=== PATIENT | female | born 1945 | race Caucasian/White ===

== ENCOUNTER 2021-02-07 12:16 | Outpatient (REF) | payer MEDICARE, SELFPAY ==
[2021-02-07 13:59] LABS: MANUAL DIFF FLAG NO
[2021-02-07 14:04] LABS: Basophils Absolute Auto 0.1 X10*3/uL (0.0-0.2); Basophils Percent Auto 0.6 % (0-2); Eosinophils Absolute Auto 0.1 X10*3/uL (0.0-0.4); Eosinophils Percent Auto 1.3 % (0-4); Hematocrit 47.5 % (37.0-47.0); Hemoglobin 16.1 g/dl (12.0-16.0); Imm Gran Abs Auto 0.02 X10*3/uL (0.00-0.03); Imm Gran Pct Auto 0.3 % (0.0-0.4); Lymphocytes Percent Auto 25.1 % (20-40); Mean Corpuscular HGB Conc 33.9 g/dl (31.0-35.0); Mean Corpuscular Hemoglobin 32.3 pg (27.0-33.0); Mean Corpuscular Volume 95.4 fL (80.0-98.0); Mean Platelet Volume 9.5 fL (9.4-12.3); Monocytes Absolute Auto 0.7 X10*3/uL (0.1-1.2); Monocytes Percent Auto 9.4 % (2-11); Neutrophils Absolute Auto 4.9 x10*3/uL (2.0-8.3); Neutrophils Percent Auto 63.3 % (45-73); Platelet Count 341 X10*3/uL (160-400); Red Blood Count 4.98 X10*6/uL (4.20-5.50); Red Cell Distribution Width 12.5 % (11.0-16.0); White Blood Count 7.8 X10*3/uL (4.8-10.8)
[2021-02-07 14:28] LABS: Alanine Aminotransferase 20 U/L (0-31); Albumin Level 4.7 g/dL (3.5-5.0); Alkaline Phosphatase 60 U/L (39-117); Anion Gap 15 (12-20); Aspartate Amino Transferase 22 U/L (5-31); Bilirubin Total 0.7 mg/dL (0.0-1.0); Blood Urea Nitrogen 11 mg/dL (9-16); C Reactive Protein 0.13 mg/dL (< or = 0.50); Calcium 10.2 mg/dL (8.4-10.2); Carbon Dioxide 24 mmol/L (22-29); Chloride 102 mmol/L (96-108); Estimated Glomerular Filt Rate > 60; Glucose Random 83 mg/dL (60-115); Potassium 4.4 mmol/L (3.3-5.1); Sodium 137 mmol/L (135-145); Total Protein 7.4 g/dL (6.5-8.0)
[2021-02-07 14:51] LABS: Free T4 (Free Thyroxine) 1.72 ng/dL (0.71-1.85); Thyroid Stimulating Hormone 0.03 uIU/mL (0.32-4.0)
== END 2021-02-07 12:17 | disposition home or self-care (01) ==
LOC: HO.10HDL 12:16
PROVIDERS: Visit Provider Internal Medicine
DX: I10 Essential (primary) hypertension (principal); E03.9 Hypothyroidism, unspecified
CPT/HCPCS: 36415; 80053; 84439; 84443; 85025; 86140; 86787

== ENCOUNTER 2021-03-20 11:35 | Outpatient (REF) | payer MEDICARE, SELFPAY ==
[2021-03-20 14:36] LABS: Free T4 (Free Thyroxine) 1.26 ng/dL (0.71-1.85); Thyroid Stimulating Hormone 1.22 uIU/mL (0.32-4.0)
== END 2021-03-20 11:36 | disposition home or self-care (01) ==
LOC: HO.10HDL 11:35
PROVIDERS: Visit Provider Internal Medicine
DX: E03.9 Hypothyroidism, unspecified (principal)
CPT/HCPCS: 36415; 84439; 84443

== ENCOUNTER 2021-04-10 16:16 | Outpatient (REF) | payer MEDICARE, SELFPAY ==
--- NOTE | ~2021-04-10 | MR_ITS ---
EXAMINATION: MRI CHEST WITHOUT CONTRAST CLINICAL INFORMATION: Persistent left rib pain. Intercostal pain. No injury. COMPARISON: None TECHNIQUE: Multisequence MR imaging of the chest was obtained without contrast on a high-field strength scanner. FINDINGS: There is focal edema at the left 10th and 11th rib costochondral junctions, best seen on series 15, coronal image 29/40. There is mild adjacent soft tissue edema. Findings likely represent costochondritis and can be seen in the setting of an inflammatory process or represent a traumatic injury. An infectious process is thought less likely as there is not significant adjacent marrow edema. No definite rib fracture identified, however evaluation is limited on MR examination. No additional abnormal marrow signal or evidence of acute osseous injury. No large airspace consolidation or large soft tissue mass within the lungs. Evaluation limited as the lung apices are not included and there is prominent respiratory motion. The mediastinum is grossly unremarkable. Partially visualized within the upper abdomen is an anterior right hepatic 0.9 cm simple-appearing cyst as well as bilateral simple-appearing renal cysts. Findings are not clinically significant and no continued follow up imaging is recommended. MR/MR chest wo con IMPRESSION: Edema at the left 10th and 11th rib costochondral junctions with adjacent soft tissue edema. Findings likely represent costochondritis and can be seen in the setting of an inflammatory process or traumatic injury. An infectious process is thought less likely as there is not significant adjacent marrow edema. No definite rib fracture, however fine bony detail is limited on MRI examination.
== END 2021-04-10 16:17 | disposition home or self-care (01) ==
LOC: HO.MRI 16:16
PROVIDERS: PCP Internal Medicine; Visit Provider Internal Medicine
DX: R07.82 Intercostal pain (principal)
CPT/HCPCS: 71550

== ENCOUNTER 2021-09-23 10:56 | Outpatient (REF) | payer MEDICARE, SELFPAY ==
[2021-09-23 13:31] LABS: MANUAL DIFF FLAG NO
[2021-09-23 13:39] LABS: Basophils Percent Auto 0.8 % (0-2); Eosinophils Absolute Auto 0.2 X10*3/uL (0.0-0.4); Eosinophils Percent Auto 3.6 % (0-4); Hematocrit 48.1 % (37.0-47.0); Hemoglobin 15.8 g/dl (12.0-16.0); Imm Gran Abs Auto 0.01 X10*3/uL (0.00-0.03); Imm Gran Pct Auto 0.2 % (0.0-0.4); Lymphocytes Absolute Auto 1.5 X10*3/uL (1.2-4.9); Lymphocytes Percent Auto 29.4 % (20-40); Mean Corpuscular HGB Conc 32.8 g/dl (31.0-35.0); Mean Corpuscular Hemoglobin 32.3 pg (27.0-33.0); Mean Corpuscular Volume 98.4 fL (80.0-98.0); Mean Platelet Volume 9.5 fL (9.4-12.3); Monocytes Absolute Auto 0.5 X10*3/uL (0.1-1.2); Monocytes Percent Auto 10.2 % (2-11); Neutrophils Absolute Auto 2.8 x10*3/uL (2.0-8.3); Neutrophils Percent Auto 55.8 % (45-73); Platelet Count 355 X10*3/uL (160-400); Red Blood Count 4.89 X10*6/uL (4.20-5.50)
[2021-09-23 14:18] LABS: Alanine Aminotransferase 74 U/L (0-31); Albumin Level 4.5 g/dL (3.5-5.0); Alkaline Phosphatase 185 U/L (39-117); Anion Gap 14 (12-20); Aspartate Amino Transferase 67 U/L (5-31); Bilirubin Total 0.4 mg/dL (0.0-1.0); Blood Urea Nitrogen 10 mg/dL (9-16); Calcium 10.5 mg/dL (8.4-10.2); Carbon Dioxide 28 mmol/L (22-29); Chloride 103 mmol/L (96-108); Cholesterol 209 mg/dL; Estimated Glomerular Filt Rate > 60; Glucose Fasting 97 mg/dL (60-99); HDL Cholesterol 66 mg/dL; LDL Cholesterol Calculated 115 mg/dl; Potassium 5.5 mmol/L (3.3-5.1); Sodium 139 mmol/L (135-145); Total Protein 7.5 g/dL (6.5-8.0); Triglycerides 143 mg/dL
[2021-09-23 14:40] LABS: Free T4 (Free Thyroxine) 1.41 ng/dL (0.71-1.85); Thyroid Stimulating Hormone 0.74 uIU/mL (0.32-4.0)
== END 2021-09-23 10:57 | disposition home or self-care (01) ==
LOC: HO.10HDL 10:56
PROVIDERS: Visit Provider Internal Medicine
DX: E03.9 Hypothyroidism, unspecified (principal); I10 Essential (primary) hypertension; E78.00 Pure hypercholesterolemia, unspecified
CPT/HCPCS: 36415; 80053; 80061; 84439; 84443; 85025

== ENCOUNTER 2021-10-13 10:28 | Outpatient (REF) | payer MEDICARE, SELFPAY ==
[2021-10-13 14:12] LABS: Alanine Aminotransferase 35 U/L (0-31); Albumin Level 4.6 g/dL (3.5-5.0); Alkaline Phosphatase 117 U/L (39-117); Anion Gap 14 (12-20); Aspartate Amino Transferase 36 U/L (5-31); Bilirubin Total 0.5 mg/dL (0.0-1.0); Blood Urea Nitrogen 11 mg/dL (9-16); Calcium 9.9 mg/dL (8.4-10.2); Carbon Dioxide 26 mmol/L (22-29); Chloride 101 mmol/L (96-108); Estimated Glomerular Filt Rate > 60; Glucose Random 93 mg/dL (60-115); Potassium 4.9 mmol/L (3.3-5.1); Sodium 136 mmol/L (135-145); Total Protein 7.3 g/dL (6.5-8.0)
== END 2021-10-13 10:29 | disposition home or self-care (01) ==
LOC: HO.10HDL 10:28
PROVIDERS: Visit Provider Internal Medicine
DX: E78.00 Pure hypercholesterolemia, unspecified (principal)
CPT/HCPCS: 36415; 80053

== ENCOUNTER 2021-11-14 15:26 | Outpatient (REF) | payer MEDICARE, SELFPAY ==
--- NOTE | ~2021-11-14 | CT_ITS ---
EXAMINATION: CT CHEST SCREENING CLINICAL INFORMATION: Current smoker. 60-pack year history. COMPARISON: Chest MRI April 2021. TECHNIQUE: Multidetector volumetric CT imaging of the chest is performed without contrast using low dose technique. Additional 2D coronal and sagittal reformatted images and axial 3D maximum intensity projection (MIP) images are generated on the CT workstation. This CT examination was performed using dose optimization techniques as appropriate, variously including the following: *Automated exposure control *Adjustment of mA and/or kV according to patient size (this includes techniques or standardized protocols for targeted exams where dose is matched to indication/reason for exam; i.e. extremities or head) *Use of iterative reconstruction technique DLP: 43 mGy-cm. FINDINGS: LUNGS: The lungs are clear with no evidence of inflammation or nodules. MEDIASTINUM: Coronary artery calcification and atherosclerotic disease. The mediastinum is otherwise normal. PLEURA: There is no pleural effusion. No pleural mass or thickening. AXILLA: No lymphadenopathy. UPPER ABDOMEN: Wall thickening of the stomach. Small stable liver cyst. OSSEOUS STRUCTURES: There are degenerative changes of the spine. CT/CT lung screening IMPRESSION: Atherosclerotic disease and mild coronary artery calcification. ASSESSMENT: Lung-RADS category 1: Negative RECOMMENDATION: Annual low-dose chest CT follow-up recommended.
== END 2021-11-14 15:27 | disposition home or self-care (01) ==
LOC: HO.CT 15:26
PROVIDERS: PCP Internal Medicine; Visit Provider Physician Assistant Medical
DX: F17.210 Nicotine dependence, cigarettes, uncomplicated (principal)
CPT/HCPCS: 71271; G0296

== ENCOUNTER 2021-12-24 11:32 | Outpatient (REF) | payer MEDICARE, SELFPAY ==
[2021-12-24 14:00] LABS: Alanine Aminotransferase 35 U/L (0-31); Albumin Level 4.6 g/dL (3.5-5.0); Alkaline Phosphatase 90 U/L (39-117); Aspartate Amino Transferase 37 U/L (5-31); Bilirubin Direct 0.3 mg/dL (0.0-0.5); Bilirubin Total 0.7 mg/dL (0.0-1.0); Total Protein 7.4 g/dL (6.5-8.0)
== END 2021-12-24 11:33 | disposition home or self-care (01) ==
LOC: HO.10HDL 11:32
PROVIDERS: Visit Provider Internal Medicine
DX: R79.89 Other specified abnormal findings of blood chemistry (principal)
CPT/HCPCS: 36415; 80076

== ENCOUNTER 2022-04-08 12:18 | Outpatient (REF) | payer MEDICARE, SELFPAY ==
[2022-04-08 14:18] LABS: MANUAL DIFF FLAG NO
[2022-04-08 14:23] LABS: Basophils Absolute Auto 0.1 X10*3/uL (0.0-0.2); Basophils Percent Auto 1.1 % (0-2); Eosinophils Absolute Auto 0.2 X10*3/uL (0.0-0.4); Eosinophils Percent Auto 2.5 % (0-4); Hematocrit 47.5 % (37.0-47.0); Hemoglobin 15.7 g/dl (12.0-16.0); Imm Gran Abs Auto 0.01 X10*3/uL (0.00-0.03); Imm Gran Pct Auto 0.2 % (0.0-0.4); Lymphocytes Percent Auto 32.2 % (20-40); Mean Corpuscular HGB Conc 33.1 g/dl (31.0-35.0); Mean Corpuscular Hemoglobin 31.7 pg (27.0-33.0); Mean Platelet Volume 8.9 fL (9.4-12.3); Monocytes Absolute Auto 0.5 X10*3/uL (0.1-1.2); Monocytes Percent Auto 8.7 % (2-11); Neutrophils Absolute Auto 3.4 x10*3/uL (2.0-8.3); Neutrophils Percent Auto 55.3 % (45-73); Platelet Count 400 X10*3/uL (160-400); Red Blood Count 4.95 X10*6/uL (4.20-5.50); Red Cell Distribution Width 13.2 % (11.0-16.0); White Blood Count 6.1 X10*3/uL (4.8-10.8)
[2022-04-08 14:45] LABS: Alanine Aminotransferase 19 U/L (0-31); Albumin Level 4.4 g/dL (3.5-5.0); Alkaline Phosphatase 68 U/L (39-117); Anion Gap 10 (12-20); Aspartate Amino Transferase 23 U/L (5-31); Bilirubin Total 0.5 mg/dL (0.0-1.0); Blood Urea Nitrogen 10 mg/dL (9-16); Calcium 10.2 mg/dL (8.4-10.2); Carbon Dioxide 30 mmol/L (22-29); Chloride 102 mmol/L (96-108); Estimated Glomerular Filt Rate > 60; Glucose Random 94 mg/dL (60-115); Potassium 4.3 mmol/L (3.3-5.1); Sodium 138 mmol/L (135-145)
[2022-04-08 15:03] LABS: Thyroid Stimulating Hormone 3.12 uIU/mL (0.32-4.0)
== END 2022-04-08 12:19 | disposition home or self-care (01) ==
LOC: HO.10HDL 12:18
PROVIDERS: Visit Provider Internal Medicine
DX: E78.00 Pure hypercholesterolemia, unspecified (principal); E03.9 Hypothyroidism, unspecified; I10 Essential (primary) hypertension
CPT/HCPCS: 36415; 80053; 84439; 84443; 85025

== ENCOUNTER 2022-07-30 10:02 | Outpatient (REF) | payer MEDICARE, SELFPAY ==
[2022-07-30 11:30] LABS: MANUAL DIFF FLAG NO
[2022-07-30 11:44] LABS: Basophils Absolute Auto 0.1 X10*3/uL (0.0-0.2); Basophils Percent Auto 0.9 % (0-2); Eosinophils Absolute Auto 0.2 X10*3/uL (0.0-0.4); Eosinophils Percent Auto 2.6 % (0-4); Hematocrit 47.5 % (37.0-47.0); Hemoglobin 16.1 g/dl (12.0-16.0); Imm Gran Abs Auto 0.02 X10*3/uL (0.00-0.03); Imm Gran Pct Auto 0.3 % (0.0-0.4); Mean Corpuscular HGB Conc 33.9 g/dl (31.0-35.0); Mean Corpuscular Hemoglobin 33.3 pg (27.0-33.0); Mean Corpuscular Volume 98.1 fL (80.0-98.0); Mean Platelet Volume 9.1 fL (9.4-12.3); Monocytes Absolute Auto 0.5 X10*3/uL (0.1-1.2); Monocytes Percent Auto 7.6 % (2-11); Neutrophils Absolute Auto 3.9 x10*3/uL (2.0-8.3); Neutrophils Percent Auto 58.6 % (45-73); Platelet Count 394 X10*3/uL (160-400); Red Blood Count 4.84 X10*6/uL (4.20-5.50); Red Cell Distribution Width 13.5 % (11.0-16.0); White Blood Count 6.6 X10*3/uL (4.8-10.8)
[2022-07-30 12:40] LABS: Alanine Aminotransferase 16 U/L (0-31); Albumin Level 4.4 g/dL (3.5-5.0); Alkaline Phosphatase 75 U/L (39-117); Anion Gap 13 (12-20); Aspartate Amino Transferase 19 U/L (5-31); Bilirubin Total 0.6 mg/dL (0.0-1.0); Blood Urea Nitrogen 11 mg/dL (9-16); Calcium 9.9 mg/dL (8.4-10.2); Carbon Dioxide 27 mmol/L (22-29); Chloride 106 mmol/L (96-108); Cholesterol 293 mg/dL; Estimated Glomerular Filt Rate > 60; Free T4 (Free Thyroxine) 1.15 ng/dL (0.71-1.85); Glucose Fasting 91 mg/dL (60-99); HDL Cholesterol 61 mg/dL; LDL Cholesterol Calculated 210 mg/dl; Magnesium 2.3 mg/dL (1.6-2.6); Potassium 4.4 mmol/L (3.3-5.1); Sodium 142 mmol/L (135-145); Thyroid Stimulating Hormone 2.06 uIU/mL (0.32-4.0); Total Protein 6.8 g/dL (6.5-8.0); Triglycerides 112 mg/dL
== END 2022-07-30 10:03 | disposition home or self-care (01) ==
LOC: HO.10HDL 10:02
PROVIDERS: Visit Provider Internal Medicine
DX: Z00.00 Encounter for general adult medical examination without abnormal findings (principal); E03.9 Hypothyroidism, unspecified; R10.9 Unspecified abdominal pain
CPT/HCPCS: 36415; 80053; 80061; 83735; 84439; 84443; 85025

== ENCOUNTER 2022-08-17 12:15 | Outpatient (REF) | payer MEDICARE, SELFPAY ==
[2022-08-17 13:55] LABS: C Reactive Protein 0.47 mg/dL (< or = 0.50); Rheumatoid Factor < 13.0 IU/mL (<15.0)
[2022-08-17 14:43] LABS: Erythrocyte Sedimentation Rate 5 MM/HR (0-20)
[2022-08-19 15:37] LABS: Anti Nuclear Antibody Screen NEGATIVE (NEGATIVE)
== END 2022-08-17 12:16 | disposition home or self-care (01) ==
LOC: HO.10HDL 12:15
PROVIDERS: Visit Provider Internal Medicine
DX: L65.9 Nonscarring hair loss, unspecified (principal); Z84.0 Family history of diseases of the skin and subcutaneous tissue
CPT/HCPCS: 36415; 85652; 86038; 86140; 86431

== ENCOUNTER 2022-09-21 11:21 | Outpatient (REF) | payer MEDICARE, SELFPAY ==
[2022-09-22 11:18] LABS: BV Int Neg Control Negative (Negative); BV Int Pos Control Positive (Positive)
== END 2022-09-21 11:22 | disposition home or self-care (01) ==
LOC: HO.LAB 11:21
PROVIDERS: PCP Internal Medicine; Visit Provider Obstetrics & Gynecology
DX: N89.8 Other specified noninflammatory disorders of vagina (principal)
CPT/HCPCS: 87480; 87510; 87660; 99212

== ENCOUNTER 2022-11-09 09:48 | Outpatient (AMB) | payer MEDICARE, SELFPAY ==
[2022-11-09 09:55] VITALS: BP 146/80; PULSE 82; BMI 23.8
--- NOTE | 2022-11-09 09:55 | MHC.OFFVIS ---
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 Reclamation Required: No Allergies shellfish derived Allergy (Unknown, Verified 09/21/22 11:27) Unknown Sulfa (Sulfonamide Antibiotics) Allergy (Unknown, Verified 09/21/22 11:27) Unknown amoxicillin [From Augmentin] Adverse Reaction (Mild, Verified 09/23/22 10:58) Nausea and Vomiting clavulanic acid [From Augmentin] Adverse Reaction (Mild, Verified 09/23/22 10:58) Nausea and Vomiting Medication List - Last Reconciled 11/09/22 by Hood Vogel MD amlodipine 5 mg PO DAILY cetirizine 10 mg PO DAILY PRN cholecalciferol (vitamin D3) 50 mcg PO DAILY clindamycin phosphate 2% 1 appful vaginal BEDTIME 7 days coenzyme Q10 (Ultra CoQ10) 75 mg PO DAILY levothyroxine 150 mcg PO DAILY lisinopril 30 mg PO DAILY omega 3-pbr-dvk-fish oil 1,200 (144-216) mg (Fish Oil) caps PO omeprazole 20 mg PO DAILY rosuvastatin 10 mg PO BEDTIME HPI HPI Comments History of Present Illness Details Thank you for referring clot in cardiology consultation today for management of hyperlipidemia. She is a 77-year-old woman who had atypical ribcage pain few years ago for which she had EKG performed which had shown bifascicular block. Subsequently was seen by Cardiology at [facility] and had echocardiogram which had shown normal LV systolic function with mild LVH without any significant regional wall motion abnormality or valvular abnormality. Since then her ribcage pain has been well controlled. She then developed skin condition and felt like this was related to statin therapy and decided to come off statin therapy. Her LDL followed after that was markedly elevated to 110 mg/dL. She continues to smoke about 1 pack a day. She has family history of premature coronary artery disease. She had a recent CT scan for cancer screening which showed aortic as well as coronary artery calcification consistent with atherosclerosis. She has been referred here for further evaluation. She denies any overt symptoms of exertional chest pain. She denies any symptoms of palpitations, lightheadedness, syncope. Complains of shortness of breath but this is not unusual for her. [facility] Medical History Hyperlipidemia Hypertension Hypothyroidism Personal history of nicotine dependence Surgical History History of bladder surgery History of cholecystectomy History of hysterectomy History of lumpectomy of right breast History of tonsillectomy History of tubal ligation Family History Sister Cancer of kidney Psoriasis Arthritis Lupus Blood clot in vein Acute Crohn's disease Father Atherosclerosis Social History Patient Tobacco Use Status: Current everyday Tobacco user Tobacco use type: Cigarette Cigarette Packs Per Day: 1 Years Smoked: onset 17, 1ppd x 59yrs, 50+PYH Review of Systems Const Denies chills, Denies daytime sleepiness, Denies fatigue, Denies fever(s), Denies frequent falls, Denies poor appetite, Denies snoring, Denies stops breathing during sleep, Denies weakness, Denies weight gain and Denies weight loss Eyes Denies loss of vision ENT Denies dizziness and Denies hearing loss Card Denies chest pain, Denies claudication, Denies leg edema, Denies lightheadedness, Denies palpitations, Denies dyspnea, Denies dyspnea on exertion and Denies orthopnea Resp Denies cough, Denies excessive phlegm production, Denies dyspnea, Denies dyspnea on exertion, Denies snoring and Denies wheezing GI Denies abdominal pain, Denies hematochezia, Denies change in bowel habits, Denies nausea and Denies vomiting Denies urinary frequency and Denies dysuria Musc Denies arthralgias, Denies muscle weakness, Denies numbness and Denies other (frequent falls) Skin/Breast Denies nail changes and Denies rash Neuro Denies Abnormal speech present, Denies dizziness, Denies frequent falls, Denies loss of vision, Denies memory loss, Denies numbness and Denies weakness Psych Denies depression and Denies memory loss Endo Denies fatigue and Denies palpitations Minh/Lymph Reports easy bruising and Reports other (anemia) Aller/Immun Denies wheezing Physical Exam Vital Signs: Last Vital Signs Pulse 82 11/09/22 09:55 BP 146/80 H 11/09/22 09:55 BMI result Body Mass Index 23.8 Const General: cooperative, comfortable, no acute distress, well developed, alert, awake and well groomed Nutritional Appearance: average body habitus and well nourished Orientation/consciousness: patient oriented x3 Limitations: no limitations HEENT Head: Yes normocephalic and Yes atraumatic Neck Neck: Yes trachea midline, Yes supple and Yes no JVD Resp Effort & Inspection: normal respiratory effort Auscultation: clear to auscultation bilaterally Cardio Jugular venous distension: no JVD Palpation: normal PMI Rate: regular rate Rhythm: regular rhythm Heart sounds: S1 normal heart sound present, S2 normal heart sound present, no click, no gallops, no murmurs and no rubs GI Auscultation: normal bowel sounds Skin General skin exam: no rashes or lesions noted Neuro General: patient oriented x3 and no focal motor deficits Speech: No Abnormal speech present Extrem General: Yes no clubbing, cyanosis or edema Office Procedures EKG Details: EKG shows normal sinus rhythm with right bundle and left anterior fascicular block, unchanged from before with QS pattern in lead V1 V2 [id number], Complete Assessment & Plan Assessment & Plan (1) CAD (coronary artery disease): Code(s): I25.10 - Atherosclerotic heart disease of [place] coronary artery without angina pectoris Plan: CAD as noted by coronary calcification recent CT scan. She has multiple risk factors for obstructive coronary artery disease including aging, family history for coronary artery disease, marked hyperlipidemia, hypertension as well as personal history of smoking. She has bifascicular block. Would suggest her to undergo exercise myocardial perfusion imaging to evaluate for obstructive coronary artery disease for diagnostic as well as prognostic purposes. This test will be scheduled in near future. Advised complete smoking cessation. Blood pressure is currently well optimized. Advised to monitor blood pressure at home maintain a log. Goal blood pressure less than 130/84. 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 Advised statin therapy. She is currently on 10 mg of Crestor and would suggest to repeat lipid panel in 6 weeks time. Goal LDL less than 70 mg/dL. This was discussed with her. She understands and agrees. (2) Bifascicular block: Code(s): I45.2 - Bifascicular block Plan: Bifascicular block on EKG which is unchanged in the last couple years. Advised to monitor on annual basis by EKG. Rare progression to complete heart block was discussed with her. Advised to call and with any symptoms related to the same. Will follow up in the clinic in 6 weeks time, sooner p.r.n.. Thank you for allowing me to partake in her care Coding Level of Care Code New Pt Level 4 (42293) Diagnoses CAD (coronary artery disease) I25.10 Bifascicular block I45.2 CPT Codes EKG - CPT: [id number], Complete ([id number])
== END 2022-11-09 10:58 | disposition home or self-care (01) ==
PROVIDERS: PCP Internal Medicine; Referring Provider Internal Medicine; Visit Provider Internal Medicine Cardiovascular Disease
DX: I25.10 Atherosclerotic heart disease of native coronary artery without angina pectoris (principal); I45.2 Bifascicular block
CPT/HCPCS: 93010; 99204

== ENCOUNTER → 2022-11-09 09:48 | Outpatient (BNVA) | payer MEDICARE, SELFPAY | PROVIDERS: PCP Internal Medicine; Referring Provider Internal Medicine; Visit Provider Internal Medicine Cardiovascular Disease | DX: I25.10 Atherosclerotic heart disease of native coronary artery without angina pectoris (principal); I45.2 Bifascicular block | CPT/HCPCS: 93005; 99202 ==

== ENCOUNTER → 2022-12-01 08:13 | Outpatient (REF) | payer MEDICARE, SELFPAY ==
--- NOTE | ~2022-12-01 | NM_ITS ---
EXERCISE MYOCARDIAL PERFUSION STUDY INDICATION: Coronary artery disease, assess for ischemia TECHNIQUE: The patient was brought in for an exercise perfusion study on 12/01/2022. Patient performed exercise as per Pradeep protocol and was injected 25 mCi of sestamibi once target heart rate was achieved. Images were obtained using the SPECT gamma camera interlaced with the gating device. Images were obtained in supine position. Resting perfusion study was performed on 12/02/2022. Patient was administered 25 mCi of sestamibi intravenously at rest. Images were then obtained in supine position. Images were processed with the software and compared side to side in short axis, horizontal long axis and vertical long axis views. Total DLP 74mGy-cm. FINDINGS: Raw images were reviewed. The stress perfusion study showed no significant perfusion defects. Both uncorrected as well as CT attenuation corrected images were reviewed. The gated study shows normal LV systolic function with calculated LVEF of >70%. LV cavity is normal in size. The gated study shows hyperdynamic wall thickening and contraction of segments. Resting study shows no significant perfusion defects. Gating at rest reveals hyperdynamic wall motion with ejection fraction at >70%. The findings are consistent with no clear reversible or fixed perfusion defects. NM/NM cardiolite stress test IMPRESSION: 1. Myocardial perfusion imaging study shows normal myocardial perfusion. 2. Gated LVEF is > 70% during stress and rest. 3. Transient ischemic dilatation not present. EKG component of the test reported separately.
--- NOTE | 2022-12-01 08:17 | CA_ITS ---
Acquisition Time: 2022-12-01 08:26:54 Total Exercise Time: 00:05:00 Test Indications: CAD CHEST PAIN Medications: SEE H Protocol: ANGELIQUE Max HR: 146 BPM 101% of Pred: 144 BPM Max BP: 167/076 mmHG Max Work Load: 7.0 METS Exercise stress test exercise 5 min of Angelique protocol achieving 101% MPHR, with mild SOB, no chest discomfort, without arrhythmias, with normotensive response to exercise, without EKG changes. Nuclear images pending. Test reviewed with Dr. Cheung. Referred By: Hood Vogel Overread By: Caitlin Amaro
== END ==
LOC: HO.CARD 08:13
PROVIDERS: PCP Internal Medicine; Visit Provider Internal Medicine Cardiovascular Disease
DX: R07.9 Chest pain, unspecified (principal); I25.10 Atherosclerotic heart disease of native coronary artery without angina pectoris
CPT/HCPCS: 78452; 93017; A9500

== ENCOUNTER → 2022-12-01 08:17 | Outpatient (BNV) | payer MEDICARE, SELFPAY | PROVIDERS: PCP Internal Medicine; Visit Provider Nurse Practitioner | DX: I25.10 Atherosclerotic heart disease of native coronary artery without angina pectoris (principal) | CPT/HCPCS: 78452; 93016; 93018 ==

== ENCOUNTER 2022-12-14 09:47 | Outpatient (AMB) | payer MEDICARE, SELFPAY ==
--- NOTE | 2022-12-14 09:52 | MHC.PC.OV ---
Vital Signs 12/14/22 09:53 Height 5 ft 7.5 in Weight 156 lb BMI 24.1 BP 130/78 Blood Pressure Location Lt brachial Position Sitting Pulse 79 Pulse Source Pulse Oximeter Pulse Oximetry (%) 94 Oxygen Delivery Method Room Air Intake Visit Reasons: New Patient-general check up Intake Note: Patient is here as a new patient, with lump on both legs, and she would like her neck checked out, has a history of thyroid problem. Allergies shellfish derived Allergy (Unknown, Verified 12/14/22 09:56) Unknown Sulfa (Sulfonamide Antibiotics) Allergy (Unknown, Verified 12/14/22 09:56) Unknown amoxicillin [From Augmentin] Adverse Reaction (Mild, Verified 12/14/22 09:56) Nausea and Vomiting clavulanic acid [From Augmentin] Adverse Reaction (Mild, Verified 12/14/22 09:56) Nausea and Vomiting Medication List - Last Reconciled 12/14/22 by Sukhdev Layne MD amlodipine 5 mg PO DAILY cetirizine 10 mg PO DAILY PRN cholecalciferol (vitamin D3) 50 mcg PO DAILY clindamycin phosphate 2% 1 appful vaginal BEDTIME 7 days coenzyme Q10 (Ultra CoQ10) 75 mg PO DAILY levothyroxine 150 mcg PO DAILY lisinopril 30 mg PO DAILY omega 4-mlp-iub-fish oil 1,200 (144-216) mg (Fish Oil) caps PO omeprazole 20 mg PO DAILY rosuvastatin 10 mg PO BEDTIME Tobacco use date assessed: 12/14/22 Fall risk assessment: No Falls in past year Last assessed Fall Risk: 12/14/22 Dental Screening Dental Screen Date: 12/14/22 Did you have a dental visit in the last 12 months?: No Did you have a dental problem in the last 6 months where you did not have access to dental care?: No Was dental information given to patient?: Patient declined HPI New Patient-general check up HPI Details New patient Prior PCP:? Jordan Brandon MD Last office visit/CPE: 3 mos Acute issue(s): PMHx: Hypothyroidism, Costonchondritis, Hypertension, HLD, CAD, Vulvovaginitis, Eczema SurgHx: - FHx: - SocHx - : HPI Comments History of Present Illness Details Documentation assistance for Sukhdev Layne MD, was provided by Jay Llenardo Bobby,? Laundromat Manager on 12/14/2022 10:28 AM EST. Crews, Dr. Layne, have read, observed, and verified documentation.? PFSH Medical History Hypothyroidism Hyperlipidemia Hypertension Personal history of nicotine dependence Surgical History History of tonsillectomy History of lumpectomy of right breast History of tubal ligation History of cholecystectomy History of bladder surgery History of hysterectomy Family History (Updated 12/14/22 @ 10:12 by Eusebia Bianchi CMA) Sister Cancer of kidney Psoriasis Arthritis Lupus Blood clot in vein Acute Crohn's disease Substance abuse Father Atherosclerosis Substance abuse Mother Substance abuse Maternal Aunt Substance abuse Paternal Grandfather No problems noted. Social History Housing: House Patient Tobacco Use Status: Current everyday Tobacco user Tobacco use type: Cigarette Cigarette Packs Per Day: 1 Years Smoked: onset 17, 1ppd x 59yrs, 50+PYH e-Cigarette/Vaping Use: Never Used service: No Current occupational status: retired Cognitive needs: No Hearing needs: No Vision needs: Yes (Patient wears reading glasses.) Questionnaire PHQ-9 Over the last 2 weeks, how often have you been bothered by any of the following problems? 1. Little interest or pleasure in doing things: not at all 2. Feeling down, depressed, or hopeless: not at all 3. Trouble falling or staying asleep, or sleeping too much: several days 4. Feeling tired or having little energy: several days 5. Poor appetite or overeating: not at all 6. Feeling bad about yourself - or that you are a failure or have let yourself or your family down: several days 7. Trouble concentrating on things, such as reading the newspaper or watching television: not at all 8. Moving or speaking so slowly that other people could have noticed. Or the opposite - being so fidgety or restless that you have been moving around a lot more than usual: not at all 9. Thoughts that you would be better off or of hurting yourself in some way: not at all Total score: 3 Source: Developed by Drs. Karsten Mccloud, Michell Napoles, Jose Guerin and colleagues, with an educational janneth from [employer]. Thrive Questionnaire I am a: Patient What is your living situation today?: I have a steady place to live Within the past 12 months, did the food you bought not last and you didn't have the money to get more?: Never true Within the past 12 months, did you worry whether your food would run out before you got money to buy more?: Never true Do you have trouble paying for medicines?: No Do you have trouble getting transportation to medical appointments?: No Do you have trouble paying your heating and electricity bill?: No Do you have trouble taking care of your child, family member or friend?: No Do you have trouble with day-to-day activities such as bathing, preparing meals, shopping, managing finances, etc.?: No Are you currently unemployed and looking for a job?: No Are you interested in more education?: No AUDIT C Alcohol Use Questionnaire (AUDIT-C) 1. How often do you have a drink containing alcohol?: 4 or more times a week 2. How many drinks containing alcohol do you have on a typical day when you are drinking?: 3 or 4 3. How often do you have six or more drinks on one occasion?: Never Total Score: 5 KEILA-7 AMB Questionnaire KEILA-7 Date KEILA - 7 assessed: 12/14/22 Feeling nervous, anxious, or on edge: 0 = Not at all Not being able to stop or control worryin = Several days Worrying too much about different things: 1 = Several days Trouble relaxin = Not at all Being so restless that it is hard to sit still: 0 = Not at all Becoming easily annoyed or irritable: 0 = Not at all Feeling afraid as if something awful might happen: 0 = Not at all Total KEILA-7 score (0-4 normal; 5-9 mild; 10-14 moderate; 15-21 severe): 2 Source: Developed by Drs. Karsten Mccloud, Michell Napoles, Jose Guerin and colleagues, with an educational janneth from [employer]. Physical exam (Primary Care) Vital Signs: Last Vital Signs Pulse 79 09/11/23 09:53 BP 130/78 12/14/22 09:53 Pulse Ox 94 12/14/22 09:53 Oxygen Delivery Method Room Air 12/14/22 09:53 BMI result Body Mass Index 24.1 Tobacco/Smoking Status: Tobacco use Status Tobacco use date assessed 12/14/22 12/14/22 10:13 Patient Tobacco Use Status Current everyday Tobacco 12/14/22 10:13 Tobacco use type Cigarette 12/14/22 10:13 e-Cigarette/Vaping Use Never Used 12/14/22 10:13 PHQ-9: PHQ-9 Score PHQ-9: Total score 3 12/14/22 10:14 Assessment and Plan Assessment & Plan (1) Hypertension: Code(s): I10 - Essential (primary) hypertension Plan: Blood pressure is fairly well controlled. Goal is less than 130/80 Continue current medication regimen (2) CAD (coronary artery disease): Code(s): I25.10 - Atherosclerotic heart disease of [place] coronary artery without angina pectoris Plan: Stable Follow-up with Cardiology as recommended Continue [facility] (3) Hypothyroidism: Comment: (hashimotos) Code(s): E03.9 - Hypothyroidism, unspecified Plan: Check thyroid hormone levels (4) Costochondritis: Code(s): M94.0 - Chondrocostal junction syndrome [Tietze] Plan: Can manage episodically Steroids have helped in the past (5) Hyperlipidemia: Code(s): E78.5 - Hyperlipidemia, unspecified Plan: Significantly high lipids. She is now back on Crestor She had stopped lipids in the past because she felt that they were causing skin and hair problems but those did not resolved with discontinuing statin medication. (6) Rash: Code(s): R21 - Rash and other nonspecific skin eruption (7) Eczema: Code(s): L30.9 - Dermatitis, unspecified Plan: Referred to [facility] at patient request (8) Difficulty swallowing: Code(s): R13.10 - Dysphagia, unspecified Plan: Patient notes some difficulty swallowing at the end of the visit. Occurs once or twice a day No pain Will check MBS Can also refer to [facility] if needed or to ENT; strong history of smoking (9) Laboratory exam ordered as part of routine general medical examination: Code(s): Z00.00 - Encounter for general adult medical examination without abnormal findings Plan: Check labs Orders: Orders Microalbumin, Random (w Creat) Today I10 - Essential (primary) hypertension Triiodothyronine T3 Total Today E03.9 - Hypothyroidism, unspecified Thyroid Stimulating Hormone Today E03.9 - Hypothyroidism, unspecified FL barium swallow modified Today R13.10 - Dysphagia, unspecified Comprehensive [place]. Panel Fast Today Z00.00 - Encounter for general adult medical examination without abnormal findings Complete Blood Count Auto Diff Today Z00.00 - Encounter for general adult medical examination without abnormal findings Lipid Panel Today Z00.00 - Encounter for general adult medical examination without abnormal findings UA and rflx microscopic Today Z00.00 - Encounter for general adult medical examination without abnormal findings Free T4 (Free Thyroxine) Today E03.9 - Hypothyroidism, unspecified Referrals Dermatology Referral L30.9 - Dermatitis, unspecified, R21 - Rash and other nonspecific skin eruption Allergy & Immunology Referral R21 - Rash and other nonspecific skin eruption Coding Level of Care Code New Pt Level 4 (22782) Diagnoses Hypertension I10 CAD (coronary artery disease) I25.10 Hypothyroidism E03.9 Costochondritis M94.0 Hyperlipidemia E78.5 Rash R21 Eczema L30.9 Difficulty swallowing R13.10 Laboratory exam ordered as part of routine general medical examination Z00.00
[2022-12-14 09:53] VITALS: BP 130/78; PULSE 79; O2SAT 94; BMI 24.1
== END 2022-12-14 11:04 | disposition home or self-care (01) ==
PROVIDERS: PCP Family Medicine; Visit Provider Family Medicine
DX: I10 Essential (primary) hypertension (principal); I25.10 Atherosclerotic heart disease of native coronary artery without angina pectoris; E03.9 Hypothyroidism, unspecified; M94.0 Chondrocostal junction syndrome [Tietze]; E78.5 Hyperlipidemia, unspecified; R21 Rash and other nonspecific skin eruption; L30.9 Dermatitis, unspecified; R13.10 Dysphagia, unspecified; Z00.00 Encounter for general adult medical examination without abnormal findings
CPT/HCPCS: 99204

== ENCOUNTER 2022-12-18 10:43 | Outpatient (REF) | payer MEDICARE, SELFPAY ==
[2022-12-18 15:00] LABS: MANUAL DIFF FLAG NO
[2022-12-18 15:13] LABS: Basophils Percent Auto 0.7 % (0-2); Eosinophils Absolute Auto 0.1 X10*3/uL (0.0-0.4); Eosinophils Percent Auto 1.7 % (0-4); Hematocrit 48.4 % (37.0-47.0); Hemoglobin 16.2 g/dl (12.0-16.0); Imm Gran Abs Auto 0.01 X10*3/uL (0.00-0.03); Imm Gran Pct Auto 0.2 % (0.0-0.4); Lymphocytes Absolute Auto 1.7 X10*3/uL (1.2-4.9); Lymphocytes Percent Auto 31.5 % (20-40); Mean Corpuscular HGB Conc 33.5 g/dl (31.0-35.0); Mean Corpuscular Hemoglobin 32.1 pg (27.0-33.0); Mean Platelet Volume 9.6 fL (9.4-12.3); Monocytes Absolute Auto 0.5 X10*3/uL (0.1-1.2); Neutrophils Percent Auto 56.9 % (45-73); Platelet Count 328 X10*3/uL (160-400); Red Blood Count 5.04 X10*6/uL (4.20-5.50); Red Cell Distribution Width 13.1 % (11.0-16.0); White Blood Count 5.3 X10*3/uL (4.8-10.8)
[2022-12-18 15:18] LABS: Appearance Urine Clear; Color Urine Yellow; Glucose Urine UA Negative (Negative); Leukocyte Esterase Urine Negative (Negative); Nitrite Urine Negative (Negative); PH 6.5 (5.0-9.0); Specific Gravity - Urine <= 1.005 (1.005-1.025); Urine Blood Negative (Negative); Urine Ketones Negative (Negative); Urine Protein Negative (Neg-Trace)
[2022-12-18 16:05] LABS: Alanine Aminotransferase 20 U/L (0-31); Albumin Level 4.3 g/dL (3.5-5.0); Alkaline Phosphatase 58 U/L (39-117); Anion Gap 12 (12-20); Aspartate Amino Transferase 23 U/L (5-31); Bilirubin Total 0.4 mg/dL (0.0-1.0); Blood Urea Nitrogen 11 mg/dL (9-16); Calcium 9.7 mg/dL (8.4-10.2); Carbon Dioxide 27 mmol/L (22-29); Chloride 102 mmol/L (96-108); Cholesterol 169 mg/dL (<200); Estimated Glomerular Filt Rate > 60; Glucose Fasting 90 mg/dL (60-99); HDL Cholesterol 60 mg/dL (>40); LDL Cholesterol Calculated 92 mg/dL (<100); Potassium 4.1 mmol/L (3.3-5.1); Sodium 137 mmol/L (135-145); Thyroid Stimulating Hormone 0.28 uIU/mL (0.32-4.0); Triglycerides 88 mg/dL (<150)
[2022-12-18 16:13] LABS: Creatinine Urine 22.86 mg/dL; Microalbumin Urine < 5.0 mg/L
[2022-12-19 10:09] LABS: Triiodothyronine T3 Total 79 ng/dL (76-181)
== END 2022-12-18 10:44 | disposition home or self-care (01) ==
LOC: HO.WFDLDS 10:43
PROVIDERS: Visit Provider Family Medicine
DX: Z00.00 Encounter for general adult medical examination without abnormal findings (principal); E03.9 Hypothyroidism, unspecified; I10 Essential (primary) hypertension; I25.10 Atherosclerotic heart disease of native coronary artery without angina pectoris
CPT/HCPCS: 36415; 80053; 80061; 81003; 82043; 82570; 84439; 84443; 84480; 85025

== ENCOUNTER 2022-12-24 12:50 | Outpatient (AMB) | payer MEDICARE, SELFPAY ==
[2022-12-24 13:10] VITALS: BP 140/74; PULSE 99; BMI 23.9
--- NOTE | 2022-12-24 13:10 | MHC.OFFVIS ---
Intake Vital Signs 12/24/22 13:10 Height 5 ft 7.5 in Weight 154 lb 12.232 oz BMI 23.9 BP 140/74 H Blood Pressure Location Lt brachial Position Sitting Pulse 99 Pulse Source Pulse Oximeter Intake Visit Reasons: 6 wk fu after mibi/ lipids Intake Note: 6 wk fu after mibi/lipids Exterior Interior Specialist Required: No Allergies shellfish derived Allergy (Unknown, Verified 12/24/22 13:16) Unknown Sulfa (Sulfonamide Antibiotics) Allergy (Unknown, Verified 12/24/22 13:16) Unknown clavulanic acid [From Augmentin] Adverse Reaction (Mild, Verified 12/24/22 13:16) Nausea and Vomiting Medication List - Last Reconciled 12/24/22 by KEYANA Elam amlodipine 5 mg PO DAILY cetirizine 10 mg PO DAILY PRN cholecalciferol (vitamin D3) 50 mcg PO DAILY coenzyme Q10 (Ultra CoQ10) 75 mg PO DAILY levothyroxine 150 mcg PO DAILY lisinopril 30 mg PO DAILY omega 6-swr-noj-fish oil 1,200 (144-216) mg (Fish Oil) caps PO omeprazole 20 mg PO DAILY rosuvastatin 10 mg PO BEDTIME HPI 6 wk fu after mibi/ lipids HPI Details Tatiana is a 77-year-old female with past medical history of hypertension, hyperlipidemia, long-term smoking, bifascicular block on EKG, coronary calcifications as seen on recent CT scan who underwent a nuclear stress test for further evaluation and now presents for follow-up. Today she reports she has been feeling generally well. She has no chest discomfort at rest or with activity. She denies any shortness of breath, PND, orthopnea or edema. No heart palpitations, dizziness, presyncope, syncope, falls. She continues to smoke 1 pack of cigarettes per day and says she has tried stopping over the years however she feels it will increase her anxiety if she pursue stopping again. In the past she had hair loss and skin issues with statin use. She has restarted on statin a few months ago and is now tolerating it better. She does have some hair loss but it is less than previous. She is following with a loft worker. No routine physical exercise. Stays busy throughout the day. Takes her meds as directed. [facility] Medical History Hypothyroidism Hyperlipidemia Hypertension Personal history of nicotine dependence Surgical History History of tonsillectomy History of lumpectomy of right breast History of tubal ligation History of cholecystectomy History of bladder surgery History of hysterectomy Family History Sister Cancer of kidney Psoriasis Arthritis Lupus Blood clot in vein Acute Crohn's disease Substance abuse Father Atherosclerosis Substance abuse Aortic aneurysm Mother Substance abuse Maternal Aunt Substance abuse Paternal Grandfather No problems noted. Social History Housing: House Patient Tobacco Use Status: Current everyday Tobacco user Tobacco use type: Cigarette Cigarette Packs Per Day: 1 Years Smoked: onset 17, 1ppd x 59yrs, 50+PYH e-Cigarette/Vaping Use: Never Used service: No Current occupational status: retired Cognitive needs: No Hearing needs: No Vision needs: Yes (Patient wears reading glasses.) Review of Systems Const Details: Skin issues reported, mild hair loss. All systems reviewed & are unremarkable except as noted in HPI and below ENT Denies dizziness Card Denies chest pain, Denies chest pain at rest, Denies chest pain with activity, Denies rapid heart rate, Denies pedal edema, Denies edema, Denies leg edema, Denies lightheadedness, Denies palpitations, Denies dyspnea, Denies dyspnea on exertion and Denies orthopnea Resp Denies cough, Denies dyspnea and Denies dyspnea on exertion GI Denies hematochezia and Denies change in stool character Musc Denies abnormal gait, Denies limited range of motion, Denies muscle cramps, Denies muscle weakness, Denies numbness, Denies radiating pain into limb, Denies stiffness and Denies tingling Neuro Denies abnormal gait, Denies dizziness, Denies numbness and Denies tingling Endo Denies palpitations Physical Exam Vital Signs: Last Vital Signs Pulse 99 12/24/22 13:10 BP 140/74 H 12/24/22 13:10 BMI result Body Mass Index 23.9 Const General: cooperative, healthy appearing, comfortable and no acute distress Orientation/consciousness: patient oriented x3 Neck Neck: Yes normal visual inspection Resp Effort & Inspection: normal respiratory effort Auscultation: clear to auscultation bilaterally, no crackles, no rales, no rhonchi and no wheezes Cardio Jugular venous distension: no JVD Rate: regular rate Rhythm: regular rhythm Heart sounds: S1 normal heart sound present, S2 normal heart sound present, no murmurs and no rubs Neuro General: patient oriented x3 Extrem General: Yes normal to inspection Psych Appearance: grossly normal Mental Status: mental status grossly normal Speech and movement: Normal speech and movement present Assessment & Plan Assessment & Plan (1) CAD (coronary artery disease): Code(s): I25.10 - Atherosclerotic heart disease of [place] coronary artery without angina pectoris Plan: Cardiac risk factors of hypertension, hyperlipidemia, long-term smoking (60 pack-year history). No known history of heart disease. She did have a CT scan of the chest 11/14/2021 which did show mild coronary calcifications. She then underwent a nuclear stress test on 12/02/2022 showing exercise 5 minutes, mild shortness of breath, no EKG changes and normal myocardial perfusion imaging. Echocardiogram previously done at [facility] showed normal EF, no regional wall motion abnormalities, mild LVH. She likely has nonobstructive coronary artery disease. Reviewed this finding with her. Recommend use of aspirin 81 mg daily, will order. [place] LDL goal less than 70. Labs done on 12/18/2022 show LDL 92. She is tolerating Crestor 10 mg daily. Will increase her dose to 20 mg daily. Blood pressure mildly elevated in the office today. She tells me it is always elevated in the office however home blood pressures run with the systolic 120-130. At this time will continue on current lisinopril and amlodipine. [place] blood pressure goal less than 130/85. Recommendation of smoking cessation reviewed with her. She tells me she has smoke so long and has tried quitting in the past. She feels it will increase her anxiety if she attempts quitting again. She is well aware of how smoking can affect her lungs and heart. Signs and symptoms of angina reviewed with her. Cardiology follow-up in 6 months, sooner if needed to re-evaluate for symptoms and check EKG. Emergency care if ever needed for concerning symptoms. (2) Bifascicular block: Code(s): I45.2 - Bifascicular block Plan: EKG done 11/09/2022 showing normal sinus rhythm, right bundle branch block, left anterior fascicular block, bifascicular block. Unknown how long this has been present. Patient is aware of this finding. Echo did show normal EF and no regional wall motion abnormalities. Will plan for repeat EKG next visit. (3) Hyperlipidemia: Code(s): E78.5 - Hyperlipidemia, unspecified Qualifiers: Hyperlipidemia type: unspecified Qualified Code(s): E78.5 - Hyperlipidemia, unspecified Plan: [place] LDL goal less than 70. Increasing rosuvastatin dose as above. (4) Hypertension: Code(s): I10 - Essential (primary) hypertension Qualifiers: Hypertension type: primary hypertension Qualified Code(s): I10 - Essential (primary) hypertension Plan: Mild elevation at this visit. She tells me she has white coat syndrome. Home blood pressures reported as being normal range. Will continue on current lisinopril and amlodipine (5) Personal history of nicotine dependence: Comment: (current smoker - onset 17, 1ppd x 59yrs, 50+PYH) Code(s): Z87.891 - Personal history of nicotine dependence Plan: As above Orders: Orders Lipid Panel 2 Months E78.5 - Hyperlipidemia, unspecified Medications: New aspirin 81 mg PO DAILY 90 tabs 3RF rosuvastatin Take 1 tab each night at bedtime Plan fasting cholesterol level in 2-3 months 20 mg PO DAILY 30 tabs 5RF Coding Level of Care Code Est Pt Level 4 (12805) Diagnoses CAD (coronary artery disease) I25.10 Bifascicular block I45.2 Hyperlipidemia, unspecified hyperlipidemia type E78.5 Hyperlipidemia type: unspecified Primary hypertension I10 Hypertension type: primary hypertension Personal history of nicotine dependence Z87.891 Time Spent (min) 30
== END 2022-12-24 14:01 | disposition home or self-care (01) ==
PROVIDERS: PCP Internal Medicine; Visit Provider Nurse Practitioner Family
DX: I25.10 Atherosclerotic heart disease of native coronary artery without angina pectoris (principal); I45.2 Bifascicular block; E78.5 Hyperlipidemia, unspecified; I10 Essential (primary) hypertension; Z87.891 Personal history of nicotine dependence
CPT/HCPCS: 99214

== ENCOUNTER → 2022-12-24 12:50 | Outpatient (BNVA) | payer MEDICARE, SELFPAY | PROVIDERS: PCP Internal Medicine; Visit Provider Nurse Practitioner Family | DX: I25.10 Atherosclerotic heart disease of native coronary artery without angina pectoris (principal); I45.2 Bifascicular block; E78.5 Hyperlipidemia, unspecified; I10 Essential (primary) hypertension; Z87.891 Personal history of nicotine dependence | CPT/HCPCS: 99212 ==

== ENCOUNTER 2023-01-26 11:40 | Outpatient (REF) | payer MEDICARE, SELFPAY | END 2023-01-26 11:41 | disposition home or self-care (01) | LOC: HO.WFDLDS 11:40 | PROVIDERS: Visit Provider Internal Medicine | DX: K58.2 Mixed irritable bowel syndrome (principal) | CPT/HCPCS: 36415; 86003 ==

== ENCOUNTER 2023-02-10 10:48 | Outpatient (AMB) | payer MEDICARE, SELFPAY ==
--- NOTE | 2023-02-10 10:58 | A.OFFPC_ITS ---
Vital Signs 02/10/23 10:59 Height 5 ft 7.5 in Weight 156 lb BMI 24.1 BP 138/68 Blood Pressure Location Lt brachial Position Sitting Pulse 93 Pulse Source Pulse Oximeter Pulse Oximetry (%) 96 Oxygen Delivery Method Room Air Intake Visit Reasons: Extended exam with f/u labs and health maintenance Intake Note: Patient is here for extended exam and lab follow up. Allergies shellfish derived Allergy (Unknown, Verified 02/10/23 11:04) Unknown Sulfa (Sulfonamide Antibiotics) Allergy (Unknown, Verified 02/10/23 11:04) Unknown clavulanic acid [From Augmentin] Adverse Reaction (Mild, Verified 02/10/23 11:04) Nausea and Vomiting Medication List - Last Reconciled 02/10/23 by Sukhdev Layne MD amlodipine 5 mg PO DAILY aspirin 81 mg PO DAILY cetirizine 10 mg PO DAILY PRN cholecalciferol (vitamin D3) 50 mcg PO DAILY coenzyme Q10 (Ultra CoQ10) 75 mg PO DAILY levothyroxine 150 mcg PO DAILY lisinopril 30 mg PO DAILY omega 6-ygl-pne-fish oil 1,200 (144-216) mg (Fish Oil) caps PO omeprazole 20 mg PO DAILY rosuvastatin 20 mg PO DAILY Tobacco use date assessed: 12/14/22 Fall risk assessment: No Falls in past year Last assessed Fall Risk: 02/10/23 Dental Screening Dental Screen Date: 02/10/23 Did you have a dental visit in the last 12 months?: No Did you have a dental problem in the last 6 months where you did not have access to dental care?: No Was dental information given to patient?: Patient has dentist HPI Extended exam with f/u labs and health maintenance HPI Details 77 y/o female presents for an extended e xam with f/u labs and health maintenance. Labs were drawn 12/18/22. Reviewed labs with pt. Hgb and HCT mildly elevated. Triglycerides 88. TC 169. LDL 92. HDL 60. She is on rosuvastatin 20mg daily. TSH low at 0.28. She is on levothyroxine 150 mcg daily. Pt reports ongoing issues with costochondritis. [facility] Medical History (Updated 02/10/23 @ 12:20 by Jay Bobby) Sleep apnea Hypothyroidism Hyperlipidemia Hypertension Personal history of nicotine dependence Surgical History (Reviewed 02/10/23 @ 11:05 by Eusebia Bianchi [facility]) History of tonsillectomy History of lumpectomy of right breast History of tubal ligation History of cholecystectomy History of bladder surgery History of hysterectomy Family History (Reviewed 02/10/23 @ 11:05 by Eusebia Bianchi [facility]) Sister Cancer of kidney Psoriasis Arthritis Lupus Blood clot in vein Acute Crohn's disease Substance abuse Father Atherosclerosis Substance abuse Aortic aneurysm Mother Substance abuse Maternal Aunt Substance abuse Paternal Grandfather No problems noted. Social History (Reviewed 02/10/23 @ 11:05 by Eusebia Bianchi [facility]) Housing: House Patient Tobacco Use Status: Current everyday Tobacco user Tobacco use type: Cigarette Cigarette Packs Per Day: 1 Years Smoked: onset 17, 1ppd x 59yrs, 50+PYH e-Cigarette/Vaping Use: Never Used service: No Current occupational status: retired Cognitive needs: No Hearing needs: No Vision needs: Yes (Patient wears reading glasses.) Female Reproductive History Menstrual Age of menopause: 33 Total pregnancies: 3 Number of Living Children: 3 Questionnaire KEILA-7 AMB Questionnaire KEILA-7 Date KEILA - 7 assessed: 12/14/22 Source: Developed by Drs. Karsten Mccloud, Michell Napoles, Jose Guerin and colleagues, with an educational janneth from [employer]. Review of Systems Const Denies chills, Denies fatigue, Denies fever(s), Denies headache(s) and Denies weakness Eyes Denies change in vision ENT Denies dizziness, Denies headache(s), Denies hearing loss, Denies nasal congestion, Denies sinus pain, Denies sinus pressure and Denies sore throat Card Denies chest pain, Denies lightheadedness, Denies dyspnea and Denies other (palpitations) Resp Denies cough, Denies dyspnea and Denies wheezing GI Denies abdominal pain, Denies melena, Denies hematochezia, Denies change in bowel habits, Denies dyspepsia and Denies nausea Denies hematuria and Denies dysuria Musc Denies abnormal gait, Reports back pain, Denies myalgias, Denies arthralgias, Denies numbness and Denies tingling Skin/Breast Reports rash, Denies unusual bruising and Denies wounds Neuro Denies abnormal gait, Denies dizziness, Denies headache(s), Denies memory loss, Denies numbness, Denies Sensory deficit (Neuro), Denies tingling and Denies weakness Psych Denies anxiety, Denies depression and Denies memory loss Endo Denies cold intolerance, Denies fatigue, Denies heat intolerance, Denies polydipsia and Denies polyuria Minh/Lymph Denies easy bleeding and Denies easy bruising Aller/Immun Denies wheezing Physical exam (Primary Care) Vital Signs: Last Vital Signs Pulse 93 02/10/23 10:59 BP 138/68 02/10/23 10:59 Pulse Ox 96 02/10/23 10:59 Oxygen Delivery Method Room Air 02/10/23 10:59 BMI result Body Mass Index 24.1 Tobacco/Smoking Status: Tobacco use Status Tobacco use date assessed 12/14/22 02/10/23 11:03 Patient Tobacco Use Status Current everyday Tobacco 02/10/23 11:03 Tobacco use type Cigarette 02/10/23 11:03 e-Cigarette/Vaping Use Never Used 02/10/23 11:03 Const General: no acute distress, well developed, alert and awake Nutritional Appearance: well nourished Orientation/consciousness: patient oriented x3 HENMT Head: Yes normocephalic and Yes atraumatic Ears: hearing grossly normal bilaterally and TM's normal bilaterally General nose exam: Normal external nose present and Normal nares present Mouth: Normal oral and palatal mucosa present and moist mucous membranes Teeth and gingiva: dentition normal Throat: Yes posterior oropharynx normal Eyes General: appearance normal, both eyes and all related structures Pupils: Equal, round and reactive pupils present and Pupil accommodation reflex normal EOM: EOMs intact bilaterally Neck Neck: Yes normal visual inspection, Yes no lymphadenopathy and Yes trachea midline Thyroid: Thyroid normal Carotids: no bruits Lymphatic: no lymphadenopathy noted Chest Chest palpation & inspection: normal inspection of the chest Resp Effort & Inspection: normal respiratory effort Auscultation: clear to auscultation bilaterally Cardio Rate: regular rate Rhythm: regular rhythm Heart sounds: S1 normal heart sound present, S2 normal heart sound present, no gallops, no murmurs and no rubs Bruits: no abdominal aortic bruits and no carotid bruits GI Palpation (GI): No Abdominal aortic bruit present, Soft to palpation, nontender, No hepatosplenomegaly present and No Rebound tenderness present Auscultation: normal bowel sounds General: Yes no CVA tenderness Back/Spine/Pelvis Back: no CVA tenderness Cervical Spine: cervical ROM normal and No Cervical spine tenderness Thoracic/Lumbar Spine: thoraco-lumbar ROM normal, No pain with thoraco-lumbar ROM, No thoracic spinal tenderness and No lumbar spinal tenderness Skin Lesions: no lesions Rashes: no rashes Trauma: no lacerations or abrasions Wounds: no wounds Nails: normal Neuro General: patient oriented x3 Cranial nerves: Yes Equal, round and reactive pupils present Cognition (Neuro): normal cognition Gait exam (Neuro): Normal gait present Motor exam (neuro): 5/5 motor strength present throughout Sensory Exam: No Sensory deficit (Neuro) Deep tendon reflexes (DTR's): Right patellar reflex intensity grade: 2+ and Left patellar reflex intensity grade: 2+ Extrem General: Yes normal to inspection and No edema Psych Appearance: grossly normal Affect: normal affect Attitude: cooperative Thought process: Normal thought process present Assessment and Plan Assessment & Plan (1) Polycythemia: Code(s): D75.1 - Secondary polycythemia Plan: Possibly?just?secondary?to?dehydration. Advised?she?hydrate?well?and?we?will?recheck?CBC?prior?to?next?visit (2) Hypothyroidism: Comment: (hashimotos) Code(s): E03.9 - Hypothyroidism, unspecified Plan: Mildly?suppressed?TSH?though?her?T4?and?T3?levels?are?within?normal?limits?on?le vothyroxine. No ?medication?changes?today.??Will?repeat?labs?and?adjust?her?medication?if?necess diandra. (3) Hyperlipidemia: Code(s): E78.5 - Hyperlipidemia, unspecified Qualifiers: Hyperlipidemia type: unspecified Qualified Code(s): E78.5 - Hyperlipid emia, unspecified Plan: LDL?cholesterol?goal?is?less?than?70.??Her?rosuvastatin?was?recently?increased?d ue?to?LDL?at?90 Continue?statin?medication Will?follow (4) Hypertension: Code(s): I10 - Essential (primary) hypertension Qualifiers: Hypertension type: primary hypertension Qualified Code(s): I10 - Essential (primary) hypertension Plan: Blood?pressure?is?fairly?well?controlled.??Goal?is?less?than?130/80 Continue?current?medication?regimen Will?follow (5) CAD (coronary artery disease): Code(s): I25.10 - Atherosclerotic heart disease of [place] coronary artery without angina pectoris Plan: Stable Follow-up?with?Cardiology?as?recommended (6) Back pain: Code(s): M54.9 - Dorsalgia, unspecified Plan: Episodic?low?back?pain/strain Recommended?physical?therapy.??Patient?initially?not?interested?but?seems?that?s he?might?think?about?that. She?can?use?ibuprofen.??We?can?use?cyclobenzaprine?episodically. (7) Costochondritis: Code(s): M94.0 - Chondrocostal junction syndrome [Tietze] Plan: Use?ibuprofen Ice/heat Use?splinting?when?coughing (8) Screening for colon cancer: Code(s): Z12.11 - Encounter for screening for malignant neoplasm of colon Plan: Followed?by? Continue?to?follow-up?with?Gastroenterology?as?recommended Has?upcoming?colonoscopy (9) Rash: Code(s): R21 - Rash and other nonspecific skin eruption Plan: Referred?her?to?Dermatology. She?quinn s?not?made?an?appointment?with[facility]?yet?and?I?advised?her?to? do?this (10) Hiccups: Code(s): R06.6 - Hiccough Plan: She?is?had?difficulty?with?swallowing?and?I?had?ordered?an?MBS.??She?has?not?had ?this?done?yet. Also?has?hiccups, possibly?related She?wants?to?get?her?endoscopy?with??1st Advised?that?if?gastroenterology?does?not?find?a?problem?or?come?up?with?a?plan? for?these,?she?should?get?MBS?and?we?may?want?to?refer?her?to?ENT?or?an?[employer] ATTENDANT (11) Difficulty swallowing: Code(s): R13.10 - Dysphagia, unspecified Plan: As?above (12) Breast cancer screening by mammogram: Code(s): Z12.31 - Encounter for screening mammogram for malignant neoplasm of breast Plan: Overdue?for?mammogram?which?is?ordered (13) Screening for osteoporosis: Code(s): Z13.820 - Encounter for screening for osteoporosis Plan: Due?for?bone?density.??Ordered (14) Adult general medical exam: Code(s): Z00.00 - Encounter for general adult medical examination without abnormal findings Plan: 77-year-old?female?presents?for?extended?exam Orders: Orders MM tomosynthesis screening BI Today Z12.31 - Encounter for screening mammogram for malignant neoplasm of breast XR DEXA axial skeleton Today M81.0 - Age-related osteoporosis without current pathological fracture Medications: New ammonium lactate 12% 1 appl topical DAILY 280 grams 3RF 30 days Coding Level of Care Code Est Pt Level 5 (14778) Diagnoses Polycythemia D75.1 Hypothyroidism E03.9 Hyperlipidemia, unspecified hyperlipidemia type E78.5 Hyperlipidemia type: unspecified Primary hypertension I10 Hypertension type: primary hypertension CAD (coronary artery disease) I25.10 Back pain M54.9 Costochondritis M94.0 Screening for colon cancer Z12.11 Rash R21 Hiccups R06.6 Difficulty swallowing R13.10 Breast cancer screening by mammogram Z12.31 Screening for osteoporosis Z13.820 Adult general medical exam Z00.00
[2023-02-10 10:59] VITALS: BP 138/68; PULSE 93; O2SAT 96; BMI 24.1
== END 2023-02-10 12:34 | disposition home or self-care (01) ==
PROVIDERS: PCP Internal Medicine; Visit Provider Family Medicine
DX: D75.1 Secondary polycythemia (principal); E03.9 Hypothyroidism, unspecified; E78.5 Hyperlipidemia, unspecified; I10 Essential (primary) hypertension; I25.10 Atherosclerotic heart disease of native coronary artery without angina pectoris; M54.9 Dorsalgia, unspecified; M94.0 Chondrocostal junction syndrome [Tietze]; Z12.11 Encounter for screening for malignant neoplasm of colon; R21 Rash and other nonspecific skin eruption; R06.6 Hiccough; R13.10 Dysphagia, unspecified; Z12.31 Encounter for screening mammogram for malignant neoplasm of breast
CPT/HCPCS: 99214

== ENCOUNTER 2023-03-16 12:27 | Outpatient (REF) | payer MEDICARE, SELFPAY ==
--- NOTE | ~2023-03-16 | MM_ITS ---
EXAMINATION: BONE DENSITOMETRY CLINICAL INDICATION: Age-related osteoporosis without current pathological fracture. COMPARISON: This is the patient's baseline examination. TECHNIQUE: Using a [employer] DXA System (software version: 13.1) manufactured by [employer], dual-energy x-ray absorptiometry was performed of the lumbar spine and left hip. The images are of good technical quality. Summary results are attached. FINDINGS: AP SPINE L1-L3 (excluding L4): The data of L1-L4 has been changed to exclude the L4 vertebral body, because degenerative sclerosis at this level may cause overestimation of lumbar spine density. BMD 1.061 g/cm2, Z-score 0.7, T-score -0.9, normal. LEFT FEMUR, NECK: BMD 0.557 g/cm2, Z-score -1.5, T-score -3.5, osteoporosis. LEFT FEMUR, TOTAL: BMD 0.558 g/cm2, Z-score -1.8, T-score -3.6, osteoporosis. IDENTIFIED RISK FACTORS: Current smoker. Early menopause, secondary osteoporosis. Hysterectomy. Right oophorectomy. HISTORY OF FRACTURE: None listed. MEDICATIONS: Vitamin D. MM/XR DEXA axial skeleton IMPRESSION: 1. DIAGNOSIS: Osteoporosis based on the lowest T-score value of -3.6 in the total femur applying World Health Organization criteria. 2. 10-YEAR FRACTURE RISK PREDICTION, FRAX: According to the guidelines, FRAX calculation should only be performed on patients in the osteopenia bone density category. Therefore, FRAX was not performed on this patient.? 3. Treatment Recommendations: NOF guidelines recommend consideration for treatment in postmenopausal women and men age 50 and older presenting with the following: -A hip or vertebral (clinical or morphometric) fracture. -T-score less than or equal to -2.5 at the femoral neck or spine after appropriate evaluation to exclude secondary causes. -Low bone mass at the hip or spine and a 10-year fracture probability by FRAX of greater than or equal to 3% for hip fracture or greater than or equal to 20% for major osteoporotic fracture based on the [place] adapted WHO algorithm. 4. Other Recommendations: All treatment decisions require clinical judgment and consideration of individual patient factors, including patient preferences, comorbidities, previous drug use, risk factors not captured in the FRAX model (e.g. frailty, falls, vitamin D deficiency, increased bone turnover, interval significant decline in bone density) and possible under or overestimation of fracture risk by FRAX. Additional medical evaluation for secondary cause of low bone mineral density may be appropriate. FUTURE SCAN RECOMMENDATION: People with diagnosed cases of osteoporosis or at high risk for fracture should have regular bone mineral density tests. For patients eligible for Medicare, routine testing is allowed once every 2 years. The testing frequency can be increased to one year for patients who have rapidly progressing disease, those who are receiving or discontinuing medical therapy to restore bone mass, or have additional risk factors.
== END 2023-03-16 12:28 | disposition home or self-care (01) ==
LOC: HO.MAMMO 12:27
PROVIDERS: PCP Family Medicine; Visit Provider Family Medicine
DX: Z12.31 Encounter for screening mammogram for malignant neoplasm of breast (principal); Z13.820 Encounter for screening for osteoporosis; Z78.0 Asymptomatic menopausal state; M81.0 Age-related osteoporosis without current pathological fracture
CPT/HCPCS: 77063; 77067; 77080

== ENCOUNTER → 2023-03-16 13:00 | Outpatient (BNV) | payer MEDICARE, SELFPAY | PROVIDERS: PCP Family Medicine; Visit Provider Radiology Diagnostic Radiology | DX: Z12.31 Encounter for screening mammogram for malignant neoplasm of breast (principal) | CPT/HCPCS: 77063; 77067 ==

== ENCOUNTER 2023-04-02 11:48 | Outpatient (REF) | payer MEDICARE, SELFPAY ==
[2023-04-02 14:27] LABS: MANUAL DIFF FLAG NO
[2023-04-02 14:35] LABS: Basophils Absolute Auto 0.1 X10*3/uL (0.0-0.2); Basophils Percent Auto 1.1 % (0-2); Eosinophils Absolute Auto 0.1 X10*3/uL (0.0-0.4); Eosinophils Percent Auto 2.2 % (0-4); Hematocrit 46.8 % (37.0-47.0); Hemoglobin 15.5 g/dl (12.0-16.0); Imm Gran Abs Auto 0.01 X10*3/uL (0.00-0.03); Imm Gran Pct Auto 0.2 % (0.0-0.4); Lymphocytes Absolute Auto 1.8 X10*3/uL (1.2-4.9); Lymphocytes Percent Auto 32.6 % (20-40); Mean Corpuscular HGB Conc 33.1 g/dl (31.0-35.0); Mean Corpuscular Hemoglobin 32.1 pg (27.0-33.0); Mean Corpuscular Volume 96.9 fL (80.0-98.0); Mean Platelet Volume 9.1 fL (9.4-12.3); Monocytes Absolute Auto 0.4 X10*3/uL (0.1-1.2); Monocytes Percent Auto 7.3 % (2-11); Neutrophils Absolute Auto 3.1 x10*3/uL (2.0-8.3); Neutrophils Percent Auto 56.6 % (45-73); Platelet Count 342 X10*3/uL (160-400); Red Blood Count 4.83 X10*6/uL (4.20-5.50); Red Cell Distribution Width 13.5 % (11.0-16.0); White Blood Count 5.5 X10*3/uL (4.8-10.8)
[2023-04-02 14:53] LABS: Anion Gap 12 (12-20); Blood Urea Nitrogen 9 mg/dL (9-16); Calcium 9.9 mg/dL (8.4-10.2); Carbon Dioxide 27 mmol/L (22-29); Chloride 104 mmol/L (96-108); Estimated Glomerular Filt Rate > 60; Glucose Random 91 mg/dL (60-115); Potassium 4.2 mmol/L (3.3-5.1); Sodium 139 mmol/L (135-145)
[2023-04-02 15:14] LABS: Free T4 (Free Thyroxine) 1.52 ng/dL (0.71-1.85)
[2023-04-03 08:04] LABS: Triiodothyronine T3 Total 82 ng/dL (76-181)
== END 2023-04-02 11:49 | disposition home or self-care (01) ==
LOC: HO.WFDLDS 11:48
PROVIDERS: Visit Provider Family Medicine
DX: Z00.00 Encounter for general adult medical examination without abnormal findings (principal); E03.9 Hypothyroidism, unspecified
CPT/HCPCS: 36415; 80048; 84439; 84443; 84480; 85025

== ENCOUNTER 2023-04-09 09:19 | Outpatient (AMB) | payer MEDICARE, SELFPAY ==
[2023-04-09 09:38] VITALS: BP 142/80; PULSE 74; O2SAT 99; BMI 24.1
--- NOTE | 2023-04-09 09:38 | MHC.PC.OV ---
Vital Signs 04/09/23 09:38 Height 5 ft 7.5 in Weight 156 lb 7 oz BMI 24.1 BP 142/80 H Blood Pressure Location Lt brachial Position Sitting Pulse 74 Pulse Source Pulse Oximeter Pulse Oximetry (%) 99 Oxygen Delivery Method Room Air Intake Visit Reasons: f/u chronic conditions Intake Note: Patient is here to follow up on chronic conditions. Allergies shellfish derived Allergy (Unknown, Verified 04/09/23 09:41) Unknown Sulfa (Sulfonamide Antibiotics) Allergy (Unknown, Verified 04/09/23 09:41) Unknown clavulanic acid [From Augmentin] Adverse Reaction (Mild, Verified 04/09/23 09:41) Nausea and Vomiting Medication List - Last Reconciled 04/09/23 by Sukhdev Layne MD amlodipine 5 mg PO DAILY ammonium lactate 12% 1 appl topical DAILY 30 days aspirin 81 mg PO DAILY cetirizine 10 mg PO DAILY PRN cholecalciferol (vitamin D3) 50 mcg PO DAILY coenzyme Q10 (Ultra CoQ10) 75 mg PO DAILY ibuprofen 800 mg PO Q8H PRN 14 days levothyroxine 150 mcg PO DAILY lisinopril 30 mg PO DAILY omega 2-sjt-nau-fish oil 1,200 (144-216) mg (Fish Oil) caps PO omeprazole 20 mg PO DAILY rosuvastatin 20 mg PO DAILY Tobacco use date assessed: 04/09/23 Fall risk assessment: No Falls in past year Last assessed Fall Risk: 04/09/23 HPI f/u chronic conditions HPI Details 78 y/o female presents to f/u elevated H&H and mildly suppressed TSH on levothyroxine. Also f/u mammogram and bone density testing. Labs were drawn 04/02/23. Reviewed labs with pt. Blood counts are fine. Thyroid levels are fine. She is on levothyroxine 150mcg daily. Bone density 03/16/23 shows age-related osteoporosis. Mammogram was normal. Blood pressure today 142/80. She is on lisinopril 30mg and amlodipine 5mg daily. She reports numbers have been better at home. Pt does report significant stressors. She states she does not feel like she currently needs a therapist or meds for the increased stress. Pt reports ongoing pain in her ribs. [facility] Medical History (Updated 04/09/23 @ 10:32 by Jay Bobby) Sleep apnea Hypothyroidism Hyperlipidemia Hypertension Personal history of nicotine dependence Surgical History (Reviewed 02/10/23 @ 11:05 by Eusebia Bianchi [facility]) History of tonsillectomy History of lumpectomy of right breast History of tubal ligation History of cholecystectomy History of bladder surgery History of hysterectomy Family History (Reviewed 02/10/23 @ 11:05 by Eusebia Bianchi [facility]) Sister Cancer of kidney Psoriasis Arthritis Lupus Blood clot in vein Acute Crohn's disease Substance abuse Father Atherosclerosis Substance abuse Aortic aneurysm Mother Substance abuse Maternal Aunt Substance abuse Paternal Grandfather No problems noted. Social History (Reviewed 02/10/23 @ 11:05 by Eusebia Bianchi [facility]) Housing: House Patient Tobacco Use Status: Current everyday Tobacco user Tobacco use type: Cigarette Cigarette Packs Per Day: 1 Years Smoked: onset 17, 1ppd x 59yrs, 50+PYH e-Cigarette/Vaping Use: Never Used service: No Current occupational status: retired Cognitive needs: No Hearing needs: No Vision needs: Yes (Patient wears reading glasses.) Questionnaire KEILA-7 AMB Questionnaire KEILA-7 Date KEILA - 7 assessed: 12/14/22 Source: Developed by Drs. Karsten Mccloud, Michell Napoles, Jose Guerin and colleagues, with an educational janneth from [employer]. Review of Systems Const Denies chills, Denies fatigue, Denies fever(s), Denies headache(s) and Denies weakness ENT Denies dizziness and Denies headache(s) Card Denies chest pain, Denies lightheadedness, Denies dyspnea and Denies other (Palpitations) Resp Denies cough, Denies dyspnea, Denies wheezing and Denies other ( shortness of breath) Musc Denies numbness and Denies tingling Neuro Denies dizziness, Denies headache(s), Denies numbness, Denies tingling, Denies paresthesias and Denies weakness Psych Denies anxiety and Denies depression Endo Denies fatigue Aller/Immun Denies wheezing Physical exam (Primary Care) Vital Signs: Last Vital Signs Pulse 74 04/09/23 09:38 BP 142/80 H 04/09/23 09:38 Pulse Ox 99 04/09/23 09:38 Oxygen Delivery Method Room Air 04/09/23 09:38 BMI result Body Mass Index 24.1 Tobacco/Smoking Status: Tobacco use Status Tobacco use date assessed 04/09/23 04/09/23 09:45 Patient Tobacco Use Status Current everyday Tobacco 04/09/23 09:45 Tobacco use type Cigarette 04/09/23 09:45 e-Cigarette/Vaping Use Never Used 04/09/23 09:45 Const General: no acute distress and well developed Nutritional Appearance: well nourished Orientation/consciousness: patient oriented x3 HENMT Head: Yes normocephalic and Yes atraumatic Eyes General: appearance normal, both eyes and all related structures Pupils: Equal, round and reactive pupils present EOM: EOMs intact bilaterally Chest Other: L sided rib tenderness Resp Effort & Inspection: normal respiratory effort Auscultation: clear to auscultation bilaterally Cardio Rate: regular rate Rhythm: regular rhythm Heart sounds: S1 normal heart sound present, S2 normal heart sound present, no gallops, no murmurs and no rubs Neuro General: patient oriented x3 and gait normal Cranial nerves: Yes Equal, round and reactive pupils present Psych Affect: normal affect Assessment and Plan Assessment & Plan (1) Osteoporosis: Code(s): M81.0 - Age-related osteoporosis without current pathological fracture Plan: Start?alendronate Risks/benefits?discussed?with?patient (2) Hypothyroidism: Comment: (hashimotos) Code(s): E03.9 - Hypothyroidism, unspecified Plan: Thyroid?hormone?levels?within?normal?range Continue?current?levothyroxine?dose (3) Costochondritis: Code(s): M94.0 - Chondrocostal junction syndrome [Tietze] Plan: Left-sided?rib?pain?and?history?of?costochondritis Still?having?ongoing?pain Check?x-rays Continue?ibuprofen?and?ice/heat (4) Hypertension: Code(s): I10 - Essential (primary) hypertension Qualifiers: Hypertension type: primary hypertension Qualified Code(s): I10 - Essential (primary) hypertension Plan: Blood?pressure?is?above?goal?of?less?than?130/80 She?notes?blood?pressures?at?home?have?been?better but?they?are?using?a?manual?cuff?and?she?is?wondering?if?she?and?her??are?hearing?blood?pressure?is?correctly They?can?consider?an?automated?cuff Will?have?her?return?in?a?few?months?to?follow-up (5) Breast cancer screening by mammogram: Code(s): Z12. - Encounter for screening mammogram for malignant neoplasm of breast Plan: Mammogram?showed?no?evidence?of?malignancies Continue?annual?screening (6) Cataract: Code(s): H26.9 - Unspecified cataract Plan: Will?refer?to? (7) Varicose veins of lower extremity: Code(s): I83.90 - Asymptomatic varicose veins of unspecified lower extremity Plan: Varicosities?in?bilateral?lower?extremities?with?discomfort?and?skin?changes Referred?to?vascular?surgery (8) CAD (coronary artery disease): Code(s): I25.10 - Atherosclerotic heart disease of three affiliated coronary artery without angina pectoris Plan: Stable Orders: Orders XR ribs LT min 3V w CXR1V Today R07.81 - Pleurodynia Referrals Vascular Surgery Referral I83.813 - Varicose veins of bilateral lower extremities with pain Ophthalmology Referral H26.9 - Unspecified cataract Medications: New alendronate 70 mg PO QWEEK 4 tabs 3RF 28 days M81.0 - Age-related osteoporosis without current pathological fracture Coding Level of Care Code Est Pt Level 4 (70938) Diagnoses Osteoporosis M81.0 Hypothyroidism E03.9 Costochondritis M94.0 Primary hypertension I10 Hypertension type: primary hypertension Breast cancer screening by mammogram Z12. Cataract H26.9 Varicose veins of lower extremity I83.90 CAD (coronary artery disease) I25.10
== END 2023-04-09 10:33 | disposition home or self-care (01) ==
PROVIDERS: PCP Family Medicine; Visit Provider Family Medicine
DX: M81.0 Age-related osteoporosis without current pathological fracture (principal); E03.9 Hypothyroidism, unspecified; M94.0 Chondrocostal junction syndrome [Tietze]; I10 Essential (primary) hypertension; Z12.31 Encounter for screening mammogram for malignant neoplasm of breast; H26.9 Unspecified cataract; I83.90 Asymptomatic varicose veins of unspecified lower extremity; I25.10 Atherosclerotic heart disease of native coronary artery without angina pectoris
CPT/HCPCS: 99214

== ENCOUNTER 2023-04-15 10:55 | Outpatient (REF) | payer MEDICARE, SELFPAY ==
--- NOTE | ~2023-04-15 | CT_ITS ---
EXAMINATION: CT CHEST SCREENING CLINICAL INFORMATION: Current smoker. Greater than 60-pack year history. COMPARISON: CT lung screening 11/14/2021. TECHNIQUE: Multidetector volumetric CT imaging of the chest is performed without contrast using low-dose technique. Additional 2D coronal and sagittal reformatted images and axial 3D maximum intensity projection (MIP) images are generated on the CT workstation. This CT examination was performed using dose optimization techniques as appropriate, variously including the following: *Automated exposure control *Adjustment of mA and/or kV according to patient size (this includes techniques or standardized protocols for targeted exams where dose is matched to indication/reason for exam; i.e. extremities or head) *Use of iterative reconstruction technique DLP: 89 mGy-cm FINDINGS: LUNGS: Mild biapical pleural-parenchymal scarring is seen. Mild emphysematous changes are present. There is mild peribronchial thickening with some bronchial secretions seen. There is a small 2 mm right upper lobe pulmonary nodule seen, new since the prior (5:112). Unchanged 2 mm perifissural right upper lobe nodule (5:145 compare prior 5:173). There is a new 2 mm right lower lobe subpleural nodule (5:154). Some other scattered small pulmonary micronodules are seen. No worrisome or concerning lung mass is noted. MEDIASTINUM: Coronary artery calcification is present. Atherosclerotic change with calcified plaque seen in the thoracic aorta without aneurysm. No mediastinal or hilar lymphadenopathy. PLEURA: There is no pleural effusion. No pleural mass or thickening. AXILLA: No lymphadenopathy. UPPER ABDOMEN: Surgical clips are seen in the gallbladder fossa. Calcifications are seen in the liver near the alexander hepatis. Previously seen gastric wall thickening is unchanged. Splenic granuloma present. OSSEOUS STRUCTURES: There are degenerative changes of the spine. CT/CT lung screening IMPRESSION: There are some small pulmonary nodular densities which are not concerning. One 2 mm right lower lobe subpleural nodule is new. ASSESSMENT: Lung-RADS category 2: Benign. RECOMMENDATION: Routine annual low-dose CT screening in 12 months.
== END 2023-04-15 10:56 | disposition home or self-care (01) ==
LOC: HO.CT 10:55
PROVIDERS: PCP Family Medicine; Visit Provider Physician Assistant Medical
DX: Z12.2 Encounter for screening for malignant neoplasm of respiratory organs (principal); F17.210 Nicotine dependence, cigarettes, uncomplicated
CPT/HCPCS: 71271

== ENCOUNTER 2023-04-16 07:22 | Day surgery (SDC) | payer MEDICARE, SELFPAY ==
[2023-04-14 10:30] VITALS: BMI 24.1
--- NOTE | 2023-04-14 12:34 | P.CONAN_ITS ---
Documented by User: Kenyetta Jaimes NP 04/14/23 12:39 HPI - Anesthesia Eval Consult details Narrative: 78yo F for Colonoscopy [facility]s [facility] for CAD, RBBB. Stable without symptoms at 12/2022 visit with 6 month f/u. [facility] Active Problems Active Problems: All Active Problems (Updated 04/14/23 @ 10:28 by Renetta Alvarado, RN) Varicose veins of lower extremity (Acute) Cataract (Acute) Rib pain (Acute) Osteoporosis (Acute) Back pain (Acute) Hiccups (Acute) Screening for osteoporosis (Acute) Rash (Acute) Breast cancer screening by mammogram (Acute) Screening for colon cancer (Acute) Polycythemia (Acute) Adult general medical exam (Acute) Difficulty swallowing (Acute) Eczema (Acute) Costochondritis (Acute) Laboratory exam ordered as part of routine general medical examination (Acute) Bifascicular block (Acute) CAD (coronary artery disease) (Acute) Vulvovaginitis (Acute) Hypertension (Acute) Hypothyroidism (Acute) Hyperlipidemia (Acute) Personal history of nicotine dependence (Acute) Past Medical History Medical History RBBB (right bundle branch block) Bifascicular block Polycythemia CAD (coronary artery disease) GERD (gastroesophageal reflux disease) Sleep apnea Hypothyroidism Hyperlipidemia Hypertension Personal history of nicotine dependence Family History Family History Sister Cancer of kidney Psoriasis Arthritis Lupus Blood clot in vein Acute Crohn's disease Substance abuse Father Atherosclerosis Substance abuse Aortic aneurysm Mother Substance abuse Maternal Aunt Substance abuse Paternal Grandfather No problems noted. Surgical History Surgical History H/O colonoscopy History of tonsillectomy History of lumpectomy of right breast History of tubal ligation History of cholecystectomy History of bladder surgery History of hysterectomy Social History Social History Housing: House Patient Tobacco Use Status: Current everyday Tobacco user Tobacco use type: Cigarette Cigarette Packs Per Day: 1 Years Smoked: onset 17, 1ppd x 59yrs, 50+PYH e-Cigarette/Vaping Use: Never Used Advance Directives: No Advance Directives Information Provided: Yes service: No Current occupational status: retired Cognitive needs: No Hearing needs: No Vision needs: Yes (Patient wears reading glasses.) Meds Allergies Allergy/AdvReac Type Severity Reaction Status Date / Time Sulfa (Sulfonamide Allergy Severe Rash Verified 04/16/23 07:40 Antibiotics) shellfish derived Allergy Intermediate Nausea and Verified 04/16/23 07:40 Vomiting clavulanic acid AdvReac Mild Nausea and Verified 04/16/23 07:39 [From Augmentin] Vomiting Home Medications Medication Instructions Recorded Confirmed Last Taken Type amlodipine 5 mg tablet 5 mg PO DAILY 09/21/22 04/16/23 04/15/23 History levothyroxine 150 mcg tablet 150 mcg PO DAILY 09/21/22 04/16/23 Unknown History omeprazole 20 mg capsule,delayed 20 mg PO DAILY 09/21/22 04/16/23 Unknown History release cetirizine 10 mg tablet 10 mg PO DAILY PRN Allergy Symptoms 11/09/22 04/16/23 Unknown History cholecalciferol (vitamin D3) 50 50 mcg PO DAILY 11/09/22 04/16/23 Unknown History mcg (2,000 unit) capsule coenzyme Q10 75 mg capsule (Ultra 75 mg PO DAILY 11/09/22 04/16/23 Unknown History CoQ10) lisinopril 30 mg tablet 30 mg PO DAILY 11/09/22 04/16/23 04/15/23 History omega 1-vqk-hdr-fish oil 1,200 mg 1 cap PO DAILY 11/09/22 04/16/23 04/09/23 History (144 mg-216 mg) capsule (Fish Oil) Exam Height,Weight and Vital Signs: Height 5 ft 7.5 in Weight 70.76 kg Pertinent Lab Results Pertinent Lab Results: Laboratory Tests 04/02/23 11:50 WBC 5.5 Hgb 15.5 Hct 46.8 Plt Count 342 Sodium 139 Potassium 4.2 Chloride 104 Carbon Dioxide 27 BUN 9 Creatinine 0.74 Narrative Narrative: EKG 11/2022 normal sinus rhythm with right bundle and left anterior fascicular block, unchanged from before with QS pattern in lead V1 V2 NM cardiolite stress test 11/2022 IMPRESSION: 1. Myocardial perfusion imaging study shows normal myocardial perfusion. 2. Gated LVEF is > 70% during stress and rest. 3. Transient ischemic dilatation not present. EKG component of the test reported separately. Echocardiogram previously done at [facility] showed normal EF, no regional wall motion abnormalities, mild LVH. Assessment and Plan Assessment Anesthesia Assessment: Chart Reviewed Documented by User: Bianka Melo MD 04/16/23 07:52 PMFSH Past Medical History Medical History RBBB (right bundle branch block) Bifascicular block Polycythemia CAD (coronary artery disease) GERD (gastroesophageal reflux disease) Sleep apnea Hypothyroidism Hyperlipidemia Hypertension Personal history of nicotine dependence Family History Family History Sister Cancer of kidney Psoriasis Arthritis Lupus Blood clot in vein Acute Crohn's disease Substance abuse Father Atherosclerosis Substance abuse Aortic aneurysm Mother Substance abuse Maternal Aunt Substance abuse Paternal Grandfather No problems noted. Family history of problems with anesthesia: No Surgical History Surgical History H/O colonoscopy History of tonsillectomy History of lumpectomy of right breast History of tubal ligation History of cholecystectomy History of bladder surgery History of hysterectomy History of Problems with Anesthesia: No Social History Social History Housing: House Patient Tobacco Use Status: Current everyday Tobacco user Tobacco use type: Cigarette Cigarette Packs Per Day: 1 Years Smoked: onset 17, 1ppd x 59yrs, 50+PYH e-Cigarette/Vaping Use: Never Used Advance Directives: No Advance Directives Information Provided: Yes service: No Current occupational status: retired Cognitive needs: No Hearing needs: No Vision needs: Yes (Patient wears reading glasses.) Meds Allergies Allergy/AdvReac Type Severity Reaction Status Date / Time Sulfa (Sulfonamide Allergy Severe Rash Verified 04/16/23 07:40 Antibiotics) shellfish derived Allergy Intermediate Nausea and Verified 04/16/23 07:40 Vomiting clavulanic acid AdvReac Mild Nausea and Verified 04/16/23 07:39 [From Augmentin] Vomiting Home Medications Medication Instructions Recorded Confirmed Last Taken Type amlodipine 5 mg tablet 5 mg PO DAILY 09/21/22 04/16/23 04/15/23 History levothyroxine 150 mcg tablet 150 mcg PO DAILY 09/21/22 04/16/23 Unknown History omeprazole 20 mg capsule,delayed 20 mg PO DAILY 09/21/22 04/16/23 Unknown History release cetirizine 10 mg tablet 10 mg PO DAILY PRN Allergy Symptoms 11/09/22 04/16/23 Unknown History cholecalciferol (vitamin D3) 50 50 mcg PO DAILY 11/09/22 04/16/23 Unknown History mcg (2,000 unit) capsule coenzyme Q10 75 mg capsule (Ultra 75 mg PO DAILY 11/09/22 04/16/23 Unknown History CoQ10) lisinopril 30 mg tablet 30 mg PO DAILY 11/09/22 04/16/23 04/15/23 History omega 6-xxp-crv-fish oil 1,200 mg 1 cap PO DAILY 11/09/22 04/16/23 04/09/23 History (144 mg-216 mg) capsule (Fish Oil) Exam Airway Mallampati Class: III TM Dist: <=3cm Neck ROM: Limited Heart: rrr Lungs: cta Assessment and Plan Assessment Anesthesia Assessment: Anesthesia Plan Discussed and Smoking Cess. Discussed (smoked today) Final Anesthetic Review Family History of Problems with Anesthesia: No History of Problems with Anesthesia: No NPO: Yes ASA Class: III Final Preanesthetic Review: No Changes in Pt Med Stat, Meds/Allgs Chart Reviewed, Consent Obtained/Reviewed and Anes Risks/Benef Reviewed Patient Risk: Intermediate Procedure Risk: Low Anesthetic Plan Anesthetic Plan: MAC: Disposition: Standard PACU
[2023-04-16 07:44] VITALS: BMI 25.1
[2023-04-16 08:06] VITALS: BP 163/83; PULSE 88; RESP 16; TEMP 36.6; O2SAT 98
[2023-04-16] MEDS: Lactated Ringers 1,000 ML 100 ML IVCONT (08:08)
--- NOTE | 2023-04-16 08:08 | PC.NURSE ---
Patient in preop. Bowel prep finished completely. States output is brown water, no solids, not clear . Enema administration discussed with patient. During preop, patient had urge to use the restroom. This nurse visualized output, clear yellow water with minimal sediment. Per patient, that looks way better than it did at home . No enema warranted.
[2023-04-16] MEDS: Albuterol Sulfate (0.083%) 2.5 MG/3 ML VIAL.NEB INHALE (08:12)
[2023-04-16 08:14] VITALS: PULSE 75; RESP 16; O2SAT 99
[2023-04-16 09:34] VITALS: BP 97/54; PULSE 101; RESP 19; TEMP 36.1; O2SAT 97
--- NOTE | 2023-04-16 09:39 | P.BOP_ITS ---
Brief Operative Note Date of Service: 04/16/23 Pre-op diagnosis: Screening Post-op diagnosis: other (Colon polyps, Cecal AVM's) Procedure: Colonoscopy to the cecum and TI with biopsies Surgeon: Karsten Saunders MD Anesthesia: MAC Was an Flight Engineer Inspector used for this Procedure?: No Estimated blood loss (mL): 2.0 Pathology: other (A. Cecal lesion B. Proximal ascending colon polyp) Condition: stable Disposition: PACU
[2023-04-16 09:49] VITALS: BP 125/68; PULSE 96; RESP 16; TEMP 36.2; O2SAT 98
[2023-04-16 10:05] VITALS: BP 135/59; PULSE 90; RESP 16; TEMP 36.2; O2SAT 98
--- NOTE | 2023-04-16 10:48 | OP_ITS ---
DATE OF SERVICE: 04/16/2023 SURGEON: Karsten Saunders MD INDICATIONS: The patient presents for followup of colorectal cancer screening and prior history of tubular adenoma of the colon. Full consent has been obtained from her for this, including risks of bleeding and perforation. PREOPERATIVE DIAGNOSIS: Personal history of tubular adenoma of the colon and colorectal cancer screening. POSTOPERATIVE DIAGNOSIS: Personal history of tubular adenoma of the colon and colorectal cancer screening, colon polyps, diverticulosis, internal hemorrhoids, and angiodysplasias in cecum. PROCEDURE PERFORMED: Colonoscopy to the cecum and terminal ileum with biopsies. ESTIMATED BLOOD LOSS: COMPLICATIONS: ANESTHESIA: Medication Used: Monitored anesthesia care. ASSISTANTS: SPECIMENS: DESCRIPTION OF PROCEDURE: The patient was placed in the left lateral decubitus position. The digital rectal exam revealed some external hemorrhoids. The Olympus video pediatric colonoscope was entered into the rectum and advanced easily to the cecum. In the cecum, there was a fair amount of liquid and some small amounts of stool. This was all irrigated and suctioned away as best as possible. The terminal ileum was cannulated and appeared normal. The scope was withdrawn back in the colon. At that point, the cecum was well visualized and insufflated with air. In the cecum, above the appendiceal orifice, was a flat polypoid lesion with some central puckering and scarring, firmness, some friability, and minimal ulceration. This appeared to be definitely adenomatous, at least. Overall, it was approximately 2 x 4 cm in size. Given the suspicious appearance, I opted to just obtain biopsies both from the central part, where it was somewhat scarred and ulcerated, as well as from the other polypoid areas. Also in the cecum, were multiple nonbleeding angiodysplasias. The scope was then slowly withdrawn, assessing all mucosal surfaces carefully. Throughout the colon, was a fair amount of liquid stool, which again had to be irrigated and suctioned away as best as possible, but not completely. In the very proximal ascending colon, was another flat polypoid lesion, which appeared to be probably adenomatous or villous, but without any other suspicious features. It was approximately 10 mm x 3 cm. Given the finding in the cecum, which might need surgery to remove depending on the pathology, I opted not to remove the ascending colon lesion and simply just biopsied it. There were also smaller polyps in the ascending colon, which were not removed either for the same reason. I did not visualize any other polyps, colitis, nor angiodysplasia. There was a mild amount of sigmoid diverticulosis. In the rectum, the scope was retroflexed visualizing internal hemorrhoids, but no other pathology. The rectal mucosa appeared normal. The scope was straightened and withdrawn from the patient. She tolerated the procedure well and was returned to the recovery area in stable condition. IMPRESSION: 1. Suspicious cecal lesion, status-post biopsy. 2. Proximal ascending colon polyp, status-post biopsy 3. Other polyps in ascending colon, not biopsied nor removed. 4. Diverticulosis. 5. Nonbleeding cecal angiodysplasias. 6. Internal hemorrhoids. PLAN: The results of the biopsies will be checked. Depending upon the results of the biopsies from the cecal lesion, she may need surgical referral. If the biopsies are just adenomatous or villous adenoma without any worrisome features then we could proceed with a repeat exam with a better prep to attempt to remove it. She was advised not to use any aspirin, NSAIDs, nor fish oil for 1 more week. Of note, right before the procedure, she was telling me that she has been having some worsening reflux despite being on a PPI. She was concerned given her smoking history and the fact that she has never has an upper endoscopy. I told her that once we settle the issue with the colonoscopy findings we might want to do an upper endoscopy if that continues to prove problematic. She denied any dysphagia nor anorexia. All of the above was discussed with the patient before she was discharged. I left her a voicemail as well.. MD STEPHIE Oliva/LISANDRA / [id number]
== END 2023-04-16 10:38 | disposition home or self-care (01) ==
PROVIDERS: PCP Family Medicine; Visit Provider Internal Medicine
PROC: 0DJD8ZZ Inspection of Lower Intestinal Tract, Via Natural or Artificial Opening Endoscopic (ICD-10-PCS; CPT 45378; principal; 2023-04-16 08:20)
DX: Z12.11 Encounter for screening for malignant neoplasm of colon (principal); Z86.010 Personal history of colon polyps; D12.0 Benign neoplasm of cecum; D12.2 Benign neoplasm of ascending colon; K55.20 Angiodysplasia of colon without hemorrhage; K57.30 Diverticulosis of large intestine without perforation or abscess without bleeding; K64.8 Other hemorrhoids; K58.2 Mixed irritable bowel syndrome; K21.9 Gastro-esophageal reflux disease without esophagitis; G47.33 Obstructive sleep apnea (adult) (pediatric); I10 Essential (primary) hypertension; E78.5 Hyperlipidemia, unspecified; Z79.82 Long term (current) use of aspirin; Z79.899 Other long term (current) drug therapy; F17.210 Nicotine dependence, cigarettes, uncomplicated
CPT/HCPCS: 45380; 88305; 94640; J1100; J1596; J2704

== ENCOUNTER 2023-05-06 13:00 | Outpatient (AMB) | payer MEDICARE, SELFPAY ==
--- NOTE | 2023-05-06 13:01 | A.OFFVIS_ITS ---
Intake Vital Signs 05/06/23 13:08 Weight 157 lb BP 147/70 H Blood Pressure Location Lt brachial Position Sitting Pulse 104 H Intake Visit Reasons: suspicious lesion on colonoscopy Intake Note: This patient presents for an assessment for suspicious lesion on colonoscopy. Pt c/o; reports no complaints at this time. Staff Veterinarian Required: No Accompanied by: Self / Same As Patient Allergies Sulfa (Sulfonamide Antibiotics) Allergy (Severe, Verified 05/06/23 13:07) Rash shellfish derived Allergy (Intermediate, Verified 05/06/23 13:07) Nausea and Vomiting clavulanic acid [From Augmentin] Adverse Reaction (Mild, Verified 05/06/23 13:07) Nausea and Vomiting HPI suspicious lesion on colonoscopy HPI Details [age] year old female here for a colon lesion. She had undergone a colonoscopy with Dr. Saunders last 04/16/2023 because of a history of tubular adenoma. She was noted to have a flat, polypoid lesion in the cecum just above the appendiceal orifice, puckering and scarred with some friability. This was described to be about 2 x 4 cm in size. There was note of another not polypoid lesion in the proximal ascending colon that appeared to be adenomatous as well. The path report for the cecal lesion showed high-grade adenomatous dysplasia. The path report for biopsy of the lesion in the proximal ascending colon showed a tubular adenoma. The patient was referred to me for resection. She is a known heavy smoker for many years. She has a history of laparoscopic cholecystectomy, bladder lift, and hysterectomy. COUNT INCLUDES THE [facility] Medical History (Updated 05/06/23 @ 13:06 by Jordan Michael MD) Cecal lesion RBBB (right bundle branch block) Bifascicular block Polycythemia CAD (coronary artery disease) GERD (gastroesophageal reflux disease) Sleep apnea Hypothyroidism Hyperlipidemia Hypertension Personal history of nicotine dependence Surgical History H/O colonoscopy History of tonsillectomy History of lumpectomy of right breast History of tubal ligation History of cholecystectomy History of bladder surgery History of hysterectomy Family History Sister Cancer of kidney Psoriasis Arthritis Lupus Blood clot in vein Acute Crohn's disease Substance abuse Father Atherosclerosis Substance abuse Aortic aneurysm Mother Substance abuse Maternal Aunt Substance abuse Paternal Grandfather No problems noted. Social History Housing: House Patient Tobacco Use Status: Current everyday Tobacco user Tobacco use type: Cigarette Cigarette Packs Per Day: 1 Cigarettes Per Day: 20.0 Years Smoked: 60 e-Cigarette/Vaping Use: Never Used service: No Current occupational status: retired Cognitive needs: No Hearing needs: No Vision needs: Yes (Patient wears reading glasses.) Review of Systems Const Denies chills and Denies fever(s) Card Denies chest pain, Denies dyspnea and Denies dyspnea on exertion Resp Denies cough, Denies dyspnea and Denies dyspnea on exertion GI Denies hematochezia and Denies change in bowel habits Denies hematuria Musc Denies back pain and Denies limited range of motion Neuro Denies focal weakness and Denies convulsions Psych Denies depression and Denies mood swings Physical Exam Vital Signs: Last Vital Signs Pulse 104 H 05/06/23 13:08 BP 147/70 H 05/06/23 13:08 Const General: comfortable and no acute distress Orientation/consciousness: patient oriented x3 Neck Neck: Yes no lymphadenopathy Resp Auscultation: clear to auscultation bilaterally Cardio Rhythm: regular rhythm GI Palpation (GI): Soft to palpation, nontender and no guarding Neuro General: patient oriented x3 Assessment & Plan Assessment & Plan (1) Cecal lesion: Code(s): K63.9 - Disease of intestine, unspecified Plan: There was note of high-grade adenomatous dysplasia of the lesion in the cecum. This is not amenable to endoscopic resection. There was note of a 2nd polyp in the proximal right colon which was a tubular adenoma I explained to her that it may be best to proceed with colon resection. I explained the technique of hand assisted laparoscopic right colon resection with possible conversion to open. I reviewed the risks including but not limited to bleeding, infections, bowel injury, staple line leak, inherent risks of anesthesia including heart attack, SC, as well as the benefits and alternatives. She understands the above and agrees to proceed with hand assisted laparoscopic right colon resection. She will be seen by Cardiology preoperatively. I have scheduled her for a CT scan as well to check for metastatic disease. She also mentioned that her daughter had multiple colon polyps and that she tested positive for this particular mutation. I had asked the patient to check on this so we can schedule her for genetic testing as well. Orders: Orders CT abdomen pelvis w IV con 05/06/23 K63.9 - Disease of intestine, unspecified Blood Urea Nitrogen 05/06/23 K63.9 - Disease of intestine, unspecified Creatinine 05/06/23 K63.9 - Disease of intestine, unspecified Coding Level of Care Code New Pt Level 4 (51446) Diagnoses Cecal lesion K63.9
[2023-05-06 13:08] VITALS: BP 147/70; PULSE 104
== END 2023-05-06 13:38 | disposition home or self-care (01) ==
PROVIDERS: PCP Family Medicine; Referring Provider Internal Medicine; Visit Provider Surgery
DX: K63.9 Disease of intestine, unspecified (principal)
CPT/HCPCS: 99204

== ENCOUNTER 2023-05-06 13:00 | Outpatient (REF) | payer MEDICARE, SELFPAY ==
[2023-05-06 14:37] LABS: Blood Urea Nitrogen 11 mg/dL (9-16); Estimated Glomerular Filt Rate > 60
== END 2023-05-06 13:01 | disposition home or self-care (01) ==
LOC: HO.LAB 13:00
PROVIDERS: PCP Family Medicine; Referring Provider Internal Medicine; Visit Provider Surgery
DX: K63.89 Other specified diseases of intestine (principal); D12.2 Benign neoplasm of ascending colon
CPT/HCPCS: 36415; 82565; 84520; 99202

== ENCOUNTER 2023-05-10 10:37 | Outpatient (REF) | payer MEDICARE, SELFPAY ==
[2023-05-10 15:34] LABS: Cholesterol 162 mg/dL (<200); HDL Cholesterol 66 mg/dL (>40); LDL Cholesterol Calculated 77 mg/dL (<100); Triglycerides 96 mg/dL (<150)
== END 2023-05-10 10:38 | disposition home or self-care (01) ==
LOC: HO.WFDLDS 10:37
PROVIDERS: Visit Provider Nurse Practitioner Family
DX: E78.5 Hyperlipidemia, unspecified (principal)
CPT/HCPCS: 36415; 80061

== ENCOUNTER 2023-05-11 11:18 | Outpatient (AMB) | payer MEDICARE, SELFPAY ==
[2023-05-11 11:24] VITALS: BP 142/74; PULSE 92; BMI 24.5
--- NOTE | 2023-05-11 11:24 | A.OFFVIS_ITS ---
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 She had been seen by her primary care doctor and noticed that she had lower extremity discoloration and is varicosities. She does have a left pretibial ulceration. In addition some superficial varicosities. It has been affecting her right lower extremity more so Patient denies any previous venous surgery or injections. Patient denies any history of DVT/ PE. Patient denies any history of phlebitis. Trial of compression includes - [id number] They now present for vascular evaluation regarding their varicose veins. In addition she does smoke about a pack per day since the age of 17. She is a nondiabetic. Had a father that had aortic aneurysm repair. [facility] Medical History (Updated 05/11/23 @ 13:10 by Abdirizak Lewis MD) Cecal lesion RBBB (right bundle branch block) Bifascicular block Polycythemia CAD (coronary artery disease) GERD (gastroesophageal reflux disease) Sleep apnea Hypothyroidism Hyperlipidemia Hypertension Personal history of nicotine dependence Surgical History H/O colonoscopy History of tonsillectomy History of lumpectomy of right breast History of tubal ligation History of cholecystectomy History of bladder surgery History of hysterectomy Family History Sister Cancer of kidney Psoriasis Arthritis Lupus Blood clot in vein Acute Crohn's disease Substance abuse Father Atherosclerosis Substance abuse Aortic aneurysm Mother Substance abuse Maternal Aunt Substance abuse Paternal Grandfather No problems noted. Social History Housing: House Patient Tobacco Use Status: Current everyday Tobacco user Tobacco use type: Cigarette Cigarette Packs Per Day: 1 Cigarettes Per Day: 20.0 Years Smoked: 60 e-Cigarette/Vaping Use: Never Used service: No Current occupational status: retired Cognitive needs: No Hearing needs: No Vision needs: Yes (Patient wears reading glasses.) Review of Systems Const Reports as per HPI ENT Reports no additional complaints Card Denies chest pain, Denies chest pain at rest and Denies chest pain with activity Resp Denies chest congestion and Denies cough GI Reports no additional complaints Musc Details: pain over varicosities, aching of lower extremities, swelling, cramping, heaviness and tiredness, itching Denies abnormal gait Skin/Breast Reports pruritus and Denies wounds Neuro Reports no additional complaints and Denies abnormal gait Psych Denies no additional complaints Physical Exam Vital Signs: Last Vital Signs Pulse 92 05/11/23 11:24 BP 142/74 H 05/11/23 11:24 BMI result Body Mass Index 24.5 Const General: cooperative, healthy appearing and comfortable Orientation/consciousness: oriented to person, oriented to place and oriented to time Neck Carotids: no bruits Chest Chest palpation & inspection: normal inspection of the chest and normal palpation of entire chest wall Resp Effort & Inspection: normal respiratory effort and able to speak in complete s entences Cardio Rate: regular rate Heart sounds: S1 normal heart sound present and S2 normal heart sound present Peripheral pulses: Peripheral pulses 2+ throughout GI Inspection: Yes normal to inspection Skin Other: +2 edema, large rope-like varicosities greater than 4 mm more so right pretibial surface CEAP Classification C6 - active ulceration Ep - Etiology Primary As - superficial veins P - reflux General skin exam: dry skin Neuro General: oriented to person, oriented to place and oriented to time Extrem Right lower extremity: full ROM, normal capillary refill and edema Left lower extremity: full ROM, normal capillary refill and edema Psych Mental Status: mental status grossly normal Assessment & Plan Assessment & Plan (1) Varicose veins of right lower extremity with inflammation: Code(s): I83.11 - Varicose veins of right lower extremity with inflammation Plan: In short patient does have venous disease. We did discuss routine conservative measures including compression elevation and exercise. I have taken the liberty of ordering venous insufficiency testing when she is able to get it. I do think she is stable from my perspective to move forward with right colon surgery as required. She can see us after surgery. Thank you for allowing us to assist in her care. (2) Encounter for abdominal aortic aneurysm (AAA) screening: Code(s): Z13.6 - Encounter for screening for cardiovascular disorders Plan: Due to her age smoking history and family history would be beneficial to get screening aortic aneurysm ultrasound. We will coordinate this prior to next visit. Thank you for allowing us to assist in her care. If there are any questions or concerns please do not hesitate to contact us. Plan The patient had an opportunity to ask questions regarding the treatment plan. All questions were answered. Imaging studies, laboratory studies and physical exam results were discussed and reviewed in detail. No major barriers to understanding were identified. The patient expressed understanding and agreement with the above treatment plan. The patient is aware they should contact our office by phone for worsening of the current condition or the appearance of new symptoms. Thank you for allowing me to participate in the vascular care of this patient. If you have any questions or concerns regarding the treatment for the above condition please do not hesitate to contact me. The office telephone contact is [phone]. This note is constructed using voice recognition software. While every effort has been made to ensure accuracy, section cutter errors may have been included. Thank you for allowing me to participate in the care of your patient. Yours sincerely, Abdirizak Lewis MD, FACS, R.P.V.I. Orders: Orders US abdominal aortic aneurysm 1 Week Z13.6 - Encounter for screening for cardiovascular disorders US venous insuf bilat 1 Week I83.11 - Varicose veins of right lower extremity with inflammation Coding Level of Care Code New Pt Level 4 (96297) Diagnoses Varicose veins of right lower extremity with inflammation I83.11 Encounter for abdominal aortic aneurysm (AAA) screening Z13.6
== END 2023-05-11 12:09 | disposition home or self-care (01) ==
PROVIDERS: PCP Family Medicine; Visit Provider Surgery Vascular Surgery
DX: I83.11 Varicose veins of right lower extremity with inflammation (principal); Z13.6 Encounter for screening for cardiovascular disorders
CPT/HCPCS: 99203

== ENCOUNTER → 2023-05-11 11:18 | Outpatient (BNVA) | payer MEDICARE, SELFPAY | PROVIDERS: PCP Family Medicine; Visit Provider Surgery Vascular Surgery | DX: I83.11 Varicose veins of right lower extremity with inflammation (principal); Z13.6 Encounter for screening for cardiovascular disorders | CPT/HCPCS: 99202 ==

== ENCOUNTER 2023-05-13 10:50 | Outpatient (REF) | payer MEDICARE, SELFPAY ==
--- NOTE | ~2023-05-13 | CT_ITS ---
EXAMINATION: CT ABDOMEN AND PELVIS WITH CONTRAST CLINICAL INFORMATION: Disease of intestine COMPARISON: None available. TECHNIQUE: Multidetector volumetric images were obtained from the superior aspect of the liver through the pubic symphysis following administration 85 mL of Omnipaque 350 intravenous contrast. Sagittal and coronal reformatted images were obtained on the technologist's workstation. Oral contrast: Yes This CT examination was performed using dose optimization techniques as appropriate, variously including the following: *Automated exposure control *Adjustment of mA and/or kV according to patient size (this includes techniques or standardized protocols for targeted exams where dose is matched to indication/reason for exam; i.e. extremities or head) *Use of iterative reconstruction technique DLP: 842 mGy-cm FINDINGS: LUNG BASES: The visualized lung bases are unremarkable. LIVER, GALLBLADDER, AND BILIARY TREE: There are 2 small subcentimeter low-attenuation lesions in the left lobe of the liver suggestive of small cysts. No other focal liver lesion. The liver is normal in size and contour. There are surgical clips suggestive of previous cholecystectomy. There is increased attenuation in the adjacent liver and possibly gallbladder fossa probably representing postsurgical change as opposed to dropped gallstones. No fluid collection/inflammatory changes in this region are seen. PANCREAS: Unremarkable. SPLEEN: Small calcification in the spleen probably related to old granulomatous disease. ADRENAL GLANDS: Unremarkable. KIDNEYS AND URETERS: The kidneys are normal in size, shape, and attenuation. No hydronephrosis, hydroureter. Question small 1 mm nonobstructing left upper pole renal stone. Bilateral renal cysts. No imaging follow-up recommended. BLADDER: Not optimally distended. GASTROINTESTINAL TRACT: Moderate stool burden. The small and large bowel are otherwise unremarkable. The appendix is unremarkable. Question mild fold thickening of the proximal stomach. ABDOMINAL WALL: No significant hernia is appreciated. LYMPH NODES: Normal. VASCULAR: Severe atherosclerotic disease. Small lower abdominal aortic aneurysm measuring 2.6 x 2.9 cm. PELVIC VISCERA: The uterus appears to have been removed. No pelvic mass. OSSEOUS STRUCTURES: Degenerative changes of the spine. CT/CT abdomen pelvis w IV con IMPRESSION: Mild constipation. Mild fold thickening of the proximal stomach. 2.6 x 2.9 cm abdominal aortic aneurysm. Imaging follow-up in 5 years recommended. Small nonobstructing left renal stone. Fleischner guidelines were followed.
[2023-05-13] MEDS: iohexoL 350 MG/ML 100 ML INFUS..BTL 85 ML IV (11:31)
== END 2023-05-13 10:51 | disposition home or self-care (01) ==
LOC: HO.CT 10:50
PROVIDERS: PCP Family Medicine; Visit Provider Surgery
DX: K63.9 Disease of intestine, unspecified (principal)
CPT/HCPCS: 74177; Q9967

== ENCOUNTER 2023-05-21 10:22 | Outpatient (REF) | payer MEDICARE, SELFPAY ==
--- NOTE | ~2023-05-21 | US_ITS ---
EXAMINATION: US VENOUS REFLUX/INSUFFICIENCY CLINICAL INFORMATION: Varicose veins of right lower extremity with inflammation COMPARISON: None. TECHNIQUE: Bilateral lower extremity venous insufficiency ultrasound was performed with velocity measurements. Color flow Doppler imaging was performed. FINDINGS: RIGHT SIDE: No evidence of DVT or venous reflux within the common femoral, mid femoral, or popliteal vein. GREATER SAPHENOUS VEIN: The right saphenofemoral junction measures 0.6cm. The reflux time is 0 ms. Proximal thigh measures 0.4cm. Reflux time is 0 ms. Mid thigh measures 0.2cm. Reflux time is 736 ms. Above-knee measures 0.3cm. Reflux time is 0 ms. At the knee measures 0.2cm. Reflux time is 0 ms. Below the knee measures 0.3cm. Reflux time is 1136 ms. Mid calf measures 0.2cm. Reflux time is 2244 ms. At the level of the ankle it measures 0.2cm. Reflux time is 0 ms. There is a medial accessory saphenous vein measures 0.2 cm at the saphenofemoral junction and does not demonstrate reflux. There is a lateral accessory saphenous vein measures 0.2 cm at the saphenofemoral junction, 0.2 cm at the mid thigh and does not demonstrate reflux. There is a 0.3 cm varicosity at the level of the mid thigh which does not demonstrate reflux. There is a 0.1 cm research program intern located 35 cm from the calcaneus with reflux time 756 ms. There are additional research program intern veins that measures 0.2 cm of the mid thigh, 0.2 cm at the proximal calf, 0.2 cm at the mid calf, and 0.2 cm at the distal calf which do not demonstrate reflux. SMALL SAPHENOUS VEIN: The saphenopopliteal junction measures 0.4 cm. Reflux time is 0 ms. The upper right small saphenous vein measures 0.2 cm. Reflux time is 0 ms. There is peripheral calcified material and mild wall thickening suggesting chronic thrombophlebitis. The lower small saphenous vein measures 0.2cm. Reflux time is 2688 ms. LEFT SIDE: No evidence of DVT or venous reflux within the common femoral, mid femoral, or popliteal vein. GREATER SAPHENOUS VEIN: The left saphenofemoral junction measures 0.7cm. The reflux time is 0 ms. Proximal thigh measures 0.4cm. Reflux time is 0 ms. Mid thigh measures 0.3cm. Reflux time is 2272 ms. Above-knee measures 0.4cm. Reflux time is 732 ms. At the knee measures 0.2cm. Reflux time is 2512 ms. Below the knee measures 0.3cm. Reflux time is 0 ms. Mid calf measures 0.2cm. Reflux time is greater than 2440 ms. At the level of the ankle it measures0.3cm. Reflux time is greater than 2588 ms. There is a medial accessory saphenous vein which measures 0.2 cm at the saphenofemoral junction and does not demonstrate reflux. There is a lateral accessory saphenous vein which measures 0.4 cm at the saphenofemoral junction, 0.2 cm at the mid thigh, and does not demonstrate reflux. At the mid thigh there is a 0.2 to 0.3 cm varicosity associated with the great saphenous vein which does not demonstrate reflux. At the proximal calf there is a 0.2 to 0.3 cm varicosity which does not demonstrate reflux. At the distal calf there is a 0.3 cm varicosity which does not demonstrate reflux. There is a 0.2 cm research program intern at the level of the proximal calf which does not demonstrate reflux. There is a 0.3 cm research program intern vein at the level of the mid calf which does not demonstrate reflux. SMALL SAPHENOUS VEIN: The saphenopopliteal junction measures 0.1 cm. Reflux time is 0 ms. The upper left small saphenous vein measures 0.1 cm. Reflux time is 0 ms. The lower small saphenous vein measures 0.1cm. Reflux time is 0 ms. US/US venous insuf bilat IMPRESSION: There is no evidence of deep venous reflux or deep venous thrombosis. On the right there is segmental reflux within the great saphenous vein at the level of the mid thigh, below the knee, and midcalf segments. There is also segmental reflux within the distal segment of the small saphenous vein. There are findings suggesting chronic phlebitis/chronic postthrombotic change within the upper portion of the small saphenous vein. There are a few small varicosities on the right which do not demonstrate reflux. There is a 0.1 cm research program intern 35 cm from the calcaneus at the level the proximal calf which demonstrate reflux. On the left there is reflux within the great saphenous vein extending from the mid thigh to the level of the knee and from the mid calf to the ankle. Several small varicosities and perforators are seen which do not demonstrate reflux.
== END 2023-05-21 10:23 | disposition home or self-care (01) ==
LOC: HO.US 10:22
PROVIDERS: PCP Family Medicine; Visit Provider Surgery Vascular Surgery
DX: I83.11 Varicose veins of right lower extremity with inflammation (principal)
CPT/HCPCS: 93970

== ENCOUNTER 2023-06-03 08:22 | Outpatient (REF) | payer MEDICARE, SELFPAY ==
--- NOTE | ~2023-06-03 | US_ITS ---
EXAMINATION: US RETROPERITONEAL LIMITED (AORTA) CLINICAL INFORMATION: Encounter for screening for cardiovascular disorders. COMPARISON: CT abdomen 05/13/2023. TECHNIQUE: Morales-scale, color Doppler and spectral Doppler evaluation of the abdominal aorta. FINDINGS: Atherosclerotic aorta. The measurements of the aorta in maximum AP and transverse dimensions respectively are as follows: Proximal: 2.6 x 2.2 cm. Mid: 2.2 x 2.3 cm. Distal: 3.0 x 2.9 cm. PSV: 75.2 cm/s. The measurements of the common iliac arteries in maximum AP and TRV dimensions are as follows: Right Common Iliac Artery: 1.0 x 1.2 cm. Left Common Iliac Artery: 1.1 x 1.0 cm. US/US abdominal aortic aneurysm IMPRESSION: Infrarenal abdominal aortic aneurysm measuring 3.0 x 2.9 cm which is unchanged compared to recent CT 05/13/2023. Based on published guidelines in J Am Dejan Radiol 2013; 10(10):789-794 and J Vasc Surg. 2018; 67:2-77, the recommendation for an abdominal aortic aneurysm with diameter 3.0-3.4 cm is follow-up every 3 years.
== END 2023-06-03 08:23 | disposition home or self-care (01) ==
LOC: HO.US 08:22
PROVIDERS: PCP Family Medicine; Visit Provider Surgery Vascular Surgery
DX: Z13.6 Encounter for screening for cardiovascular disorders (principal)
CPT/HCPCS: 76706

== ENCOUNTER → 2023-06-03 14:05 | Outpatient (BNV) | payer MEDICARE, SELFPAY | PROVIDERS: Admitting Provider Surgery; PCP Family Medicine; Visit Provider Internal Medicine | DX: I45.2 Bifascicular block (principal); Z01.810 Encounter for preprocedural cardiovascular examination | CPT/HCPCS: 93010 ==

== ENCOUNTER 2023-06-08 07:24 | Inpatient (IN) | payer MEDICARE, SELFPAY ==
--- NOTE | 2023-06-03 | ECG_ITS ---
Test Reason : preop Blood Pressure : / mmHG Vent. Rate : 076 BPM Atrial Rate : 076 BPM P-R Int : 194 ms QRS Dur : 142 ms QT Int : 438 ms P-R-T Axes : 067 -74 036 degrees QTc Int : 492 ms Normal sinus rhythm Right bundle branch block Left anterior fascicular block Bifascicular block Abnormal ECG No previous ECGs available Referred By: Kenyetta Jaimes Electronically Signed By:YANIV ALDRIDGE
[2023-06-03 13:13] VITALS: BP 153/74; PULSE 80; RESP 20; O2SAT 98; BMI 24.2
--- NOTE | 2023-06-03 13:38 | P.CONAN_ITS ---
Documented by User: Kenyetta Jaimes NP 06/04/23 14:02 HPI - Anesthesia Eval Consult details Narrative: 78yo F for Right Hand Assist Colon Resection Laparoscopic,possible open No recent illness No CP/SOB with > 4 mets Follows [facility] [place] Cardiology for CAD, RBBB. Stable without symptoms at 12/2022 visit with 6 month f/u. Stress test OK 11/2022. OK to proceed if no new symptoms per cardiology workload. GERD. ppi mostly controls COPD. Denies RA. No CPAP REPLACED BY [facility] Active Problems Active Problems: All Active Problems (Updated 06/03/23 @ 13:05 by Renetta Alvarado RN) Encounter for abdominal aortic aneurysm (AAA) screening (Acute) Varicose veins of right lower extremity with inflammation (Acute) Varicose veins of lower extremity (Acute) Cataract (Acute) Rib pain (Acute) Osteoporosis (Acute) Back pain (Acute) Hiccups (Acute) Screening for osteoporosis (Acute) Rash (Acute) Breast cancer screening by mammogram (Acute) Screening for colon cancer (Acute) Polycythemia (Acute) Adult general medical exam (Acute) Difficulty swallowing (Acute) Eczema (Acute) Costochondritis (Acute) Laboratory exam ordered as part of routine general medical examination (Acute) Bifascicular block (Acute) CAD (coronary artery disease) (Acute) Vulvovaginitis (Acute) Cecal lesion (Acute) Hypertension (Acute) Hypothyroidism (Acute) Hyperlipidemia (Acute) Personal history of nicotine dependence (Acute) Past Medical History Medical History Family history of anesthesia complication COPD (chronic obstructive pulmonary disease) Cecal lesion RBBB (right bundle branch block) Bifascicular block Polycythemia CAD (coronary artery disease) GERD (gastroesophageal reflux disease) Sleep apnea Hypothyroidism Hyperlipidemia Hypertension Personal history of nicotine dependence Family History Family History Sister Cancer of kidney Psoriasis Arthritis Lupus Blood clot in vein Acute Crohn's disease Substance abuse Father Atherosclerosis Substance abuse Aortic aneurysm Mother Substance abuse Maternal Aunt Substance abuse Paternal Grandfather No problems noted. Family history of problems with anesthesia: Yes (Sisters PONV) Surgical History Surgical History Hx of dilation and curettage H/O colonoscopy History of tonsillectomy History of lumpectomy of right breast History of tubal ligation History of cholecystectomy History of bladder surgery History of hysterectomy History of Problems with Anesthesia: No Social History Social History Housing: House Are you a primary career specialist to a significant other at home: No Do you presently have visiting nurse or other home services: No Patient Tobacco Use Status: Current everyday Tobacco user Tobacco use type: Cigarette Cigarette Packs Per Day: 1 Cigarettes Per Day: 20.0 Years Smoked: 61 e-Cigarette/Vaping Use: Never Used Patient Interested in Nicotine Replacement: No Use of substances other than those prescribed or required for medical reasons: No Have you been hit, kicked, punched, or otherwise hurt by someone within the past year? If so, by whom?: No Are you DNR?: No Advance Directives: No ( primary contact) Advance Directives Information Provided: Yes Advance Directives on File: No Recently lost weight without trying: No Eating poorly because of decreased appetite: No Nutrition Risks: Surgical patient >75years Poor oral hygiene: Yes (gingivitis-mildly loose molars, one extracted tooth) service: No Current occupational status: retired Cognitive needs: No Hearing needs: No Vision needs: Yes (Patient wears reading glasses.) Meds Allergies Allergy/AdvReac Type Severity Reaction Status Date / Time Sulfa (Sulfonamide Allergy Severe Rash Verified 06/08/23 07:20 Antibiotics) amoxicillin [From Augmentin] Allergy Intermediate Nausea and Verified 06/08/23 07:20 Vomiting clavulanic acid Allergy Intermediate Nausea and Verified 06/08/23 07:20 [From Augmentin] Vomiting shellfish derived Allergy Intermediate Nausea and Verified 06/08/23 07:20 Vomiting narcotic pain medications AdvReac Intermediate Nausea and Uncoded 06/08/23 07:20 Vomiting Home Medications Medication Instructions Recorded Confirmed Last Taken Type amlodipine 5 mg tablet 5 mg PO QAM 09/21/22 06/08/23 06/08/23 History levothyroxine 150 mcg tablet 150 mcg PO QAM 09/21/22 06/08/23 06/08/23 History omeprazole 20 mg capsule,delayed 20 mg PO BID 09/21/22 06/08/23 06/08/23 History release cholecalciferol (vitamin D3) 50 50 mcg PO QAM 11/09/22 06/08/23 06/07/23 History mcg (2,000 unit) capsule coenzyme Q10 75 mg capsule (Ultra 75 mg PO QAM 11/09/22 06/08/23 06/07/23 History CoQ10) lisinopril 30 mg tablet 30 mg PO BEDTIME 11/09/22 06/08/23 06/07/23 20:00 History omega 1-uxa-ohq-fish oil 1,200 mg 1 cap PO DAILY 11/09/22 06/08/23 06/03/23 History (144 mg-216 mg) capsule (Fish Oil) rosuvastatin 40 mg tablet 40 mg PO BEDTIME 06/03/23 06/08/23 06/07/23 History Exam Height,Weight and Vital Signs: Height 5 ft 7.5 in Weight 71.214 kg Last Vital Signs Pulse 80 06/03/23 13:13 Resp 20 06/03/23 13:13 BP 153/74 H 06/03/23 13:13 Pulse Ox 98 06/03/23 13:13 O2 Del Method Room Air 06/03/23 13:13 Pertinent Lab Results Pertinent Lab Results: Laboratory Tests 04/02/23 04/02/23 05/06/23 11:50 11:50 14:00 WBC 5.5 Hgb 15.5 Hct 46.8 Plt Count 342 Sodium 139 Potassium 4.2 Chloride 104 Carbon Dioxide 27 BUN 11 Creatinine 0.75 Narrative Narrative: EKG 05/2023 Vent. Rate : 076 BPM Atrial Rate : 076 BPM P-R Int : 194 ms QRS Dur : 142 ms QT Int : 438 ms P-R-T Axes : 067 -74 036 degrees QTc Int : 492 ms Normal sinus rhythm Right bundle branch block Left anterior fascicular block Bifascicular block Septal infarct , age undetermined Abnormal ECG No change from previous at outside facility NM cardiolite stress test 11/2022 IMPRESSION: 1. Myocardial perfusion imaging study shows normal myocardial perfusion. 2. Gated LVEF is > 70% during stress and rest. 3. Transient ischemic dilatation not present. EKG component of the test reported separately. Echocardiogram previously done at [facility] showed normal EF, no regional wall motion abnormalities, mild LVH. US abdominal aortic aneurysm 05/2023 IMPRESSION: Infrarenal abdominal aortic aneurysm measuring 3.0 x 2.9 cm which is unchanged compared to recent CT 05/13/2023. Based on published guidelines in J Am Dejan Radiol 2013; 10(10):789-794 and J Vasc Surg. 2018; 67:2-77, the recommendation for an abdominal aortic aneurysm with diameter 3.0-3.4 cm is follow-up every 3 years. Airway Mallampati Class: II TM Dist: >3cm Neck ROM: Full Loose/Missing/Broken Teeth: Yes (molars pulled, crowned molars) Heart: RRR Lungs: Fine crackles lower, clears with cough Assessment and Plan Assessment Anesthesia Assessment: Anesthesia Plan Discussed, Smoking Cess. Discussed and PAT Visit Final Anesthetic Review Family History of Problems with Anesthesia: Yes (Sisters PONV) History of Problems with Anesthesia: No Documented by User: Bianka Melo MD 06/08/23 08:23 PMFSH Past Medical History Medical History Family history of anesthesia complication COPD (chronic obstructive pulmonary disease) Cecal lesion RBBB (right bundle branch block) Bifascicular block Polycythemia CAD (coronary artery disease) GERD (gastroesophageal reflux disease) Sleep apnea Hypothyroidism Hyperlipidemia Hypertension Personal history of nicotine dependence Family History Family History Sister Cancer of kidney Psoriasis Arthritis Lupus Blood clot in vein Acute Crohn's disease Substance abuse Father Atherosclerosis Substance abuse Aortic aneurysm Mother Substance abuse Maternal Aunt Substance abuse Paternal Grandfather No problems noted. Surgical History Surgical History Hx of dilation and curettage H/O colonoscopy History of tonsillectomy History of lumpectomy of right breast History of tubal ligation History of cholecystectomy History of bladder surgery History of hysterectomy Social History Social History Housing: House Are you a primary career specialist to a significant other at home: No Do you presently have visiting nurse or other home services: No Patient Tobacco Use Status: Current everyday Tobacco user Tobacco use type: Cigarette Cigarette Packs Per Day: 1 Cigarettes Per Day: 20.0 Years Smoked: 61 e-Cigarette/Vaping Use: Never Used Patient Interested in Nicotine Replacement: No Use of substances other than those prescribed or required for medical reasons: No Have you been hit, kicked, punched, or otherwise hurt by someone within the past year? If so, by whom?: No Are you DNR?: No Advance Directives: No ( primary contact) Advance Directives Information Provided: Yes Advance Directives on File: No Recently lost weight without trying: No Eating poorly because of decreased appetite: No Nutrition Risks: Surgical patient >75years Poor oral hygiene: Yes (gingivitis-mildly loose molars, one extracted tooth) service: No Current occupational status: retired Cognitive needs: No Hearing needs: No Vision needs: Yes (Patient wears reading glasses.) Meds Allergies Allergy/AdvReac Type Severity Reaction Status Date / Time Sulfa (Sulfonamide Allergy Severe Rash Verified 06/08/23 07:20 Antibiotics) amoxicillin [From Augmentin] Allergy Intermediate Nausea and Verified 06/08/23 07:20 Vomiting clavulanic acid Allergy Intermediate Nausea and Verified 06/08/23 07:20 [From Augmentin] Vomiting shellfish derived Allergy Intermediate Nausea and Verified 06/08/23 07:20 Vomiting narcotic pain medications AdvReac Intermediate Nausea and Uncoded 06/08/23 07:20 Vomiting Home Medications Medication Instructions Recorded Confirmed Last Taken Type amlodipine 5 mg tablet 5 mg PO QAM 09/21/22 06/08/23 06/08/23 History levothyroxine 150 mcg tablet 150 mcg PO QAM 09/21/22 06/08/23 06/08/23 History omeprazole 20 mg capsule,delayed 20 mg PO BID 09/21/22 06/08/23 06/08/23 History release cholecalciferol (vitamin D3) 50 50 mcg PO QAM 11/09/22 06/08/23 06/07/23 History mcg (2,000 unit) capsule coenzyme Q10 75 mg capsule (Ultra 75 mg PO QAM 11/09/22 06/08/23 06/07/23 History CoQ10) lisinopril 30 mg tablet 30 mg PO BEDTIME 11/09/22 06/08/23 06/07/23 20:00 History omega 9-fol-uan-fish oil 1,200 mg 1 cap PO DAILY 11/09/22 06/08/23 06/03/23 History (144 mg-216 mg) capsule (Fish Oil) rosuvastatin 40 mg tablet 40 mg PO BEDTIME 06/03/23 06/08/23 06/07/23 History Exam Airway Mallampati Class: III Assessment and Plan Final Anesthetic Review NPO: Yes ASA Class: III Final Preanesthetic Review: No Changes in Pt Med Stat, Meds/Allgs Chart Re viewed, Consent Obtained/Reviewed and Anes Risks/Benef Reviewed Patient Risk: Intermediate Procedure Risk: Intermediate Anesthetic Plan Anesthetic Plan: GA and Regional Block Disposition: Standard PACU
[2023-06-08] VITALS (21 sets, daily range): BP systolic 123–154; BP diastolic 66–78; PULSE 75–96; RESP 16–20; TEMP 36.4–37.3; O2SAT 93–99; BMI 24.6
--- NOTE | ~2023-06-08 | CT_ITS ---
EXAMINATION: CT ABDOMEN AND PELVIS WITH CONTRAST CLINICAL INFORMATION: Nausea and vomiting status post right colon resection COMPARISON: CT abdomen pelvis 05/13/2023 TECHNIQUE: Multidetector volumetric images were obtained from the superior aspect of the liver through the pubic symphysis following administration 85 mL of Omnipaque 350 intravenous contrast. Sagittal and coronal reformatted images were obtained on the technologist's workstation. Oral contrast: No This CT examination was performed using dose optimization techniques as appropriate, variously including the following: *Automated exposure control *Adjustment of mA and/or kV according to patient size (this includes techniques or standardized protocols for targeted exams where dose is matched to indication/reason for exam; i.e. extremities or head) *Use of iterative reconstruction technique DLP: 360 mGy-cm FINDINGS: LUNG BASES: There is bibasilar atelectasis and small pleural effusions. LIVER, GALLBLADDER, AND BILIARY TREE: The liver is normal in size, shape, and attenuation. 2 small hepatic cysts are present. No worrisome solid focal hepatic lesion or biliary ductal dilatation is present. Status post cholecystectomy. PANCREAS: Unremarkable. SPLEEN: Unremarkable. A splenic granuloma is seen. ADRENAL GLANDS: Unremarkable. KIDNEYS AND URETERS: The kidneys are normal in size, shape, and attenuation. No hydronephrosis, hydroureter, or calculi seen. No perinephric stranding. Multiple bilateral small benign Bosniak class I renal cysts are noted which require no additional imaging or follow-up. No solid renal masses are seen. BLADDER: The bladder is decompressed. Air is present in the bladder. Correlate with catheterization. GASTROINTESTINAL TRACT: Patient is status post partial right colectomy with a widely patent anastomosis. Some inflammatory changes are present around the anastomosis. The majority of the small bowel is dilated. The colon is distended as well with the exception of the distal descending colon and sigmoid. A clear-cut lesion causing mechanical bowel obstruction is not seen. ABDOMINAL WALL: Midline sutures are present. Some air is present in the subcutaneous tissues probably secondary to recent surgery. LYMPH NODES: No retroperitoneal lymphadenopathy. VASCULAR: Atherosclerotic changes are present in the aorta and iliac vessels. There is a bilobed abdominal aortic aneurysm present with maximal dimension of 2.9 cm when measurements are made perpendicular to a center line (see patton image). The upper component is 2.6 cm. PELVIC VISCERA: The uterus is not seen. An abnormal adnexal mass is not detected. A small amount of free fluid is present in the pelvis. OSSEOUS STRUCTURES: Marked degenerative changes are present most prominently at L2-L3 and from L4 through S1. No bony destructive lesions CT/CT abdomen pelvis w IV con IMPRESSION: 1. Status post partial right colectomy with widely patent anastomosis. 2. The majority of the small bowel is dilated as well as the colon with the exception of the distal descending colon and sigmoid. A clear-cut lesion causing mechanical bowel obstruction is not seen. Consider ileus as a etiology. 3. Incidental note made of bibasilar atelectasis and small pleural effusions, cholecystectomy, bilobed abdominal aortic aneurysm, degenerative changes in the spine and other findings described above. Regarding the aneurysm, ultrasound is recommended every 5 years for surveillance. Fleischner guidelines were followed.
--- NOTE | ~2023-06-08 | XR_ITS ---
EXAMINATION: XR CHEST CLINICAL INFORMATION: Postop low oxygen saturation COMPARISON: CT lung screening April 15, 2023 TECHNIQUE: Frontal view of the chest was obtained. FINDINGS: Cardiac silhouette is normal in size. The lungs are adequately aerated. Subtle patchy opacity left lung base. Linear opacity projects over the right lung. No gross pleural effusion. No pneumothorax. XR/XR chest 1V IMPRESSION: Subtle patchy opacity of the left lung base is nonspecific may represent atelectasis or developing infiltrate. Linear opacity of the right lung is most suggestive of atelectasis.. Follow-up imaging recommended to ensure resolution.
[2023-06-08] MEDS: Lactated Ringers 1,000 ML 100 ML IVCONT ×2 (08:15→15:19)
--- NOTE | 2023-06-08 08:40 | PHA.MEDREC ---
Pharmacy Consult ? Medication Reconciliation Pharmacy has completed the medication reconciliation. Reviewed med rec done by nursing
--- NOTE | 2023-06-08 09:00 | MHC.SHP ---
Pre-Procedural Eval Section A - 24 Hr Update-Section A only Date of Service: 06/08/23 Section B - Complete if H&P > 30 days Chief Complaint: CECAL LESION Details of Present Illness: Patient had a screening colonoscopy in showed a small cecal lesion with ulceration in the center. The path report biopsy showed high-grade dysplasia. The patient was referred for full excision with resection Relevant Family History (Specify if Yes): No Relevant Social History: None Present Medications: see Short Stay Collaborative assessment Medical History: Significant History (Smoker, polycythemia, hypothyroidism, hypertension, hyperlipidemia) Allergies: Allergies Allergy/AdvReac Type Severity Reaction Status Date / Time Sulfa (Sulfonamide Allergy Severe Rash Verified 06/08/23 07:20 Antibiotics) amoxicillin [From Augmentin] Allergy Intermediate Nausea and Verified 06/08/23 07:20 Vomiting clavulanic acid Allergy Intermediate Nausea and Verified 06/08/23 07:20 [From Augmentin] Vomiting shellfish derived Allergy Intermediate Nausea and Verified 06/08/23 07:20 Vomiting narcotic pain medications AdvReac Intermediate Nausea and Uncoded 06/08/23 07:20 Vomiting Review of Systems Sugical H&P ROS: Negative: Constitution, Cardiovascular, Respiratory, Neurological, Psychiatric, Hem-Onc, Allergic/Immunologic, Gastrointestinal, Genitourinary, Musculoskeletal, Integumentary, Endocrine and Eyes/Ears/Nose/Throat Exam Surgical H&P Exam: Normal: HEENT, Normal: Heart, Normal: Lungs, Normal: Extremities, Normal: Abdomen, Normal: Skin and Normal: Neurological Plan Diagnosis/Plan: Unchanged I have reviewed the history and physical and performed a pertinent physical examination on my patient. No changes have occurred unless specified. Time Spent With Patient Time: Total time managing care of this patient today ____ minutes.
--- NOTE | 2023-06-08 11:41 | P.OP_ITS ---
Operative Note Operative Note Date of Service: 06/08/23 Narrative: Prep diagnosis: Cecal lesion Postop diagnosis: Cecal lesion Procedure: Hand assisted laparoscopic right colon resection, with extensive lysis of adhesions Surgeon: Jordan Michael MD farm assistant: LYNNE Hicks The patient is a 78-year-old female who had undergone a recent colonoscopy showing cecal lesion with central ulceration. 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 This lesion was not endoscopically resectable [facility] She understood the technique of right colon resection. She was aware of the risks, benefits, and alternatives She was brought to the operating room. She was placed supine under general anesthesia via endotracheal tube. A Kay catheter was inserted. A surgical time-out was done. A rectus sheath block was done by the anesthesiologist The abdomen was prepped and draped in the usual sterile fashion. The patient received Cefotan 2 g IV preoperatively He had a short periumbilical midline incision using a blade 15. This was carried down with electrocautery through the full-thickness of the skin subcutaneous fat down to the fascia. The fascia was incised. The peritoneum was entered. There was note of a lot of omentum surrounding the areas we had to do some careful lysis of adhesions. However, there was more of extensive adhesions more inferiorly . Since we had enough room for our GelPort, I decided therefore to she would to position the GelPort. The peritoneum was insufflated to a pressure of 15 mm of mercury. A 10 mm 30 degree scope was used the GelPort. There was note of a more adhesions superiorly near the epigastric area. I was able to place 5 mm port in the left upper quadrant through a small stab incision. I positioned a LigaSure to this 5 mm port. I then proceeded to gently lyse the adhesions in the epigastric area. This took appeared of time until we were able to expose the entire epigastric area. We are therefore able to position a 10 mm port in the epigastric area. The laparoscope was moved to the epigastric port. The patient was placed in a had down, [id number] position. I inserted my left hand through the GelPort. Examination of the pelvis revealed extensive adhesions as the patient had previous hysterectomy. We had to do a lot of careful lysis of adhesions with the LigaSure to achieve good visualization of the pelvis especially the right lower quadrant. By doing so was able to identify the cecum. This was fairly mobile. There was no palpable mass in the cecum. I proceeded to examine the right colon all the way to the transverse colon. Once this was clearly identified, I proceeded to do mobilization of the right colon by dividing the ligamentous attachments along the white line of Toldt starting from the cecum going fairly. Proceeded to then divide the hepatocolic ligaments the proximal transverse colon. There was note of a lot of omentum adherent to the area from his previous cholecystectomy so we had to lysis of adhesions carefully. I was able to then continued to mobilize the retroperitoneal attachments of the right mesocolon all the way to the duodenum. Once the duodenum was visualized, this became the limit of our medial dissection. We had to separate large amounts of omentum from the hepatic flexure as well using the LigaSure. Eventually, we had adequate mobilization so I desufflated and brought out the right colon through the midline incision. We had to do more dissection of very densely adherent omentum from the rest of the hepatic flexure using the LigaSure. Eventually, I was able to completely separate the entire right colon starting from the distal ileum all the way to the transverse colon. I define my points of transection and created mesenteric windows in the distal ileum about 10 cm from the ileocecal valve, as well as the proximal transverse colon. I used the ANNABELLE 60 mm stapler to divide the terminal ileum as well as the proximal transverse colon. I marked my point of transection in the attached mesentery of the right colon and proceeded to divide the mesentery using LigaSure. I divided the mesocolon with the LigaSure from both the proximal and distal sides making sure that we were including the lymphatic basin. The ileocolic pedicle was eventually identified. I gently define this. I applied a 2-0 Polysorb tie and doubly ligated this pedicle and a high ligation fashion. The ileocolic pedicle was then divided and right colon was sent as a specimen. I then proceeded to align the anti mesenteric side of the distal ileum the proximal transverse. I opened up the apex of each staple line to enter the lumen. I positioned each arm of the ANNABELLE 60 mm stapler at the anti mesenteric border. The stapler was fired to create our [id number] anastomosis. The lumen was examined and there was no bleeding. The staple line appeared intact from within lumen. I completed the anastomosis by closing the enterotomy with a TA 60 mm stapler. I examined the staple lines and these were all intact. The anastomotic site appeared to be viable with good blood supply. I applied a few seromuscular sutures using Polysorb 3-0 at the crotch of the staple line to release tension at this area. I examined for hemostasis. I then replaced the bowel loops back into the peritoneal cavity. There was note of some oozing from the omentum which we controlled with the LigaSure. Once hemostasis was confirmed, I proceeded to then insufflate. I examined the peritoneal cavity in all 4 quadrants.. There was no evidence of any bowel injury. There was no evidence of any bleeding. Once hemostasis was confirmed, I irrigated the right side a little bit and suctioned the irrigant fluid. I removed the ports include the GelPort but left the epigastric port in place. I closed the fascia of the midline incision with a running Maxon 1 stitch. I examined this fascial closure laparoscopically and there was no bowel loops or any other sure caught by the sutures. I therefore removed the epigastric port . I closed all skin incisions with skin madeleine. Dressings were applied. The procedure was completed. The patient tolerated procedure well. There were no immediate complications. Initial and final counts of sponges and instruments were correct. Estimated blood loss was about 50 cc. The patient was extubated without difficulty and [facility] with [facility] vital signs. SYNOPTIC NOTE: Operation performed with curative intent - Yes Tumor location - right colon (cecum) Extent of colon vascular resection - right colectomy including the ileocolic pedicle
[2023-06-08] MEDS: ondansetron HCL 4 MG/2 ML VIAL IVPUSH (12:12)
[2023-06-08] MEDS: HYDROmorphone HCl 0.5 MG/0.5 ML SYRINGE 0.25 MG IVPUSH ×2 (12:16→12:44)
[2023-06-08] MEDS: droPERidol 5 MG/2 ML VIAL 0.625 MG IVPUSH (12:41)
--- NOTE | 2023-06-08 15:24 | PM.EVENT ---
Event Note Date of Service: 06/08/23 Event Note: seen postop s/p right colon resection good pain control looks well stable VS abd soft good UO continue pain mgt doing well postop updated Time Spent With Patient Time: Total time managing care of this patient today ____ minutes.
[2023-06-08] MEDS: Acetaminophen 1,000 MG/100 ML PIGGYBACK 400 MG IV ×2 (16:28→21:57)
[2023-06-08] MEDS: Omeprazole 20 MG CAPSULE.DR PO (16:28)
[2023-06-08] MEDS: 0.9 % Sodium Chloride Flush 3 ML SYRINGE IVFLUSH (16:29)
--- NOTE | 2023-06-08 19:17 | P.CONHOSP_ITS ---
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 Denies any new complaint of chest pain or shortness of breath or abdominal pain or fever or chills or nausea or vomiting Denies any cough Denies any weakness or numbness. Labs in reviewed: no new labs. Review of Systems Review of Systems: Yes all other systems are reviewed and are negative [facility] Medical History Family history of anesthesia complication COPD (chronic obstructive pulmonary disease) Cecal lesion RBBB (right bundle branch block) Bifascicular block Polycythemia CAD (coronary artery disease) GERD (gastroesophageal reflux disease) Sleep apnea Hypothyroidism Hyperlipidemia Hypertension Personal history of nicotine dependence Family History Sister Cancer of kidney Psoriasis Arthritis Lupus Blood clot in vein Acute Crohn's disease Substance abuse Father Atherosclerosis Substance abuse Aortic aneurysm Mother Substance abuse Maternal Aunt Substance abuse Paternal Grandfather No problems noted. Surgical History Hx of dilation and curettage H/O colonoscopy History of tonsillectomy History of lumpectomy of right breast History of tubal ligation History of cholecystectomy History of bladder surgery History of hysterectomy Social History Household Members: Significant Other Housing: House Are you a primary interior plant caretaker to a significant other at home: No Do you presently have visiting nurse or other home services: No Comment: counts correct Patient Tobacco Use Status: Current someday Tobacco user Tobacco use type: Cigarette Cigarette Packs Per Day: 1 Cigarettes Per Day: 20.0 Years Smoked: 61 e-Cigarette/Vaping Use: Never Used Patient Interested in Nicotine Replacement: No Patient Given Instructions on How to Stop Smoking: No Second Hand Smoke Exposure: No Use of substances other than those prescribed or required for medical reasons: No Currently Displaying Signs/Symptoms of Drug Intoxication Withdrawal: No Any prior treatment program specific to substance use: No Have you been hit, kicked, punched, or otherwise hurt by someone within the past year? If so, by whom?: No Do you feel safe in your current relationship?: Yes Is there a partner from a previous relationship who is making you feel unsafe now?: No Are you made to feel afraid or neglected: No Are you DNR?: No Advance Directives: No ( primary contact) Advance Directives Information Provided: Yes Advance Directives on File: No Do you have thoughts of harming others: None Do you have a plan to hurt others: No Plan Recently lost weight without trying: No Eating poorly because of decreased appetite: No Nutrition Risks: No Nutritional Risk Patient : No : No Poor oral hygiene: No service: No Current occupational status: retired Cognitive needs: No Hearing needs: No Vision needs: Yes (Patient wears reading glasses.) Meds Allergies Allergy/AdvReac Type Severity Reaction Status Date / Time Sulfa (Sulfonamide Allergy Severe Rash Verified 06/08/23 07:20 Antibiotics) amoxicillin [From Augmentin] Allergy Intermediate Nausea and Verified 06/08/23 07:20 Vomiting clavulanic acid Allergy Intermediate Nausea and Verified 06/08/23 07:20 [From Augmentin] Vomiting shellfish derived Allergy Intermediate Nausea and Verified 06/08/23 07:20 Vomiting narcotic pain medications AdvReac Intermediate Nausea and Uncoded 06/08/23 07:20 Vomiting Active Medications: Current Medications Al Hydroxide/Mg Hydroxide (Magnesium Hydrox/Alum Hydrox 30 Ml Oral.Susp) 30 ml PO Q4H PRN PRN Reason: Heartburn/Nausea Amlodipine Besylate (Amlodipine Besylate 5 Mg Tablet) 5 mg PO DAILY [facility]; Protocol Atorvastatin Calcium (Atorvastatin Calcium 80 Mg Tablet) 80 mg PO BEDTIME [facility] Heparin Sodium (Porcine) (Heparin Sodium,Porcine 5,000 Unit/Ml Vial) 5,000 unit SUBCUT Q8H [facility] Lactated Ringer's (Lr) 1,000 mls @ 100 mls/hr IVCONT .Q10H [facility] Last Admin: 06/08/23 19:04 Dose: Not Given Acetaminophen (Ofirmev) 1,000 mg in 100 mls @ 400 mls/hr IV Q6H [facility] Last Infusion: 06/08/23 16:51 Dose: Infused Levothyroxine Sodium (Levothyroxine Sodium 150 Mcg Tablet) 150 mcg PO DAILY@0600 [facility] Lisinopril (Lisinopril 10 Mg Tablet) 30 mg PO BEDTIME [facility]; Protocol Melatonin (Melatonin 3 Mg Tablet) 6 mg PO BEDTIME PRN PRN Reason: Insomnia Morphine Sulfate (Morphine Sulfate 4 Mg/Ml Cartridge) 4 mg IVPUSH Q4H PRN; Protocol PRN Reason: Pain, Severe (Pain Scale 7-10) Nicotine (Nicotine 21 Mg Patch.Td24) 21 mg TRANSDERMA DAILY [facility] Omeprazole (Omeprazole 20 Mg Capsule.Dr) 20 mg PO BID@0630,1630 [facility] Last Admin: 06/08/23 16:28 Dose: 20 mg Ondansetron HCl (Ondansetron Hcl 4 Mg/2 Ml Vial) 4 mg IVPUSH Q8H PRN PRN Reason: Nausea and Vomiting Oxycodone HCl (Oxycodone Hcl Immed Release 5 Mg Tablet) 5 mg PO Q4H PRN PRN Reason: Pain, Moderate(Pain Scale 4-6) Sodium Chloride (0.9 % Sodium Chloride Flush 3 Ml Syringe) 3 ml IVFLUSH QSHIFT [facility] Last Admin: 06/08/23 16:29 Dose: 3 ml Home Medications Medication Instructions Recorded Confirmed Last Taken Type amlodipine 5 mg tablet 5 mg PO DAILY 09/21/22 06/08/23 06/08/23 History levothyroxine 150 mcg tablet 150 mcg PO DAILY@0600 09/21/22 06/08/23 06/08/23 History omeprazole 20 mg capsule,delayed 20 mg PO BID@0630,1630 09/21/22 06/08/23 06/08/23 History release cholecalciferol (vitamin D3) 50 50 mcg PO QAM 11/09/22 06/08/23 06/07/23 History mcg (2,000 unit) capsule coenzyme Q10 75 mg capsule (Ultra 75 mg PO QAM 11/09/22 06/08/23 06/07/23 History CoQ10) lisinopril 30 mg tablet 30 mg PO BEDTIME 11/09/22 06/08/23 06/07/23 20:00 History omega 4-[id number]-fish oil 1,200 mg 1 cap PO DAILY 11/09/22 06/08/23 06/03/23 History (144 mg-216 mg) capsule (Fish Oil) rosuvastatin 40 mg tablet 40 mg PO BEDTIME 06/03/23 06/08/23 06/07/23 History Physical Exam Vital Signs and Narrative: Vital Signs: Last Vital Signs Temp 98.5 F 06/08/23 16:42 Pulse 95 06/08/23 16:42 Resp 20 06/08/23 16:42 BP 142/73 H 06/08/23 16:42 Pulse Ox 97 06/08/23 16:42 O2 Del Method Nasal Cannula 06/08/23 16:42 O2 Flow Rate 2 06/08/23 16:42 BMI result Body Mass Index 24.6 Appearance: Alert.? Oriented X3.? not in distress.? Eyes: Pupils equal, round and reactive to light.? Sclera nonicteric.? ENT: Pharynx normal.? Moist mucous membranes. cvs: rrr, [id number] . res: clear to auscultation ,no rhonchii or wheezing abd: no rebound or guarding ,soft,soarness at incision area, bs present. ext pulses present , no cyanosis . neuro: axo3 , nonfocal. 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 Management as per primary team Hypertension: Controlled, Continue blood pressure medications Hypothyroidism continue home hypothyroidism medications Sleep apnea: Patient does not use CPAP. GERD: Continue omeprazole Above management discussed with the patient in detail length she understand in agreement with the plan, will continue to follow with along with you. Thanks for allowing us in participation of patient care.
[2023-06-08] MEDS: oxyCODONE HCl Immed Release 5 MG TABLET PO (19:52)
[2023-06-08] MEDS: lisinopriL 10 MG TABLET 30 MG PO (19:52)
[2023-06-09] MEDS: 0.9 % Sodium Chloride Flush 3 ML SYRINGE IVFLUSH ×4 (00:27→23:54)
[2023-06-09] MEDS: Lactated Ringers 1,000 ML 100 ML IVCONT ×3 (01:38→23:33)
[2023-06-09 02:58] VITALS: BP 130/61; PULSE 90; RESP 20; TEMP 36.2; O2SAT 95
[2023-06-09] MEDS: Acetaminophen 1,000 MG/100 ML PIGGYBACK 400 MG IV ×4 (04:10→23:35)
[2023-06-09] MEDS: Omeprazole 20 MG CAPSULE.DR PO ×2 (05:45→15:38)
[2023-06-09] MEDS: Levothyroxine Sodium 150 MCG TABLET PO (05:45)
[2023-06-09 05:46] LABS: MANUAL DIFF FLAG NO
[2023-06-09 06:10] LABS: Anion Gap 9 (12-20); Blood Urea Nitrogen 8 mg/dL (9-16); Calcium 8.9 mg/dL (8.4-10.2); Carbon Dioxide 28 mmol/L (22-29); Chloride 104 mmol/L (96-108); Creatinine Clr Calc Pharmacy 69.4; Estimated Glomerular Filt Rate > 60; Glucose Random 118 mg/dL (60-115); Potassium 3.8 mmol/L (3.3-5.1); Sodium 137 mmol/L (135-145)
[2023-06-09 06:20] LABS: Basophils Percent Auto 0.2 % (0-2); Hematocrit 39.4 % (37.0-47.0); Hemoglobin 13.5 g/dl (12.0-16.0); Imm Gran Abs Auto 0.11 X10*3/uL (0.00-0.03); Imm Gran Pct Auto 0.9 % (0.0-0.4); Lymphocytes Absolute Auto 1.4 X10*3/uL (1.2-4.9); Lymphocytes Percent Auto 11.3 % (20-40); Mean Corpuscular HGB Conc 34.3 g/dl (31.0-35.0); Mean Corpuscular Hemoglobin 31.8 pg (27.0-33.0); Mean Corpuscular Volume 92.9 fL (80.0-98.0); Mean Platelet Volume 9.2 fL (9.4-12.3); Monocytes Absolute Auto 0.8 X10*3/uL (0.1-1.2); Monocytes Percent Auto 6.6 % (2-11); Neutrophils Absolute Auto 9.8 x10*3/uL (2.0-8.3); Platelet Count 268 X10*3/uL (160-400); Red Blood Count 4.24 X10*6/uL (4.20-5.50); White Blood Count 12.1 X10*3/uL (4.8-10.8)
[2023-06-09 07:07] VITALS: BP 161/75; PULSE 75; RESP 18; TEMP 36.5; O2SAT 96
[2023-06-09] MEDS: oxyCODONE HCl Immed Release 5 MG TABLET PO ×3 (07:40→23:58)
[2023-06-09] MEDS: amLODIPine Besylate 5 MG TABLET PO (07:41)
[2023-06-09] MEDS: Thiamine HCL 100 MG TABLET PO (07:51)
[2023-06-09] MEDS: Folic Acid 1 MG TABLET PO (07:52)
--- NOTE | 2023-06-09 08:10 | P.PNGS_ITS ---
Subjective Subjective Date of Service: 06/11/23 Interval history: Complains of incisional pain, appropriate to postop No events reported overnight Denies flatus Physical Exam 2 Vital Signs: Vital Signs: Last Vital Signs Temp 97.7 F 06/09/23 07:07 Pulse 75 06/09/23 07:07 Resp 18 06/09/23 07:07 BP 161/75 H 06/09/23 07:07 Pulse Ox 96 06/09/23 07:07 O2 Del Method Nasal Cannula 06/09/23 07:07 O2 Flow Rate 2 06/09/23 07:07 BMI result Body Mass Index 24.6 Const: General: no acute distress Resp: Effort & Inspection: normal respiratory effort Cardio: Rate: regular rate GI: Other: Dressings dry Palpation (GI): Soft to palpation, not firm, no guarding and not rigid Objective Data Active Medications Al Hydroxide/Mg Hydroxide (Magnesium Hydrox/Alum Hydrox 30 Ml Oral.Susp) 30 ml PO Q4H PRN PRN Reason: Heartburn/Nausea Amlodipine Besylate (Amlodipine Besylate 5 Mg Tablet) 5 mg PO DAILY [facility]; Protocol Last Admin: 06/09/23 07:41 Dose: 5 mg Documented By: KAZ Atorvastatin Calcium (Atorvastatin Calcium 80 Mg Tablet) 80 mg PO BEDTIME [facility] Last Admin: 06/08/23 19:55 Dose: Not Given Documented By: FABIAN Non-Admin Reason: Nausea Folic Acid (Folic Acid 1 Mg Tablet) 1 mg PO DAILY [facility] Last Admin: 06/09/23 07:52 Dose: 1 mg Documented By: KAZ Heparin Sodium (Porcine) (Heparin Sodium,Porcine 5,000 Unit/Ml Vial) 5,000 unit SUBCUT Q8H [facility] Lactated Ringer's (Lr) 1,000 mls @ 100 mls/hr IVCONT .Q10H [facility] Last Admin: 06/09/23 01:38 Dose: 100 mls/hr Documented By: VU Acetaminophen (Ofirmev) 1,000 mg in 100 mls @ 400 mls/hr IV Q6H [facility] Last Infusion: 06/09/23 04:25 Dose: Infused Documented By: VU Levothyroxine Sodium (Levothyroxine Sodium 150 Mcg Tablet) 150 mcg PO DAILY@0600 [facility] Last Admin: 06/09/23 05:45 Dose: 150 mcg Documented By: VU Lisinopril (Lisinopril 10 Mg Tablet) 30 mg PO BEDTIME [facility]; Protocol Last Admin: 06/08/23 19:52 Dose: 30 mg Documented By: FABIAN Melatonin (Melatonin 3 Mg Tablet) 6 mg PO BEDTIME PRN PRN Reason: Insomnia Morphine Sulfate (Morphine Sulfate 4 Mg/Ml Cartridge) 4 mg IVPUSH Q4H PRN; Protocol PRN Reason: Pain, Severe (Pain Scale 7-10) Nicotine (Nicotine 21 Mg Patch.Td24) 21 mg TRANSDERMA DAILY [facility] Last Admin: 06/09/23 07:42 Dose: Not Given Documented By: KAZ Non-Admin Reason: Patient Refused Omeprazole (Omeprazole 20 Mg Capsule.) 20 mg PO BID@0630,1630 [facility] Last Admin: 06/09/23 05:45 Dose: 20 mg Documented By: VU Ondansetron HCl (Ondansetron Hcl 4 Mg/2 Ml Vial) 4 mg IVPUSH Q8H PRN PRN Reason: Nausea and Vomiting Oxycodone HCl (Oxycodone Hcl Immed Release 5 Mg Tablet) 5 mg PO Q4H PRN PRN Reason: Pain, Moderate(Pain Scale 4-6) Last Admin: 06/09/23 07:40 Dose: 5 mg Documented By: KAZ Sodium Chloride (0.9 % Sodium Chloride Flush 3 Ml Syringe) 3 ml IVFLUSH QSHIFT [facility] Last Admin: 06/09/23 07:41 Dose: 3 ml Documented By: KAZ Thiamine HCl (Thiamine Hcl 100 Mg Tablet) 100 mg PO DAILY [facility] Last Admin: 06/09/23 07:51 Dose: 100 mg Documented By: KAZ Labs 06/09/23 05:37 06/09/23 05:37 Labs: Laboratory Results - last 24 hr 06/09/23 05:37 MCV 92.9 MCH 31.8 MCHC 34.3 RDW 13.0 Plt Count 268 MPV 9.2 L Immature Gran % (Auto) 0.9 H Neut % (Auto) 81.0 H Lymph % (Auto) 11.3 L [place] % (Auto) 6.6 Eos % (Auto) 0.0 Baso % (Auto) 0.2 Lymph # (Auto) 1.4 [place] # (Auto) 0.8 Eos # (Auto) 0.0 Baso # (Auto) 0.0 Abs Immat Gran (auto) 0.11 H Absolute Neuts (auto) 9.8 H Absolute Nucleated RBC 0.000 Nucleated RBC % (auto) 0.0 Anion Gap 9 L Estim Creat Clear Calc 69.4 Estimated GFR > 60 Random Glucose 118 H Calcium 8.9 D Procedures Date of Service Date of Service: 06/11/23 Progress Note: A&P Assessment and plan (1) Cecal lesion: Status: Acute Assessment and Plan: Status post right colon resection Clinically doing well postop Await return of GI function Keep on clear liquids for now Plan to DC Aky today Encouraged to get out of bed to recliner Pain management Instructed on incentive spirometry Hospitalist following Time Spent With Patient Time: Total time managing care of this patient today ____ minutes. Quality Stroke Does the patient have a stroke diagnosis?: No VTE Prior VTE?: No VTE Risk Level:: Medical - moderate - high VTE Device Contraindication: N/A - Device Ordered VTE Drug Contraindication: N/A - Med Ordered
[2023-06-09] MEDS: Heparin Sodium,Porcine 5,000 UNIT/ML VIAL 5000 UNIT SUBCUT ×2 (09:55→17:21)
--- NOTE | 2023-06-09 12:29 | MHC.CM.PN ---
IMM 06/09/23, Pt. lives with her , she is independent, does not have any home health services or medical equipment. She has not used [facility] or been to [facility]. will transport home upon DC. CM to re-approach re: HCP and to confirm PCP.
[2023-06-09] MEDS: ondansetron HCL 4 MG/2 ML VIAL IVPUSH ×2 (14:05→23:34)
--- NOTE | 2023-06-09 14:38 | P.PNIM_ITS ---
Subjective Subjective Date of Service: 06/09/23 Interval History: htn Review of Systems abd soarness similar no nausea or vomiting no bm yet Physical Exam 2 Vital Signs: Vital Signs: Last Vital Signs Temp 97.7 F 06/09/23 07:07 Pulse 75 06/09/23 07:07 Resp 18 06/09/23 07:07 BP 161/75 H 06/09/23 07:07 Pulse Ox 96 06/09/23 07:07 O2 Del Method Nasal Cannula 06/09/23 07:07 O2 Flow Rate 2 06/09/23 07:07 BMI result Body Mass Index 24.6 Appearance: Alert.? Oriented X3.? not in distress.? Eyes: Pupils equal, round and reactive to light.? Sclera nonicteric.? ENT: Pharynx normal.? Moist mucous membranes. cvs: rrr, [id number] . res: clear to auscultation ,no rhonchii or wheezing abd: no rebound or guarding ,soft,soarness at incision area, bs present. ext pulses present , no cyanosis . neuro: axo3 , nonfocal Objective Data Active Medications Al Hydroxide/Mg Hydroxide (Magnesium Hydrox/Alum Hydrox 30 Ml Oral.Susp) 30 ml PO Q4H PRN PRN Reason: Heartburn/Nausea Amlodipine Besylate (Amlodipine Besylate 5 Mg Tablet) 5 mg PO DAILY [facility]; Protocol Last Admin: 06/09/23 07:41 Dose: 5 mg Documented By: KAZ Atorvastatin Calcium (Atorvastatin Calcium 80 Mg Tablet) 80 mg PO BEDTIME [facility] Last Admin: 06/08/23 19:55 Dose: Not Given Documented By: FABIAN Non-Admin Reason: Nausea Folic Acid (Folic Acid 1 Mg Tablet) 1 mg PO DAILY [facility] Last Admin: 06/09/23 07:52 Dose: 1 mg Documented By: KAZ Heparin Sodium (Porcine) (Heparin Sodium,Porcine 5,000 Unit/Ml Vial) 5,000 unit SUBCUT Q8H [facility] Last Admin: 06/09/23 09:55 Dose: 5,000 unit Documented By: KAZ Lactated Ringer's (Lr) 1,000 mls @ 80 mls/hr IVCONT .[id number] [facility] Last Admin: 06/09/23 10:27 Dose: 100 mls/hr Documented By: KAZ Acetaminophen (Ofirmev) 1,000 mg in 100 mls @ 400 mls/hr IV Q6H [facility] Last Infusion: 06/09/23 10:27 Dose: Infused Documented By: KAZ Levothyroxine Sodium (Levothyroxine Sodium 150 Mcg Tablet) 150 mcg PO DAILY@0600 [facility] Last Admin: 06/09/23 05:45 Dose: 150 mcg Documented By: UV Lisinopril (Lisinopril 10 Mg Tablet) 30 mg PO BEDTIME [facility]; Protocol Last Admin: 06/08/23 19:52 Dose: 30 mg Documented By: FABIAN Melatonin (Melatonin 3 Mg Tablet) 6 mg PO BEDTIME PRN PRN Reason: Insomnia Morphine Sulfate (Morphine Sulfate 4 Mg/Ml Cartridge) 4 mg IVPUSH Q4H PRN; Protocol PRN Reason: Pain, Severe (Pain Scale 7-10) Nicotine (Nicotine 21 Mg Patch.Td24) 21 mg TRANSDERMA DAILY [facility] Last Admin: 06/09/23 07:42 Dose: Not Given Documented By: KAZ Non-Admin Reason: Patient Refused Omeprazole (Omeprazole 20 Mg Capsule.) 20 mg PO BID@0630,1630 [facility] Last Admin: 06/09/23 05:45 Dose: 20 mg Documented By: VU Ondansetron HCl (Ondansetron Hcl 4 Mg/2 Ml Vial) 4 mg IVPUSH Q8H PRN PRN Reason: Nausea and Vomiting Last Admin: 06/09/23 14:05 Dose: 4 mg Documented By: KAZ Oxycodone HCl (Oxycodone Hcl Immed Release 5 Mg Tablet) 5 mg PO Q4H PRN PRN Reason: Pain, Moderate(Pain Scale 4-6) Last Admin: 06/09/23 14:05 Dose: 5 mg Documented By: KAZ Sodium Chloride (0.9 % Sodium Chloride Flush 3 Ml Syringe) [facility] Last Admin: 06/09/23 07:41 Dose: 3 ml Documented By: KAZ Thiamine HCl (Thiamine Hcl 100 Mg Tablet) 100 mg PO DAILY [facility] Last Admin: 06/09/23 07:51 Dose: 100 mg Documented By: KAZ Labs 06/09/23 05:37 06/09/23 05:37 Labs: Laboratory Results - last 24 hr 06/09/23 05:37 MCV 92.9 MCH 31.8 MCHC 34.3 RDW 13.0 Plt Count 268 MPV 9.2 L Immature Gran % (Auto) 0.9 H Neut % (Auto) 81.0 H Lymph % (Auto) 11.3 L [place] % (Auto) 6.6 Eos % (Auto) 0.0 Baso % (Auto) 0.2 Lymph # (Auto) 1.4 [place] # (Auto) 0.8 Eos # (Auto) 0.0 Baso # (Auto) 0.0 Abs Immat Gran (auto) 0.11 H Absolute Neuts (auto) 9.8 H Absolute Nucleated RBC 0.000 Nucleated RBC % (auto) 0.0 Anion Gap 9 L Estim Creat Clear Calc 69.4 Estimated GFR > 60 Random Glucose 118 H Calcium 8.9 D Assessment and Plan (1) Hypertension: Status: Acute Plan 78-year-old female with past medical history of hypertension, hyperlipidemia, hypothyroidism, sleep apnea, GERD, CAD, current smoker, use of alcohol:: 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 Management as per primary team Hypertension: slightly suboptimal-possible due topain. Continue blood pressure medications-amlodipine and lisinopril,if needed we will adjust amlodipine. Hypothyroidism continue home hypothyroidism medications Sleep apnea: Patient does not use CPAP. GERD: Continue omeprazole dvt prophylax: scd . Quality Stroke Does the patient have a stroke diagnosis?: No VTE Prior VTE?: No VTE Risk Level:: Medical - moderate - high VTE Device Contraindication: N/A - Device Ordered VTE Drug Contraindication: N/A - Med Ordered
[2023-06-09 15:52] VITALS: BP 178/79; PULSE 90; RESP 20; TEMP 36.3; O2SAT 93
--- NOTE | 2023-06-09 16:11 | PM.EVENT ---
Event Note Date of Service: 06/09/23 Event Note: Seen on afternoon rounds Incisional pain appropriate to postop Looks well Tolerating clear liquids Denies flatus Abdomen soft She wants to keep the Kay until tomorrow Encourage to get out of bed Pain management Await return of GI function Doing well postop Hospitalist following patient Time Spent With Patient Time: Total time managing care of this patient today ____ minutes.
[2023-06-09] MEDS: amLODIPine Besylate 2.5 MG TABLET PO (17:21)
[2023-06-09 19:05] VITALS: BP 143/65; PULSE 84; RESP 20; TEMP 37.1; O2SAT 95
[2023-06-09] MEDS: Atorvastatin Calcium 80 MG TABLET PO (23:34)
[2023-06-09] MEDS: lisinopriL 10 MG TABLET 30 MG PO (23:34)
[2023-06-10] MEDS: Heparin Sodium,Porcine 5,000 UNIT/ML VIAL 5000 UNIT SUBCUT ×3 (03:04→17:24)
[2023-06-10 03:05] VITALS: BP 149/71; PULSE 93; RESP 20; TEMP 36.1; O2SAT 96
[2023-06-10] MEDS: Acetaminophen 1,000 MG/100 ML PIGGYBACK 400 MG IV ×4 (06:11→22:32)
[2023-06-10] MEDS: Omeprazole 20 MG CAPSULE.DR PO ×2 (06:13→15:52)
[2023-06-10] MEDS: Levothyroxine Sodium 150 MCG TABLET PO (06:13)
[2023-06-10 07:06] VITALS: BP 157/71; PULSE 88; RESP 18; TEMP 36.6; O2SAT 94
--- NOTE | 2023-06-10 07:51 | PM.PNGS ---
Subjective Subjective Date of Service: 06/10/23 <Vale Hicks PA-C - Last Filed: 06/10/23 07:55> 06/10/23 <Jordan Michael MD - Last Filed: 06/10/23 08:05> Interval history: Feels better this morning, pain better controlled. Tolerating liquids. No flatus yet. OOB to recliner. <Vale Hicks PA-C - Last Filed: 06/10/23 07:55> Physical Exam Vital Signs: Vital Signs: Last Vital Signs Temp 97.9 F 06/10/23 07:06 Pulse 88 06/10/23 07:06 Resp 18 06/10/23 07:06 BP 157/71 H 06/10/23 07:06 Pulse Ox 94 06/10/23 07:06 O2 Del Method Nasal Cannula 06/10/23 07:06 O2 Flow Rate 2 06/10/23 07:06 BMI result Body Mass Index 24.6 <Vale Hicks PA-C - Last Filed: 06/10/23 07:55> Const: General: comfortable, no acute distress and alert <Vale Hicks PA-C - Last Filed: 06/10/23 07:55> Orientation/consciousness: patient oriented x3 <Vale Hicks PA-C - Last Filed: 06/10/23 07:55> Resp: Effort & Inspection: normal respiratory effort <Vale Hicks PA-C - Last Filed: 06/10/23 07:55> GI: Inspection: No distended and Yes incision (clean) <Vale Hicks PA-C - Last Filed: 06/10/23 07:55> Palpation (GI): Soft to palpation, Tenderness to palpation present (GI) (mild incisional) and no guarding <JASPAL Pham Last Filed: 06/10/23 07:55> Percussion: Yes normal to percussion <JASPAL Pham Last Filed: 06/10/23 07:55> Skin: General skin exam: no rashes or lesions noted <JASPAL Pham Last Filed: 06/10/23 07:55> Neuro: General: patient oriented x3 <Vale Hicks PA-C - Last Filed: 06/10/23 07:55> Objective Data Active Medications Al Hydroxide/Mg Hydroxide (Magnesium Hydrox/Alum Hydrox 30 Ml Oral.Susp) 30 ml PO Q4H PRN PRN Reason: Heartburn/Nausea Amlodipine Besylate (Amlodipine Besylate 5 Mg Tablet) 5 mg PO DAILY [facility]; Protocol Last Admin: 06/09/23 07:41 Dose: 5 mg Documented By: KAZ Atorvastatin Calcium (Atorvastatin Calcium 80 Mg Tablet) 80 mg PO BEDTIME [facility] Last Admin: 06/09/23 23:34 Dose: 80 mg Documented By: MARIA ISABEL Folic Acid (Folic Acid 1 Mg Tablet) 1 mg PO DAILY [facility] Last Admin: 06/09/23 07:52 Dose: 1 mg Documented By: KAZ Heparin Sodium (Porcine) (Heparin Sodium,Porcine 5,000 Unit/Ml Vial) 5,000 unit SUBCUT Q8H [facility] Last Admin: 06/10/23 03:04 Dose: 5,000 unit Documented By: NONI Acetaminophen (Ofirmev) 1,000 mg in 100 mls @ 400 mls/hr IV Q6H [facility] Last Admin: 06/10/23 06:11 Dose: 400 mls/hr Documented By: MARIA ISABEL Levothyroxine Sodium (Levothyroxine Sodium 150 Mcg Tablet) 150 mcg PO DAILY@0600 [facility] Last Admin: 06/10/23 06:13 Dose: 150 mcg Documented By: MARIA ISABEL Lisinopril (Lisinopril 10 Mg Tablet) 30 mg PO BEDTIME [facility]; Protocol Last Admin: 06/09/23 23:34 Dose: 30 mg Documented By: MARIA ISABEL Melatonin (Melatonin 3 Mg Tablet) 6 mg PO BEDTIME PRN PRN Reason: Insomnia Morphine Sulfate (Morphine Sulfate 4 Mg/Ml Cartridge) 4 mg IVPUSH Q4H PRN; Protocol PRN Reason: Pain, Severe (Pain Scale 7-10) Nicotine (Nicotine 21 Mg Patch.Td24) 21 mg TRANSDERMA DAILY [facility] Last Admin: 06/09/23 07:42 Dose: Not Given Documented By: KAZ Non-Admin Reason: Patient Refused Omeprazole (Omeprazole 20 Mg Capsule.) 20 mg PO BID@0630,1630 [facility] Last Admin: 06/10/23 06:13 Dose: 20 mg Documented By: MARIA ISABEL Ondansetron HCl (Ondansetron Hcl 4 Mg/2 Ml Vial) 4 mg IVPUSH Q8H PRN PRN Reason: Nausea and Vomiting Last Admin: 06/09/23 23:34 Dose: 4 mg Documented By: MARIA ISABEL Oxycodone HCl (Oxycodone Hcl Immed Release 5 Mg Tablet) 5 mg PO Q4H PRN PRN Reason: Pain, Moderate(Pain Scale 4-6) Last Admin: 06/09/23 23:58 Dose: 5 mg Documented By: MARIA ISABEL Sodium Chloride (0.9 % Sodium Chloride Flush 3 Ml Syringe) 3 ml IVFLUSH QSHIFT [facility] Last Admin: 06/09/23 23:54 Dose: 3 ml Documented By: MARIA ISABEL Thiamine HCl (Thiamine Hcl 100 Mg Tablet) 100 mg PO DAILY [facility] Last Admin: 06/09/23 07:51 Dose: 100 mg Documented By: KAZ <Vale Hicks PA-C - Last Filed: 06/10/23 07:55> Labs CBC & Chem 7: 06/09/23 05:37 06/09/23 05:37 <Vale Hicks PA-C - Last Filed: 06/10/23 07:55> Procedures Date of Service Date of Service: 06/10/23 <Vale Hicks PA-C - Last Filed: 06/10/23 07:55> 06/10/23 <Jordan Michael MD - Last Filed: 06/10/23 08:05> Progress Note: A&P Assessment and plan (1) S/P right colectomy: Status: Acute <Vale Hicks PA-C - Last Filed: 06/10/23 07:55> Assessment and Plan: feels better less pain denies flatus tolerating clears await return of GI function seen and examined independently <Jordan Michael MD - Last Filed: 06/10/23 08:05> Assessment and Plan: POD #2 s/p Hand assisted laparoscopic right colon resection, with extensive lysis of adhesions for cecal lesion. Pain improved today, no evidence of GI function yet. VS- BP remains elevated. Abd benign with clean incision, appropriate post op tenderness. Dc gross. Cont clear liquids. Increase activity, OOB/ambulation and IS use. Hospitalists following for medical comorbidities. <Vale Hicks PA-C - Last Filed: 06/10/23 07:55> Time Spent With Patient Time: Total time managing care of this patient today ____ minutes. <Vale Hicks PA-C - Last Filed: 06/10/23 07:55> Quality Stroke Does the patient have a stroke diagnosis?: No <Vale Hicks PA-C - Last Filed: 06/10/23 07:55> VTE Prior VTE?: No <Vale Hicks PA-C - Last Filed: 06/10/23 07:55> VTE Risk Level:: Medical - moderate - high <Vale Hicks PA-C - Last Filed: 06/10/23 07:55> VTE Device Contraindication: N/A - Device Ordered <Vale Hicks PA-C - Last Filed: 06/10/23 07:55> VTE Drug Contraindication: N/A - Med Ordered <Vale Hicks PA-C - Last Filed: 06/10/23 07:55>
[2023-06-10] MEDS: amLODIPine Besylate 5 MG TABLET PO (08:30)
[2023-06-10] MEDS: 0.9 % Sodium Chloride Flush 3 ML SYRINGE IVFLUSH ×3 (08:37→19:57)
[2023-06-10] MEDS: Folic Acid 1 MG TABLET PO (08:37)
[2023-06-10] MEDS: Thiamine HCL 100 MG TABLET PO (08:37)
--- NOTE | 2023-06-10 09:34 | MHC.CM.PN ---
CM MET W/PT TO COMPLETE A HCP, [T NAMED HER CECY VILLALBA [phone] HER [facility] AND HER SON RED VILLALBA [phone] HER ALTERNATE, PT PROVIDED W/EDUCATIONAL HANDOUT, ORIGINAL AND 2 COPIES, COPY UPLOADED TO [facility] AND PLACED IN PAPER CHART.
[2023-06-10] MEDS: amLODIPine Besylate 10 MG TABLET PO (09:48)
--- NOTE | 2023-06-10 10:31 | HO.POSTANES ---
Post Anesthesia Evaluation Post Anesthesia Evaluation Date of Service: 06/10/23 Vital Signs: Vital Signs Temp Pulse Resp BP Pulse Ox O2 Del Method O2 Flow Rate 06/10/23 07:06 97.9 F 88 18 157/71 H 94 Nasal Cannula 2 06/10/23 03:05 97.0 F 93 20 149/71 H 96 Nasal Cannula 2 Anesthesia: General Endotracheal-GETA Mental Status: Awake Pain Control: Satisfactory Nausea/Vomiting: None Hydration: Adequate Anesthesia-Related Issues: No Anes. Related Issues
[2023-06-10 15:24] VITALS: BP 129/58; PULSE 95; RESP 20; TEMP 37.2; O2SAT 92
--- NOTE | 2023-06-10 16:00 | HO.PM.IMPN ---
Subjective Subjective Date of Service: 06/10/23 Interval History: uncontrolled htn Review of Systems has some abd soarness no fever or chills or nausea or vomiting Tolerating diet, did not passed bowel movement Physical Exam Vital Signs: Vital Signs: Last Vital Signs Temp 99.0 F 06/10/23 15:24 Pulse 95 06/10/23 15:24 Resp 20 06/10/23 15:24 BP 129/58 L 06/10/23 15:24 Pulse Ox 92 06/10/23 15:24 O2 Del Method Room Air 06/10/23 15:24 O2 Flow Rate 2 06/10/23 07:06 BMI result Body Mass Index 24.6 Appearance: Alert.? Oriented X3. cvs: rrr, [id number] . res: clear to auscultation ,no rhonchii or wheezing abd: no rebound or guarding ,soft,soarness at incision area, bs present. ext pulses present , no cyanosis . neuro: axo3 , nonfocal Objective Data Active Medications Al Hydroxide/Mg Hydroxide (Magnesium Hydrox/Alum Hydrox 30 Ml Oral.Susp) 30 ml PO Q4H PRN PRN Reason: Heartburn/Nausea Amlodipine Besylate (Amlodipine Besylate 10 Mg Tablet) 10 mg PO DAILY [facility]; Protocol Last Admin: 06/10/23 09:48 Dose: 5 mg Documented By: KAZ Comments: administered half because 5mg already given this am. So total dose is 10mg Atorvastatin Calcium (Atorvastatin Calcium 80 Mg Tablet) 80 mg PO BEDTIME [facility] Last Admin: 06/09/23 23:34 Dose: 80 mg Documented By: MARIA ISABEL Folic Acid (Folic Acid 1 Mg Tablet) 1 mg PO DAILY [facility] Last Admin: 06/10/23 08:37 Dose: 1 mg Documented By: KAZ Heparin Sodium (Porcine) (Heparin Sodium,Porcine 5,000 Unit/Ml Vial) 5,000 unit SUBCUT Q8H [facility] Last Admin: 06/10/23 08:36 Dose: 5,000 unit Documented By: KAZ Acetaminophen (Ofirmev) 1,000 mg in 100 mls @ 400 mls/hr IV Q6H [facility] Last Admin: 06/10/23 15:58 Dose: 400 mls/hr Documented By: KAZ Levothyroxine Sodium (Levothyroxine Sodium 150 Mcg Tablet) 150 mcg PO DAILY@0600 [facility] Last Admin: 06/10/23 06:13 Dose: 150 mcg Documented By: MARIA ISABEL Lisinopril (Lisinopril 10 Mg Tablet) 30 mg PO BEDTIME [facility]; Protocol Last Admin: 06/09/23 23:34 Dose: 30 mg Documented By: MARIA ISABEL Melatonin (Melatonin 3 Mg Tablet) 6 mg PO BEDTIME PRN PRN Reason: Insomnia Morphine Sulfate (Morphine Sulfate 4 Mg/Ml Cartridge) 4 mg IVPUSH Q4H PRN; Protocol PRN Reason: Pain, Severe (Pain Scale 7-10) Nicotine (Nicotine 21 Mg Patch.Td24) 21 mg TRANSDERMA DAILY [facility] Last Admin: 06/10/23 08:45 Dose: Not Given Documented By: KAZ Non-Admin Reason: Patient Refused Omeprazole (Omeprazole 20 Mg Capsule.) 20 mg PO BID@0630,1630 [facility] Last Admin: 06/10/23 15:52 Dose: 20 mg Documented By: KAZ Ondansetron HCl (Ondansetron Hcl 4 Mg/2 Ml Vial) 4 mg IVPUSH Q8H PRN PRN Reason: Nausea and Vomiting Last Admin: 06/09/23 23:34 Dose: 4 mg Documented By: MARIA ISABEL Oxycodone HCl (Oxycodone Hcl Immed Release 5 Mg Tablet) 5 mg PO Q4H PRN PRN Reason: Pain, Moderate(Pain Scale 4-6) Last Admin: 06/09/23 23:58 Dose: 5 mg Documented By: MARIA ISABEL Sodium Chloride (0.9 % Sodium Chloride Flush 3 Ml Syringe) [facility] Last Admin: 06/10/23 15:54 Dose: 3 ml Documented By: KAZ Thiamine HCl (Thiamine Hcl 100 Mg Tablet) 100 mg PO DAILY [facility] Last Admin: 06/10/23 08:37 Dose: 100 mg Documented By: KAZ Labs 06/09/23 05:37 06/09/23 05:37 Assessment and Plan (1) Hypertension: Status: Acute Plan 78-year-old female with past medical history of hypertension, hyperlipidemia, hypothyroidism, sleep apnea, GERD, CAD, current smoker, use of alcohol:: 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 Management as per primary team Hypertension: suboptimal Continue blood pressure medications-adjusted amlodipine 10 mg daily and lisinopril,if needed we will adjust amlodipine. Hypothyroidism continue home hypothyroidism medications Sleep apnea: Patient does not use CPAP. GERD: Continue omeprazole dvt prophylax: scd . Quality Stroke Does the patient have a stroke diagnosis?: No VTE Prior VTE?: No VTE Risk Level:: Medical - moderate - high VTE Device Contraindication: N/A - Device Ordered VTE Drug Contraindication: N/A - Med Ordered
--- NOTE | 2023-06-10 16:09 | PM.EVENT ---
Event Note Date of Service: 06/10/23 Event Note: Seen on afternoon rounds Good pain control Tolerating clear liquids Voiding freely Abdomen soft Denies flatus Clinically looks well Await for return of GI function and diet as tolerated Time Spent With Patient Time: Total time managing care of this patient today ____ minutes.
[2023-06-10 19:55] VITALS: BP 148/68; PULSE 86; RESP 18; TEMP 36.6; O2SAT 90
[2023-06-10] MEDS: Atorvastatin Calcium 80 MG TABLET PO (19:57)
[2023-06-10] MEDS: lisinopriL 10 MG TABLET 30 MG PO (19:57)
[2023-06-10 23:40] VITALS: BP 167/67; PULSE 70; RESP 18; TEMP 36.1; O2SAT 97
[2023-06-11] MEDS: Heparin Sodium,Porcine 5,000 UNIT/ML VIAL 5000 UNIT SUBCUT ×3 (03:12→17:19)
[2023-06-11 03:21] VITALS: BP 133/73; PULSE 91; RESP 18; TEMP 36.1; O2SAT 91
[2023-06-11] MEDS: Levothyroxine Sodium 150 MCG TABLET PO (05:36)
[2023-06-11] MEDS: Omeprazole 20 MG CAPSULE.DR PO ×2 (05:36→17:10)
--- NOTE | 2023-06-11 07:37 | P.PNGS_ITS ---
Subjective Subjective Date of Service: 06/11/23 Interval history: Having some crampy abd pain and feels bloated, denies flatus. Was OOB and ambulated halls yesterday 3 times. Physical Exam 2 Vital Signs: Vital Signs: Last Vital Signs Temp 97 F 06/11/23 03:21 Pulse 91 06/11/23 03:21 Resp 18 06/11/23 03:21 BP 133/73 06/11/23 03:21 Pulse Ox 91 L 06/11/23 03:21 O2 Del Method Room Air 06/11/23 03:21 O2 Flow Rate 2 06/10/23 23:40 BMI result Body Mass Index 24.6 Const: General: comfortable, no acute distress and alert O rientation/consciousness: patient oriented x3 Resp: Effort & Inspection: normal respiratory effort GI: Inspection: Yes distended (mild) and Yes incision (clean) Palpation (GI): Soft to palpation, Tenderness to palpation present (GI) (mild incisional) and no guarding Skin: General skin exam: no rashes or lesions noted Neuro: General: patient oriented x3 Objective Data Active Medications Al Hydroxide/Mg Hydroxide (Magnesium Hydrox/Alum Hydrox 30 Ml Oral.Susp) 30 ml PO Q4H PRN PRN Reason: Heartburn/Nausea Amlodipine Besylate (Amlodipine Besylate 10 Mg Tablet) 10 mg PO DAILY [facility]; Protocol Last Admin: 06/10/23 09:48 Dose: 5 mg Documented By: KAZ Comments: administered half because 5mg already given this am. So total dose is 10mg Atorvastatin Calcium (Atorvastatin Calcium 80 Mg Tablet) 80 mg PO BEDTIME [facility] Last Admin: 06/10/23 19:57 Dose: 80 mg Documented By: MARYLIN Folic Acid (Folic Acid 1 Mg Tablet) 1 mg PO DAILY [facility] Last Admin: 06/10/23 08:37 Dose: 1 mg Documented By: KAZ Heparin Sodium (Porcine) (Heparin Sodium,Porcine 5,000 Unit/Ml Vial) 5,000 unit SUBCUT Q8H [facility] Last Admin: 06/11/23 03:12 Dose: 5,000 unit Documented By: MARYLIN Acetaminophen (Ofirmev) 1,000 mg in 100 mls @ 400 mls/hr IV Q8H PRN PRN Reason: Pain, Moderate(Pain Scale 4-6) Levothyroxine Sodium (Levothyroxine Sodium 150 Mcg Tablet) 150 mcg PO DAILY@0600 [facility] Last Admin: 06/11/23 05:36 Dose: 150 mcg Documented By: MARYLIN Lisinopril (Lisinopril 10 Mg Tablet) 30 mg PO BEDTIME [facility]; Protocol Last Admin: 06/10/23 19:57 Dose: 30 mg Documented By: MARYLIN Melatonin (Melatonin 3 Mg Tablet) 6 mg PO BEDTIME PRN PRN Reason: Insomnia Morphine Sulfate (Morphine Sulfate 4 Mg/Ml Cartridge) 4 mg IVPUSH Q4H PRN; Protocol PRN Reason: Pain, Severe (Pain Scale 7-10) Nicotine (Nicotine 21 Mg Patch.Td24) 21 mg TRANSDERMA DAILY [facility] Last Admin: 06/10/23 08:45 Dose: Not Given Documented By: KAZ Non-Admin Reason: Patient Refused Omeprazole (Omeprazole 20 Mg Capsule.) 20 mg PO BID@0630,1630 [facility] Last Admin: 06/11/23 05:36 Dose: 20 mg Documented By: MARYLIN Ondansetron HCl (Ondansetron Hcl 4 Mg/2 Ml Vial) 4 mg IVPUSH Q8H PRN PRN Reason: Nausea and Vomiting Last Admin: 06/09/23 23:34 Dose: 4 mg Documented By: MARIA ISABEL Oxycodone HCl (Oxycodone Hcl Immed Release 5 Mg Tablet) 5 mg PO Q4H PRN PRN Reason: Pain, Moderate(Pain Scale 4-6) Last Admin: 06/09/23 23:58 Dose: 5 mg Documented By: MARIA ISABEL Sodium Chloride (0.9 % Sodium Chloride Flush 3 Ml Syringe) [facility] Last Admin: 06/10/23 19:57 Dose: 3 ml Documented By: MARYLIN Thiamine HCl (Thiamine Hcl 100 Mg Tablet) 100 mg PO DAILY [facility] Last Admin: 06/10/23 08:37 Dose: 100 mg Documented By: KAZ Minor 06/09/23 05:37 06/09/23 05:37 Procedures Date of Service Date of Service: 06/11/23 Progress Note: A&P Assessment and plan (1) S/P right colectomy: Status: Acute Plan POD #3 s/p Hand assisted laparoscopic right colon resection, with extensive lysis of adhesions for cecal lesion. Pain improved today, no evidence of GI function yet. Abd benign with clean incision, appropriate post op tenderness, slgihtly distended. Will advance to full liquids. Increase activity, OOB/ambulation and IS use. Hospitalists following for medical comorbidities. Time Spent With Patient Time: Total time managing care of this patient today ____ minutes. Quality Stroke Does the patient have a stroke diagnosis?: No VTE Prior VTE?: No VTE Risk Level:: Medical - moderate - high VTE Device Contraindication: N/A - Device Ordered VTE Drug Contraindication: N/A - Med Ordered
[2023-06-11 07:56] VITALS: BP 141/69; PULSE 90; RESP 18; TEMP 36.5; O2SAT 96
[2023-06-11] MEDS: Magnesium Hydrox/Alum Hydrox 30 ML ORAL.SUSP PO (09:09)
[2023-06-11] MEDS: Folic Acid 1 MG TABLET PO (09:09)
[2023-06-11] MEDS: Thiamine HCL 100 MG TABLET PO (09:10)
[2023-06-11] MEDS: 0.9 % Sodium Chloride Flush 3 ML SYRINGE IVFLUSH ×3 (09:10→21:03)
[2023-06-11] MEDS: amLODIPine Besylate 10 MG TABLET PO (09:10)
[2023-06-11] MEDS: ondansetron HCL 4 MG/2 ML VIAL IVPUSH (10:33)
--- NOTE | 2023-06-11 11:00 | MHC.CM.PN ---
EMR REVIEWED, PT W/COLON RESECTION POD3, STILL AWAITING RETURN OF BOWEL FX, DIET ADVANCING TO FULL LIQUIDS, ANTIC NO PLAN FOR DC OVER W/E, CM WILL CONT TO FOLLOW DC NEEDS.
--- NOTE | 2023-06-11 13:32 | PM.EVENT ---
Event Note Date of Service: 06/12/23 Event Note: seen on afternoon rounds c/o nausea and bloating denies flatus abd soft, more distended will check CT delayed return of Gi function Time Spent With Patient Time: Total time managing care of this patient today ____ minutes.
[2023-06-11 15:41] VITALS: BP 124/68; PULSE 94; RESP 16; TEMP 36.6; O2SAT 95
[2023-06-11] MEDS: Dextrose 5 % and 0.9 % NaCl 1,000 ML 80 ML IVCONT (16:23)
[2023-06-11] MEDS: iohexoL 350 MG/ML 100 ML INFUS..BTL IV (16:56)
[2023-06-11] MEDS: Acetaminophen 1,000 MG/100 ML PIGGYBACK 400 MG IV (17:20)
--- NOTE | 2023-06-11 17:39 | PM.EVENT ---
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
--- NOTE | 2023-06-11 18:05 | HO.PM.IMPN ---
Subjective Subjective Date of Service: 06/11/23 Interval History: htn Review of Systems Patient blood pressure seems to be improving Denies any other new complaints. Physical Exam Vital Signs: Vital Signs: Last Vital Signs Temp 98 F 06/11/23 15:41 Pulse 94 06/11/23 15:41 Resp 16 06/11/23 15:41 BP 124/68 06/11/23 15:41 Pulse Ox 95 06/11/23 15:41 O2 Del Method Room Air 06/11/23 15:41 O2 Flow Rate 2 06/11/23 07:56 BMI result Body Mass Index 24.6 Appearance: Alert.? Oriented X3. cvs: rrr, [id number] . res: clear to auscultation ,no rhonchii or wheezing abd: no rebound or guarding ,soft,soarness at incision area, bs present. ext pulses present , no cyanosis . neuro: axo3 , nonfocal Objective Data Active Medications Al Hydroxide/Mg Hydroxide (Magnesium Hydrox/Alum Hydrox 30 Ml Oral.Susp) 30 ml PO Q4H PRN PRN Reason: Heartburn/Nausea Last Admin: 06/11/23 09:09 Dose: 30 ml Documented By: CELINA Amlodipine Besylate (Amlodipine Besylate 10 Mg Tablet) 10 mg PO DAILY [facility]; Protocol Last Admin: 06/11/23 09:10 Dose: 10 mg Documented By: CELINA Atorvastatin Calcium (Atorvastatin Calcium 80 Mg Tablet) 80 mg PO BEDTIME [facility] Last Admin: 06/10/23 19:57 Dose: 80 mg Documented By: MARYLIN Folic Acid (Folic Acid 1 Mg Tablet) 1 mg PO DAILY [facility] Last Admin: 06/11/23 09:09 Dose: 1 mg Documented By: CELINA Heparin Sodium (Porcine) (Heparin Sodium,Porcine 5,000 Unit/Ml Vial) 5,000 unit SUBCUT Q8H [facility] Last Admin: 06/11/23 17:19 Dose: 5,000 unit Documented By: PATRICK Acetaminophen (Ofirmev) 1,000 mg in 100 mls @ 400 mls/hr IV Q8H PRN PRN Reason: Pain, Moderate(Pain Scale 4-6) Last Infusion: 06/11/23 17:35 Dose: Infused Documented By: PATRICK Dextrose/Sodium Chloride (D5ns) 1,000 mls @ 80 mls/hr IVCONT .[id number] [facility] Last Admin: 06/11/23 16:23 Dose: 80 mls/hr Documented By: PATRICK Levothyroxine Sodium (Levothyroxine Sodium 150 Mcg Tablet) 150 mcg PO DAILY@0600 [facility] Last Admin: 06/11/23 05:36 Dose: 150 mcg Documented By: MARYLIN Lisinopril (Lisinopril 10 Mg Tablet) 30 mg PO BEDTIME [facility]; Protocol Last Admin: 06/10/23 19:57 Dose: 30 mg Documented By: MARYLIN Melatonin (Melatonin 3 Mg Tablet) 6 mg PO BEDTIME PRN PRN Reason: Insomnia Morphine Sulfate (Morphine Sulfate 4 Mg/Ml Cartridge) 4 mg IVPUSH Q4H PRN; Protocol PRN Reason: Pain, Severe (Pain Scale 7-10) Nicotine (Nicotine 21 Mg Patch.Td24) 21 mg TRANSDERMA DAILY [facility] Last Admin: 06/11/23 09:11 Dose: Not Given Documented By: CELINA Non-Admin Reason: Patient Refused Omeprazole (Omeprazole 20 Mg Capsule.) 20 mg PO BID@0630,1630 [facility] Last Admin: 06/11/23 17:10 Dose: 20 mg Documented By: PATRICK Ondansetron HCl (Ondansetron Hcl 4 Mg/2 Ml Vial) 4 mg IVPUSH Q8H PRN PRN Reason: Nausea and Vomiting Last Admin: 06/11/23 10:33 Dose: 4 mg Documented By: CELINA Oxycodone HCl (Oxycodone Hcl Immed Release 5 Mg Tablet) 5 mg PO Q4H PRN PRN Reason: Pain, Moderate(Pain Scale 4-6) Last Admin: 06/09/23 23:58 Dose: 5 mg Documented By: MARIA ISABEL Sodium Chloride (0.9 % Sodium Chloride Flush 3 Ml Syringe) 3 ml IVFLUSH QSHIFT [facility] Last Admin: 06/11/23 16:24 Dose: 3 ml Documented By: PATRICK Thiamine HCl (Thiamine Hcl 100 Mg Tablet) 100 mg PO DAILY [facility] Last Admin: 06/11/23 09:10 Dose: 100 mg Documented By: CELINA Labs 06/09/23 05:37 06/09/23 05:37 Assessment and Plan (1) Hypertension: Status: Acute Plan 78-year-old female with past medical history of hypertension, hyperlipidemia, hypothyroidism, sleep apnea, GERD, CAD, current smoker, use of alcohol:: 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 Management as per primary team Hypertension: suboptimal Continue blood pressure medications-continue amlodipine 10 mg daily and lisinopril,if needed we will adjust amlodipine. Hypothyroidism continue home hypothyroidism medications Sleep apnea: Patient does not use CPAP. GERD: Continue omeprazole dvt prophylax: scd . Quality Stroke Does the patient have a stroke diagnosis?: No VTE Prior VTE?: No VTE Risk Level:: Medical - moderate - high VTE Device Contraindication: N/A - Device Ordered VTE Drug Contraindication: N/A - Med Ordered
--- NOTE | 2023-06-11 18:52 | PC.NURSE ---
Pt ambulated in [place] with steady gait.
[2023-06-11 19:47] VITALS: BP 97/59; PULSE 99; RESP 18; TEMP 36.6; O2SAT 93
[2023-06-11 21:01] VITALS: BP 124/68
[2023-06-11] MEDS: Atorvastatin Calcium 80 MG TABLET PO (21:03)
[2023-06-11] MEDS: lisinopriL 10 MG TABLET 30 MG PO (21:03)
[2023-06-12 03:41] VITALS: BP 126/76; PULSE 92; RESP 18; TEMP 37; O2SAT 93
[2023-06-12] MEDS: ondansetron HCL 4 MG/2 ML VIAL IVPUSH ×2 (03:51→12:00)
[2023-06-12] MEDS: Dextrose 5 % and 0.9 % NaCl 1,000 ML 80 ML IVCONT (03:54)
[2023-06-12] MEDS: Heparin Sodium,Porcine 5,000 UNIT/ML VIAL 5000 UNIT SUBCUT ×3 (03:54→17:45)
[2023-06-12 06:49] VITALS: BP 141/72; PULSE 89; RESP 18; TEMP 36.8; O2SAT 96
[2023-06-12 06:55] LABS: MANUAL DIFF FLAG NO
[2023-06-12 07:04] LABS: Basophils Percent Auto 0.5 % (0-2); Eosinophils Absolute Auto 0.2 X10*3/uL (0.0-0.4); Eosinophils Percent Auto 2.5 % (0-4); Hematocrit 45.9 % (37.0-47.0); Hemoglobin 15.7 g/dl (12.0-16.0); Imm Gran Abs Auto 0.03 X10*3/uL (0.00-0.03); Imm Gran Pct Auto 0.4 % (0.0-0.4); Lymphocytes Absolute Auto 0.8 X10*3/uL (1.2-4.9); Lymphocytes Percent Auto 9.7 % (20-40); Mean Corpuscular HGB Conc 34.2 g/dl (31.0-35.0); Mean Corpuscular Hemoglobin 31.7 pg (27.0-33.0); Mean Corpuscular Volume 92.7 fL (80.0-98.0); Monocytes Absolute Auto 0.6 X10*3/uL (0.1-1.2); Monocytes Percent Auto 6.9 % (2-11); Neutrophils Absolute Auto 6.5 x10*3/uL (2.0-8.3); Platelet Count 352 X10*3/uL (160-400); Red Blood Count 4.95 X10*6/uL (4.20-5.50); Red Cell Distribution Width 12.6 % (11.0-16.0); White Blood Count 8.1 X10*3/uL (4.8-10.8)
[2023-06-12 07:24] LABS: Anion Gap 10 (12-20); Blood Urea Nitrogen 9 mg/dL (9-16); Calcium 9.5 mg/dL (8.4-10.2); Carbon Dioxide 30 mmol/L (22-29); Chloride 103 mmol/L (96-108); Creatinine Clr Calc Pharmacy 73.9; Estimated Glomerular Filt Rate > 60; Glucose Random 147 mg/dL (60-115); Potassium 3.2 mmol/L (3.3-5.1); Sodium 140 mmol/L (135-145)
[2023-06-12] MEDS: Thiamine HCL 100 MG TABLET PO (08:56)
[2023-06-12] MEDS: Levothyroxine Sodium 150 MCG TABLET PO (08:56)
[2023-06-12] MEDS: Folic Acid 1 MG TABLET PO (08:56)
[2023-06-12] MEDS: amLODIPine Besylate 10 MG TABLET PO (08:56)
[2023-06-12] MEDS: Omeprazole 20 MG CAPSULE.DR PO ×2 (08:56→17:46)
[2023-06-12] MEDS: 0.9 % Sodium Chloride Flush 3 ML SYRINGE IVFLUSH (08:57)
--- NOTE | 2023-06-12 10:21 | P.PNGS_ITS ---
Subjective Subjective Date of Service: 06/13/23 Interval history: Started to pass flatus this morning Describes small emesis this morning as well Still feels a little bloated No other events overnight Physical Exam 2 Vital Signs: Vital Signs: Last Vital Signs Temp 98.3 F 06/12/23 06:49 Pulse 89 06/12/23 06:49 Resp 18 06/12/23 06:49 BP 141/72 H 06/12/23 06:49 Pulse Ox 96 06/12/23 06:49 O2 Del Method Room Air 06/12/23 06:49 O2 Flow Rate 2 06/12/23 03:41 BMI result Body Mass Index 24.6 Const: General: comfortable and no acute distress Resp: Effort & Inspection: normal respiratory effort Cardio: Rate: regular rate GI: Other: Mildly distended, soft, incisions clean and dry, some tenderness mostly around incisions Objective Data Active Medications Al Hydroxide/Mg Hydroxide (Magnesium Hydrox/Alum Hydrox 30 Ml Oral.Susp) 30 ml PO Q4H PRN PRN Reason: Heartburn/Nausea Last Admin: 06/11/23 09:09 Dose: 30 ml Documented By: CELINA Amlodipine Besylate (Amlodipine Besylate 10 Mg Tablet) 10 mg PO DAILY [facility]; Protocol Last Admin: 06/12/23 08:56 Dose: 10 mg Documented By: GIBSON Atorvastatin Calcium (Atorvastatin Calcium 80 Mg Tablet) 80 mg PO BEDTIME [facility] Last Admin: 06/11/23 21:03 Dose: 80 mg Documented By: MOHINDER Folic Acid (Folic Acid 1 Mg Tablet) 1 mg PO DAILY [facility] Last Admin: 06/12/23 08:56 Dose: 1 mg Documented By: GIBSON Heparin Sodium (Porcine) (Heparin Sodium,Porcine 5,000 Unit/Ml Vial) 5,000 unit SUBCUT Q8H [facility] Last Admin: 06/12/23 08:56 Dose: 5,000 unit Documented By: GIBSON Acetaminophen (Ofirmev) 1,000 mg in 100 mls @ 400 mls/hr IV Q8H PRN PRN Reason: Pain, Moderate(Pain Scale 4-6) Last Infusion: 06/11/23 17:35 Dose: Infused Documented By: PATRICK Dextrose/Sodium Chloride (D5ns) 1,000 mls @ 80 mls/hr IVCONT .[id number] [facility] Last Admin: 06/12/23 03:54 Dose: 80 mls/hr Documented By: MOHINDER Levothyroxine Sodium (Levothyroxine Sodium 150 Mcg Tablet) 150 mcg PO DAILY@0600 [facility] Last Admin: 06/12/23 08:56 Dose: 150 mcg Documented By: GIBSON Lisinopril (Lisinopril 10 Mg Tablet) 30 mg PO BEDTIME [facility]; Protocol Last Admin: 06/11/23 21:03 Dose: 30 mg Documented By: MOHINDER Melatonin (Melatonin 3 Mg Tablet) 6 mg PO BEDTIME PRN PRN Reason: Insomnia Morphine Sulfate (Morphine Sulfate 4 Mg/Ml Cartridge) 4 mg IVPUSH Q4H PRN; Protocol PRN Reason: Pain, Severe (Pain Scale 7-10) Nicotine (Nicotine 21 Mg Patch.Td24) 21 mg TRANSDERMA DAILY [facility] Last Admin: 06/12/23 08:55 Dose: Not Given Documented By: GIBSON Non-Admin Reason: Patient Refused Omeprazole (Omeprazole 20 Mg Capsule.) 20 mg PO BID@0630,1630 [facility] Last Admin: 06/12/23 08:56 Dose: 20 mg Documented By: GIBSON Ondansetron HCl (Ondansetron Hcl 4 Mg/2 Ml Vial) 4 mg IVPUSH Q8H PRN PRN Reason: Nausea and Vomiting Last Admin: 06/12/23 03:51 Dose: 4 mg Documented By: MOHINDER Oxycodone HCl (Oxycodone Hcl Immed Release 5 Mg Tablet) 5 mg PO Q4H PRN PRN Reason: Pain, Moderate(Pain Scale 4-6) Last Admin: 06/09/23 23:58 Dose: 5 mg Documented By: MARIA ISABEL Sodium Chloride (0.9 % Sodium Chloride Flush 3 Ml Syringe) 3 ml IVFLUSH QSHIFT [facility] Last Admin: 06/12/23 08:57 Dose: 3 ml Documented By: GIBSON Thiamine HCl (Thiamine Hcl 100 Mg Tablet) 100 mg PO DAILY [facility] Last Admin: 06/12/23 08:56 Dose: 100 mg Documented By: GIBSON Labs 06/12/23 06:41 06/12/23 06:41 Labs: Laboratory Results - last 24 hr 06/12/23 06:41 MCV 92.7 MCH 31.7 MCHC 34.2 RDW 12.6 Plt Count 352 D MPV 9.0 L Immature Gran % (Auto) 0.4 Neut % (Auto) 80.0 H Lymph % (Auto) 9.7 L [place] % (Auto) 6.9 Eos % (Auto) 2.5 Baso % (Auto) 0.5 Lymph # (Auto) 0.8 L [place] # (Auto) 0.6 Eos # (Auto) 0.2 Baso # (Auto) 0.0 Abs Immat Gran (auto) 0.03 Absolute Neuts (auto) 6.5 Absolute Nucleated RBC 0.000 Nucleated RBC % (auto) 0.0 Anion Gap 10 L Estim Creat Clear Calc 73.9 Estimated GFR > 60 Random Glucose 147 H Calcium 9.5 D Procedures Date of Service Date of Service: 06/13/23 Progress Note: A&P Assessment and plan (1) S/P right colectomy: Status: Acute Assessment and Plan: CT done last night because of bloating and nausea - distended colon all the way to the left side Appears to have delayed return of GI function especially in the colon Clinically looks well otherwise but does have nausea vomiting and bloating We will keep on ice chips and sips of clears for now Gum chewing recommended to patient Encouraged to get out of bed more - does not seem to be ambulating as much Exam otherwise benign Replace potassium; rest of labs look well Time Spent With Patient Time: Total time managing care of this patient today ____ minutes. Quality Stroke Does the patient have a stroke diagnosis?: No VTE Prior VTE?: No VTE Risk Level:: Medical - moderate - high VTE Device Contraindication: N/A - Device Ordered VTE Drug Contraindication: N/A - Med Ordered
[2023-06-12] MEDS: Potassium Chloride Packet 20 MEQ PACKET 40 MEQ PO (10:50)
[2023-06-12] MEDS: KCl 20 mEq in 5% Dex/0.9% Sod 20 MEQ/1,000 ML IV.SOLN 80 MEQ IVCONT (10:50)
[2023-06-12] MEDS: Potassium Chloride/H20 10 MEQ/100 ML PIGGYBACK 100 MEQ IV ×2 (11:49→13:02)
--- NOTE | 2023-06-12 12:16 | MHC.CM.PN ---
PER DISCUSSION WITH MD, MEDICINE SIGN-OUT.
[2023-06-12] MEDS: Scopolamine 1.5 MG PATCH.TD.3 EAR-BEHIND (14:00)
--- NOTE | 2023-06-12 14:13 | PM.EVENT ---
Event Note Date of Service: 06/12/23 Event Note: Seen on afternoon rounds Says she threw up times earlier today Small amounts of emesis Passing flatus more Abdomen soft, very benign Will add Phenergan Patient is still not bleeding as much - encouraged to walk down the hallway We will keep NPO for now okay to have ice chips Time Spent With Patient Time: Total time managing care of this patient today ____ minutes.
[2023-06-12 14:59] VITALS: BP 117/62; PULSE 101; RESP 18; TEMP 35.9; O2SAT 95
--- NOTE | 2023-06-12 15:05 | HO.PM.IMPN ---
Subjective Subjective Date of Service: 06/12/23 Interval History: htn Review of Systems feels nauseated , reluctant to move ,blood pressure seems to be improving Denies any other new complaints. Physical Exam Vital Signs: Vital Signs: Last Vital Signs Temp 96.7 F L 06/12/23 14:59 Pulse 101 H 06/12/23 14:59 Resp 18 06/12/23 14:59 BP 117/62 06/12/23 14:59 Pulse Ox 95 06/12/23 14:59 O2 Del Method Room Air 06/12/23 14:59 O2 Flow Rate 2 06/12/23 03:41 BMI result Body Mass Index 24.6 Appearance: Alert.? Oriented X3. cvs: rrr, [id number] . res: clear to auscultation ,no rhonchii or wheezing abd: no rebound or guarding ,soft,soarness at incision area, bs present. ext pulses present , no cyanosis . neuro: axo3 , nonfocal Objective Data Active Medications Al Hydroxide/Mg Hydroxide (Magnesium Hydrox/Alum Hydrox 30 Ml Oral.Susp) 30 ml PO Q4H PRN PRN Reason: Heartburn/Nausea Last Admin: 06/11/23 09:09 Dose: 30 ml Documented By: CELINA Amlodipine Besylate (Amlodipine Besylate 10 Mg Tablet) 10 mg PO DAILY [facility]; Protocol Last Admin: 06/12/23 08:56 Dose: 10 mg Documented By: GIBSON Folic Acid (Folic Acid 1 Mg Tablet) 1 mg PO DAILY [facility] Last Admin: 06/12/23 08:56 Dose: 1 mg Documented By: GIBSON Heparin Sodium (Porcine) (Heparin Sodium,Porcine 5,000 Unit/Ml Vial) 5,000 unit SUBCUT Q8H [facility] Last Admin: 06/12/23 08:56 Dose: 5,000 unit Documented By: GIBSON Acetaminophen (Ofirmev) 1,000 mg in 100 mls @ 400 mls/hr IV Q8H PRN PRN Reason: Pain, Moderate(Pain Scale 4-6) Last Infusion: 06/11/23 17:35 Dose: Infused Documented By: PATRICK Dextrose/Sodium Chloride (D5ns) 1,000 mls @ 80 mls/hr IVCONT .[id number] [facility] Last Infusion: 06/12/23 13:29 Dose: Infused Documented By: GIBSON Potassium Chloride/Dextrose/Sod Cl (Kcl 20 Meq In 5% Dex/0.9% Sod) 20 meq in 1,000 mls @ 80 mls/hr IVCONT .[id number] [facility] Last Infusion: 06/12/23 13:30 Dose: 0 mls/hr Documented By: GIBSON Promethazine HCl 6.25 mg/ (Sodium Chloride) 50.25 mls @ 201 mls/hr IV Q6H PRN PRN Reason: Nausea and Vomiting Levothyroxine Sodium (Levothyroxine Sodium 150 Mcg Tablet) 150 mcg PO DAILY@0600 [facility] Last Admin: 06/12/23 08:56 Dose: 150 mcg Documented By: GIBSON Lisinopril (Lisinopril 10 Mg Tablet) 30 mg PO BEDTIME [facility]; Protocol Last Admin: 06/11/23 21:03 Dose: 30 mg Documented By: MOHINDER Melatonin (Melatonin 3 Mg Tablet) 6 mg PO BEDTIME PRN PRN Reason: Insomnia Morphine Sulfate (Morphine Sulfate 4 Mg/Ml Cartridge) 4 mg IVPUSH Q4H PRN; Protocol PRN Reason: Pain, Severe (Pain Scale 7-10) Nicotine (Nicotine 21 Mg Patch.Td24) 21 mg TRANSDERMA DAILY [facility] Last Admin: 06/12/23 08:55 Dose: Not Given Documented By: GIBSON Non-Admin Reason: Patient Refused Omeprazole (Omeprazole 20 Mg Capsule.Dr) 20 mg PO BID@0630,1630 [facility] Last Admin: 06/12/23 08:56 Dose: 20 mg Documented By: GIBSON Ondansetron HCl (Ondansetron Hcl 4 Mg/2 Ml Vial) 4 mg IVPUSH Q8H PRN PRN Reason: Nausea and Vomiting Last Admin: 06/12/23 12:00 Dose: 4 mg Documented By: GIBSON Oxycodone HCl (Oxycodone Hcl Immed Release 5 Mg Tablet) 5 mg PO Q4H PRN PRN Reason: Pain, Moderate(Pain Scale 4-6) Last Admin: 06/09/23 23:58 Dose: 5 mg Documented By: MARIA ISABEL Scopolamine (Scopolamine 1.5 Mg Patch.Td.3) 1.5 mg EAR-BEHIND Q72H [facility] Last Admin: 06/12/23 14:00 Dose: 1.5 mg Documented By: GIBSON Thiamine HCl (Thiamine Hcl 100 Mg Tablet) 100 mg PO DAILY [facility] Last Admin: 06/12/23 08:56 Dose: 100 mg Documented By: GIBSON Labs 06/12/23 06:41 06/12/23 06:41 Labs: Laboratory Results - last 24 hr 06/12/23 06:41 MCV 92.7 MCH 31.7 MCHC 34.2 RDW 12.6 Plt Count 352 D MPV 9.0 L Immature Gran % (Auto) 0.4 Neut % (Auto) 80.0 H Lymph % (Auto) 9.7 L [place] % (Auto) 6.9 Eos % (Auto) 2.5 Baso % (Auto) 0.5 Lymph # (Auto) 0.8 L [place] # (Auto) 0.6 Eos # (Auto) 0.2 Baso # (Auto) 0.0 Abs Immat Gran (auto) 0.03 Absolute Neuts (auto) 6.5 Absolute Nucleated RBC 0.000 Nucleated RBC % (auto) 0.0 Anion Gap 10 L Estim Creat Clear Calc 73.9 Estimated GFR > 60 Random Glucose 147 H Calcium 9.5 D Assessment and Plan (1) Hypertension: Status: Acute Plan 78-year-old female with past medical history of hypertension, hyperlipidemia, hypothyroidism, sleep apnea, GERD, CAD, current smoker, use of alcohol:: 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 Management as per primary team Hypertension: suboptimal Continue blood pressure medications-continue amlodipine 10 mg daily and lisinopril,if needed we will adjust amlodipine. Hypothyroidism continue home hypothyroidism medications Sleep apnea: Patient does not use CPAP. GERD: Continue omeprazole dvt prophylax: scd . Quality Stroke Does the patient have a stroke diagnosis?: No VTE Prior VTE?: No VTE Risk Level:: Medical - moderate - high VTE Device Contraindication: N/A - Device Ordered VTE Drug Contraindication: N/A - Med Ordered
[2023-06-12 19:39] VITALS: BP 118/63; PULSE 98; RESP 16; TEMP 36.7; O2SAT 91
[2023-06-12] MEDS: lisinopriL 10 MG TABLET 30 MG PO (19:57)
[2023-06-12 23:47] VITALS: BP 133/61; PULSE 99; RESP 16; TEMP 36.8; O2SAT 90
[2023-06-13 01:10] VITALS: BP 117/64; PULSE 93; RESP 16; TEMP 36.4; O2SAT 95
[2023-06-13] MEDS: KCl 20 mEq in 5% Dex/0.9% Sod 20 MEQ/1,000 ML IV.SOLN 80 MEQ IVCONT (01:40)
[2023-06-13] MEDS: Heparin Sodium,Porcine 5,000 UNIT/ML VIAL 5000 UNIT SUBCUT ×3 (01:41→17:35)
[2023-06-13 04:08] VITALS: BP 122/58; PULSE 90; RESP 16; TEMP 37; O2SAT 92
[2023-06-13] MEDS: Levothyroxine Sodium 150 MCG TABLET PO (06:30)
[2023-06-13] MEDS: Omeprazole 20 MG CAPSULE.DR PO ×2 (06:30→17:35)
[2023-06-13 07:25] VITALS: BP 115/58; PULSE 83; RESP 18; TEMP 37.3; O2SAT 92
[2023-06-13] MEDS: Thiamine HCL 100 MG TABLET PO (08:13)
[2023-06-13] MEDS: amLODIPine Besylate 10 MG TABLET PO (08:13)
[2023-06-13] MEDS: Folic Acid 1 MG TABLET PO (08:13)
--- NOTE | 2023-06-13 09:53 | P.PNGS_ITS ---
Subjective Subjective Date of Service: 06/14/23 Interval history: feels well this AM passing good flatus had N/V yesterday she feels the Scopolamine patch has helped no vomitting over night pain much improved Physical Exam 2 Vital Signs: Vital Signs: Last Vital Signs Temp 99.2 F 06/13/23 07:25 Pulse 83 06/13/23 07:25 Resp 18 06/13/23 07:25 BP 115/58 L 06/13/23 07:25 Pulse Ox 92 06/13/23 07:25 O2 Del Method Room Air 06/13/23 07:25 O2 Flow Rate 2 06/12/23 03:41 BMI result Body Mass Index 24.6 Const: Other: looks well General: comfortable and no acute distress Resp: Effort & Inspection: normal respiratory effort Cardio: Rate: regular rate GI: Other: incision clean and dry Palpation (GI): Soft to palpation, not firm and no guarding Objective Data Active Medications Al Hydroxide/Mg Hydroxide (Magnesium Hydrox/Alum Hydrox 30 Ml Oral.Susp) 30 ml PO Q4H PRN PRN Reason: Heartburn/Nausea Last Admin: 06/11/23 09:09 Dose: 30 ml Documented By: CELINA Amlodipine Besylate (Amlodipine Besylate 10 Mg Tablet) 10 mg PO DAILY [facility]; Protocol Last Admin: 06/13/23 08:13 Dose: 10 mg Documented By: IKE Folic Acid (Folic Acid 1 Mg Tablet) 1 mg PO DAILY [facility] Last Admin: 06/13/23 08:13 Dose: 1 mg Documented By: IKE Heparin Sodium (Porcine) (Heparin Sodium,Porcine 5,000 Unit/Ml Vial) 5,000 unit SUBCUT Q8H [facility] Last Admin: 06/13/23 01:41 Dose: 5,000 unit Documented By: OLENA Acetaminophen (Ofirmev) 1,000 mg in 100 mls @ 400 mls/hr IV Q8H PRN PRN Reason: Pain, Moderate(Pain Scale 4-6) Last Infusion: 06/11/23 17:35 Dose: Infused Documented By: PATRICK Dextrose/Sodium Chloride (D5ns) 1,000 mls @ 80 mls/hr IVCONT .[id number] [facility] Last Admin: 06/13/23 06:25 Dose: Not Given Documented By: OLENA Non-Admin Reason: IV Running Potassium Chloride/Dextrose/Sod Cl (Kcl 20 Meq In 5% Dex/0.9% Sod) 20 meq in 1,000 mls @ 80 mls/hr IVCONT .[id number] [facility] Last Admin: 06/13/23 01:40 Dose: 80 mls/hr Documented By: OLENA Promethazine HCl 6.25 mg/ (Sodium Chloride) 50.25 mls @ 201 mls/hr IV Q6H PRN PRN Reason: Nausea and Vomiting Levothyroxine Sodium (Levothyroxine Sodium 150 Mcg Tablet) 150 mcg PO DAILY@0600 [facility] Last Admin: 06/13/23 06:30 Dose: 150 mcg Documented By: OLENA Lisinopril (Lisinopril 10 Mg Tablet) 30 mg PO BEDTIME [facility]; Protocol Last Admin: 06/12/23 19:57 Dose: 30 mg Documented By: MOHINDER Melatonin (Melatonin 3 Mg Tablet) 6 mg PO BEDTIME PRN PRN Reason: Insomnia Morphine Sulfate (Morphine Sulfate 4 Mg/Ml Cartridge) 4 mg IVPUSH Q4H PRN; Protocol PRN Reason: Pain, Severe (Pain Scale 7-10) Nicotine (Nicotine 21 Mg Patch.Td24) 21 mg TRANSDERMA DAILY [facility] Last Admin: 06/13/23 08:14 Dose: Not Given Documented By: IKE Non-Admin Reason: Patient Refused Omeprazole (Omeprazole 20 Mg Capsule.Dr) 20 mg PO BID@0630,1630 [facility] Last Admin: 06/13/23 06:30 Dose: 20 mg Documented By: OLENA Ondansetron HCl (Ondansetron Hcl 4 Mg/2 Ml Vial) 4 mg IVPUSH Q8H PRN PRN Reason: Nausea and Vomiting Last Admin: 06/12/23 12:00 Dose: 4 mg Documented By: GIBSON Oxycodone HCl (Oxycodone Hcl Immed Release 5 Mg Tablet) 5 mg PO Q4H PRN PRN Reason: Pain, Moderate(Pain Scale 4-6) Last Admin: 06/09/23 23:58 Dose: 5 mg Documented By: MARIA ISABEL Scopolamine (Scopolamine 1.5 Mg Patch.Td.3) 1.5 mg EAR-BEHIND Q72H [facility] Last Admin: 06/12/23 14:00 Dose: 1.5 mg Documented By: GIBSON Thiamine HCl (Thiamine Hcl 100 Mg Tablet) 100 mg PO DAILY [facility] Last Admin: 06/13/23 08:13 Dose: 100 mg Documented By: IKE Labs 06/12/23 06:41 06/13/23 10:57 Procedures Date of Service Date of Service: 06/14/23 Progress Note: A&P Assessment and plan (1) S/P right colectomy: Status: Acute Assessment and Plan: had N/V yesterday, seems resolved - she thinsk Scopolamine helped a lot abd soft, benign pt looks well ambulating more CT from Wednesday night - suggests delayed return of colon function try full liquids today emphasized importance of ambulation ffup BMP Time Spent With Patient Time: Total time managing care of this patient today ____ minutes. Quality Stroke Does the patient have a stroke diagnosis?: No VTE Prior VTE?: No VTE Risk Level:: Medical - moderate - high VTE Device Contraindication: N/A - Device Ordered VTE Drug Contraindication: N/A - Med Ordered
[2023-06-13 11:51] LABS: Anion Gap 12 (12-20); Blood Urea Nitrogen 15 mg/dL (9-16); Calcium 9.1 mg/dL (8.4-10.2); Carbon Dioxide 30 mmol/L (22-29); Chloride 105 mmol/L (96-108); Creatinine Clr Calc Pharmacy 61.9; Estimated Glomerular Filt Rate > 60; Glucose Random 131 mg/dL (60-115); Potassium 3.8 mmol/L (3.3-5.1); Sodium 143 mmol/L (135-145)
--- NOTE | 2023-06-13 11:52 | HO.PM.IMPN ---
Subjective Subjective Date of Service: 06/13/23 Interval History: htn Review of Systems blood pressure improving denies an nausea or vomitin encourage to ambulate Physical Exam Vital Signs: Vital Signs: Last Vital Signs Temp 99.2 F 06/13/23 07:25 Pulse 83 06/13/23 07:25 Resp 18 06/13/23 07:25 BP 115/58 L 06/13/23 07:25 Pulse Ox 92 06/13/23 07:25 O2 Del Method Room Air 06/13/23 07:25 O2 Flow Rate 2 06/12/23 03:41 BMI result Body Mass Index 24.6 Appearance: Alert.? Oriented X3. cvs: rrr, [id number] . res: clear to auscultation ,no rhonchii or wheezing abd: no rebound or guarding ,soft,soarness at incision area, bs present. ext pulses present , no cyanosis . neuro: axo3 , nonfocal Objective Data Active Medications Al Hydroxide/Mg Hydroxide (Magnesium Hydrox/Alum Hydrox 30 Ml Oral.Susp) 30 ml PO Q4H PRN PRN Reason: Heartburn/Nausea Last Admin: 06/11/23 09:09 Dose: 30 ml Documented By: CELINA Amlodipine Besylate (Amlodipine Besylate 10 Mg Tablet) 10 mg PO DAILY [facility]; Protocol Last Admin: 06/13/23 08:13 Dose: 10 mg Documented By: IKE Folic Acid (Folic Acid 1 Mg Tablet) 1 mg PO DAILY [facility] Last Admin: 06/13/23 08:13 Dose: 1 mg Documented By: IKE Heparin Sodium (Porcine) (Heparin Sodium,Porcine 5,000 Unit/Ml Vial) 5,000 unit SUBCUT Q8H [facility] Last Admin: 06/13/23 10:33 Dose: 5,000 unit Documented By: IKE Acetaminophen (Ofirmev) 1,000 mg in 100 mls @ 400 mls/hr IV Q8H PRN PRN Reason: Pain, Moderate(Pain Scale 4-6) Last Infusion: 06/11/23 17:35 Dose: Infused Documented By: PATRICK Dextrose/Sodium Chloride (D5ns) 1,000 mls @ 80 mls/hr IVCONT .[id number] [facility] Last Admin: 06/13/23 06:25 Dose: Not Given Documented By: OLENA Non-Admin Reason: IV Running Potassium Chloride/Dextrose/Sod Cl (Kcl 20 Meq In 5% Dex/0.9% Sod) 20 meq in 1,000 mls @ 80 mls/hr IVCONT .[id number] [facility] Last Admin: 06/13/23 10:41 Dose: Not Given Documented By: IKE Non-Admin Reason: IV Running Promethazine HCl 6.25 mg/ (Sodium Chloride) 50.25 mls @ 201 mls/hr IV Q6H PRN PRN Reason: Nausea and Vomiting Levothyroxine Sodium (Levothyroxine Sodium 150 Mcg Tablet) 150 mcg PO DAILY@0600 [facility] Last Admin: 06/13/23 06:30 Dose: 150 mcg Documented By: OLENA Lisinopril (Lisinopril 10 Mg Tablet) 30 mg PO BEDTIME [facility]; Protocol Last Admin: 06/12/23 19:57 Dose: 30 mg Documented By: MOHINDER Melatonin (Melatonin 3 Mg Tablet) 6 mg PO BEDTIME PRN PRN Reason: Insomnia Morphine Sulfate (Morphine Sulfate 4 Mg/Ml Cartridge) 4 mg IVPUSH Q4H PRN; Protocol PRN Reason: Pain, Severe (Pain Scale 7-10) Nicotine (Nicotine 21 Mg Patch.Td24) 21 mg TRANSDERMA DAILY [facility] Last Admin: 06/13/23 08:14 Dose: Not Given Documented By: IKE Non-Admin Reason: Patient Refused Omeprazole (Omeprazole 20 Mg Capsule.Dr) 20 mg PO BID@0630,1630 [facility] Last Admin: 06/13/23 06:30 Dose: 20 mg Documented By: OLENA Ondansetron HCl (Ondansetron Hcl 4 Mg/2 Ml Vial) 4 mg IVPUSH Q8H PRN PRN Reason: Nausea and Vomiting Last Admin: 06/12/23 12:00 Dose: 4 mg Documented By: GIBSON Oxycodone HCl (Oxycodone Hcl Immed Release 5 Mg Tablet) 5 mg PO Q4H PRN PRN Reason: Pain, Moderate(Pain Scale 4-6) Last Admin: 06/09/23 23:58 Dose: 5 mg Documented By: MARIA ISABEL Scopolamine (Scopolamine 1.5 Mg Patch.Td.3) 1.5 mg EAR-BEHIND Q72H [facility] Last Admin: 06/12/23 14:00 Dose: 1.5 mg Documented By: GIBSON Thiamine HCl (Thiamine Hcl 100 Mg Tablet) 100 mg PO DAILY [facility] Last Admin: 06/13/23 08:13 Dose: 100 mg Documented By: IKE Labs 06/12/23 06:41 06/13/23 10:57 Labs: Laboratory Results - last 24 hr 06/13/23 10:57 Anion Gap 12 Estim Creat Clear Calc 61.9 Estimated GFR > 60 Random Glucose 131 H Calcium 9.1 Assessment and Plan (1) Hypertension: Status: Acute Plan 78-year-old female with past medical history of hypertension, hyperlipidemia, hypothyroidism, sleep apnea, GERD, CAD, current smoker, use of alcohol:: 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 Management as per primary team Hypertension: better controlled Continue blood pressure medications-continue amlodipine 10 mg daily and lisinopril,if needed we will adjust amlodipine. Hypothyroidism continue home hypothyroidism medications Sleep apnea: Patient does not use CPAP.consider outpatient pulm f/u as per pcp, GERD: Continue omeprazole dvt prophylax: scd . will sign off now , please call us if any questions Quality Stroke Does the patient have a stroke diagnosis?: No VTE Prior VTE?: No VTE Risk Level:: Medical - moderate - high VTE Device Contraindication: N/A - Device Ordered VTE Drug Contraindication: N/A - Med Ordered
[2023-06-13] MEDS: Dextrose 5 % and 0.9 % NaCl 1,000 ML 60 ML IVCONT (13:00)
[2023-06-13 15:52] VITALS: BP 111/59; PULSE 82; RESP 16; TEMP 36.1; O2SAT 92
[2023-06-13 19:33] VITALS: BP 124/60; PULSE 78; RESP 16; TEMP 36.6; O2SAT 93
[2023-06-13] MEDS: Docusate Sodium 100 MG CAPSULE PO (21:05)
[2023-06-13] MEDS: lisinopriL 10 MG TABLET 30 MG PO (21:05)
[2023-06-14] MEDS: Heparin Sodium,Porcine 5,000 UNIT/ML VIAL 5000 UNIT SUBCUT (01:36)
[2023-06-14 03:18] VITALS: BP 128/61; PULSE 78; RESP 18; TEMP 36.4; O2SAT 92
[2023-06-14] MEDS: Omeprazole 20 MG CAPSULE.DR PO (06:00)
[2023-06-14] MEDS: Levothyroxine Sodium 150 MCG TABLET PO (06:00)
--- NOTE | 2023-06-14 07:15 | PC.NURSE ---
Assumed care of patient at 23:15. VSS. A&Ox4. On ciwa assessment, scoring zero. Refusing SCDs, ambulating. LSCTA on room air. IV fluids completed as ordered. Abdominal madeleine are NIC, c/d/i without redness or drainage. Pt denies pain. Safety measures in place. Handoff report given at 06:45
[2023-06-14 07:21] VITALS: BP 126/61; PULSE 80; RESP 12; TEMP 36.2; O2SAT 93
--- NOTE | 2023-06-14 08:21 | PM.PNGS ---
Subjective Subjective Date of Service: 06/14/23 Interval history: Feels well this morning She says she had a good night Tolerated full liquids yesterday Passing flatus well Denies significant abdominal pain Physical Exam Vital Signs: Vital Signs: Last Vital Signs Temp 97.2 F 06/14/23 07:21 Pulse 80 06/14/23 07:21 Resp 12 06/14/23 07:21 BP 126/61 06/14/23 07:21 Pulse Ox 93 06/14/23 07:21 O2 Del Method Room Air 06/14/23 07:21 O2 Flow Rate 2 06/12/23 03:41 BMI result Body Mass Index 24.6 Const: Other: Looks well General: comfortable and no acute distress Resp: Effort & Inspection: normal respiratory effort Cardio: Rate: regular rate GI: Palpation (GI): Soft to palpation, not firm, nontender and no guarding Objective Data Active Medications Al Hydroxide/Mg Hydroxide (Magnesium Hydrox/Alum Hydrox 30 Ml Oral.Susp) 30 ml PO Q4H PRN PRN Reason: Heartburn/Nausea Last Admin: 06/11/23 09:09 Dose: 30 ml Documented By: CELINA Amlodipine Besylate (Amlodipine Besylate 10 Mg Tablet) 10 mg PO DAILY [facility]; Protocol Last Admin: 06/13/23 08:13 Dose: 10 mg Documented By: IKE Docusate Sodium (Docusate Sodium 100 Mg Capsule) 100 mg PO BID [facility] Last Admin: 06/13/23 21:05 Dose: 100 mg Documented By: ANDREE Folic Acid (Folic Acid 1 Mg Tablet) 1 mg PO DAILY [facility] Last Admin: 06/13/23 08:13 Dose: 1 mg Documented By: IKE Heparin Sodium (Porcine) (Heparin Sodium,Porcine 5,000 Unit/Ml Vial) 5,000 unit SUBCUT Q8H [facility] Last Admin: 06/14/23 01:36 Dose: 5,000 unit Documented By: SWETHA Acetaminophen (Ofirmev) 1,000 mg in 100 mls @ 400 mls/hr IV Q8H PRN PRN Reason: Pain, Moderate(Pain Scale 4-6) Last Infusion: 06/11/23 17:35 Dose: Infused Documented By: PATRICK Promethazine HCl 6.25 mg/ (Sodium Chloride) 50.25 mls @ 201 mls/hr IV Q6H PRN PRN Reason: Nausea and Vomiting Levothyroxine Sodium (Levothyroxine Sodium 150 Mcg Tablet) 150 mcg PO DAILY@0600 [facility] Last Admin: 06/14/23 06:00 Dose: 150 mcg Documented By: SWETHA Lisinopril (Lisinopril 10 Mg Tablet) 30 mg PO BEDTIME [facility]; Protocol Last Admin: 06/13/23 21:05 Dose: 30 mg Documented By: ANDREE Melatonin (Melatonin 3 Mg Tablet) 6 mg PO BEDTIME PRN PRN Reason: Insomnia Nicotine (Nicotine 21 Mg Patch.Td24) 21 mg TRANSDERMA DAILY [facility] Last Admin: 06/13/23 08:14 Dose: Not Given Documented By: IKE Non-Admin Reason: Patient Refused Omeprazole (Omeprazole 20 Mg Capsule.) 20 mg PO BID@0630,1630 [facility] Last Admin: 06/14/23 06:00 Dose: 20 mg Documented By: SWETHA Ondansetron HCl (Ondansetron Hcl 4 Mg/2 Ml Vial) 4 mg IVPUSH Q8H PRN PRN Reason: Nausea and Vomiting Last Admin: 06/12/23 12:00 Dose: 4 mg Documented By: GIBSON Scopolamine (Scopolamine 1.5 Mg Patch.Td.3) 1.5 mg EAR-BEHIND Q72H [facility] Last Admin: 06/12/23 14:00 Dose: 1.5 mg Documented By: GIBSON Thiamine HCl (Thiamine Hcl 100 Mg Tablet) 100 mg PO DAILY [facility] Last Admin: 06/13/23 08:13 Dose: 100 mg Documented By: IKE Labs 06/12/23 06:41 06/13/23 10:57 Labs: Laboratory Results - last 24 hr 06/13/23 10:57 Anion Gap 12 Estim Creat Clear Calc 61.9 Estimated GFR > 60 Random Glucose 131 H Calcium 9.1 Procedures Date of Service Date of Service: 06/14/23 Progress Note: A&P Assessment and plan (1) S/P right colectomy: Status: Acute Assessment and Plan: Doing well today Diet as tolerated Appears to have good GI function Await BMs Continue ambulation Plan to DC home once with BMs 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 Quality Stroke Does the patient have a stroke diagnosis?: No VTE Prior VTE?: No VTE Risk Level:: Medical - moderate - high VTE Device Contraindication: N/A - Device Ordered VTE Drug Contraindication: N/A - Med Ordered
[2023-06-14] MEDS: Docusate Sodium 100 MG CAPSULE PO (09:10)
[2023-06-14] MEDS: Thiamine HCL 100 MG TABLET PO (09:10)
[2023-06-14] MEDS: amLODIPine Besylate 10 MG TABLET PO (09:10)
[2023-06-14] MEDS: Folic Acid 1 MG TABLET PO (09:10)
--- NOTE | 2023-06-14 11:35 | MHC.CM.PN ---
EMR reviewed. Patient is not medically cleared for dc at this time. No change to dc plan. CM will continue to follow.
--- NOTE | 2023-06-14 13:50 | PM.EVENT ---
Event Note Date of Service: 06/15/23 Event Note: Continues to feel well Tolerating regular diet Described multiple bowel movements, watery and loose Abdomen remained soft and benign She has been ambulating She feels well overall Okay to DC home Discharge instructions given to patient Time Spent With Patient Time: Total time managing care of this patient today ____ minutes.
--- NOTE | 2023-06-14 15:23 | MHC.CM.PN ---
Patient dc'd home self care, private transport.
--- NOTE | 2023-06-16 09:35 | PM.DS ---
DS: Providers Provider Date of Service: 06/14/23 Date of admission: 06/08/23 07:24 Date of discharge: 06/14/23 Primary care physician: Sukhdev Layne MD Attending physician on admission: Jordan Michael Consults: 06/08/23 16:05 Consult to Hospitalist Routine Comment: Consulting Provider: Hospitalist Reason For Exam: CAD, HTN, smoker s/p DEBBIE right colectomy Attending physician on discharge: Jordan Michael DS: Diagnosis Discharge Diagnosis (1) S/P right colectomy: Status: Acute DS: Summary Hospital Course Hospital Course: HPI AT ADMISSION: [age] year old female here for a colon lesion. She had undergone a colonoscopy with Dr. Saunders last 04/16/2023 because of a history of tubular adenoma. She was noted to have a flat, polypoid lesion in the cecum just above the appendiceal orifice, puckering and scarred with some friability. This was described to be about 2 x 4 cm in size. There was note of another not polypoid lesion in the proximal ascending colon that appeared to be adenomatous as well. The path report for the cecal lesion showed high-grade adenomatous dysplasia. The path report for biopsy of the lesion in the proximal ascending colon showed a tubular adenoma. The patient was referred to de for resection. She is a known heavy smoker for many years. She has a history of laparoscopic cholecystectomy, bladder lift, and hysterectomy. HOSPITAL COURSE: On 3, a hand assisted laparoscopic right colon resection, with extensive lysis of adhesions was performed by Dr. Michael without immediate complications. The patient tolerated the procedure well and was admitted postoperatively for observation. A hospitalist consult was obtained for management of her medical comorbidities. Her home medications were resumed. She had an uneventful but slow recovery course due to delayed return of GI function. On POD #1, she had overall good pain control but had no evidence of GI function and was therefore continued on clear liquids. She was ambulated. Over the next few days she did not begin to pass flatus and developed abdominal distention. CT scan abd/pelvis was obtained on POD 3 which showed dilated bowel loops up to the left colon. She had intermittent vomiting and was therefore made NPO. She was encouraged to increase her activity and ambulation and chew gum to promote GI function. Over the next few days she began to pass flatus and her nausea/vomiting and abdominal distention improved. Her diet was gradually advanced as tolerated. She was tolerating a solid diet and began to have bowel movements. She was ambulating without difficulty. Her abdomen was benign with clean incisions. She felt ready for discharge to home. She was discharged to home on 06/14/23 in stable condition. 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 She is to follow up in the office in 2 weeks. Status at Discharge Functional status at discharge: independent ambulation Overall status at discharge: patient is progressing back to baseline Time Attestation Discharge Coordination Time (in mins): 35 Quality: Safe Use of Opioids Does Pt have an Active Cancer Diagnosis on the Problem List?: No Quality: Stroke Does the patient have a stroke diagnosis?: No Physical Exam Vital Signs: Vital Signs: Last Vital Signs Temp 97.2 F 06/14/23 07:21 Pulse 80 06/14/23 07:21 Resp 12 06/14/23 07:21 BP 126/61 06/14/23 07:21 Pulse Ox 93 06/14/23 07:21 O2 Del Method Room Air 06/14/23 07:21 O2 Flow Rate 2 06/12/23 03:41 BMI result Body Mass Index 24.6 Const: General: comfortable, no acute distress and alert Orientation/consciousness: patient oriented x3 Resp: Effort & Inspection: normal respiratory effort GI: Inspection: No distended and Yes incision (clean ) Palpation (GI): Soft to palpation, Tenderness to palpation present (GI) (mild incisional) and no guarding Skin: General skin exam: no rashes or lesions noted Neuro: General: patient oriented x3 DS: Data Data Completed and Pending Completed studies during hospitalization [Text1]: 06/08/23 11:12 Surgical [PTH] Routine Terminal ileum and colon, right hemicolectomy: - Adenocarcinoma, well differentiated, invasive into submucosa; margins negative. - No metastatic carcinoma identified in 10 lymph nodes examined. - Tubular adenomata (4); negative for high-grade dysplasia or carcinoma. - Vermiform appendix within normal limits. - pT1 N0 AJCC Stage 8th ed. Procedures Introduction of Anesthetic Agent into Peripheral Nerves and Plexi, Percutaneous Approach (06/08/23) Release Peritoneum, Open Approach (06/08/23) Resection of Right Large Intestine, Open Approach (06/08/23) Discharge Plan Discharge Anticipated Discharge Date/Time: 06/13/23 12:34 Patient Disposition: Home Health Service Discharge Diagnosis: s/p right colectomy Referrals: Sukhdev Layne MD [Primary Care Provider] - 1 Week Jordan Michael MD [Physician] - 2 Weeks Discharge Medications: New oxycodone 5 mg tablet 5 mg PO Q4H PRN (Reason: pain (scale score 7-10)) Qty: 24 0RF Rx Instructions: Partial Fill upon patient request. Continued ibuprofen 800 mg tablet 800 mg PO Q8H PRN (Reason: pain) 14 Days Qty: 42 3RF rosuvastatin 40 mg tablet 40 mg PO BEDTIME Rx Instructions: Take 1 tab daily Fasting labs in 2 mo ammonium lactate 12 % cream 1 appl topical DAILY 30 Days Qty: 280 3RF cholecalciferol (vitamin D3) 50 mcg (2,000 unit) capsule 50 mcg PO QAM Ultra CoQ10 75 mg capsule 75 mg PO QAM omega 6-dhs-jpa-fish oil [Fish Oil] 1,200 (144-216) mg capsule 1 cap PO DAILY omeprazole 20 mg capsule,delayed release(DR/EC) 20 mg PO BID@0630,1630 levothyroxine 150 mcg tablet 150 mcg PO DAILY@0600 amlodipine 5 mg tablet 5 mg PO DAILY lisinopril 30 mg tablet 30 mg PO BEDTIME Discharge Orders: Discharge Order (Routine); Ordered 06/14/23 Ordered By: Jordan Michael Diet: Advance to usual diet Activity on Discharge: No heavy lifting Stand Alone Forms: Patient Portal Discharge page Activity Restrictions/Additional Instructions: If the incision area is tender, you may apply an ice pack for short intervals (No more than 20 minutes on, followed by at least 20 minutes off). Do not apply heat. Do not use creams, lotions, or topical antibiotics. These can cause infection or allergic reaction. Ok to shower. You have madeleine closing your incision and these will be removed approximately 10-14 days after surgery. NO HEAVY LIFTING (>10lbs) or strenuous activity. Follow up in office with Dr. Michael in 2 weeks. ([phone]) Call Your Doctor If: -Your temperature exceeds 101.5? F -You experience excessive pain or swelling -You have an unexpected reaction to medication -You have excessive bleeding -You experience continued vomiting/nausea -Your incision begins to separate -Your incision shows signs of infection such as increased redness, swelling, excessive pain, drainage (light blood or clear fluid is normal) or heat Care Plan Goals: Return to baseline health and resume normal activities following recovery period. Health Concerns: Cecal lesion Hypertension Current smoker Plan of Treatment: s/p DEBBIE right colectomy f/u in office in 2 weeks pain control Assessment: Doing well post op. Discharge Date/Time: 06/14/23 15:21
== END 2023-06-14 15:21 | disposition home health service (06) | DRG 331 ==
LOC: HO.SSSA 07:29 → HO.IMC 15:37 → HO.S3 06-13 00:43
PROVIDERS: Physician Assistant Surgical; Admitting Provider Surgery; PCP Family Medicine; Visit Provider Surgery
PROC: 0DTE0ZZ Resection of Large Intestine, Open Approach (ICD-10-PCS; principal; 2023-06-08 08:40)
DX: C18.0 Malignant neoplasm of cecum (principal); E78.5 Hyperlipidemia, unspecified; E03.9 Hypothyroidism, unspecified; F17.210 Nicotine dependence, cigarettes, uncomplicated; I10 Essential (primary) hypertension; Z71.6 Tobacco abuse counseling; G47.30 Sleep apnea, unspecified; I25.10 Atherosclerotic heart disease of native coronary artery without angina pectoris; K66.0 Peritoneal adhesions (postprocedural) (postinfection); G89.18 Other acute postprocedural pain; Z79.890 Hormone replacement therapy; Z79.899 Other long term (current) drug therapy
CPT/HCPCS: 36415; 71045; 74177; 80048; 85025; 86850; 86900; 86901; 88309; 88341; 88342; 93005; C1758; J0131; J0665; J1170; J1644; J1790; J2405; J2704; J2795; J3010; J3480; J7120; Q9967

== ENCOUNTER → 2023-06-08 07:24 | Outpatient (BNV) | payer MEDICARE, SELFPAY | PROVIDERS: Admitting Provider Surgery; PCP Family Medicine; Visit Provider Surgery | DX: C18.2 Malignant neoplasm of ascending colon (principal) | CPT/HCPCS: 44204; 99024; 99499 ==

== ENCOUNTER → 2023-06-08 07:24 | Outpatient (BNV) | payer MEDICARE, SELFPAY | PROVIDERS: Admitting Provider Surgery; PCP Family Medicine; Visit Provider Internal Medicine | DX: I10 Essential (primary) hypertension (principal); K63.9 Disease of intestine, unspecified | CPT/HCPCS: 99222; 99231; 99232 ==

== ENCOUNTER 2023-06-21 09:50 | Outpatient (AMB) | payer MEDICARE, SELFPAY ==
--- NOTE | 2023-06-21 10:16 | A.OFFVIS_ITS ---
Intake Vital Signs 06/21/23 10:40 Height 5 ft 7.5 in Weight 154 lb BMI 23.8 BP 140/67 H Blood Pressure Location Lt brachial Position Sitting Pulse 95 Intake Visit Reasons: S/p R colon resection Intake Note: Patient is seen in office for post op assessment post colon resection. Pt c/o: eating less than usual, bm are soft/not completely form diarrhea , minimal pain, gassy , area is open and yellow foul odor discharge Secretarial Stenographer Required: No Accompanied by: Self / Same As Patient Allergies Sulfa (Sulfonamide Antibiotics) Allergy (Severe, Verified 06/21/23 10:43) Rash amoxicillin [From Augmentin] Allergy (Intermediate, Verified 06/21/23 10:43) Nausea and Vomiting clavulanic acid [From Augmentin] Allergy (Intermediate, Verified 06/21/23 10:43) Nausea and Vomiting shellfish derived Allergy (Intermediate, Verified 06/21/23 10:43) Nausea and Vomiting narcotic pain medications Adverse Reaction (Intermediate, Uncoded 06/21/23 10:43) Nausea and Vomiting HPI S/p R colon resection HPI Details She underwent right colon resection last 06/08/2023 for a large polyp in the cecum with high-grade dysplasia. She was discharged on June 10, 2023 She describes drainage on the lower part of the incision. This area seems to be swollen and red as well She describes loose stools so she says she is not eating as much yet because of this. She denies any fever or chills. [facility], [facility] Medical History (Updated 06/21/23 @ 10:54 by Jordan Michael MD) Colon cancer Family history of anesthesia complication COPD (chronic obstructive pulmonary disease) Cecal lesion RBBB (right bundle branch block) Bifascicular block Polycythemia CAD (coronary artery disease) GERD (gastroesophageal reflux disease) Sleep apnea Hypothyroidism Hyperlipidemia Hypertension Personal history of nicotine dependence Surgical History Hx of dilation and curettage H/O colonoscopy History of tonsillectomy History of lumpectomy of right breast History of tubal ligation History of cholecystectomy History of bladder surgery History of hysterectomy Family History Sister Cancer of kidney Psoriasis Arthritis Lupus Blood clot in vein Acute Crohn's disease Substance abuse Father Atherosclerosis Substance abuse Aortic aneurysm Mother Substance abuse Maternal Aunt Substance abuse Paternal Grandfather No problems noted. Social History Household Members: Significant Other Housing: House Are you a primary health care analyst to a significant other at home: No Do you presently have visiting nurse or other home services: No Comment: counts correct Patient Tobacco Use Status: Current someday Tobacco user Tobacco use type: Cigarette Cigarette Packs Per Day: 1 Cigarettes Per Day: 20.0 Years Smoked: 61 e-Cigarette/Vaping Use: Never Used Second Hand Smoke Exposure: No service: No Current occupational status: retired Cognitive needs: No Hearing needs: No Vision needs: Yes (Patient wears reading glasses.) Review of Systems Const Denies chills and Denies fever(s) Card Denies chest pain and Denies chest pain at rest Resp Denies cough Denies difficulty voiding Physical Exam Vital Signs: Last Vital Signs Pulse 95 06/21/23 10:40 BP 140/67 H 06/21/23 10:40 BMI result Body Mass Index 23.8 Const General: comfortable and no acute distress Resp Effort & Inspection: normal respiratory effort GI Other: On the lower most part of her incision is note of induration with redness drainage, purulent fluid Palpation (GI): Soft to palpation, not firm and no guarding Assessment & Plan Assessment & Plan (1) Colon cancer: Code(s): C18.9 - Malignant neoplasm of colon, unspecified Plan: Status post right colon resection, hand assisted laparoscopic. Her path report unfortunately shows a T1 N0 adenocarcinoma. She knows about this pathology. I will therefore opinion to oncology although it is unlikely that she will require adjuvant treatment I released all her skin madeleine. By doing so, I was able to probe into the part of the incision and large amounts of pus was drained. I explained to her that this opening should close up on its own by by eventually regranulating. I instructed her on daily wound care with dressing changes I will see her again next week to do a wound check She is interested in testing as her daughter was diagnosed to have a CHEK2 mutation. Orders: Referrals Hematology & Oncology Referral C18.9 - Malignant neoplasm of colon, unspecified Coding Level of Care Code Global (84357) Diagnoses Colon cancer C18.9
[2023-06-21 10:40] VITALS: BP 140/67; PULSE 95; BMI 23.8
== END 2023-06-21 10:56 | disposition home or self-care (01) ==
PROVIDERS: PCP Family Medicine; Visit Provider Surgery
DX: C18.9 Malignant neoplasm of colon, unspecified (principal)
CPT/HCPCS: 99024

== ENCOUNTER → 2023-06-21 09:50 | Outpatient (BNVA) | payer MEDICARE, SELFPAY | PROVIDERS: PCP Family Medicine; Visit Provider Surgery | DX: C18.9 Malignant neoplasm of colon, unspecified (principal) | CPT/HCPCS: 99212 ==

== ENCOUNTER 2023-06-24 12:20 | Outpatient (AMB) | payer MEDICARE, SELFPAY ==
[2023-06-24 12:32] VITALS: BP 118/70; PULSE 68; BMI 22.8
--- NOTE | 2023-06-24 12:32 | MHC.OFFVIS ---
Intake Vital Signs 06/24/23 12:32 Height 5 ft 7.5 in Weight 147 lb 11.355 oz BMI 22.8 BP 118/70 Blood Pressure Location Lt brachial Position Sitting Pulse 68 Intake Visit Reasons: 6 mth f/up Intake Note: 6 month follow-up feeling good Clinical Engineering Manager Required: No Allergies Sulfa (Sulfonamide Antibiotics) Allergy (Severe, Verified 06/21/23 10:43) Rash amoxicillin [From Augmentin] Allergy (Intermediate, Verified 06/21/23 10:43) Nausea and Vomiting clavulanic acid [From Augmentin] Allergy (Intermediate, Verified 06/21/23 10:43) Nausea and Vomiting shellfish derived Allergy (Intermediate, Verified 06/21/23 10:43) Nausea and Vomiting narcotic pain medications Adverse Reaction (Intermediate, Uncoded 06/21/23 10:43) Nausea and Vomiting Medication List - Last Reconciled 06/24/23 by Hood Vogel MD amlodipine 5 mg PO DAILY ammonium lactate 12% 1 appl topical DAILY 30 days cholecalciferol (vitamin D3) 50 mcg PO QAM coenzyme Q10 (Ultra CoQ10) 75 mg PO QAM ibuprofen 800 mg PO Q8H PRN 14 days levothyroxine 150 mcg PO DAILY@0600 lisinopril 30 mg PO BEDTIME omega 5-ywq-rzz-fish oil 1,200 (144-216) mg (Fish Oil) 1 cap PO DAILY omeprazole 20 mg PO BID@0630,1630 oxycodone 5 mg PO Q4H PRN rosuvastatin 40 mg PO BEDTIME HPI HPI Comments History of Present Illness Details Tatiana comes for follow-up. She has no new cardiac symptoms. She underwent a right colectomy recently for colon cancer. She is doing well at this point time and healing well. Taking all her medications. [facility] Medical History Colon cancer Family history of anesthesia complication COPD (chronic obstructive pulmonary disease) Cecal lesion RBBB (right bundle branch block) Bifascicular block Polycythemia CAD (coronary artery disease) GERD (gastroesophageal reflux disease) Sleep apnea Hypothyroidism Hyperlipidemia Hypertension Personal history of nicotine dependence Surgical History Hx of dilation and curettage H/O colonoscopy History of tonsillectomy History of lumpectomy of right breast History of tubal ligation History of cholecystectomy History of bladder surgery History of hysterectomy Family History Sister Cancer of kidney Psoriasis Arthritis Lupus Blood clot in vein Acute Crohn's disease Substance abuse Father Atherosclerosis Substance abuse Aortic aneurysm Mother Substance abuse Maternal Aunt Substance abuse Paternal Grandfather No problems noted. Social History Household Members: Significant Other Housing: House Are you a primary patient care provider to a significant other at home: No Do you presently have visiting nurse or other home services: No Comment: counts correct Patient Tobacco Use Status: Current someday Tobacco user Tobacco use type: Cigarette Cigarette Packs Per Day: 1 Cigarettes Per Day: 20.0 Years Smoked: 61 e-Cigarette/Vaping Use: Never Used Second Hand Smoke Exposure: No service: No Current occupational status: retired Cognitive needs: No Hearing needs: No Vision needs: Yes (Patient wears reading glasses.) Review of Systems Const Denies chills, Denies fatigue, Denies fever(s), Denies frequent falls, Denies weakness, Denies weight gain and Denies weight loss ENT Denies dizziness Card Denies chest pain, Denies leg edema, Denies lightheadedness, Denies palpitations, Denies dyspnea, Denies dyspnea on exertion, Denies orthopnea and Denies other (loss of consciousness) Resp Denies cough, Denies dyspnea and Denies dyspnea on exertion GI Denies hematochezia and Denies change in stool character Musc Denies abnormal gait, Denies muscle weakness, Denies numbness, Denies radiating pain into limb and Denies tingling Neuro Denies abnormal gait, Denies dizziness, Denies frequent falls, Denies numbness, Denies tingling and Denies weakness Endo Denies fatigue and Denies palpitations Physical Exam Vital Signs: Last Vital Signs Pulse 68 06/24/23 12:32 BP 118/70 06/24/23 12:32 BMI result Body Mass Index 22.8 Const General: cooperative, healthy appearing, comfortable and no acute distress Orientation/consciousness: patient oriented x3 Neck Neck: Yes normal visual inspection Resp Effort & Inspection: normal respiratory effort Auscultation: clear to auscultation bilaterally, no crackles, no rales, no rhonchi and no wheezes Cardio Jugular venous distension: no JVD Rate: regular rate Rhythm: regular rhythm Heart sounds: S1 normal heart sound present, S2 normal heart sound present, no murmurs and no rubs Neuro General: patient oriented x3 Extrem General: Yes normal to inspection Psych Appearance: grossly normal Mental Status: mental status grossly normal Speech and movement: Normal speech and movement present Assessment & Plan Assessment & Plan (1) CAD (coronary artery disease): Code(s): I25.10 - Atherosclerotic heart disease of [place] coronary artery without angina pectoris Plan: CAD which is nonobstructive by myocardial perfusion imaging test with presence of coronary atherosclerosis on CT scan. Continue aggressive medical therapy. Continue low-dose aspirin therapy. Continue high-intensity statin therapy. Advised lipid panel in near future. Target goal LDL less than 70 mg/dL. Blood pressure is currently well optimized advised to monitor blood pressure at home maintain a log. Goal blood pressure less than 130 systolic. (2) Bifascicular block: Code(s): I45.2 - Bifascicular block Plan: Bifascicular block which is stable. No interventions required. No other symptoms that suggest advanced AV block. No further treatment is required. Annual EKG. Will follow up in the clinic in 1 year's time, sooner p.r.n.. Thank you for allowing me to partake in her care Orders: Orders Lipid Panel Today I25.10 - Atherosclerotic heart disease of [place] coronary artery without angina pectoris Coding Level of Care Code Est Pt Level 3 (60983) Diagnoses CAD (coronary artery disease) I25.10 Bifascicular block I45.2
== END 2023-06-24 12:52 | disposition home or self-care (01) ==
PROVIDERS: PCP Family Medicine; Referring Provider Family Medicine; Visit Provider Internal Medicine Cardiovascular Disease
DX: I25.10 Atherosclerotic heart disease of native coronary artery without angina pectoris (principal); I45.2 Bifascicular block
CPT/HCPCS: 99213

== ENCOUNTER → 2023-06-24 12:20 | Outpatient (BNVA) | payer MEDICARE, SELFPAY | PROVIDERS: PCP Family Medicine; Visit Provider Internal Medicine Cardiovascular Disease | DX: I25.10 Atherosclerotic heart disease of native coronary artery without angina pectoris (principal); I45.2 Bifascicular block | CPT/HCPCS: 99212 ==

== ENCOUNTER 2023-06-28 11:05 | Outpatient (AMB) | payer MEDICARE, SELFPAY ==
[2023-06-28 11:08] VITALS: BP 145/64; PULSE 80; BMI 23.1
--- NOTE | 2023-06-28 11:08 | A.OFFVIS_ITS ---
Intake Vital Signs 06/28/23 11:08 Height 5 ft 7.5 in Weight 150 lb BMI 23.1 BP 145/64 H Blood Pressure Location Lt brachial Position Sitting Pulse 80 Intake Visit Reasons: S/p R colon resection, wound check Intake Note: This patient presents for a post-op follow-up status post Right colon resection, wound check. Patient c/o; reports drainage and open wound, reports occasional aching sensation in abdomen. Blister Pack Operator Required: No Accompanied by: Self / Same As Patient Allergies Sulfa (Sulfonamide Antibiotics) Allergy (Severe, Verified 06/28/23 11:19) Rash amoxicillin [From Augmentin] Allergy (Intermediate, Verified 06/28/23 11:19) Nausea and Vomiting clavulanic acid [From Augmentin] Allergy (Intermediate, Verified 06/28/23 11:19) Nausea and Vomiting shellfish derived Allergy (Intermediate, Verified 06/28/23 11:19) Nausea and Vomiting narcotic pain medications Adverse Reaction (Intermediate, Uncoded 06/28/23 11:19) Nausea and Vomiting HPI S/p R colon resection, wound check HPI Details She is here for follow-up for wound check after right colon resection. She had an abscess on the wound last week which had to drain. She says the drainage has decreased significantly She has good oral intake. She still has irregular bowel habits however. [facility] Medical History (Updated 06/28/23 @ 11:30 by Jordan Michael MD) Family history of gene mutation Colon cancer Family history of anesthesia complication COPD (chronic obstructive pulmonary disease) Cecal lesion RBBB (right bundle branch block) Bifascicular block Polycythemia CAD (coronary artery disease) GERD (gastroesophageal reflux disease) Sleep apnea Hypothyroidism Hyperlipidemia Hypertension Personal history of nicotine dependence Surgical History Hx of dilation and curettage H/O colonoscopy History of tonsillectomy History of lumpectomy of right breast History of tubal ligation History of cholecystectomy History of bladder surgery History of hysterectomy Family History Sister Cancer of kidney Psoriasis Arthritis Lupus Blood clot in vein Acute Crohn's disease Substance abuse Father Atherosclerosis Substance abuse Aortic aneurysm Mother Substance abuse Maternal Aunt Substance abuse Paternal Grandfather No problems noted. Social History Household Members: Significant Other Housing: House Are you a primary customer care consultant to a significant other at home: No Do you presently have visiting nurse or other home services: No Comment: counts correct Patient Tobacco Use Status: Current someday Tobacco user Tobacco use type: Cigarette Cigarette Packs Per Day: 1 Cigarettes Per Day: 20.0 Years Smoked: 61 e-Cigarette/Vaping Use: Never Used Second Hand Smoke Exposure: No service: No Current occupational status: retired Cognitive needs: No Hearing needs: No Vision needs: Yes (Patient wears reading glasses.) Review of Systems Const Denies chills and Denies fever(s) Card Denies chest pain, Denies dyspnea and Denies dyspnea on exertion Resp Denies cough, Denies dyspnea and Denies dyspnea on exertion GI Denies hematochezia and Reports change in bowel habits Denies hematuria Musc Denies back pain and Denies limited range of motion Neuro Denies focal weakness and Denies convulsions Psych Denies depression and Denies mood swings Physical Exam Const General: comfortable and no acute distress Resp Effort & Inspection: normal respiratory effort GI Other: Abscess site clean, no significant drainage at this time, no residual once or induration; good granulation in abscess cavity Palpation (GI): Soft to palpation, not firm and nontender Assessment & Plan Assessment & Plan (1) S/P right colectomy: Code(s): Z90.49 - Acquired absence of other specified parts of digestive tract Plan: She continues to do well. The abscess site is clean with good granulation. I have changed her dressings. I had instructed her to continue to do daily dressing changes. I told her that I anticipate the wound to close on its own with good wound care I will see her in the office in about 3 weeks for another wound check. (2) Family history of gene mutation: Code(s): Z84.81 - Family history of carrier of genetic disease Plan: Her daughter was diagnosed to have a genetic mutation in CHEK2. The daughter had serrated adenomas The patient wants to proceed with genetic screening. I explained to her the implications of this test to herself and her family. She says she understands and wants to proceed. She will have had a counseling as well. This will be scheduled today. Coding Level of Care Code Global (77267) Diagnoses S/P right colectomy Z90.49 Family history of gene mutation Z84.81
== END 2023-06-28 11:28 | disposition home or self-care (01) ==
PROVIDERS: PCP Family Medicine; Visit Provider Surgery
DX: Z90.49 Acquired absence of other specified parts of digestive tract (principal); Z84.81 Family history of carrier of genetic disease
CPT/HCPCS: 99024

== ENCOUNTER → 2023-06-28 11:05 | Outpatient (BNVA) | payer MEDICARE, SELFPAY | PROVIDERS: PCP Family Medicine; Visit Provider Surgery | DX: Z90.49 Acquired absence of other specified parts of digestive tract (principal); Z84.81 Family history of carrier of genetic disease | CPT/HCPCS: 99212 ==

== ENCOUNTER 2023-06-29 10:53 | Outpatient (AMB) | payer MEDICARE, SELFPAY ==
[2023-06-29 10:56] VITALS: BMI 23.1
--- NOTE | 2023-06-29 10:56 | A.OFFVIS_ITS ---
Intake Vital Signs 06/29/23 10:56 Height 5 ft 7.5 in Weight 150 lb BMI 23.1 Intake Visit Reasons: Follow up 05/21/23 & AAA US 06/03/2023 Intake Note: follow up 05/21/23 & AAA US 06/03/23. Pt states that Right LE is worse than the Left LE, does have large rope like VV on the Right LE pre-tibial area. Pt states some itching on the Right LE and discoloration. Accompanied by: Self / Same As Patient Allergies Sulfa (Sulfonamide Antibiotics) Allergy (Severe, Verified 06/29/23 11:02) Rash amoxicillin [From Augmentin] Allergy (Intermediate, Verified 06/29/23 11:02) Nausea and Vomiting clavulanic acid [From Augmentin] Allergy (Intermediate, Verified 06/29/23 11:02) Nausea and Vomiting shellfish derived Allergy (Intermediate, Verified 06/29/23 11:02) Nausea and Vomiting narcotic pain medications Adverse Reaction (Intermediate, Uncoded 06/29/23 11:02) Nausea and Vomiting HPI Follow up 05/21/23 & AAA US 06/03/2023 HPI Details Very pleasant 78-year-old female presents for follow-up regarding venous insufficiency and her abdominal aortic aneurysm. She reports that her legs have been doing fairly well and no significant discomfort regarding that. In the interim she actually had undergone a right colon resection by General surgery on 06/08/2023. She reports that she is recovering fairly nicely from that. She has undergone noninvasive aortic testing along with venous insufficiency testing. In addition she actually did have a CT scan regarding her abdomen for the right colon lesion. She now presents to us for follow-up. At the current time no active complaints. [facility] Medical History Family history of gene mutation Colon cancer Family history of anesthesia complication COPD (chronic obstructive pulmonary disease) Cecal lesion RBBB (right bundle branch block) Bifascicular block Polycythemia CAD (coronary artery disease) GERD (gastroesophageal reflux disease) Sleep apnea Hypothyroidism Hyperlipidemia Hypertension Personal history of nicotine dependence Surgical History Hx of dilation and curettage H/O colonoscopy History of tonsillectomy History of lumpectomy of right breast History of tubal ligation History of cholecystectomy History of bladder surgery History of hysterectomy Family History Sister Cancer of kidney Psoriasis Arthritis Lupus Blood clot in vein Acute Crohn's disease Substance abuse Father Atherosclerosis Substance abuse Aortic aneurysm Mother Substance abuse Maternal Aunt Substance abuse Paternal Grandfather No problems noted. Social History Household Members: Significant Other Housing: House Are you a primary home care music therapist to a significant other at home: No Do you presently have visiting nurse or other home services: No Comment: counts correct Patient Tobacco Use Status: Current someday Tobacco user Tobacco use type: Cigarette Cigarette Packs Per Day: 1 Cigarettes Per Day: 20.0 Years Smoked: 61 e-Cigarette/Vaping Use: Never Used Second Hand Smoke Exposure: No service: No Current occupational status: retired Cognitive needs: No Hearing needs: No Vision needs: Yes (Patient wears reading glasses.) Review of Systems Const All systems reviewed & are unremarkable except as noted in HPI and below Reports no additional complaints ENT Reports Normal hearing present Card Denies chest pain, Denies chest pain at rest, Denies chest pain with activity and Denies pedal edema Resp Denies cough GI Denies abdominal pain Musc Denies abnormal gait, Denies muscle cramps and Denies radiating pain into limb Skin/Breast Denies skin ulcer and Denies wounds Neuro Reports Normal hearing present and Denies abnormal gait Psych Reports no additional complaints Physical Exam Vital Signs: BMI result Body Mass Index 23.1 Const General: cooperative, healthy appearing and comfortable Orientation/consciousness: oriented to person, oriented to place and oriented to time HEENT Head: Yes normal to inspection Neck Neck: Yes normal visual inspection Carotids: no bruits Chest Chest palpation & inspection: normal inspection of the chest Resp Effort & Inspection: normal respiratory effort and able to speak in complete sentences Auscultation: clear to auscultation bilaterally, no crackles, no rales, no rhonchi and no wheezes Cardio Rate: regular rate Rhythm: regular rhythm Heart sounds: S1 normal heart sound present and S2 normal heart sound present Bruits: no carotid bruits Peripheral pulses: Peripheral pulses 2+ throughout GI Inspection: Yes normal to inspection Skin Wounds: no wounds Hair: normal Neuro General: oriented to person, oriented to place and oriented to time Cranial nerves: Yes CN's II-XII intact bilaterally and Yes Normal hearing present Cognition (Neuro): normal cognition Motor exam (neuro): 5/5 motor strength present throughout Extrem Other: venous exam: +1 edema General: No clubbing, No cyanosis and Yes edema Psych Appearance: grossly normal Mental Status: mental status grossly normal Speech and movement: Normal speech and movement present Results Reviewed Results Reviewed: Brief summary of venous insufficiency testing is as follows: right great saphenous vein: Positive right small saphenous vein: negative right accessory vein: none present left great saphenous vein: Pause left small saphenous vein: negative left accessory vein: none present Please note there is no evidence of any venous aneurysms or significant tortuosity CT angiogram dated 05/13/2023 demonstrates 2.9 cm abdominal aortic aneurysm which is consistent with ultrasound dated 06/03/2019 Assessment & Plan Assessment & Plan (1) Varicose veins of right lower extremity with inflammation: Code(s): I83.11 - Varicose veins of right lower extremity with inflammation Plan: At the current time she does not have any significant lower extremity complaints. Will manage this conservatively. We did discuss routine conservative measures including compression elevation and exercise. (2) Carotid bruit: Code(s): R09.89 - Other specified symptoms and signs involving the circulatory and respiratory systems Qualifiers: Laterality: bilateral Qualified Code(s): R09.89 - Other specified symptoms and signs involving the circulatory and respiratory systems Plan: Upon workup she did have evidence a carotid bruit. We will also obtain routine surveillance evaluation regarding her carotids as well. We did discuss routine risk factor modification in particular smoking cessation. Once again she will follow up with us in 1 year time. Thank you for allowing us to assist in her care. (3) Abdominal aortic aneurysm: Code(s): I71.40 - Abdominal aortic aneurysm, without rupture, unspecified Qualifiers: Abdominal aorta location: infrarenal aorta Plan: In short patient does have evidence of an abdominal aortic aneurysm. Will plan for annual surveillance regarding this. Risk factor modification was discussed Orders: Orders US carotid duplex BI 1 Year R09.89 - Other specified symptoms and signs invol ving the circulatory and respiratory systems US abdominal aortic aneurysm 1 Year I71.40 - Abdominal aortic aneurysm, without rupture, unspecified Coding Level of Care Code Est Pt Level 4 (70206) Diagnoses Varicose veins of right lower extremity with inflammation I83.11 Bilateral carotid bruits R09.89 Laterality: bilateral Abdominal aortic aneurysm I71.40 Abdominal aorta location: infrarenal aorta
== END 2023-06-29 11:38 | disposition home or self-care (01) ==
PROVIDERS: PCP Family Medicine; Visit Provider Surgery Vascular Surgery
DX: I83.11 Varicose veins of right lower extremity with inflammation (principal); R09.89 Other specified symptoms and signs involving the circulatory and respiratory systems; I71.40 Abdominal aortic aneurysm, without rupture, unspecified
CPT/HCPCS: 99214

== ENCOUNTER → 2023-06-29 10:53 | Outpatient (BNVA) | payer MEDICARE, SELFPAY | PROVIDERS: PCP Family Medicine; Visit Provider Surgery Vascular Surgery | DX: I71.40 Abdominal aortic aneurysm, without rupture, unspecified (principal); R09.89 Other specified symptoms and signs involving the circulatory and respiratory systems; I83.11 Varicose veins of right lower extremity with inflammation | CPT/HCPCS: 99212 ==

== ENCOUNTER 2023-07-14 11:24 | Outpatient (AMB) | payer MEDICARE, SELFPAY ==
--- NOTE | 2023-07-14 11:28 | MHC.PC.OV ---
Vital Signs 07/14/23 11:29 Height 5 ft 7.5 in Weight 148 lb BMI 22.8 BP 128/80 Blood Pressure Location Lt brachial Position Sitting Pulse 86 Pulse Source Pulse Oximeter Pulse Oximetry (%) 98 Oxygen Delivery Method Room Air Intake Visit Reasons: 3 Months Intake Note: Patient is here with back pain on/off for 3 years, feels she may have nerve pain. Allergies Sulfa (Sulfonamide Antibiotics) Allergy (Severe, Verified 07/14/23 11:34) Rash amoxicillin [From Augmentin] Allergy (Intermediate, Verified 07/14/23 11:34) Nausea and Vomiting clavulanic acid [From Augmentin] Allergy (Intermediate, Verified 07/14/23 11:34) Nausea and Vomiting shellfish derived Allergy (Intermediate, Verified 07/14/23 11:34) Nausea and Vomiting narcotic pain medications Adverse Reaction (Intermediate, Uncoded 07/14/23 11:34) Nausea and Vomiting Tobacco use date assessed: 04/09/23 Fall risk assessment: No Falls in past year Last assessed Fall Risk: 07/14/23 Dental Screening Dental Screen Date: 07/14/23 Did you have a dental visit in the last 12 months?: No Did you have a dental problem in the last 6 months where you did not have access to dental care?: No Was dental information given to patient?: Patient declined HPI 3 Months HPI Details 78 y/o female presents to f/u hypertension. A1c today 07/14/23 5.4%. Blood pressure today 128/80. She is on amlodipine 5mg, lisinopril 30mg. Follows up with vascular for abdominal aortic aneurysm - they plan for annual surveillance regarding this. Also follows up for carotid bruit and varicose veins of RLE. s/p R colectomy and pt states wound has been slowly healing but is concerned about this. She denies any fevers/chills. She sees general surgery tomorrow. Pt reports intermittent mid back pain. HPI Comments History of Present Illness Details Documentation assistance for Sukhdev Layne MD, was provided by Jay Bobby, Subsurface Augmentee Operator on 07/14/2023 12:09 PM EST. I, Dr. Layne, have read, observed, and verified documentation. [facility] Medical History Family history of gene mutation Colon cancer Family history of anesthesia complication COPD (chronic obstructive pulmonary disease) Cecal lesion RBBB (right bundle branch block) Bifascicular block Polycythemia CAD (coronary artery disease) GERD (gastroesophageal reflux disease) Sleep apnea Hypothyroidism Hyperlipidemia Hypertension Personal history of nicotine dependence Surgical History Hx of dilation and curettage H/O colonoscopy History of tonsillectomy History of lumpectomy of right breast History of tubal ligation History of cholecystectomy History of bladder surgery History of hysterectomy Family History Sister Cancer of kidney Psoriasis Arthritis Lupus Blood clot in vein Acute Crohn's disease Substance abuse Father Atherosclerosis Substance abuse Aortic aneurysm Mother Substance abuse Maternal Aunt Substance abuse Paternal Grandfather No problems noted. Social History Household Members: Significant Other Housing: House Are you a primary career placement services counselor to a significant other at home: No Do you presently have visiting nurse or other home services: No Comment: counts correct Patient Tobacco Use Status: Current someday Tobacco user Tobacco use type: Cigarette Cigarette Packs Per Day: 1 Cigarettes Per Day: 20.0 Years Smoked: 61 e-Cigarette/Vaping Use: Never Used Second Hand Smoke Exposure: No service: No Current occupational status: retired Cognitive needs: No Hearing needs: No Vision needs: Yes (Patient wears reading glasses.) Questionnaire PHQ-9 Over the last 2 weeks, how often have you been bothered by any of the following problems? 1. Little interest or pleasure in doing things: not at all 2. Feeling down, depressed, or hopeless: not at all 3. Trouble falling or staying asleep, or sleeping too much: not at all 4. Feeling tired or having little energy: not at all 5. Poor appetite or overeating: not at all 6. Feeling bad about yourself - or that you are a failure or have let yourself or your family down: not at all 7. Trouble concentrating on things, such as reading the newspaper or watching television: not at all 8. Moving or speaking so slowly that other people could have noticed. Or the opposite - being so fidgety or restless that you have been moving around a lot more than usual: not at all 9. Thoughts that you would be better off or of hurting yourself in some way: not at all Total score: 0 Source: Developed by Drs. Karsten Mccloud, Michell Napoles, Jose Guerin and colleagues, with an educational janneth from [employer]. Thrive Questionnaire Date Thrive assessed: 07/14/23 I am a: Patient What is your living situation today?: I have a steady place to live Within the past 12 months, did the food you bought not last and you didn't have the money to get more?: Never true Within the past 12 months, did you worry whether your food would run out before you got money to buy more?: Never true Do you have trouble paying for medicines?: No Do you have trouble getting transportation to medical appointments?: No Do you have trouble paying your heating and electricity bill?: No Do you have trouble taking care of your child, family member or friend?: No Do you have trouble with day-to-day activities such as bathing, preparing meals, shopping, managing finances, etc.?: No Are you currently unemployed and looking for a job?: No Are you interested in more education?: No THRIVE Score: 0 AUDIT C Alcohol Use Questionnaire (AUDIT-C) 1. How often do you have a drink containing alcohol?: 4 or more times a week 2. How many drinks containing alcohol do you have on a typical day when you are drinking?: 1 or 2 3. How often do you have six or more drinks on one occasion?: Never Total Score: 4 KEILA-7 AMB Questionnaire KEILA-7 Date KEILA - 7 assessed: 07/14/23 Feeling nervous, anxious, or on edge: 0 = Not at all Not being able to stop or control worryin = Not at all Worrying too much about different things: 0 = Not at all Trouble relaxin = Not at all Being so restless that it is hard to sit still: 0 = Not at all Becoming easily annoyed or irritable: 0 = Not at all Feeling afraid as if something awful might happen: 0 = Not at all Total KEILA-7 score (0-4 normal; 5-9 mild; 10-14 moderate; 15-21 severe): 0 Source: Developed by Drs. Karsten Mccloud, Michell Napoles, Jose Guerin and colleagues, with an educational janneth from [employer]. Physical exam (Primary Care) Vital Signs: Last Vital Signs Pulse 86 07/14/23 11:29 BP 128/80 07/14/23 11:29 Pulse Ox 98 07/14/23 11:29 Oxygen Delivery Method Room Air 07/14/23 11:29 BMI result Body Mass Index 22.8 Tobacco/Smoking Status: Tobacco use Status Tobacco use date assessed 04/09/23 07/14/23 11:29 Patient Tobacco Use Status Current someday Tobacco 07/14/23 11:29 Tobacco use type Cigarette 07/14/23 11:29 e-Cigarette/Vaping Use Never Used 07/14/23 11:29 PHQ-9: PHQ-9 Score PHQ-9: Total score 0 07/14/23 12:09 Thrive Assessment: Date of Thrive Assessment Date Thrive assessed 07/14/23 07/14/23 11:40 Results AMB Hemoglobin A1c AMB Hemoglobin A1c 5.4 % Last Edit by Bridget Cole CMA on 07/14/23 11:57 Results Reviewed Results Reviewed: Laboratory Last Values Hgb A1c (Clinic) 5.4 % (4.0-6.0) 07/14/23 11:56 Assessment and Plan Assessment & Plan (1) Hypertension: Code(s): I10 - Essential (primary) hypertension Qualifiers: Hypertension type: primary hypertension Qualified Code(s): I10 - Essential (primary) hypertension Plan: Blood?pressure?is?fairly?well?controlled.??Goal?is?less?than?130/80 Continue?current?medication?regimen Watch?salt/sodium Encouraged?relaxation (2) Abdominal aortic aneurysm: Code(s): I71.40 - Abdominal aortic aneurysm, without rupture, unspecified Qualifiers: Abdominal aorta location: infrarenal aorta Plan: Followed?by??and?has?a?follow-up?ultrasound?in?a?year (3) Carotid bruit: Code(s): R09.89 - Other specified symptoms and signs involving the circulatory and respiratory systems Qualifiers: Laterality: bilateral Qualified Code(s): R09.89 - Other specified symptoms and signs involving the circulatory and respiratory systems Plan: Followed?by??Debbie?who?ordered?a?carotid?ultrasound?for?next?year (4) Mid back pain on right side: Code(s): M54.9 - Dorsalgia, unspecified Plan: History?of?osteoporosis?and?has?right?back?pain?at?level?of??T9?and?under?right?shoulder?blade. Quality?is?burning Possible?osteoporotic?fracture Possible?nerve?impingement Check?plain?x-ray May?need?additional?imaging (5) Osteoporosis: Code(s): M81.0 - Age-related osteoporosis without current pathological fracture Plan: Had?prescribed?alendronate?but?patient?has?stopped?this?for?something?that?her?family?member?who?works?as?a?chiropractor?gave?her. Encouraged?good?source?of?calcium?and?vitamin-D Encouraged?weight-bearing?exercise Will?follow?with?bone?density?test?every?2?years Orders: Orders XR thoracic spine 2V Today M54.9 - Dorsalgia, unspecified AMB Hemoglobin A1c Today E11.9 - Type 2 diabetes mellitus without complications XR ribs RT min 3V w CXR1V Today M54.9 - Dorsalgia, unspecified Coding Level of Care Code Est Pt Level 4 (66460) Diagnoses Primary hypertension I10 Hypertension type: primary hypertension Abdominal aortic aneurysm I71.40 Abdominal aorta location: infrarenal aorta Bilateral carotid bruits R09.89 Laterality: bilateral Mid back pain on right side M54.9 Osteoporosis M81.0
[2023-07-14 11:29] VITALS: BP 128/80; PULSE 86; O2SAT 98; BMI 22.8
== END 2023-07-14 12:40 | disposition home or self-care (01) ==
PROVIDERS: PCP Family Medicine; Visit Provider Family Medicine
DX: I10 Essential (primary) hypertension (principal); I71.40 Abdominal aortic aneurysm, without rupture, unspecified; R09.89 Other specified symptoms and signs involving the circulatory and respiratory systems; M54.9 Dorsalgia, unspecified; M81.0 Age-related osteoporosis without current pathological fracture; E11.9 Type 2 diabetes mellitus without complications
CPT/HCPCS: 83036; 99214

== ENCOUNTER 2023-07-15 10:36 | Outpatient (AMB) | payer MEDICARE, SELFPAY ==
--- NOTE | 2023-07-15 10:51 | MHC.OFFVIS ---
Intake Vital Signs 07/15/23 10:58 Height 5 ft 7.5 in Weight 148 lb BMI 22.8 BP 137/81 Blood Pressure Location Lt brachial Position Sitting Pulse 83 Intake Visit Reasons: S/p R colon resection, 3 week follow up Intake Note: This patient presents for a 3 week follow up post-op follow-up assessment status post Right colon resection. Pt c/o; reports occasional sharp abdominal pain. Grid Maker Required: No Accompanied by: Self / Same As Patient Allergies Sulfa (Sulfonamide Antibiotics) Allergy (Severe, Verified 07/15/23 10:58) Rash amoxicillin [From Augmentin] Allergy (Intermediate, Verified 07/15/23 10:58) Nausea and Vomiting clavulanic acid [From Augmentin] Allergy (Intermediate, Verified 07/15/23 10:58) Nausea and Vomiting shellfish derived Allergy (Intermediate, Verified 07/15/23 10:58) Nausea and Vomiting narcotic pain medications Adverse Reaction (Intermediate, Uncoded 07/15/23 10:58) Nausea and Vomiting HPI S/p R colon resection, 3 week follow up HPI Details She is here for follow-up after right colon resection last 06/09/2023. She says that she still has a little bit of drainage and an open wound. This has decreased in size. She has good oral intake. She occasionally has some crampy abdominal pain. Overall, she seems to be doing well. [facility] Medical History Family history of gene mutation Colon cancer Family history of anesthesia complication COPD (chronic obstructive pulmonary disease) Cecal lesion RBBB (right bundle branch block) Bifascicular block Polycythemia CAD (coronary artery disease) GERD (gastroesophageal reflux disease) Sleep apnea Hypothyroidism Hyperlipidemia Hypertension Personal history of nicotine dependence Surgical History Hx of dilation and curettage H/O colonoscopy History of tonsillectomy History of lumpectomy of right breast History of tubal ligation History of cholecystectomy History of bladder surgery History of hysterectomy Family History Sister Cancer of kidney Psoriasis Arthritis Lupus Blood clot in vein Acute Crohn's disease Substance abuse Father Atherosclerosis Substance abuse Aortic aneurysm Mother Substance abuse Maternal Aunt Substance abuse Paternal Grandfather No problems noted. Social History Household Members: Significant Other Housing: House Are you a primary hearing care practitioner to a significant other at home: No Do you presently have visiting nurse or other home services: No Comment: counts correct Patient Tobacco Use Status: Current someday Tobacco user Tobacco use type: Cigarette Cigarette Packs Per Day: 1 Cigarettes Per Day: 20.0 Years Smoked: 61 e-Cigarette/Vaping Use: Never Used Second Hand Smoke Exposure: No service: No Current occupational status: retired Cognitive needs: No Hearing needs: No Vision needs: Yes (Patient wears reading glasses.) Review of Systems Const Denies chills and Denies fever(s) Card Denies chest pain, Denies dyspnea and Denies dyspnea on exertion Resp Denies cough, Denies dyspnea and Denies dyspnea on exertion GI Denies hematochezia and Denies change in bowel habits Denies hematuria Musc Denies back pain and Denies limited range of motion Neuro Denies focal weakness and Denies convulsions Psych Denies depression and Denies mood swings Physical Exam Vital Signs: Last Vital Signs Pulse 83 07/15/23 10:58 BP 137/81 07/15/23 10:58 BMI result Body Mass Index 22.8 Const General: comfortable and no acute distress Resp Effort & Inspection: normal respiratory effort GI Other: Small residual open wound on the incision, about 1.5 cm, scanty drainage, no cellulitis Assessment & Plan Assessment & Plan (1) Colon cancer: Code(s): C18.9 - Malignant neoplasm of colon, unspecified Plan: Status post right colon resection. I probed the residual open wound with a Q-tip. There has no significant collection. I explained to her that I anticipate this to regranulate and reepithelialized eventually. The wound itself is francine already in size. I had advised her on continue with wound care I will see her in the office again to do a wound check. Coding Level of Care Code Global (66809) Diagnoses Colon cancer C18.9
[2023-07-15 10:58] VITALS: BP 137/81; PULSE 83; BMI 22.8
== END 2023-07-15 11:27 | disposition home or self-care (01) ==
PROVIDERS: PCP Family Medicine; Visit Provider Surgery
DX: C18.9 Malignant neoplasm of colon, unspecified (principal)
CPT/HCPCS: 99024

== ENCOUNTER → 2023-07-15 10:36 | Outpatient (BNVA) | payer MEDICARE, SELFPAY | PROVIDERS: PCP Family Medicine; Visit Provider Surgery | DX: C18.9 Malignant neoplasm of colon, unspecified (principal) | CPT/HCPCS: 99212 ==

== ENCOUNTER 2023-07-21 13:39 | Outpatient (REF) | payer MEDICARE, SELFPAY ==
--- NOTE | ~2023-07-21 | XR_ITS ---
EXAMINATION: XR THORACOLUMBAR SPINE CLINICAL INFORMATION: Dorsalgia. COMPARISON: CT chest dated 04/15/2023. TECHNIQUE: Frontal, lateral and swimmer's views of the thoracic spine are submitted. FINDINGS: There is bony demineralization. At C3-C4, there is moderate disc space narrowing. There is marked disc space narrowing at C4-C5 through C6-C7, with endplate arthropathy. There is disc space narrowing extending from T6-T7 through T8-T9. There is a mild T8 anterior wedge compression fracture, unchanged from the recent CT examination of 04/15/2023. No acute fracture or spondylolisthesis is seen. There is multi-level cervicothoracic endplate arthropathy. The posterior elements are intact. The paravertebral soft tissues are unremarkable. There are right upper quadrant surgical clips. XR/XR thoracic spine 2V IMPRESSION: 1. There is moderate degenerative disc disease at C3-C4, and marked degenerative disc disease extends from C4-C5 through C6-C7. 2. There is moderate degenerative disc disease noted extending from T6-T7 through T8-T9. 3. There is a stable mild T8 anterior wedge compression fracture. 4. There is multi-level cervicothoracic endplate arthropathy.
--- NOTE | ~2023-07-21 | XR_ITS ---
EXAMINATION: XR RIBS, RIGHT, WITH PA CHEST CLINICAL INFORMATION: Pain. COMPARISON: Chest radiograph dated 06/10/2023. TECHNIQUE: 4 views of the right ribs are submitted, together with a frontal view of the chest. FINDINGS: Lungs are clear. No consolidation, pneumothorax, or pleural effusion. The cardiomediastinal silhouette and pulmonary vasculature are normal. Osseous structures are unremarkable. Ribs are intact. No fractures are identified. The right upper quadrant surgical clips. XR/XR ribs RT min 3V w CXR1V IMPRESSION: Unremarkable examination.
== END 2023-07-21 13:40 | disposition home or self-care (01) ==
LOC: HO.XRAY 13:39
PROVIDERS: PCP Family Medicine; Visit Provider Family Medicine
DX: M54.9 Dorsalgia, unspecified (principal)
CPT/HCPCS: 71101; 72070

== ENCOUNTER → 2023-07-21 13:45 | Outpatient (BNV) | payer MEDICARE, SELFPAY | PROVIDERS: PCP Family Medicine; Referring Provider Surgery; Visit Provider Internal Medicine | DX: C18.2 Malignant neoplasm of ascending colon (principal) | CPT/HCPCS: 99204 ==

== ENCOUNTER 2023-08-02 10:40 | Outpatient (AMB) | payer MEDICARE, SELFPAY ==
--- NOTE | 2023-08-02 10:49 | A.OFFVIS_ITS ---
Intake Visit Reasons: Genetic test results Intake Note: This patient presents for an assessment for genetic test results. Pt c/o; reports no complaints. Division Toll Wire Chief Required: No Accompanied by: Self / Same As Patient Allergies Sulfa (Sulfonamide Antibiotics) Allergy (Severe, Verified 08/02/23 10:50) Rash amoxicillin [From Augmentin] Allergy (Intermediate, Verified 08/02/23 10:50) Nausea and Vomiting clavulanic acid [From Augmentin] Allergy (Intermediate, Verified 08/02/23 10:50) Nausea and Vomiting shellfish derived Allergy (Intermediate, Verified 08/02/23 10:50) Nausea and Vomiting narcotic pain medications Adverse Reaction (Intermediate, Uncoded 08/02/23 10:50) Nausea and Vomiting Medication List - Last Reconciled 08/02/23 by Jordan Michael MD amlodipine 5 mg PO DAILY ammonium lactate 12% 1 appl topical DAILY 30 days cephalexin 500 mg PO Q12H 10 days cholecalciferol (vitamin D3) 50 mcg PO QAM coenzyme Q10 (Ultra CoQ10) 75 mg PO QAM ibuprofen 800 mg PO Q8H PRN 14 days levothyroxine 150 mcg PO DAILY@0600 lisinopril 30 mg PO BEDTIME omega 1-rqs-csh-fish oil 1,200 (144-216) mg (Fish Oil) 1 cap PO DAILY omeprazole 20 mg PO BID@0630,1630 rosuvastatin 40 mg PO BEDTIME HPI HPI Genetic test results: Details: She is here for follow-up after right colon resection. 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 She denies any new complaints. She feels well overall. [facility] Medical History Family history of gene mutation Colon cancer Family history of anesthesia complication COPD (chronic obstructive pulmonary disease) Cecal lesion RBBB (right bundle branch block) Bifascicular block Polycythemia CAD (coronary artery disease) GERD (gastroesophageal reflux disease) Sleep apnea Hypothyroidism Hyperlipidemia Hypertension Personal history of nicotine dependence Surgical History Hx of dilation and curettage H/O colonoscopy History of tonsillectomy History of lumpectomy of right breast History of tubal ligation History of cholecystectomy History of bladder surgery History of hysterectomy Family History Sister Cancer of kidney Psoriasis Arthritis Lupus Blood clot in vein Acute Crohn's disease Substance abuse Father Atherosclerosis Substance abuse Aortic aneurysm Mother Substance abuse Maternal Aunt Substance abuse Paternal Grandfather No problems noted. Social History Household Members: Significant Other Housing: House Are you a primary geriatric care manager to a significant other at home: No Do you presently have visiting nurse or other home services: No Comment: counts correct Patient Tobacco Use Status: Current someday Tobacco user Tobacco use type: Cigarette Cigarette Packs Per Day: 1 Years Smoked: 61 e-Cigarette/Vaping Use: Never Used Second Hand Smoke Exposure: No service: No Current occupational status: retired Cognitive needs: No Hearing needs: No Vision needs: Yes (Patient wears reading glasses.) Review of Systems Const Denies chills and Denies fever(s) Card Denies chest pain, Denies dyspnea and Denies dyspnea on exertion Resp Denies cough, Denies dyspnea and Denies dyspnea on exertion GI Denies hematochezia and Denies change in bowel habits Denies hematuria Musc Denies back pain and Denies limited range of motion Neuro Denies focal weakness and Denies convulsions Psych Denies depression and Denies mood swings Physical Exam Const General: comfortable and no acute distress Resp Effort & Inspection: normal respiratory effort GI Other: Small residual open wound on the midline incision, less than 1 cm, with some hypergranulation Palpation (GI): Soft to palpation, not firm, nontender and no guarding Assessment & Plan Assessment & Plan (1) S/P right colectomy: Code(s): Z90.49 - Acquired absence of other specified parts of digestive tract Category: Surgical Plan: She continues to do well. She has good GI functions There is small residual open wound from the midline incision but this has decreased in size The results of her genetic screening are not back yet. I will call her once this is available. I will see her again in about 2 months in the office. Coding Level of Care Code Global (21538) Diagnoses S/P right colectomy Z90.49
== END 2023-08-02 11:19 | disposition home or self-care (01) ==
PROVIDERS: PCP Family Medicine; Visit Provider Surgery
DX: Z90.49 Acquired absence of other specified parts of digestive tract (principal)
CPT/HCPCS: 99024

== ENCOUNTER → 2023-08-02 10:40 | Outpatient (BNVA) | payer MEDICARE, SELFPAY | PROVIDERS: PCP Family Medicine; Visit Provider Surgery | DX: Z48.815 Encounter for surgical aftercare following surgery on the digestive system (principal); Z90.49 Acquired absence of other specified parts of digestive tract | CPT/HCPCS: 99212 ==

== ENCOUNTER 2023-08-09 11:17 | Outpatient (AMB) | payer MEDICARE, SELFPAY ==
[2023-08-09 11:22] VITALS: BP 132/70; PULSE 84; O2SAT 100; BMI 23.2
--- NOTE | 2023-08-09 11:22 | A.OFFPC_ITS ---
Vital Signs 08/09/23 11:22 Height 5 ft 7 in Weight 148 lb BMI 23.2 BP 132/70 Blood Pressure Location Lt brachial Position Sitting Pulse 84 Pulse Source Pulse Oximeter Pulse Oximetry (%) 100 Oxygen Delivery Method Room Air Intake Visit Reasons: Back pain Intake Note: Patient is here for back pain and x-ray results. Allergies Sulfa (Sulfonamide Antibiotics) Allergy (Severe, Verified 08/09/23 11:24) Rash amoxicillin [From Augmentin] Allergy (Intermediate, Verified 08/09/23 11:24) Nausea and Vomiting clavulanic acid [From Augmentin] Allergy (Intermediate, Verified 08/09/23 11:24) Nausea and Vomiting shellfish derived Allergy (Intermediate, Verified 08/09/23 11:24) Nausea and Vomiting narcotic pain medications Adverse Reaction (Intermediate, Uncoded 08/09/23 11:24) Nausea and Vomiting Tobacco use date assessed: 04/09/23 Fall risk assessment: No Falls in past year Last assessed Fall Risk: 08/09/23 Dental Screening Dental Screen Date: 07/14/23 HPI Back pain HPI Details 78 y/o female presents today to f/u back pain. Hx of osteoporosis. Thoracic spine x-ray 07/21/23 shows moderate degenerative disc disease at C3-C4, marked degenerative disc extends from C4-C5 through C6-C7. Moderate degenerative disc noted extending from T6-T7 through T8-T9. Multi level cervicothoracic endplate arthropathy. Stable mild T8 anterior wedge compression fracture. Pt notes infection of surgical wound at abdomen and she had started taking cephalexin a couple days ago Wednesday. HPI Comments History of Present Illness Details Documentation assistance for Sukhdev Layne MD, was provided by Jay Bobby,? Mixer Operator [employer] on 08/09/2023 12:28 PM EST. I, Dr. Layne, have read, observed, and verified documentation. [facility] Medical History Family history of gene mutation Colon cancer Family history of anesthesia complication COPD (chronic obstructive pulmonary disease) Cecal lesion RBBB (right bundle branch block) Bifascicular block Polycythemia CAD (coronary artery disease) GERD (gastroesophageal reflux disease) Sleep apnea Hypothyroidism Hyperlipidemia Hypertension Personal history of nicotine dependence Surgical History Hx of dilation and curettage H/O colonoscopy History of tonsillectomy History of lumpectomy of right breast History of tubal ligation History of cholecystectomy History of bladder surgery History of hysterectomy Family History Sister Cancer of kidney Psoriasis Arthritis Lupus Blood clot in vein Acute Crohn's disease Substance abuse Father Atherosclerosis Substance abuse Aortic aneurysm Mother Substance abuse Maternal Aunt Substance abuse Paternal Grandfather No problems noted. Social History Household Members: Significant Other Housing: House Are you a primary healthcare network pricing consultant to a significant other at home: No Do you presently have visiting nurse or other home services: No Comment: counts correct Patient Tobacco Use Status: Current someday Tobacco user Tobacco use type: Cigarette Cigarette Packs Per Day: 1 Years Smoked: 61 e-Cigarette/Vaping Use: Never Used Second Hand Smoke Exposure: No service: No Current occupational status: retired Cognitive needs: No Hearing needs: No Vision needs: Yes (Patient wears reading glasses.) Questionnaire Thrive Questionnaire Date Thrive assessed: 07/14/23 KEILA-7 AMB Questionnaire KEILA-7 Date KEILA - 7 assessed: 07/14/23 Source: Developed by Drs. Karsten Mccloud, Michell Napoles, Jose Guerin and colleagues, with an educational janneth from [employer]. Review of Systems Const Denies chills, Denies fatigue, Denies fever(s), Denies headache(s) and Denies weakness ENT Denies dizziness and Denies headache(s) Card Denies dyspnea Resp Denies cough, Denies dyspnea, Denies wheezing and Denies other (shortness of breath) Musc Denies numbness and Denies tingling Neuro Denies dizziness, Denies headache(s), Denies numbness, Denies tingling and Denies weakness Psych Denies anxiety and Denies depression Endo Denies fatigue Aller/Immun Denies wheezing Physical exam (Primary Care) Vital Signs: Last Vital Signs Pulse 84 08/09/23 11:22 BP 132/70 08/09/23 11:22 Pulse Ox 100 08/09/23 11:22 Oxygen Delivery Method Room Air 08/09/23 11:22 BMI result Body Mass Index 23.2 Tobacco/Smoking Status: Tobacco use Status Tobacco use date assessed 04/09/23 08/09/23 11:23 Patient Tobacco Use Status Current someday Tobacco 08/09/23 11:23 Tobacco use type Cigarette 08/09/23 11:23 e-Cigarette/Vaping Use Never Used 08/09/23 11:23 Thrive Assessment: Date of Thrive Assessment Date Thrive assessed 07/14/23 08/09/23 11:23 Const General: well developed; No acute distress Nutritional Appearance: well nourished Orientation/consciousness: patient oriented x3 HENRI Head: Yes normocephalic and Yes atraumatic Eyes General: appearance normal, both eyes and all related structures Pupils: Equal, round and reactive pupils present EOM: EOMs intact bilaterally Resp Effort & Inspection: normal respiratory effort Neuro General: patient oriented x3 and gait normal Cranial nerves: Yes Equal, round and reactive pupils present Psych Affect: normal affect Assessment and Plan Assessment & Plan (1) Back pain: Code(s): M54.9 - Dorsalgia, unspecified Plan: X-ray?shows?T8?stable?compression?fracture?and?patient?has?osteoporosis. Will?refer?her?to?new?[place] She?can?continue?NSAIDs?and?ice/heat Had?tried?gabapentin?which?did?not?help (2) Wound infection: Code(s): T14.8XXA - Other injury of unspecified body region, initial encounter; L08.9 - Local infection of the skin and subcutaneous tissue, unspecified Plan: Ongoing?drainage?from?surgical?wound?at?abdomen. Has?purulent?drainage?which?she?can?express. Wound?culture?acquired?and?will?be?sent?to?the?lab Had?given?her?a?script?for?cephalexin?500?mg?b.i.d.?which?she?started?on?[place]. She?will?let?me?know?if?she?has?any?fevers?or?chills, increasing?pain?or?abdominal?rigidity Will?follow-up?in?a?couple?of?weeks Orders: Orders Routine Culture w Gram Stain Today L08.9 - Local infection of the skin and subcutaneous tissue, unspecified, T14.8XXA - Other injury of unspecified body region, initial encounter Coding Level of Care Code Est Pt Level 3 (25615) Diagnoses Back pain M54.9 Wound infection T14.8XXA; L08.9
== END 2023-08-09 17:05 ==
PROVIDERS: PCP Family Medicine; Visit Provider Family Medicine
DX: M54.9 Dorsalgia, unspecified (principal); T14.8XXA Other injury of unspecified body region, initial encounter; L08.9 Local infection of the skin and subcutaneous tissue, unspecified
CPT/HCPCS: 99213

== ENCOUNTER 2023-08-09 12:48 | Outpatient (REF) | payer MEDICARE, SELFPAY | END 2023-08-09 12:49 | disposition home or self-care (01) | LOC: HO.LAB 12:48 | PROVIDERS: Visit Provider Family Medicine | DX: T14.8XXA Other injury of unspecified body region, initial encounter (principal); L08.9 Local infection of the skin and subcutaneous tissue, unspecified | CPT/HCPCS: 87070; 87205 ==

== ENCOUNTER 2023-10-04 09:45 | Outpatient (AMB) | payer MEDICARE, SELFPAY ==
--- NOTE | 2023-10-04 09:46 | A.OFFVIS_ITS ---
Vital Signs 10/04/23 09:46 Height 5 ft 7 in Intake Visit Reasons: 2 month follow up visit Intake Note: This patient presents for a two month follow-up assessment status post right colectomy. Patient c/o; reports no complaints at this time. Business Trainer Required: No Accompanied by: Self / Same As Patient Allergies Sulfa (Sulfonamide Antibiotics) Allergy (Severe, Verified 10/04/23 09:55) Rash amoxicillin [From Augmentin] Allergy (Intermediate, Verified 10/04/23 09:55) Nausea and Vomiting clavulanic acid [From Augmentin] Allergy (Intermediate, Verified 10/04/23 09:55) Nausea and Vomiting shellfish derived Allergy (Intermediate, Verified 10/04/23 09:55) Nausea and Vomiting narcotic pain medications Adverse Reaction (Intermediate, Uncoded 10/04/23 09:55) Nausea and Vomiting HPI HPI 2 month follow up visit: Details: She is here for follow-up after right colon resection for a large polyp. 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 She denies any complaints at this time. She has good GI functions and good oral intake. Her incision has healed completely. [facility] Medical History Family history of gene mutation Colon cancer Family history of anesthesia complication COPD (chronic obstructive pulmonary disease) Cecal lesion RBBB (right bundle branch block) Bifascicular block Polycythemia CAD (coronary artery disease) GERD (gastroesophageal reflux disease) Sleep apnea Hypothyroidism Hyperlipidemia Hypertension Personal history of nicotine dependence Surgical History Hx of dilation and curettage H/O colonoscopy History of tonsillectomy History of lumpectomy of right breast History of tubal ligation History of cholecystectomy History of bladder surgery History of hysterectomy Family History Sister Cancer of kidney Psoriasis Arthritis Lupus Blood clot in vein Acute Crohn's disease Substance abuse Father Atherosclerosis Substance abuse Aortic aneurysm Mother Substance abuse Maternal Aunt Substance abuse Paternal Grandfather No problems noted. Social History Household Members: Significant Other Housing: House Are you a primary career technical education teacher to a significant other at home: No Do you presently have visiting nurse or other home services: No Comment: counts correct Patient Tobacco Use Status: Current someday Tobacco user Tobacco use type: Cigarette Cigarette Packs Per Day: 1 Years Smoked: 61 e-Cigarette/Vaping Use: Never Used Second Hand Smoke Exposure: No service: No Current occupational status: retired Cognitive needs: No Hearing needs: No Vision needs: Yes (Patient wears reading glasses.) Review of Systems Const Denies chills and Denies fever(s) Card Denies chest pain, Denies dyspnea and Denies dyspnea on exertion Resp Denies cough, Denies dyspnea and Denies dyspnea on exertion GI Denies hematochezia and Denies change in bowel habits Denies hematuria Musc Denies back pain and Denies limited range of motion Neuro Denies focal weakness and Denies convulsions Psych Denies depression and Denies mood swings Physical Exam Const General: comfortable and no acute distress GI Other: Incisions well healed Palpation (GI): Soft to palpation, not firm and nontender Assessment & Plan Assessment & Plan (1) S/P right colectomy: Code(s): Z90.49 - Acquired absence of other specified parts of digestive tract Category: Surgical Plan: She continues to do very well. All incisions are well healed. Her genetic testing did not show any mutations She can therefore follow up on a p.r.n. basis. I have recommended for her to undergo colonoscopy in the next 1-2 years as well and she says she will discuss this with Dr. Saunders. Coding Level of Care Code Global (77111) Diagnoses S/P right colectomy Z90.49
== END 2023-10-04 10:10 | disposition home or self-care (01) ==
PROVIDERS: PCP Family Medicine; Visit Provider Surgery
DX: Z90.49 Acquired absence of other specified parts of digestive tract (principal)
CPT/HCPCS: 99213

== ENCOUNTER → 2023-10-04 09:45 | Outpatient (BNVA) | payer MEDICARE, SELFPAY | PROVIDERS: PCP Family Medicine; Visit Provider Surgery | DX: Z09 Encounter for follow-up examination after completed treatment for conditions other than malignant neoplasm (principal); Z90.49 Acquired absence of other specified parts of digestive tract | CPT/HCPCS: 99212 ==

== ENCOUNTER 2023-12-07 10:50 | Outpatient (REF) | payer MEDICARE, SELFPAY ==
[2023-12-07 15:20] LABS: Alanine Aminotransferase 18 U/L (0-31); Albumin Level 4.2 g/dL (3.5-5.0); Alkaline Phosphatase 63 U/L (39-117); Anion Gap 11 (12-20); Aspartate Amino Transferase 23 U/L (5-31); Bilirubin Direct 0.2 mg/dL (0.0-0.5); Bilirubin Total 0.6 mg/dL (0.0-1.0); Blood Urea Nitrogen 9 mg/dL (9-16); Calcium 9.8 mg/dL (8.4-10.2); Carbon Dioxide 29 mmol/L (22-29); Chloride 105 mmol/L (96-108); Cholesterol 154 mg/dL (<200); Estimated Glomerular Filt Rate > 60; Glucose Random 98 mg/dL (60-115); HDL Cholesterol 57 mg/dL (>40); LDL Cholesterol Calculated 78 mg/dL (<100); Potassium 4.2 mmol/L (3.3-5.1); Sodium 141 mmol/L (135-145); Total Protein 7.1 g/dL (6.5-8.0); Triglycerides 97 mg/dL (<150)
== END 2023-12-07 10:51 | disposition home or self-care (01) ==
LOC: HO.WFDLDS 10:50
PROVIDERS: Referring Provider Internal Medicine Cardiovascular Disease; Visit Provider Nurse Practitioner Family
DX: I25.10 Atherosclerotic heart disease of native coronary artery without angina pectoris (principal); E78.5 Hyperlipidemia, unspecified
CPT/HCPCS: 36415; 80053; 80061; 82248

== ENCOUNTER 2023-12-23 12:57 | Outpatient (REF) | payer MEDICARE, SELFPAY ==
[2023-12-23 17:30] LABS: MANUAL DIFF FLAG NO
[2023-12-23 17:41] LABS: Basophils Absolute Auto 0.1 X10*3/uL (0.0-0.2); Basophils Percent Auto 0.6 % (0-2); Eosinophils Absolute Auto 0.2 X10*3/uL (0.0-0.4); Eosinophils Percent Auto 1.8 % (0-4); Hemoglobin 16.4 g/dl (12.0-16.0); Imm Gran Abs Auto 0.01 X10*3/uL (0.00-0.03); Imm Gran Pct Auto 0.1 % (0.0-0.4); Lymphocytes Absolute Auto 2.5 X10*3/uL (1.2-4.9); Lymphocytes Percent Auto 28.7 % (20-40); Mean Corpuscular HGB Conc 34.2 g/dl (31.0-35.0); Mean Corpuscular Hemoglobin 32.1 pg (27.0-33.0); Mean Corpuscular Volume 93.9 fL (80.0-98.0); Mean Platelet Volume 9.4 fL (9.4-12.3); Monocytes Absolute Auto 0.7 X10*3/uL (0.1-1.2); Monocytes Percent Auto 7.7 % (2-11); Neutrophils Absolute Auto 5.2 x10*3/uL (2.0-8.3); Neutrophils Percent Auto 61.1 % (45-73); Platelet Count 363 X10*3/uL (160-400); Red Blood Count 5.11 X10*6/uL (4.20-5.50); Red Cell Distribution Width 13.3 % (11.0-16.0); White Blood Count 8.5 X10*3/uL (4.8-10.8)
[2023-12-23 17:58] LABS: Alanine Aminotransferase 19 U/L (0-31); Albumin Level 4.6 g/dL (3.5-5.0); Alkaline Phosphatase 70 U/L (39-117); Anion Gap 11 (12-20); Aspartate Amino Transferase 22 U/L (5-31); Bilirubin Total 0.4 mg/dL (0.0-1.0); Blood Urea Nitrogen 10 mg/dL (9-16); Calcium 10.2 mg/dL (8.4-10.2); Carbon Dioxide 28 mmol/L (22-29); Chloride 103 mmol/L (96-108); Estimated Glomerular Filt Rate > 60; Glucose Random 94 mg/dL (60-115); Potassium 3.9 mmol/L (3.3-5.1); Sodium 138 mmol/L (135-145); Total Protein 7.7 g/dL (6.5-8.0)
[2023-12-23 18:14] LABS: TSH reflex Free T4 0.08 uIU/mL (0.32-4.0)
[2023-12-23 18:51] LABS: Free T4 (Free Thyroxine) 1.59 ng/dL (0.71-1.85)
[2023-12-23 18:54] LABS: Erythrocyte Sedimentation Rate 2 MM/HR (0-20)
== END 2023-12-23 12:58 | disposition home or self-care (01) ==
LOC: HO.WFDLDS 12:57
PROVIDERS: PCP Family Medicine; Visit Provider Family Medicine
DX: Z01.818 Encounter for other preprocedural examination (principal); H26.9 Unspecified cataract; I25.10 Atherosclerotic heart disease of native coronary artery without angina pectoris; M54.9 Dorsalgia, unspecified; R21 Rash and other nonspecific skin eruption; L30.9 Dermatitis, unspecified; M51.24 Other intervertebral disc displacement, thoracic region; Z90.49 Acquired absence of other specified parts of digestive tract
CPT/HCPCS: 36415; 80053; 84439; 84443; 85025; 85652; 99212

== ENCOUNTER 2023-12-23 12:57 | Outpatient (AMB) | payer MEDICARE, SELFPAY ==
--- NOTE | 2023-12-23 13:03 | MHC.PC.OV ---
Vital Signs 12/23/23 13:10 Height 5 ft 7 in Weight 143 lb 6 oz BMI 22.5 BP 120/66 Blood Pressure Location Lt brachial Position Sitting Respiration 10 L Pulse 98 Pulse Source Pulse Oximeter Temp 98 F Temp Source Tympanic Pulse Oximetry (%) 98 Oxygen Delivery Method Room Air Intake Visit Reasons: cataract surgery preop/ rash and back pain Intake Note: pre-op Allergies Sulfa (Sulfonamide Antibiotics) Allergy (Severe, Verified 12/23/23 13:04) Rash amoxicillin [From Augmentin] Allergy (Intermediate, Verified 12/23/23 13:04) Nausea and Vomiting clavulanic acid [From Augmentin] Allergy (Intermediate, Verified 12/23/23 13:04) Nausea and Vomiting shellfish derived Allergy (Intermediate, Verified 12/23/23 13:04) Nausea and Vomiting narcotic pain medications Adverse Reaction (Intermediate, Uncoded 10/04/23 09:55) Nausea and Vomiting Tobacco use date assessed: 04/09/23 Dental Screening Dental Screen Date: 07/14/23 HPI cataract surgery preop/ rash and back pain HPI Details Patient?presents?for?preoperative?clearance?prior?to?cataract?surgery Procedure: R eye cataract Date: 01/25/2024 Surgeon: Dr Higginbotham Anesthesia:??Local Cardiac?Hx:??Coronary?artery?disease Pulmonary?Hx:??Smoker Prior?Surgical?Complications: Prior?Anesthesia?Complications: No. [place]/vomitting w/ pain meds. Coag?Issues: None Functional?[place]: Back pain, fair functional reserve. HPI Comments History of Present Illness Details Documentation assistance for Sukhdev Layne MD, was provided by Jay Bobby, Laundry Tub Maker on 12/23/2023 at 1:[address] Roverto GARCIA, have read, observed, and verified documentation. [facility] Medical History (Updated 12/23/23 @ 17:51 by Sukhdev Layne MD) Family history of gene mutation Colon cancer Family history of anesthesia complication COPD (chronic obstructive pulmonary disease) Cecal lesion RBBB (right bundle branch block) Bifascicular block Polycythemia CAD (coronary artery disease) GERD (gastroesophageal reflux disease) Sleep apnea Hypothyroidism Hyperlipidemia Hypertension Personal history of nicotine dependence Surgical History Hx of dilation and curettage H/O colonoscopy History of tonsillectomy History of lumpectomy of right breast History of tubal ligation History of cholecystectomy History of bladder surgery History of hysterectomy Family History Sister Cancer of kidney Psoriasis Arthritis Lupus Blood clot in vein Acute Crohn's disease Substance abuse Father Atherosclerosis Substance abuse Aortic aneurysm Mother Substance abuse Maternal Aunt Substance abuse Paternal Grandfather No problems noted. Social History Household Members: Significant Other Housing: House Are you a primary skin care instructor to a significant other at home: No Do you presently have visiting nurse or other home services: No Comment: counts correct Patient Tobacco Use Status: Current someday Tobacco user Tobacco use type: Cigarette Cigarette Packs Per Day: 1 Years Smoked: 61 e-Cigarette/Vaping Use: Never Used Second Hand Smoke Exposure: No service: No Current occupational status: retired Cognitive needs: No Hearing needs: No Vision needs: Yes (Patient wears reading glasses.) Questionnaire Thrive Questionnaire Date Thrive assessed: 07/14/23 KEILA-7 AMB Questionnaire KEILA-7 Date KEILA - 7 assessed: 07/14/23 Source: Developed by Drs. Karsten Mccloud, Michell Napoles, Jose Guerin and colleagues, with an educational janneth from [employer]. Review of Systems Const Denies chills, Denies fatigue, Denies fever(s), Denies headache(s) and Denies weakness ENT Denies dizziness and Denies headache(s) Card Denies dyspnea Resp Denies cough, Denies dyspnea, Denies wheezing and Denies other (shortness of breath) Musc Denies numbness and Denies tingling Neuro Denies dizziness, Denies headache(s), Denies numbness, Denies tingling and Denies weakness Psych Denies anxiety and Denies depression Endo Denies fatigue Aller/Immun Denies wheezing Physical exam (Primary Care) Vital Signs: Last Vital Signs Temp 98 F 12/23/23 13:10 Pulse 98 12/23/23 13:10 Resp 10 L 12/23/23 13:10 BP 120/66 12/23/23 13:10 Pulse Ox 98 12/23/23 13:10 Oxygen Delivery Method Room Air 12/23/23 13:10 BMI result Body Mass Index 22.5 Tobacco/Smoking Status: Tobacco use Status Tobacco use date assessed 04/09/23 12/23/23 13:07 Patient Tobacco Use Status Current someday Tobacco 12/23/23 13:07 Tobacco use type Cigarette 12/23/23 13:07 e-Cigarette/Vaping Use Never Used 12/23/23 13:07 Thrive Assessment: Date of Thrive Assessment Date Thrive assessed 07/14/23 12/23/23 13:07 Const General: well developed; No acute distress Nutritional Appearance: well nourished Orientation/consciousness: patient oriented x3 HENMT Head: Yes normocephalic and Yes atraumatic Eyes General: appearance normal, both eyes and all related structures Pupils: Equal, round and reactive pupils present EOM: EOMs intact bilaterally Resp Effort & Inspection: normal respiratory effort Auscultation: clear to auscultation bilaterally Cardio Rate: regular rate Rhythm: regular rhythm Heart sounds: S1 normal heart sound present, S2 normal heart sound present, no gallops, no murmurs and no rubs Neuro General: patient oriented x3 and gait normal Cranial nerves: Yes Equal, round and reactive pupils present Psych Affect: normal affect Assessment and Plan Assessment & Plan (1) Pre-operative clearance: Code(s): Z01.818 - Encounter for other preprocedural examination Plan: Patient?presents?for preop?clearance?prior?to?right?eye?cataract?surgery History?of?coronary?artery?disease which?is?stable.??Cardiac?exam?today?is?normal.?EKG?unchanged?from?prior?in?05/25/2023 Patient?is?a?smoker?but?otherwise?no?pulmonary?disease.??Pulmonary?exam?today?is?normal No?prior?complications?with?surgery?or?anesthesia.??She?does?note?that?she?gets?nausea?with?pain?medications. No?coagulopathies Fairly?good?functional?reserve?although?currently?due?to?back?pain,?she?is?not?able?to?exercise?regularly. Patient?is?able?to?lie?down?comfortably?for?a?surgery. Intermediate?risk?patient?for?low?risk?procedure.??She?is?optimized?for?surgery. no?contraindications?to?proceeding?with?proposed?procedure (2) CAD (coronary artery disease): Comment: follows w/HCS Code(s): I25.10 - Atherosclerotic heart disease of [place] coronary artery without angina pectoris Plan: Stable (3) Back pain: Code(s): M54.9 - Dorsalgia, unspecified Plan: Patient?was?referred?to?new?[facility]?for?back?pain She?does?not?want?to?go?back?to?new?[facility]-will?refer?to?a?new?orthopedic?special Reviewed?MRI?which?does?not?show?compression?fracture?but?does?show?some?bulging?discs?with?effacement?of?the?thecal?sac Will?benefit?from?physical?therapy?as?well (4) S/P right colectomy: Code(s): Z90.49 - Acquired absence of other specified parts of digestive tract Plan: Well?healed?according?to?surgeons?most?recent?note. (5) Rash: Code(s): R21 - Rash and other nonspecific skin eruption Plan: Will?refill?her?hydrocortisone?and?ammonium?lactate Will?have?her?stop?using?oil?on?her?skin?and?she?can?use?a?moisturizing?cream?with?no?dyes?or?perfumes Patient?wants?a?referral?to?new?[facility] Orders: Orders Comprehensive Met. Panel Today L30.9 - Dermatitis, unspecified PT Evaluation and Treatment Today M51.24 - Other intervertebral disc displacement, thoracic region TSH reflex Free T4 Today L30.9 - Dermatitis, unspecified, Z00.00 - Encounter for general adult medical examination without abnormal findings Complete Blood Count Auto Diff Today L30.9 - Dermatitis, unspecified, Z00.00 - Encounter for general adult medical examination without abnormal findings Erythrocyte Sedimentation Rate Today L30.9 - Dermatitis, unspecified Referrals Orthopedics Referral M51.24 - Other intervertebral disc displacement, thoracic region, M54.9 - Dorsalgia, unspecified Dermatology Referral R21 - Rash and other nonspecific skin eruption Coding Level of Care Code Est Pt Level 4 (57049) Diagnoses Pre-operative clearance Z01.818 CAD (coronary artery disease) I25.10 Back pain M54.9 S/P right colectomy Z90.49 Rash R21
[2023-12-23 13:10] VITALS: BP 120/66; PULSE 98; RESP 10; TEMP 36.6; O2SAT 98; BMI 22.5
== END 2023-12-23 14:21 | disposition home or self-care (01) ==
PROVIDERS: PCP Family Medicine; Visit Provider Family Medicine
DX: Z01.818 Encounter for other preprocedural examination (principal); I25.10 Atherosclerotic heart disease of native coronary artery without angina pectoris; M54.9 Dorsalgia, unspecified; Z90.49 Acquired absence of other specified parts of digestive tract; R21 Rash and other nonspecific skin eruption

== ENCOUNTER 2024-01-07 11:43 | Outpatient (AMB) | payer MEDICARE, SELFPAY ==
--- NOTE | 2024-01-07 12:21 | A.OFFPC_ITS ---
Vital Signs 01/07/24 12:24 Height 5 ft 7 in Weight 144 lb 4 oz BMI 22.6 BP 120/58 L Blood Pressure Location Rt brachial Position Sitting Respiration 14 Pulse 78 Pulse Source Pulse Oximeter Temp 98.2 F Temp Source Oral Pulse Oximetry (%) 100 Oxygen Delivery Method Room Air Intake Visit Reasons: f/u acute visit in the next week Intake Note: f/u for dizziness pt did have covid in nov and per patient Allergies Sulfa (Sulfonamide Antibiotics) Allergy (Severe, Verified 01/07/24 12:24) Rash amoxicillin [From Augmentin] Allergy (Intermediate, Verified 01/07/24 12:24) Nausea and Vomiting clavulanic acid [From Augmentin] Allergy (Intermediate, Verified 01/07/24 12:24) Nausea and Vomiting shellfish derived Allergy (Intermediate, Verified 01/07/24 12:24) Nausea and Vomiting narcotic pain medications Adverse Reaction (Intermediate, Uncoded 01/07/24 12:24) Nausea and Vomiting Medication List - Last Reconciled 01/07/24 by Sukhdev Layne MD amlodipine 5 mg PO DAILY ammonium lactate 12% 1 appl topical DAILY 30 days cholecalciferol (vitamin D3) 50 mcg PO QAM coenzyme Q10 (Ultra CoQ10) 75 mg PO QAM ezetimibe (Zetia) 10 mg PO DAILY hydrocortisone 2.5% 1 appl topical BID PRN 30 days ibuprofen 800 mg PO Q8H PRN 14 days levothyroxine 150 mcg PO DAILY@0600 90 days lisinopril 30 mg PO BEDTIME omega 6-ivm-nll-fish oil 1,200 (144-216) mg (Fish Oil) 1 cap PO DAILY omeprazole 20 mg PO BID@0630,1630 30 days rosuvastatin 40 mg PO BEDTIME 90 days Tobacco use date assessed: 04/09/23 Dental Screening Dental Screen Date: 07/14/23 HPI f/u acute visit in the next week HPI Details 78 y/o female presents today for an acut e visit. Had mentioned last office visit she reported cold/unsteadiness spell. Labs drawn 12/23/23. Reviewed labs with pt. Hgb elevated at 16.4. Hct 48.0. TSH 0.08. She is on levothyroxine 150mcg daily. [facility] Medical History (Updated 01/07/24 @ 12:59 by Jay Bobby) Family history of gene mutation Colon cancer Family history of anesthesia complication COPD (chronic obstructive pulmonary disease) Cecal lesion RBBB (right bundle branch block) Bifascicular block Polycythemia CAD (coronary artery disease) GERD (gastroesophageal reflux disease) Sleep apnea Hypothyroidism Hyperlipidemia Hypertension Personal history of nicotine dependence Surgical History Hx of dilation and curettage H/O colonoscopy History of tonsillectomy History of lumpectomy of right breast History of tubal ligation History of cholecystectomy History of bladder surgery History of hysterectomy Family History Sister Cancer of kidney Psoriasis Arthritis Lupus Blood clot in vein Acute Crohn's disease Substance abuse Father Atherosclerosis Substance abuse Aortic aneurysm Mother Substance abuse Maternal Aunt Substance abuse Paternal Grandfather No problems noted. Social History Household Members: Significant Other Housing: House Are you a primary career technical supervisor to a significant other at home: No Do you presently have visiting nurse or other home services: No Comment: counts correct Patient Tobacco Use Status: Current someday Tobacco user Tobacco use type: Cigarette Cigarette Packs Per Day: 1 Years Smoked: 61 e-Cigarette/Vaping Use: Never Used Second Hand Smoke Exposure: No service: No Current occupational status: retired Cognitive needs: No Hearing needs: No Vision needs: Yes (Patient wears reading glasses.) Questionnaire Thrive Questionnaire Date Thrive assessed: 07/14/23 KEILA-7 AMB Questionnaire KEILA-7 Date KEILA - 7 assessed: 07/14/23 Source: Developed by Drs. Karsten Mccloud, Michell Napoles, Jose Guerin and colleagues, with an educational janneth from [employer]. Review of Systems Const Denies chills, Denies fatigue, Denies fever(s), Denies headache(s) and Denies weakness ENT Denies dizziness and Denies headache(s) Card Denies dyspnea Resp Denies cough, Denies dyspnea, Denies wheezing and Denies other (shortness of breath) Musc Denies numbness and Denies tingling Neuro Denies dizziness, Denies headache(s), Denies numbness, Denies tingling and Denies weakness Psych Denies anxiety and Denies depression Endo Denies fatigue Aller/Immun Denies wheezing Physical exam (Primary Care) Vital Signs: Last Vital Signs Temp 98.2 F 01/07/24 12:24 Pulse 78 01/07/24 12:24 Resp 14 01/07/24 12:24 BP 120/58 L 01/07/24 12:24 Pulse Ox 100 01/07/24 12:24 Oxygen Delivery Method Room Air 01/07/24 12:24 BMI result Body Mass Index 22.6 Tobacco/Smoking Status: Tobacco use Status Tobacco use date assessed 04/09/23 01/07/24 12:22 Patient Tobacco Use Status Current someday Tobacco 01/07/24 12:22 Tobacco use type Cigarette 01/07/24 12:22 e-Cigarette/Vaping Use Never Used 01/07/24 12:22 Thrive Assessment: Date of Thrive Assessment Date Thrive assessed 07/14/23 01/07/24 12:22 Const General: well developed; No acute distress Nutritional Appearance: well nourished Orientation/consciousness: patient oriented x3 HENMT Head: Yes normocephalic and Yes atraumatic Eyes General: appearance normal, both eyes and all related structures Pupils: Equal, round and reactive pupils present EOM: EOMs intact bilaterally Resp Effort & Inspection: normal respiratory effort Neuro General: patient oriented x3 and gait normal Cranial nerves: Yes Equal, round and reactive pupils present Psych Affect: normal affect Coding Level of Care Code Est Pt Level 3 (28363) Diagnoses Unsteadiness R26.81 Hypothyroidism E03.9 Assessment & Plan Assessment & Plan (1) Unsteadiness: Code(s): R26.81 - Unsteadiness on feet Category: Medical Plan: Patient?recounts?several?prior?episodes listing?or?ataxic?gait She?says?she?had?workup?many?years?ago (about 10 yrs ago) and?no?diagnosis?was?made.??Has?had?about?4?episodes?since?the?1st?back?then. Checking?MRI Will?follow-up?after?test?in?d etermine?next?steps?including?possible?referral?to?a?neurologist?again. (2) Hypothyroidism: Comment: (hashimotos) Code(s): E03.9 - Hypothyroidism, unspecified Category: Medical Plan: Mild?TSH?suppression?though?thyroid?hormone?level?is?okay Prior?TSH?level?was?normal Will?recheck?this?again?and?follow-up?at?next?visit Orders: Orders MR head/brain w con Today R26.81 - Unsteadiness on feet, R27.0 - Ataxia, unspecified
[2024-01-07 12:24] VITALS: BP 120/58; PULSE 78; RESP 14; TEMP 36.8; O2SAT 100; BMI 22.6
== END 2024-01-07 13:21 | disposition home or self-care (01) ==
PROVIDERS: PCP Family Medicine; Visit Provider Family Medicine
DX: R26.81 Unsteadiness on feet (principal); E03.9 Hypothyroidism, unspecified

== ENCOUNTER → 2024-01-07 11:43 | Outpatient (BNVA) | payer MEDICARE, SELFPAY | PROVIDERS: PCP Family Medicine; Visit Provider Family Medicine | DX: R26.81 Unsteadiness on feet (principal); E03.9 Hypothyroidism, unspecified | CPT/HCPCS: 99212 ==

== ENCOUNTER 2024-02-17 08:39 | Outpatient (REF) | payer MEDICARE, SELFPAY ==
--- NOTE | ~2024-02-17 | MR_ITS ---
EXAMINATION: MR BRAIN WITHOUT CONTRAST CLINICAL INFORMATION: Unsteadiness on feet. COMPARISON: None available. TECHNIQUE: MRI of the brain was obtained using routine sequences without contrast. FINDINGS: No focal restricted diffusion is demonstrated to suggest acute or subacute cerebral ischemia. No evidence of acute or chronic hemorrhagic products on heme-sensitive imaging. Scattered periventricular and deep white matter T2 FLAIR hyperintensities consistent with mild underlying microangiopathy. Proportional prominence of the ventricles and sulcal spaces without evidence of obstructive hydrocephalus. No abnormal mass effect. No midline shift. Normal appearance of the pituitary gland. Normal positioning of the cerebellar tonsils. Normal arterial and venous vascular flow voids are present. Normal, homogeneous marrow signal. Mild mucosal thickening of the paranasal sinuses. No signal abnormalities within the mastoids. MR/MR head/brain wo con IMPRESSION: 1. No acute intracranial abnormalities. 2. Mild underlying microangiopathy and generalized cerebral volume loss. Electronically signed by: Jarod Vuong DO 03/15/2024 06:45 AM CRAIG
== END 2024-02-17 08:40 | disposition home or self-care (01) ==
LOC: HO.MRI 08:39
PROVIDERS: PCP Family Medicine; Visit Provider Family Medicine
DX: R27.0 Ataxia, unspecified (principal)
CPT/HCPCS: 70551

== ENCOUNTER 2024-03-08 09:55 | Outpatient (RCR) | payer MEDICARE, SELFPAY ==
--- NOTE | 2024-01-21 16:38 | MHC.PT.EP ---
[facility] [place] Office [place] Office [place] Office [address] Cindy Garcia [address] [phone] F: [phone] F: [phone] F: [phone] F: [phone] Physical Therapy Plan of Care Date of Evaluation: 01/21/24 Date of Surgery: Diagnosis: Intervertebral disc displacement, Thoracic disc herniation. Assessment: Pt is a 78 y/o female with PHMx significant for osteoporosis, CAD, HTN, who is referred to PT for eval and treat of Intervertebral disc displacement, Thoracic disc herniation which is resulting in decreased tolerance for performing HH chores, performing dressing and washing, sitting and standing for duration secondary to significant kyphotic forward head posture, decreased scapular strength, decreased trunk ROM, decreased core strength, MRI and XR findings of T spine DJD and HNP as well as TTP of mid thoracic spine. Pt is deemed an appropriate candidate to receive skilled PT services to address their physical impairments in order to improve their functional ability. Frequency and Duration: The patient will be seen 2 x / wk x 3 weeks. Short Term Goals: Initiate home program. Pt will no linger be TTP of T 5-7 area. Retirement Goals: I with home program. Pt will be able to able to tolerate cooking tasks with managed Sx. Pt will be able to tolerate knitting with managed Sx. Pt will improve He outcome by at least 9 points. Treatment Plan: Modalities to reduce pain, spasms and effusion. Manual therapy to restore motion and function. Therapeutic exercise to improve strength and flexibility. Neuromuscular re-education for posture and balance. Therapeutic activities to return to functional activities of daily living. Electronically signed by: Kem Lovell PT. Please sign and return to therapist. Thank you for your referral.
--- NOTE | 2024-03-08 14:02 | MHC.PT.DC ---
[facility] [place] Office [place] Office [place] Office [address] Cindy Garcia [address] [phone] F: [phone] F: [phone] F: [phone] F: [phone] Physical Therapy Discharge Report Diagnosis: Intervertebral disc displacement, Thoracic disc herniation. Date of Surgery: Date of Evaluation: 01/21/24 Date of Discharge: 03/08/24 Treatments to Date: 9 Cancellations to Date: No Shows to Date: Discharge Status: Achieved Goals Improved Function Independent with HEP Discharge Summary: Tatiana has been an active and motivated participant in her therapy and we are in agreement with DC at this time as she has met most of her therapeutic goals and progressed her outcome measure goal, she is I with her home program; though persists with some pain she is much improved of her symptoms. Electronically signed by: Kem Lvoell PT. Please sign and return to therapist. Thank you for your referral.
== END 2024-03-08 14:01 | disposition home or self-care (01) ==
LOC: HO.PT 09:55
PROVIDERS: PCP Family Medicine; Visit Provider Family Medicine
DX: M51.24 Other intervertebral disc displacement, thoracic region (principal)
CPT/HCPCS: 97014; 97110; 97162

== ENCOUNTER 2024-03-08 11:27 | Outpatient (REF) | payer MEDICARE, SELFPAY ==
[2024-03-08 14:15] LABS: MANUAL DIFF FLAG NO
[2024-03-08 14:21] LABS: Basophils Absolute Auto 0.1 X10*3/uL (0.0-0.2); Basophils Percent Auto 0.8 % (0-2); Eosinophils Absolute Auto 0.2 X10*3/uL (0.0-0.4); Eosinophils Percent Auto 2.5 % (0-4); Hematocrit 47.8 % (37.0-47.0); Hemoglobin 15.9 g/dl (12.0-16.0); Imm Gran Abs Auto 0.01 X10*3/uL (0.00-0.03); Imm Gran Pct Auto 0.2 % (0.0-0.4); Lymphocytes Absolute Auto 1.9 X10*3/uL (1.2-4.9); Lymphocytes Percent Auto 32.2 % (20-40); Mean Corpuscular HGB Conc 33.3 g/dl (31.0-35.0); Mean Corpuscular Volume 96.2 fL (80.0-98.0); Mean Platelet Volume 9.1 fL (9.4-12.3); Monocytes Absolute Auto 0.5 X10*3/uL (0.1-1.2); Monocytes Percent Auto 7.9 % (2-11); Neutrophils Absolute Auto 3.3 x10*3/uL (2.0-8.3); Neutrophils Percent Auto 56.4 % (45-73); Platelet Count 333 X10*3/uL (160-400); Red Blood Count 4.97 X10*6/uL (4.20-5.50); Red Cell Distribution Width 13.1 % (11.0-16.0); White Blood Count 5.9 X10*3/uL (4.8-10.8)
[2024-03-08 14:53] LABS: Alanine Aminotransferase 36 U/L (0-31); Albumin Level 4.3 g/dL (3.5-5.0); Alkaline Phosphatase 55 U/L (39-117); Anion Gap 13 (12-20); Aspartate Amino Transferase 41 U/L (5-31); Bilirubin Total 0.4 mg/dL (0.0-1.0); Blood Urea Nitrogen 11 mg/dL (9-16); Calcium 10.2 mg/dL (8.4-10.2); Carbon Dioxide 29 mmol/L (22-29); Chloride 104 mmol/L (96-108); Estimated Glomerular Filt Rate > 60; Glucose Random 95 mg/dL (60-115); Potassium 4.3 mmol/L (3.3-5.1); Sodium 142 mmol/L (135-145); Total Protein 7.2 g/dL (6.5-8.0)
[2024-03-08 15:15] LABS: Free T4 (Free Thyroxine) 1.28 ng/dL (0.71-1.85); Thyroid Stimulating Hormone 0.15 uIU/mL (0.32-4.0)
[2024-03-09 16:53] LABS: Triiodothyronine T3 Total 94 ng/dL (76-181)
== END 2024-03-08 11:28 | disposition home or self-care (01) ==
LOC: HO.WFDLDS 11:27
PROVIDERS: Visit Provider Family Medicine
DX: Z00.00 Encounter for general adult medical examination without abnormal findings (principal); E03.9 Hypothyroidism, unspecified
CPT/HCPCS: 36415; 80053; 84439; 84443; 84480; 85025

== ENCOUNTER 2024-03-20 14:23 | Outpatient (AMB) | payer MEDICARE, SELFPAY ==
--- NOTE | 2024-03-20 14:29 | A.OFFPC_ITS ---
Vital Signs 03/20/24 14:36 Height 5 ft 7 in Weight 144 lb BMI 22.6 BP 118/80 Blood Pressure Location Lt brachial Position Sitting Respiration 16 Pulse 95 Pulse Source Pulse Oximeter Pulse Oximetry (%) 97 Oxygen Delivery Method Room Air Intake Visit Reasons: f/u unsteadiness, hypothyroidism Intake Note: f/u for unsteadiness and hypothyroidism Allergies Sulfa (Sulfonamide Antibiotics) Allergy (Severe, Verified 03/20/24 14:33) Rash amoxicillin [From Augmentin] Allergy (Intermediate, Verified 03/20/24 14:33) Nausea and Vomiting clavulanic acid [From Augmentin] Allergy (Intermediate, Verified 03/20/24 14:33) Nausea and Vomiting shellfish derived Allergy (Intermediate, Verified 03/20/24 14:33) Nausea and Vomiting turmeric Allergy (Intermediate, Verified 03/20/24 14:33) Vomiting narcotic pain medications Adverse Reaction (Intermediate, Uncoded 01/07/24 12:24) Nausea and Vomiting Medication List - Last Reconciled 03/20/24 by Sukhdev Layne MD amlodipine 5 mg PO DAILY ammonium lactate 12% 1 appl topical DAILY 30 days cholecalciferol (vitamin D3) 50 mcg PO QAM coenzyme Q10 (Ultra CoQ10) 75 mg PO QAM ezetimibe (Zetia) 10 mg PO DAILY hydrocortisone 2.5% 1 appl topical BID PRN 30 days ibuprofen 800 mg PO Q8H PRN 14 days levothyroxine 150 mcg PO DAILY@0600 90 days lisinopril 30 mg PO BEDTIME omega 2-ssh-rgx-fish oil 1,200 (144-216) mg (Fish Oil) 1 cap PO DAILY omeprazole 20 mg PO BID@0630,1630 30 days rosuvastatin 40 mg PO BEDTIME 90 days Tobacco use date assessed: 04/09/23 Dental Screening Dental Screen Date: 07/14/23 HPI f/u unsteadiness, hypothyroidism HPI Details 79 y/o female presents to f/u unsteadine ss, hypothyroidism. Had reported episodes of unsteadiness/listing with about 4 episodes in the past 10 years. Brain MRI 02/17/24 shows: MR/MR head/brain wo con IMPRESSION: 1. No acute intracranial abnormalities. 2. Mild underlying microangiopathy and generalized cerebral volume loss. Electronically signed by: Jarod Vuong DO 03/15/2024 06:45 AM EST Had denied any memory changes. She feels she is mentally strong. Labs drawn 03/08/24. Reviewed labs with pt. Elevated liver enzymes - AST 41, ALT 36. TSH 0.15. Reports stool urgency and sometimes constipation. [facility] Medical History (Updated 03/20/24 @ 15:38 by Sukhdev Layne MD) Family history of gene mutation Colon cancer Family history of anesthesia complication COPD (chronic obstructive pulmonary disease) Cecal lesion RBBB (right bundle branch block) Bifascicular block Polycythemia CAD (coronary artery disease) GERD (gastroesophageal reflux disease) Sleep apnea Hypothyroidism Hyperlipidemia Hypertension Personal history of nicotine dependence Surgical History Hx of dilation and curettage H/O colonoscopy History of tonsillectomy History of lumpectomy of right breast History of tubal ligation History of cholecystectomy History of bladder surgery History of hysterectomy Family History Sister Cancer of kidney Psoriasis Arthritis Lupus Blood clot in vein Acute Crohn's disease Substance abuse Father Atherosclerosis Substance abuse Aortic aneurysm Mother Substance abuse Maternal Aunt Substance abuse Paternal Grandfather No problems noted. Social History Household Members: Significant Other Housing: House Are you a primary school childcare attendant to a significant other at home: No Do you presently have visiting nurse or other home services: No Comment: counts correct Patient Tobacco Use Status: Current someday Tobacco user Tobacco use type: Cigarette Cigarette Packs Per Day: 1 Years Smoked: 61 e-Cigarette/Vaping Use: Never Used Second Hand Smoke Exposure: No service: No Current occupational status: retired Cognitive needs: No Hearing needs: No Vision needs: Yes (Patient wears reading glasses.) Questionnaire Thrive Questionnaire Date Thrive assessed: 03/20/24 I am a: Patient What is your living situation today?: I have a steady place to live Within the past 12 months, did the food you bought not last and you didn't have the money to get more?: Never true Within the past 12 months, did you worry whether your food would run out before you got money to buy more?: Never true Do you have trouble paying for medicines?: No Do you have trouble getting transportation to medical appointments?: No Do you have trouble paying your heating and electricity bill?: No Do you have trouble taking care of your child, family member or friend?: No Do you have trouble with day-to-day activities such as bathing, preparing meals, shopping, managing finances, etc.?: No Are you currently unemployed and looking for a job?: No Are you interested in more education?: No Please select the resources that you would like help with: None Currently or been in a relationship where the following occur: No concerns reported THRIVE Score: 0 AUDIT C Alcohol Use Questionnaire (AUDIT-C) 1. How often do you have a drink containing alcohol?: 4 or more times a week Total Score: 4 KEILA-7 AMB Questionnaire KEILA-7 Date KEILA - 7 assessed: 07/14/23 Source: Developed by Drs. Karsten Mccloud, Michell Napoles, Jose Geurin and colleagues, with an educational janneth from [employer]. Review of Systems Const Denies chills, Denies fatigue, Denies fever(s), Denies headache(s) and Denies weakness ENT Denies dizziness and Denies headache(s) Card Denies dyspnea Resp Denies cough, Denies dyspnea, Denies wheezing and Denies other (shortness of breath) Musc Denies numbness and Denies tingling Neuro Denies dizziness, Denies headache(s), Denies numbness, Denies tingling and Denies weakness Psych Denies anxiety and Denies depression Endo Denies fatigue Aller/Immun Denies wheezing Physical exam (Primary Care) Vital Signs: Last Vital Signs Pulse 95 03/20/24 14:36 Resp 16 03/20/24 14:36 BP 118/80 03/20/24 14:36 Pulse Ox 97 03/20/24 14:36 Oxygen Delivery Method Room Air 03/20/24 14:36 BMI result Body Mass Index 22.6 Tobacco/Smoking Status: Tobacco use Status Tobacco use date assessed 04/09/23 03/20/24 14:30 Patient Tobacco Use Status Current someday Tobacco 03/20/24 14:30 Tobacco use type Cigarette 03/20/24 14:30 e-Cigarette/Vaping Use Never Used 03/20/24 14:30 Thrive Assessment: Date of Thrive Assessment Date Thrive assessed 03/20/24 03/20/24 14:30 Currently or been in a relationship where the following occur: No concerns reported Const General: well developed; No acute distress Nutritional Appearance: well nourished Orientation/consciousness: patient oriented x3 HENWI Head: Yes normocephalic and Yes atraumatic Eyes General: appearance normal, both eyes and all related structures Pupils: Equal, round and reactive pupils present EOM: EOMs intact bilaterally Resp Effort & Inspection: normal respiratory effort Auscultation: clear to auscultation bilaterally Cardio Rate: regular rate Rhythm: regular rhythm Heart sounds: S1 normal heart sound present, S2 normal heart sound present, no gallops, no murmurs and no rubs Neuro General: patient oriented x3 and gait normal Cranial nerves: Yes Equal, round and reactive pupils present Psych Affect: normal affect Coding Level of Care Code Est Pt Level 4 (22111) Diagnoses Primary hypertension I10 Hypertension type: primary hypertension Hypothyroidism E03.9 CAD (coronary artery disease) I25.10 Unsteadiness R26.81 Elevated liver enzymes R74.8 Thoracic disc herniation M51.24 Abnormal urine R82.90 Assessment & Plan Assessment & Plan (1) Hypertension: Code(s): I10 - Essential (primary) hypertension Category: Medical Qualifiers: Hypertension type: primary hypertension Qualified Code(s): I10 - Es sential (primary) hypertension Plan: Her?blood?pressure?is?controlled.??Goal?is?less?than?130/80 Continue?current?medications (2) Hypothyroidism: Comment: (hashimotos) Code(s): E03.9 - Hypothyroidism, unspecified Category: Medical Plan: TSH?remains?suppressed.??She?has?been?taking?levothyroxine?150?mcg?6?days?a?week Will?switch?her?to?125?mcg?7?days?a?week (3) CAD (coronary artery disease): Comment: follows w/HCS Code(s): I25.10 - Atherosclerotic heart disease of cheesh-na coronary artery without angina pectoris Category: Medical Plan: Stable (4) Unsteadiness: Code(s): R26.81 - Unsteadiness on feet Category: Medical Plan: Episodes?of?listing?to?1?side MRI?of?brain?shows?some?generalized?volume?loss?in?microangiopathy Will?refer?to?Neurology Advised?she?take?aspirin?81?mg?daily; no?history?of?GI?bleeding (5) Elevated liver enzymes: Code(s): R74.8 - Abnormal levels of other serum enzymes Category: Medical Plan: Will?recheck?liver?enzymes (6) Thoracic disc herniation: Code(s): M51.24 - Other intervertebral disc displacement, thoracic region Category: Medical Plan: Much?improved?with?physical?therapy Continue?physical?therapy She?will?let?me?know?if?she?wants?a?referral?to?a?specialist?if?symptoms?resume. (7) Abnormal urine: Code(s): R82.90 - Unspecified abnormal findings in urine Category: Medical Plan: Patient?notes?venous?urine Unclear?cause Check?U/A Orders: Orders Comprehensive Met. Panel Today R74.8 - Abnormal levels of other serum enzymes UA and rflx microscopic Today R82.90 - Unspecified abnormal findings in urine, Z00.00 - Encounter for general adult medical examination without abnormal findings Referrals Neurology Referral R26.81 - Unsteadiness on feet, R90.89 - Other abnormal findings on diagnostic imaging of central nervous system Medications: New aspirin (Adult Aspirin Regimen) 81 mg PO DAILY 90 days 90 tabs 2RF levothyroxine 125 mcg PO DAILY 90 days 90 tabs 2RF Changed From amlodipine 5 mg PO DAILY To amlodipine 5 mg PO DAILY 90 days 90 tabs 3RF From lisinopril 30 mg PO BEDTIME To lisinopril 30 mg PO DAILY 90 days 90 tabs 2RF
[2024-03-20 14:36] VITALS: BP 118/80; PULSE 95; RESP 16; O2SAT 97; BMI 22.6
== END 2024-03-20 15:40 | disposition home or self-care (01) ==
PROVIDERS: PCP Family Medicine; Visit Provider Family Medicine
DX: I10 Essential (primary) hypertension (principal); E03.9 Hypothyroidism, unspecified; I25.10 Atherosclerotic heart disease of native coronary artery without angina pectoris; R26.81 Unsteadiness on feet; R74.8 Abnormal levels of other serum enzymes; M51.24 Other intervertebral disc displacement, thoracic region; R82.90 Unspecified abnormal findings in urine

== ENCOUNTER 2024-03-20 14:23 | Outpatient (REF) | payer MEDICARE, SELFPAY ==
[2024-03-20 17:50] LABS: Appearance Urine Cloudy; Color Urine Yellow; Glucose Urine UA Negative (Negative); Leukocyte Esterase Urine Negative (Negative); Nitrite Urine Negative (Negative); PH 6.5 (5.0-9.0); Specific Gravity - Urine <= 1.005 (1.005-1.025); Urine Blood Negative (Negative); Urine Ketones Negative (Negative); Urine Protein Negative (Neg-Trace)
== END 2024-03-20 14:24 | disposition home or self-care (01) ==
LOC: HO.LAB 14:23
PROVIDERS: PCP Family Medicine; Visit Provider Family Medicine
DX: I10 Essential (primary) hypertension (principal); E03.9 Hypothyroidism, unspecified; I25.10 Atherosclerotic heart disease of native coronary artery without angina pectoris; R26.81 Unsteadiness on feet; R74.8 Abnormal levels of other serum enzymes; M51.24 Other intervertebral disc displacement, thoracic region; R82.90 Unspecified abnormal findings in urine; Z79.899 Other long term (current) drug therapy
CPT/HCPCS: 81003; 99212

== ENCOUNTER 2024-04-07 14:15 | Outpatient (AMB) | payer MEDICARE, SELFPAY ==
[2024-04-07 14:27] VITALS: BMI 22.6
--- NOTE | 2024-04-07 14:27 | MHC.OFFVIS ---
Vital Signs 04/07/24 14:27 Height 5 ft 7 in Weight 144 lb BMI 22.6 Intake Visit Reasons: INP-Unsteadiness on feet Intake Note: Patient presents for unsteadiness on feet Allergies Sulfa (Sulfonamide Antibiotics) Allergy (Severe, Verified 04/07/24 14:30) Rash amoxicillin [From Augmentin] Allergy (Intermediate, Verified 04/07/24 14:30) Nausea and Vomiting clavulanic acid [From Augmentin] Allergy (Intermediate, Verified 04/07/24 14:30) Nausea and Vomiting shellfish derived Allergy (Intermediate, Verified 04/07/24 14:30) Nausea and Vomiting turmeric Allergy (Intermediate, Verified 04/07/24 14:30) Vomiting narcotic pain medications Adverse Reaction (Intermediate, Uncoded 04/07/24 14:30) Nausea and Vomiting Medication List - Last Reconciled 04/07/24 by Elli Rangel MD amlodipine 5 mg PO DAILY 90 days ammonium lactate 12% 1 appl topical DAILY 30 days aspirin (Adult Aspirin Regimen) 81 mg PO DAILY 90 days cholecalciferol (vitamin D3) 50 mcg PO QAM coenzyme Q10 (Ultra CoQ10) 75 mg PO QAM ezetimibe (Zetia) 10 mg PO DAILY hydrocortisone 2.5% 1 appl topical BID PRN 30 days ibuprofen 800 mg PO Q8H PRN 14 days levothyroxine 150 mcg PO DAILY@0600 90 days levothyroxine 125 mcg PO DAILY 90 days lisinopril 30 mg PO DAILY 90 days omega 6-yol-hso-fish oil 1,200 (144-216) mg (Fish Oil) 1 cap PO DAILY omeprazole 20 mg PO BID@0630,1630 30 days rosuvastatin 40 mg PO BEDTIME 90 days HPI Comments Details: 79y/o female comes for evaluation of unsteadiness of gait. In 1996 she had an episode while walking [place] a garden center she felt like someone pulled her to the left. she saw her PCP in [place] and neurologist - had a detailed evaluation.she had a similar episode in 2001 when she got out of her car and felt like she got pulled to left. last year she had a similar episode when she was in a store and turned to go to a different register and fell into the display . she denies dizziness, spinning sensation, double vision. she has h/o motion sickness when she sits in the back seat in the car. she has chronic neck pain and has a forward tilt . she has chronic back pain .she feels off balance when she bends over and comes up, She denies tinnitus, no hearing loss. No head injury. SHe has sleep apnea and is not on treatment . she could not tolerate CPAP. [facility] Medical History (Updated 04/07/24 @ 15:11 by Elli Rangel MD) Obstructive sleep apnea Cervical dystonia Cervicalgia Gait instability Family history of gene mutation Colon cancer Family history of anesthesia complication COPD (chronic obstructive pulmonary disease) Cecal lesion RBBB (right bundle branch block) Bifascicular block Polycythemia CAD (coronary artery disease) GERD (gastroesophageal reflux disease) Sleep apnea Hypothyroidism Hyperlipidemia Hypertension Personal history of nicotine dependence Surgical History Hx of dilation and curettage H/O colonoscopy History of tonsillectomy History of lumpectomy of right breast History of tubal ligation History of cholecystectomy History of bladder surgery History of hysterectomy Family History Sister Cancer of kidney Psoriasis Arthritis Lupus Blood clot in vein Acute Crohn's disease Substance abuse Father Atherosclerosis Substance abuse Aortic aneurysm Mother Substance abuse Maternal Aunt Substance abuse Paternal Grandfather No problems noted. Social History Household Members: Significant Other Housing: House Are you a primary customer care representative to a significant other at home: No Do you presently have visiting nurse or other home services: No Comment: counts correct Patient Tobacco Use Status: Current someday Tobacco user Tobacco use type: Cigarette Cigarette Packs Per Day: 1 Years Smoked: 61 e-Cigarette/Vaping Use: Never Used Second Hand Smoke Exposure: No service: No Current occupational status: retired Cognitive needs: No Hearing needs: No Vision needs: Yes (Patient wears reading glasses.) Physical Exam Vital Signs: BMI result Body Mass Index 22.6 Const General: cooperative and comfortable Nutritional Appearance: average body habitus Orientation/consciousness: patient oriented x3 Eyes Pupils: Equal, round and reactive pupils present Neck Neck: Yes no meningeal signs Neuro Other: antecollis Tenderness on august levator muscles gait- mild stoop , genu valgum General: patient oriented x3, tone normal, moves all extremities, no meningeal signs and no focal motor deficits Cranial nerves: Yes Equal, round and reactive pupils present, Yes Bilaterally intact EOM present, Yes Nystagmus not present, Yes Normal facial strength present, Yes Midline tongue present and Yes Symmetric palate elevation present Cognition (Neuro): normal cognition Gait exam (Neuro): Antalgic gait present Motor exam (neuro): 5/5 motor strength present throughout and Normal motor muscle tone present throughout Deep tendon reflexes (DTR's): Right triceps reflex intensity grade: 1+, Left triceps reflex intensity grade: 1+, Rt Biceps (C5, C6): 1+, Left biceps reflex intensity grade: 1+, Right brachioradialis reflex intensity grade: 1+, Left brachioradialis reflex intensity grade: 1+, Right patellar reflex intensity grade: 1+ and Left patellar reflex intensity grade: 1+ Coordination: [id number] test normal Assessment & Plan Assessment & Plan (1) Gait instability: Comment: episodes of being pulled to left Code(s): R26.81 - Unsteadiness on feet Category: Medical (2) Cervicalgia: Code(s): M54.2 - Cervicalgia Category: Medical (3) Cervical dystonia: Code(s): G24.3 - Spasmodic torticollis Category: Medical (4) Obstructive sleep apnea: Code(s): G47.33 - Obstructive sleep apnea (adult) (pediatric) Category: Medical Plan Reviewed MRI brain - mild gen volume loss and microangiopathy MRI c spine to evaluate for spinal stenosis continue exercises. Home sleep test to reevaluate sleep apnea. Orders: Orders RT home sleep study Today G47.33 - Obstructive sleep apnea (adult) (pediatric) Coding Level of Care Code New Pt Level 4 (35959) Complex EM visit Add On G2211 Diagnoses Gait instability R26.81 Cervicalgia M54.2 Cervical dystonia G24.3 Obstructive sleep apnea G47.33
== END 2024-04-07 15:22 | disposition home or self-care (01) ==
PROVIDERS: PCP Family Medicine; Visit Provider Psychiatry & Neurology Neurology
DX: R26.81 Unsteadiness on feet (principal); M54.2 Cervicalgia; G24.3 Spasmodic torticollis; G47.33 Obstructive sleep apnea (adult) (pediatric)
CPT/HCPCS: 99204; G2211

== ENCOUNTER → 2024-04-07 14:15 | Outpatient (BNVA) | payer MEDICARE, SELFPAY | PROVIDERS: PCP Family Medicine; Visit Provider Psychiatry & Neurology Neurology | DX: R26.81 Unsteadiness on feet (principal); M54.2 Cervicalgia; G24.3 Spasmodic torticollis; G47.33 Obstructive sleep apnea (adult) (pediatric) | CPT/HCPCS: 99202 ==

== ENCOUNTER 2024-05-31 10:08 | Outpatient (REF) | payer MEDICARE, SELFPAY ==
--- OUTSIDE RECORDS SUMMARY | 2024-05-31 12:15 | XMS_ITS ---
Author Organization [facility] Address [address] [place] [id number] Care Team Providers Care Recreation Therapist Name Role Phone Sukhdev Layne Primary Care Provider Unavailab Karsten Kumar [phone] REASON FOR VISIT Needs to see Dr. Michael. Encounters Encounter Location Date Provider Diagnosis [facility] [address] [place] [id number] 04/25/2023 Karsten Saunders PLAN OF TREATMENT No Information
--- OUTSIDE RECORDS SUMMARY | 2024-05-31 12:15 | XMS_ITS | Referral Summary ---
Author Organization [facility] Address [address] [place] [address] Care Team Providers Care Instructional Technologist Name Role Phone Jordan Brandon Primary Care Provider [phone] Allergies Active Allergy Reactions Criticality Noted Date Comments Amoxicillin-Pot Clavulanate Nausea 07/06/19 19 Shellfish Derived Indigestion Sulfa (Sulfonamide Antibiotics) Hives High Trazodone Malaise 01/21/2017 Medications fluocinolone (SYNALAR) 0.025% cream APPLY SPARINGLY TO AFFECTED AREA(S) TWICE DAILY 6 Active acetaminophen (TYLENOL) 500 mg tablet Take 500 mg by mouth. Taking 2 po q4h prn Active ammonium lactate (LAC-HYDRIN) 12% lotionIndications: Dry skin Apply topically to the affected area 2 times a day as needed for dry skin. Rub in well 225 g 5 0 Active levothyroxine (SYNTHROID, LEVOTHROID) 150 mcg tabletIndications: Acquired hypothyroidism TAKE 1 TABLET BY MOUTH EVERY DAY 90 tablet 3 0 Active cyclobenzaprine (FLEXERIL) 10 mg tabletIndications: Back muscle spasm Take 1 tablet (10 mg total) by mouth nightly as needed (pain). 30 tablet 3 0 Active amLODIPine (NORVASC) 2.5 mg tabletIndications: Essential (primary) hypertension TAKE 1 TABLET BY MOUTH AT BED TIME. 90 tablet 3 0 Active lisinopriL (PRINIVIL,ZESTRIL) 10 mg tabletIndications: Essential (primary) hypertension TAKE 1 TABLET BY MOUTH DAILY 90 tablet 3 0 Active fluticasone propionate (FLONASE) 50 mcg/actuation nasal spray USE 1 SPRAY IN EACH NOSTRIL TWICE A DAY 48 mL 1 1 Active rosuvastatin (CRESTOR) 10 mg tablet Take 1 tablet (10 mg total) by mouth at bed time. 90 tablet 3 1 Active buPROPion XL (WELLBUTRIN XL) 150 mg tablet Take 1-2 tablets (150-300 mg total) by mouth every morning. 60 tablet 5 1 Active famotidine (PEPCID) 20 mg tablet Take 1 tablet (20 mg total) by mouth at bed time. 90 tablet 3 1 Active Active Problems Problem Noted Date Diagnosed Date Abnormal LFTs 01/25/2019 Overview (07/29/2020): Prior Hepatic Profiles x 4: Perfection. ++ 01/2019. AST 89. ALT 98. Hepatitis C / B: Negative. Iron 77(45-160). Iron Saturation 24%(16-45%). Ferritin 264(16-288). ++ 02/20/2019. + US Abdomen: Coarsened attenuating hepatic parenchyma likely steatosis with scattered cysts. Other infiltrative pathology cannot be excluded entirely. Status post cholecystectomy without biliary dilatation. NO Concerns raised. Try to decrease ETOH as much as possible and F/U LFTs planned at next visit. ++ 11/2019. Hepatic Profile: Perfection. ++ 07/2020. Hepatic Profile: Perfection. Perianal abscess 08/09/2018 Overview (08/09/2018): 08/09/2018. Dr. Kimball Expert Opinion. Perianal abscess rather than a fistula in ano. Area seems to be healing well. ?? Gynecologic exam normal 08/20/2017 Overview (08/20/2017): Age 34. DUB. + ELISEO / USO. Cx: Gone. Benign Disease. RA (obstructive sleep apnea) 01/22/2017 Overview (01/30/2019): Addendum 01/22/2017. Hematocrit was 49.2. Because of the chronic daytime hypersomnolence and the hematocrit approaching 50, I have high suspicion patient has sleep apnea. Please call the patient and inform her that I will be placing a consultation to neurology to assess for sleep apnea. ++ 01/2018. Never went for the study. ++ 07/2018. Dr. Dailey. Moderate Sleep Apnea. Darrel O2 Saturation 82%. Polycythemia 01/22/2017 Overview (01/30/2019): Addendum 01/22/2017. Hematocrit was 49.2. Because of the chronic daytime hypersomnolence and the hematocrit approaching 50, I have high suspicion patient has sleep apnea. Please call the patient and inform her that I will be placing a consultation to neurology to assess for sleep apnea. ++ 07/2018. Dr. Dailey. Moderate Sleep Apnea. Darrel O2 Saturation 82%. Colon cancer screening 01/21/2017 Overview (07/29/2020): ++ 04/2005. Colon: Normal to [facility]. Dr Israel Moe. ++ F/U Colon 12/2012: + Adenoma. ++ F/U Colon 2017: Patient did not return calls to schedule the Colon. Study cancelled. ++ F/U Colon([facility]) 01/2019: + Adenoma x 2. ++ F/U Colon 2021: Routine medical exam 01/21/2017 Vitamin D deficiency 07/20/2016 Overview (01/30/2019): 07/2016. + Vitamin D: 14. ++ 01/2018. Vitamin D: 12. ++ 01/2019. Vitamin D: 40. Depression 07/11/2015 Overview (12/23/2016): Years due to family stresses. Rx averse patient. Osteopenia 01/25/2015 Overview (12/23/2016): 01/2015. BD([facility]). L/S Spine -0.5. Hip(Neck) -1.5. Hip(Total) -1.9. Satisfactory. COPD, moderate 11/03/2013 Overview (12/23/2016): 10/2013. Clinical Dx. Lower back pain 11/29/2012 Overview (12/23/2016): 2007 to Present. Recurrent flairs of chronic back pain of a mechanical nature. Insomnia 04/19/2012 Overview (12/23/2016): Chronic for years. ++ 04/2012. Trial Trazodone. Hypertension 09/25/2011 Overview (12/23/2016): Years. ++ 2008. 24 Hour BP Monitor with Geronimo Berrios was Perfect. Hyperlipidemia 09/25/2011 Overview (12/23/2016): Years. ++ 08/2014. LDL 94. Hypothyroidism 09/25/2011 Overview (12/23/2016): Years. ++ 01/17/2016. + TSH 0.09. Change the levothyroid to 150 ugms daily from current dosage of 200 ugms 6 days weekly. Resolved Problems Problem Noted Date Diagnosed Date Resolved Date [id number] 07/21/2018 08/09/2018 Overview (07/21/2018): 07/2018. Dr. Kimball. Perianal infection at 12 O'Clock. + Bx: Skin with active and chronic inflammation and granulation tissue, consistent with fistula. UTI (urinary tract infection) 08/20/2017 01/27/2018 [facility] arthritis 08/20/2017 01/27/2018 Overview (08/20/2017): 08/2017. RIGHT. Rather Dramatic. Lower leg pain 07/22/2016 01/21/2017 Abdominal pain 05/05/2016 01/27/2018 Overview (01/21/2017): See Note 05/05/2016. ++ Addendum 05/10/2016. + US Abdomen: Excellent and NO Concerns raised. All Abdominal Pain suspected to be Rib Margin pain of NO Concern. Right-sided back pain 01/16/20162016 Immunizations Immunization Administration Dates Next Due Tetanus and Diphtheria Toxoi ds, Adsorbed, Preservative Free, for Adult Use (5 Lf of Tetanus Toxoid and 2 Lf of Diphtheria Toxoid) 09/03/2000 Social History Tobacco Use Types Packs/Day Years Used Date Smoking Tobacco: Every Day Cigarettes 1 66 Smokeless Tobacco: Never Comments::PT SMOKES 1 PPD. N O LUCK WITH CHANTIX. ++ 01/2015. + 1 PPD. ++ 01/2016. + 1 PPD. Alcohol Use Standard Drinks/Week Comments Yes 15 (1 standard drink = 0.6 oz pu re alcohol) Comments No Sex and Gender Information Value Date Recorded Sex Assigned at Female 02/03/2020 8:49 AM EDT Legal Sex Female 9:38 AM EDT Gender Identity Not on file Sexual Orientation Not on file Last Filed Vital Signs Vital Sign Reading Time Taken Comments Blood Pressure 125/65 11/28/2019 12:39 PM EDT Pulse 84 07/29/2020 1:29 PM EDT Temperature 36.7 ??C (98.1 ??F) 07/29/2020 1:29 PM ED T Respiratory Rate 18 01/24/2019 8:50 AM EDT Oxygen Saturation 100% 07/29/2020 1:29 PM EDT ON RA @ REST Inhaled Oxygen Concentration - - Weight 73.5 kg (162 lb) 08/06/2020 1:03 PM EDT Height 168.9 cm (5' 6.5 ) 08/06/2020 1:03 PM EDT Body Mass Index 25.76 08/06/2020 1:03 PM EDT Plan of Treatment Not on file Procedures * Due to [place] [employer] law, this organization might not be sharing negative HIV tests. Procedure Name Priority Date/Time Associated Diagnosis Comments MAMMOGRAPHY, BILATERAL Routine 12/10/2020 BASIC METABOLIC PANEL Routine 07/22/2020 10:34 AM EDT Hypertension HEPATITIS C ANTIBODY W/REFLEX TO HCV RNA, QUANTITATIVE PCR Routine 01/24/2019 9:50 AM EDT Need for hepatitis C screening test COLONOSCOPY 01/24/2019 from Last 3 Months or Most Recently Relevant to Health Maintenance Results * Due to [place] [employer] law, this organization might not be sharing negative HIV tests. * Mammography, Bilateral (12/10/2020) Anatomical Region Laterality Modality Other 12/10/2020 Unknown Provider MD HEALTH MAINTENANCE Final Res ult * Basic Metabolic Panel (07/22/2020 10:34 AM EDT) Glucose 92 65 - 99 mg/dL 07/22/2020 5:38 PM EDT [employer] Comment: ? Fasting reference interval BUN 14 7 - 25 mg/dL 07/22/2020 5:38 PM EDT [employer] Creatinine 0.78 0.60 - 0.93 mg/dL 07/22/2020 5:38 PM EDT [employer] Comment: For patients >49 years of age, the reference limit for Creatinine is approximately 13% higher for people identified as -Finnish. eGFR Non- 75 > OR = 60 mL/min/1 .73m2 07/22/2020 5:38 PM EDT [employer] eGFR 87 > OR = 60 mL/min/1 .73m2 07/22/2020 5:38 PM EDT [employer] [facility] Bun/Creatinine Ratio NOT APPLICABLE 6 - 22 (calc) 07/22/2020 5:38 PM EDT [employer] Sodium 141 135 - 146 mmol/L 07/22/2020 5:38 PM EDT [employer] Potassium 4.6 3.5 - 5.3 mmol/L 07/22/2020 5:38 PM EDT [employer] Chloride 103 98 - 110 mmol/L 07/22/2020 5:38 PM EDT [employer] Carbon Dioxide 29 20 - 32 mmol/L 07/22/2020 5:38 PM EDT [employer] Calcium 10.2 8.6 - 10.4 mg/dL 07/22/2020 5:38 PM EDT [employer] Blood Structure of peripheral vein / Unknown 07/22/2020 10:34 AM EDT 07/22/2020 4:17 PM EDT Narrative [facility] - 07/22/2020 6:46 PM EDT FASTING:YES us Lake Napoles MD LAB BLOOD ORDERABLES Fin al Result Performing Organization Address City/[facility]/ZIP Co de Phone Number [facility] [address], [place] [address], [place] [phone] [employer] [address] [address] * Hepatitis C Antibody w/Reflex to PCR (01/24/2019 9:50 AM EDT) Hepatitis C Antibody NON-REACT MEI NON-REACT MEI 01/24/2019 8:44 PM EDT [employer] [facility] Signal To Cut-Off 0.02 <1.00 01/24/2019 8:44 PM EDT [employer] [facility] Comment: HCV antibody was non-reactive. There is no laboratory evidence of HCV infection. In most cases, no further action is required. However, if recent HCV exposure is suspected, a test for HCV RNA (test code 04489) is suggested. For additional information please refer to http://education.HelloTel/faq/ZAW07i8 (This link is being provided for informational/ educational purposes only.) Blood specimen (specimen) Structure of peripheral vein / Unknown 01/24/2019 9:50 AM EDT 01/24/2019 5:08 PM EDT Narrative [facility] - 01/24/2019 9:22 PM EDT FASTING:YES Lake Napoles MD LAB BLOOD ORDERABLES Fin al Result Performing Organization Address City/[facility]/ZIP Co de Phone Number [facility] [address], [place] [address], [place] [phone] [employer] [address] [address] * COLONOSCOPY (01/24/2019) Narrative Procedure Note Asren Massey MD - 01/24/2019 7:31 AM EDT [facility] Patient Name: Tatiana Rawls Procedure Date: 01/24/2019 7:31 AM Date of : 1945 Age: 73 Room: Procedure Room 3 Gender: Female Note Status: Finalized Attending MD: Arsen Massey MD Procedure: Colonoscopy Indications: Follow-up for history of adenomatous polyps in the colon Providers: Arsen Massey MD Referring MD: Lake Napoles MD (Referring MD) Requesting Provider: Medicines: Monitored Anesthesia Care Complications: No immediate complications. Procedure: After I obtained informed consent, the scope was passed under direct vision. Throughout the procedure, the patient's blood pressure, pulse, and oxygen saturations were monitored continuously. The Colonoscope was introduced through the anus and advanced to theterminal ileum. The colonoscopy was performed withoutdifficulty. The patient tolerated the procedure well. The qualityof the bowel preparation was fair. Findings: A 7 mm polyp was found in the ileocecal valve. The polyp was removed with a cold snare. Resection and retrieval were complete. Two polyps were found in the sigmoid colon and ascending colon. The polyps were 2 to 3 mm in size. These polyps were removed with a cold biopsy forceps. Resection and retrieval were complete. Impression: - Preparation of the colon was fair. - One 7 mm polyp at the ileocecal valve, removed with a cold snare. Resected and retrieved. - Two 2 to 3 mm polyps in the sigmoid colon and in the ascending colon, removed with a cold biopsy forceps. Resected and retrieved. Recommendation: - Await pathology results. - Repeat colonoscopy in 3 years for surveillance. - Return to primary care physician PRN. Arsen Massey MD 01/24/2019 8:32:18 AM This report has been signed electronically. Number of Addenda: 0 Note Initiated On: 01/24/2019 7:31 AM Estimated Blood Loss: Estimated blood loss: none. us Arsen Massey MD PROVATION PROCEDURES Final Re sult from Last 3 Months or Most Recently Relevant to Health Maintenance Insurance [facility] Advance Directives Documents on File Type Date Recorded Patient Quality Assurance Supervisor Final Expl anation Health Care Proxy 08/01/2018 11:58 AM 07/05 Care Teams Instructional Technologist Relationship Specialty Start Date End Date Jordan Brandon [address] [place] [address] [place] [address] PCP - General Internal Medicine 01/27/21
--- OUTSIDE RECORDS SUMMARY | 2024-05-31 12:15 | XMS_ITS | Patient Health Record ---
Author Organization [facility] Address [address] [place], [place] [id number] Care Team Providers Care After School Program Director Name Role Phone Yesika WING, Lake Primary Care Provider Charlee Jose Meng Unavailable [phone] Castillo Dailey Unavailable Unavailable Reason For Referral No Information Plan Of Treatment No Information Insurance Providers Payer Name Payer Address Payer Phone Subscriber Number Group Number Insured Name Patient Relationship to Insured Coverage Start Date Coverage End Date [employer] [place] [facility] [address] [address] [place] [address] [id number] Tatiana Rawls Self - patient is the insured
--- OUTSIDE RECORDS SUMMARY | 2024-05-31 12:15 | XMS_ITS ---
Author Organization [facility] Address [address] [place] [address] Care Team Providers Care Brick Loader Name Role Phone Sukhdev Layne Primary Care Provider Unavailab Karsten Kumar Unavailable [phone] REASON FOR VISIT screening, hx polyps PROBLEMS Problem Type ICD Code Onset Dates Problem Status W/U Status Risk SNOMED Code Notes Problem Diverticulosis of large intestine without perforation or abscess without bleeding (K57.30) Active confirmed Diverticul ar disease of colon (664268757) Encounters Encounter Location Date Provider Diagnosis [facility] Outpatient [address] [place] [phone] 04/16/2023 Karsten Saunders Encounter for scre ening colonoscopy Z12.11 ; Colon polyps K63.5 ; Angiodysplasia K55.20 ; Diverticulosis of large intestine without perforation or abscess without bleeding K57.30 and Internal hemorrhoids K64.8 ASSESSMENTS Encounter Date Diagnosis Assessment Notes Treatment Notes Treatment Clinical Notes 04/16/2023 Encounter for screening colonoscopy (ICD-10 - Z12.11) 04/16/2023 Colon polyps (ICD-10 - K63.5) 04/16/2023 Angiodysplasia (ICD-10 - K55.20) 04/16/2023 Diverticulosis of large intestine without perforation or abscess without bleeding (ICD-10 - K57.30) 04/16/2023 Internal hemorrhoids (ICD-10 - K64.8) PLAN OF TREATMENT No Information
--- OUTSIDE RECORDS SUMMARY | 2024-05-31 12:15 | XMS_ITS | Clinical Summary ---
Author Organization [facility] Address [address] [place] [address] Care Team Providers Care Freight Handler Name Role Phone Jordan Brandon Primary Care Provider [phone] Allergies Active Allergy Reactions Criticality Noted Date [...] ELISEO / USO. Cx: Gone. Benign Disease. AR (obstructive sleep apnea) 01/22/2017 Overview (01/30/2019): Addendum [...] averse patient. Osteopenia 01/25/2015 Overview (12/23/2016): 01/2015. BD([facility]). L/S Spine -0.5. Hip(Neck) -1.5. Hip(Total) [...] Problem Noted Date Diagnosed Date Resolved Date [id number] 07/21/2018 08/09/2018 Overview (07/21/2018): 07/2018. Dr. Kimball. [...] and 2 Lf of Diphtheria Toxoid) 09/03/2000 Family History Medical History Relation Name Comments Alcohol abuse Father Diabetes type II Father Stroke Father Emphysema Mother Crohn's disease Sister Peripheral vascular disease Sister Relation Name Status Comments Father Mother Sister Social History Tobacco Use Types Packs/Day Years [...] 08/06/2020 1:03 PM EDT Plan of Treatment Health Maintenance Due Date Last Done Comments Pneumococcal Vaccine: 50+ Years (1 of 2 - PCV) 1965 CT Lung Cancer Screening (Baseline) 1996 Osteoporosis Screening 1996 Zoster Vaccines (1 of 2) 1996 DTaP,Tdap,and Td Vaccines (1 - Tdap) 09/04/2000 09/03/2000 RSV Vaccine (60+ years old and patients) (1 - 1-dose 75+ series) 2021 Basic Metabolic Panel 07/22/2021 07/22/2020 , 01/24/2019, 01/19/2018, Additional history exists Colonoscopy 01/24/2022 01/24/2019, 01/04, 12/27/2012 COVID-19 Vaccine ( season) 2023 08/08/2020 Influenza Vaccine (#1) 2023 Alcohol/Substance Use Screening 04/05/2024 Depression Evaluation 04/05/2024 Health Care Proxy Review 04/05/2024 Social Drivers of Health Annual Screening 04/05/2024 Hepatitis C Screening Completed 01/24/2019 Mammogram Discontinued 12/10/2020, 09/03, 07/23/2016, Additional history exists Hepatitis B Vaccines Aged Out No long er eligible based on patient's age to complete this topic Procedures * Due to [place] [employer] law, this organization might not be sharing negative HIV tests. Procedure Name Priority Date/Time Associated Diagnosis Comments HM MAMMOGRAPHY, BILATERAL Routine 12/10/2020 BASIC METABOLIC PANEL Routine 07/22/2020 10:34 AM EDT Hypertension HEPATITIS C ANTIBODY W/REFLEX TO HCV RNA, QUANTITATIVE PCR Routine 01/24/2019 9:50 AM EDT Need for hepatitis C screening test COLONOSCOPY 01/24/2019 from Last 3 Months or Most Recently Relevant to Health Maintenance Results * Due to [place] [employer] law, this organization might not be sharing negative HIV tests. * HM Mammography, Bilateral (12/10/2020) Anatomical Region Laterality Modality Other 12/10/2020 us Unknown Provider MD HEALTH MAINTENANCE Final Res ult * Basic Metabolic Panel (07/22/2020 10:34 AM EDT) Glucose 92 65 - 99 mg/dL 07/22/2020 5:38 PM EDT [employer] Comment: ? Fasting reference interval BUN 14 7 - 25 mg/dL 07/22/2020 5:38 PM EDT [employer] Creatinine 0.78 0.60 - 0.93 mg/dL 07/22/2020 5:38 PM EDT [employer] Comment: For patients >49 years of age, the reference limit for Creatinine is approximately 13% higher for people identified as -Guinean. eGFR Non- 75 > OR = 60 mL/min/1 .73m2 07/22/2020 5:38 PM EDT [employer] [facility] eGFR 87 > OR = 60 mL/min/1 .73m2 07/22/2020 5:38 PM EDT [employer] Bun/Creatinine Ratio NOT APPLICABLE (calc) 07/22/2020 5:38 PM EDT [employer] [facility] Sodium 141 135 - 146 mmol/L 07/22/2020 5:38 PM EDT [employer] Potassium 4.6 3.5 - 5.3 mmol/L 07/22/2020 5:38 PM EDT [employer] Chloride 103 98 - 110 mmol/L 07/22/2020 5:38 PM EDT [employer] [facility] Carbon Dioxide 29 20 - 32 mmol/L 07/22/2020 5:38 PM EDT [employer] Calcium 10.2 8.6 - 10.4 mg/dL 07/22/2020 5:38 PM EDT [employer] [facility] Blood Structure of peripheral vein / Unknown 07/22/2020 10:34 AM EDT 07/22/2020 4:17 PM EDT Narrative [facility] - 07/22/2020 6:46 PM EDT FASTING:YES us Lake Napoles MD LAB BLOOD ORDERABLES Fin al Result [facility] [address] [facility] [address], [place] [address], [employer] [facility] [address] [place] [address] * Hepatitis C Antibody w/Reflex to PCR (01/24/2019 9:50 AM EDT) Hepatitis C Antibody NON-REACT MEI NON-REACT MEI 01/24/2019 8:44 PM EDT [employer] [facility] Signal To Cut-Off 0.02 <1.00 01/24/2019 8:44 PM EDT [employer] Comment: HCV antibody was non-reactive. There is no laboratory evidence of HCV infection. In most cases, no further action is required. However, if recent HCV exposure is suspected, a test for HCV RNA (test code 62831) is suggested. For additional information please refer to http://TestFreaks.Songza/faq/PFX92h6 (This link is being provided for informational/ educational purposes only.) Blood specimen (specimen) Structure of peripheral vein / Unknown 01/24/2019 9:50 AM EDT 01/24/2019 5:08 PM EDT Narrative [facility] - 01/24/2019 9:22 PM EDT FASTING:YES us Lake Napoles MD LAB BLOOD ORDERABLES Fin al Result [facility] [address] [facility] [address], [place] [address], [place] [phone] [facility] [address] [place] [address] * COLONOSCOPY (01/24/2019) Narrative Procedure Note Arsen Massey MD - 01/24/2019 7:31 AM EDT [...] Estimated Blood Loss: Estimated blood loss: none. Arsen Massey MD PROVATION PROCEDURES Final Re sult from Last 3 Months or Most Recently Relevant to Health [place] [address] [facility] Advance Directives Documents on File Type Date Recorded Patient Staff Development Coordinator Expl anation Health Care Proxy 08/01/2018 11:58 AM 07/05 Care Teams Freight Handler Relationship Specialty Start Date End Date Jordan Brandon [address] [place] [address] [place] [address] PCP - General Internal Medicine 01/27/21
--- OUTSIDE RECORDS SUMMARY | 2024-05-31 12:15 | XMS_ITS | Patient Health Record ---
Author Organization [facility] Address [address] [place] [phone] Care Team Providers Care Antichecking Iron Worker Name Role Phone Sukhdev Layne Primary Care Provider Karsten Mena Unavailable [phone] ALLERGIES Allergen (clinical drug ingredient) Drug/Non Drug Allergy documented on EMR Reaction Allergy Type Onset Date Status Substance with sulfonamide structure and antibacterial mechanism of action (substance) Sulfa Antibiotics Unknown Drug Allergy Active Shellfish (FN) Shellfish-derived Products Unknown Drug Allergy Active amoxicillin / clavulanate Augmentin Unknown Drug Allergy Active REASON FOR REFERRAL No Information MEDICATIONS Medication SIG (Take, Route, Frequency, Duration) Notes Start Date End Date Status Restore - as directed Orally A ctive Fish Oil 1000 MG 1 capsule Orally Onc e a day for 30 day(s) Active Lisinopril 30 MG TAKE 1 TABLET BY LEAH TH TWICE DAILY Oral for 90 Active amLODIPine Besylate 5 MG Oral for 90 Active Omeprazole 20 MG Oral for 90 A ctive Aspirin Low Dose 81 MG TAKE 1 TABLET BY MOUTH DAILY Oral for 90 Active Rosuvastatin Calcium 20 MG Oral for 30 Active Levothyroxine Sodium 150 MCG TAKE 1 TABL ET BY MOUTH EVERY DAY Oral for 90 Active Cetirizine HCl 10 MG TAKE 1 TABLET BY MO UTH EVERY DAY Oral for 30 Active Qunol CoQ10/Ubiquinol/Iftikhar 100 MG as directed Orally Active Vitamin D-3 25 MCG (1000 UT) 1 capsule O rally Once a day for 30 day(s) Active IMMUNIZATIONS Vaccine Route Administration Date Status Comme nts Influenza Unknown 01/20/2023 Refused SOCIAL HISTORY Tobacco Use: Social History Observation Description Date Details (start date - stop date) Current Smoker NA - NA Sex Assigned At : Social History Observation Description Sex Assigned At Unknown Tobacco Use/Smoking Question Answer Notes Patient is a current smoker Alcohol Screen Question Answer Notes Did you have a drink contain ing alcohol in the past year? Yes How often did you have a dri nk containing alcohol in the past year? 4 or more times a week (4 points) How many drinks did you have on a typical day when you were drinking in the past year? 3 or 4 drinks (1 point) How often did you have 6 or more drinks on one occasion in the past year? Never (0 point) Points 5 Interpretation Positive PROBLEMS Problem Type ICD Code Onset Dates Problem Status W/U Status Risk SNOMED Code Notes Problem Colon cancer screening (Z12.11) Active confirmed 054404220 Problem History of adenomatous polyp of colon (Z86.010) Active confirmed 151626179 Problem Diverticulosis of large intestine without perforation or abscess without bleeding (K57.30) Active confirmed Diverticul ar disease of colon (199831522) Problem 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) Active confirmed [id number] Encounters Encounter Location Date Provider Diagnosis [facility] [address] [place] [address] 06/10/2023 Karsten Saunders PLAN OF TREATMENT Pending Test Test Name Order Date CELIAC PANEL #10 01/20/2023 Future Test Test Name Order Date COLONOSCOPY 01/20/2023 Insurance Providers Payer Name Payer Address Payer Phone Subscriber Number Group Number Insured Name Patient Relationship to Insured Coverage Start Date Coverage End Date [facility] [address] [place] [phone] [id number] PAULINE VILLALBA Self - patient is the insured MEDICAL (GENERAL) HISTORY Medical History History ICD Code HTN Urinary incontinence GERD Denies NE,DM,CVA,Lung disease,renal dise ase IBS Aramis's with subsequent hypothyroidi sm Hyperlipidemia Right bundle branch block; r eports a negative Nuclear stress test in [address] Vogel Colonoscopies in 2012 and in 2018 at [facility] with removal of small tubular adenomas. The most recent exam in 01/2019 described only a fair bowel prep and Dr. Massey recommended a 3 year followup Surgical History Surgery Date(Month/Year) Hysterectomy and 1 ovary removed Tubal ligation Bladder suspension CCY
--- OUTSIDE RECORDS SUMMARY | 2024-05-31 12:15 | XMS_ITS ---
Author Organization [facility] Address [address] [place] [address] Care Team Providers Care Animal Husbandry Worker Name Role Phone Sukhdev Layne Primary Care Provider Unavailab Karsten Kumar Unavailable [phone] Encounters Encounter Location Date Provider Diagnosis [facility] [address] [place] [phone] 06/10/2023 Karsten Saunders PLAN OF TREATMENT No Information
[2024-05-31 14:58] LABS: Alanine Aminotransferase 43 U/L (0-31); Albumin Level 4.2 g/dL (3.5-5.0); Alkaline Phosphatase 73 U/L (39-117); Anion Gap 12 (12-20); Aspartate Amino Transferase 41 U/L (5-31); Bilirubin Total 0.5 mg/dL (0.0-1.0); Blood Urea Nitrogen 10 mg/dL (9-16); Calcium 9.6 mg/dL (8.4-10.2); Carbon Dioxide 28 mmol/L (22-29); Chloride 104 mmol/L (96-108); Cholesterol 144 mg/dL (<200); Estimated Glomerular Filt Rate > 60; Glucose Random 95 mg/dL (60-115); HDL Cholesterol 69 mg/dL (>40); LDL Cholesterol Calculated 58 mg/dL (<100); Potassium 4.2 mmol/L (3.3-5.1); Sodium 140 mmol/L (135-145); Total Protein 7.3 g/dL (6.5-8.0); Triglycerides 89 mg/dL (<150)
[2024-05-31 15:01] LABS: Free T4 (Free Thyroxine) 1.52 ng/dL (0.71-1.85); Thyroid Stimulating Hormone 0.05 uIU/mL (0.32-4.0)
[2024-06-01 11:58] LABS: Triiodothyronine T3 Total 102 ng/dL (76-181)
== END 2024-05-31 10:09 | disposition home or self-care (01) ==
LOC: HO.WFDLDS 10:08
PROVIDERS: Nurse Practitioner Family; Visit Provider Family Medicine
DX: E78.5 Hyperlipidemia, unspecified (principal); E03.9 Hypothyroidism, unspecified; R74.8 Abnormal levels of other serum enzymes
CPT/HCPCS: 36415; 80053; 80061; 84439; 84443; 84480

== ENCOUNTER 2024-06-19 09:48 | Outpatient (REF) | payer MEDICARE, SELFPAY ==
--- NOTE | ~2024-06-19 | US_ITS ---
EXAMINATION: US ABDOMEN ANEURYSM SCREENING HISTORY: I71.40 - Abdominal aortic aneurysm, without rupture, unspecified TECHNIQUE: Ultrasound of the abdominal aorta was performed with color flow and spectral imaging. COMPARISON: Comparison is made with the prior examination dated 06/03/2023. FINDINGS: Real-time grayscale ultrasound imaging was performed and reviewed. There is atherosclerotic calcification of the aorta. Proximal abdominal aorta measures 2.9 x 2.4 cm Mid abdominal aorta measures 1.8 x 2.0 cm Distal abdominal aorta measures 3.2 x 3.0cm. (Previously 3.0 x 2.9 cm). Left proximal iliac artery measures 1.1 x 1.2 cm. Right proximal iliac artery measures 1.2 x 2.3cm. US/US abdominal aortic aneurysm IMPRESSION: Distal abdominal aortic aneurysm measuring up to 3.2 cm in size with slight interval enlargement since the prior study. Electronically signed by: Karsten Arzola MD 06/19/2024 10:53 AM EDT
--- NOTE | ~2024-06-19 | US_ITS ---
EXAMINATION: BILATERAL CAROTID ULTRASOUND WITH DOPPLER HISTORY: R09.89 - Other specified symptoms and signs involving the circulatory an... COMPARISON: There are no prior studies for comparison. TECHNIQUE: Real time and Color and Spectral doppler ultrasonography of the carotid and vertebral arteries was performed in multiple planes. FINDINGS: There is a small amount of plaque in the proximal internal carotid arteries. VERTEBRAL FLOW DIRECTION: Antegrade bilaterally. PEAK SYSTOLIC VELOCITIES (in cm/sec): RIGHT: CCA: Prox: 78.6 Dist: 62.9 ICA: Prox: 84.1 Mid: 107 Dist: 103 ICA/CCA Ratio: 1.36 ECA: 85.6 Peak ICA EDV: 32.8 LEFT: CCA: Prox: 86.4 Dist: 63.6 ICA: Prox: 89.7 Mid: 81.5 Dist: 104 ICA/CCA Ratio: 1.20 ECA: 93.2 Peak ICA EDV: 83.4 US/US carotid duplex BI IMPRESSION: Findings consistent with 0-49% stenosis of the bilateral internal carotid arteries. Electronically signed by: Karsten Arzola MD 06/19/2024 10:51 AM EDT
== END 2024-06-19 09:49 | disposition home or self-care (01) ==
LOC: HO.US 09:48
PROVIDERS: PCP Family Medicine; Visit Provider Surgery Vascular Surgery
DX: R09.89 Other specified symptoms and signs involving the circulatory and respiratory systems (principal); I71.40 Abdominal aortic aneurysm, without rupture, unspecified
CPT/HCPCS: 76706; 93880

== ENCOUNTER → 2024-06-19 09:49 | Outpatient (BNV) | payer MEDICARE, SELFPAY | PROVIDERS: PCP Family Medicine; Visit Provider Radiology Diagnostic Radiology | DX: R09.89 Other specified symptoms and signs involving the circulatory and respiratory systems (principal); I71.40 Abdominal aortic aneurysm, without rupture, unspecified | CPT/HCPCS: 76706; 93880 ==

== ENCOUNTER 2024-06-22 10:40 | Outpatient (AMB) | payer MEDICARE, SELFPAY ==
--- NOTE | 2024-06-22 10:57 | A.OFFVIS_ITS ---
Vital Signs 06/22/24 10:58 Height 5 ft 7 in Weight 145 lb 8.081 oz BMI 22.8 BP 132/64 Blood Pressure Location Lt brachial Position Sitting Pulse 78 Intake Visit Reasons: 1 yr fu Intake Note: 1 year follow-up with ekg feeling good Power Plant Operators Supervisor Required: No Allergies Sulfa (Sulfonamide Antibiotics) Allergy (Severe, Verified 04/07/24 14:30) Rash amoxicillin [From Augmentin] Allergy (Intermediate, Verified 04/07/24 14:30) Nausea and Vomiting clavulanic acid [From Augmentin] Allergy (Intermediate, Verified 04/07/24 14:30) Nausea and Vomiting shellfish derived Allergy (Intermediate, Verified 04/07/24 14:30) Nausea and Vomiting turmeric Allergy (Intermediate, Verified 04/07/24 14:30) Vomiting narcotic pain medications Adverse Reaction (Intermediate, Uncoded 04/07/24 14:30) Nausea and Vomiting Medication List - Last Reconciled 06/22/24 by Hood Vogel MD amlodipine 5 mg PO DAILY 90 days ammonium lactate 12% 1 appl topical DAILY 30 days aspirin (Adult Aspirin Regimen) 81 mg PO DAILY 90 days cholecalciferol (vitamin D3) 50 mcg PO QAM coenzyme Q10 (Ultra CoQ10) 75 mg PO QAM ezetimibe 10 mg PO DAILY hydrocortisone 2.5% 1 appl topical BID PRN 30 days ibuprofen 800 mg PO Q8H PRN 14 days levothyroxine 125 mcg PO DAILY 90 days lisinopril 30 mg PO DAILY 90 days omega 4-vjp-yqx-fish oil 1,200 (144-216) mg (Fish Oil) 1 cap PO DAILY omeprazole 20 mg PO BID@0630,1630 30 days rosuvastatin 40 mg PO BEDTIME 90 days HPI Comments Details: Tatiana comes for follow-up. Since I saw her last year she was not had any new cardiac complaints. She denies any prolonged palpitations or irregular heartbeat. Denies any exertional chest pain or worsening shortness of breath. Unfortunately she continues to smoke. She has no new vascular or neurologic symptoms. Takes all her medications. Last LDL well optimized at 58 mg/dL. [facility] Medical History Obstructive sleep apnea Cervical dystonia Cervicalgia Gait instability Family history of gene mutation Colon cancer Family history of anesthesia complication COPD (chronic obstructive pulmonary disease) Cecal lesion RBBB (right bundle branch block) Bifascicular block Polycythemia CAD (coronary artery disease) GERD (gastroesophageal reflux disease) Sleep apnea Hypothyroidism Hyperlipidemia Hypertension Personal history of nicotine dependence Surgical History Hx of dilation and curettage H/O colonoscopy History of tonsillectomy History of lumpectomy of right breast History of tubal ligation History of cholecystectomy History of bladder surgery History of hysterectomy Family History Sister Cancer of kidney Psoriasis Arthritis Lupus Blood clot in vein Acute Crohn's disease Substance abuse Father Atherosclerosis Substance abuse Aortic aneurysm Mother Substance abuse Maternal Aunt Substance abuse Paternal Grandfather No problems noted. Social History Household Members: Significant Other Housing: House Are you a primary career transition specialist to a significant other at home: No Do you presently have visiting nurse or other home services: No Comment: counts correct Patient Tobacco Use Status: Current someday Tobacco user Tobacco use type: Cigarette Cigarette Packs Per Day: 1 Years Smoked: 61 e-Cigarette/Vaping Use: Never Used Second Hand Smoke Exposure: No service: No Current occupational status: retired Cognitive needs: No Hearing needs: No Vision needs: Yes (Patient wears reading glasses.) Review of Systems Const Denies chills, Denies fatigue, Denies fever(s), Denies frequent falls, Denies weakness, Denies weight gain and Denies weight loss ENT Denies dizziness Card Denies chest pain, Denies leg edema, Denies lightheadedness, Denies palpitations, Denies dyspnea, Denies dyspnea on exertion, Denies orthopnea and Denies other (loss of consciousness) Resp Denies cough, Denies dyspnea and Denies dyspnea on exertion GI Denies hematochezia and Denies change in stool character Musc Denies abnormal gait, Denies muscle weakness, Denies numbness, Denies radiating pain into limb and Denies tingling Neuro Denies abnormal gait, Denies dizziness, Denies frequent falls, Denies numbness, Denies tingling and Denies weakness Endo Denies fatigue and Denies palpitations Physical Exam Vital Signs: Last Vital Signs Pulse 78 06/22/24 10:58 BP 132/64 06/22/24 10:58 BMI result Body Mass Index 22.8 Const General: cooperative, healthy appearing, comfortable and no acute distress Orientation/consciousness: patient oriented x3 Neck Neck: Yes normal visual inspection Resp Effort & Inspection: normal respiratory effort Auscultation: clear to auscultation bilaterally, no crackles, no rales, no rhonchi and no wheezes Cardio Jugular venous distension: no JVD Rate: regular rate Rhythm: regular rhythm Heart sounds: S1 normal heart sound present, S2 normal heart sound present, no murmurs and no rubs Neuro General: patient oriented x3 Extrem General: Yes normal to inspection Psych Appearance: grossly normal Mental Status: mental status grossly normal Speech and movement: Normal speech and movement present Office Procedures EKG Details: EKG shows normal sinus rhythm with right bundle-branch block and left anterior fascicular block consistent with bifascicular block with left ventricular hypertrophy, unchanged from before 57049-Fouziqsncqxhhtusz, Complete Assessment & Plan Assessment & Plan (1) CAD (coronary artery disease): Code(s): I25.10 - Atherosclerotic heart disease of [place] coronary artery without angina pectoris Category: Medical Plan: Diffuse atherosclerosis with nonobstructive coronary disease with no symptoms at current point time. No further workup is indicated to evaluate for ischemia. Continue aggressive vascular risk factor modification which include smoking cessation. Discussed with her. She says she was tried everything has not work. Continue low-dose aspirin therapy for life. Continue high-intensity statin therapy with target goal LDL well optimized at this point in time. Continue aggressive blood pressure control. Blood pressure is well optimized on current medication. Importance of all her medical therapy was discussed. She understands agrees. Encouraged to continue follow with vascular surgery. (2) Bifascicular block: Code(s): I45.2 - Bifascicular block Category: Medical Plan: Bifascicular block which is unchanged. There are no symptoms related to it. No specific intervention such as pacing therapy required. Continue monitor EKG on a annual basis. Will follow up clinic in 1 year's time, sooner p.r.n.. Thank you for allowing me to partake in her care Coding Level of Care Code Est Pt Level 4 (04238) Complex EM visit Add On G2211 Diagnoses CAD (coronary artery disease) I25.10 Bifascicular block I45.2 CPT Codes EKG - CPT: 90510-Uoadbextemtxwlxar, Complete ([id number])
[2024-06-22 10:58] VITALS: BP 132/64; PULSE 78; BMI 22.8
--- OUTSIDE RECORDS SUMMARY | 2024-06-22 12:30 | XMS_ITS | Clinical Summary ---
Author Organization [facility] Address [address] [place] [address] Care Team Providers Care Card Mounter Name Role Phone Jordan Brandon Primary Care Provider [phone] Allergies Active Allergy Reactions Criticality Noted Date [...] averse patient. Osteopenia 01/25/2015 Overview (12/23/2016): 01/2015. BD([facility]). L/S Spine -0.5. Hip(Neck) -1.5. Hip(Total) [...] Problem Noted Date Diagnosed Date Resolved Date [id number]-ffo 07/21/2018 08/09/2018 Overview (07/21/2018): 07/2018. Dr. Kimball. [...] (#1) 2023 Alcohol/Substance Use Screening 04/05/2024 Depression Screening and Follow-Up 04/05/2024 Health Care Proxy Review 04/05/2024 Social Drivers of Health Annual Screening 04/05/2024 Hepatitis C Screening Completed 01/24/2019 Mammogram Discontinued 12/10/2020, 09/03, 07/23/2016, Additional history exists Hepatitis B Vaccines Aged Out No long er eligible based on patient's age to complete this topic Procedures * Due to [place] [employer] law, this organization might not be sharing [...] to Health Maintenance Results * Due to [place] [employer] law, this organization might not be sharing negative HIV tests. * HM Mammography, Bilateral (12/10/2020) Anatomical Region Laterality Modality Other 12/10/2020 us Unknown Provider MD HEALTH MAINTENANCE Final Res ult * Basic Metabolic Panel (07/22/2020 10:34 AM EDT) Glucose 92 65 - 99 mg/dL 07/22/2020 5:38 PM EDT [facility] Comment: ? Fasting reference interval BUN 14 7 - 25 mg/dL 07/22/2020 5:38 PM EDT [facility] Creatinine 0.78 0.60 - 0.93 mg/dL 07/22/2020 5:38 PM EDT [facility] Comment: For patients >49 years of age, the reference limit for Creatinine is approximately 13% higher for people identified as -Surinamese. eGFR Non- 75 > OR = 60 mL/min/1 .73m2 07/22/2020 5:38 PM EDT [facility] eGFR 87 > OR = 60 mL/min/1 .73m2 07/22/2020 5:38 PM EDT [facility] Bun/Creatinine Ratio NOT APPLICABLE (calc) 07/22/2020 5:38 PM EDT [facility] Sodium 141 135 - 146 mmol/L 07/22/2020 5:38 PM EDT [facility] Potassium 4.6 3.5 - 5.3 mmol/L 07/22/2020 5:38 PM EDT [facility] Chloride 103 98 - 110 mmol/L 07/22/2020 5:38 PM EDT [facility] Carbon Dioxide 29 20 - 32 mmol/L 07/22/2020 5:38 PM EDT [facility] Calcium 10.2 8.6 - 10.4 mg/dL 07/22/2020 5:38 PM EDT [facility] Blood Structure of peripheral vein / Unknown 07/22/2020 10:34 AM EDT 07/22/2020 4:17 PM EDT Narrative [facility] - 07/22/2020 6:46 PM EDT FASTING:YES us Lake Napoles MD LAB BLOOD ORDERABLES Fin al Result [facility] [address] [facility] [address], [place] [address], [facility] [address] [place] [address] * Hepatitis C Antibody w/Reflex to PCR (01/24/2019 9:50 AM EDT) Hepatitis C Antibody NON-REACT MEI NON-REACT MEI 01/24/2019 8:44 PM EDT [facility] Signal To Cut-Off 0.02 <1.00 01/24/2019 8:44 PM EDT [facility] Comment: HCV antibody was non-reactive. There is no laboratory evidence of HCV infection. In most cases, no further action is required. However, if recent HCV exposure is suspected, a test for HCV RNA (test code 06020) is suggested. For additional information please refer to http://education.[employer]/faq/NSA21r0 (This link is being provided for informational/ educational purposes only.) Blood specimen (specimen) Structure of peripheral vein / Unknown 01/24/2019 9:50 AM EDT 01/24/2019 5:08 PM EDT Narrative [facility] - 01/24/2019 9:22 PM EDT FASTING:YES us Lake Napoles MD LAB BLOOD ORDERABLES Fin al Result [facility] [address] [facility] [address], [place] [address], [place] [phone] [facility] [address] [place] [address] * COLONOSCOPY (01/24/2019) Narrative Procedure Note Arsen [...] Most Recently Relevant to Health Maintenance Insurance [employer] [id number] [facility] Advance Directives Documents on File Type Date Recorded Patient Personal Care Home Administrator Expl anation Health Care Proxy 08/01/2018 11:58 AM /2 12/2018 Care Teams Card Mounter Relationship Specialty Start Date End Date Jordan Brandon [address] [place] [address] [place] [address] PCP - General Internal Medicine 01/27/21
--- OUTSIDE RECORDS SUMMARY | 2024-06-22 12:30 | XMS_ITS | Referral Summary ---
Author Organization [facility] Address [address] [place] [address] Care Team Providers Care Clinical Statistics Manager Name Role Phone Jordan Brandon Primary Care Provider [phone] Allergies Active Allergy Reactions Criticality Noted Date [...] averse patient. Osteopenia 01/25/2015 Overview (12/23/2016): 01/2015. BD([facility]). L/S Spine -0.5. Hip(Neck) -1.5. Hip(Total) [...] Problem Noted Date Diagnosed Date Resolved Date [id number] 07/21/2018 08/09/2018 Overview (07/21/2018): 07/2018. Dr. Kimball. [...] Not on file Procedures * Due to [place] [employer] law, this organization might not be sharing [...] to Health Maintenance Results * Due to [place] [employer] law, this organization might not be sharing negative HIV tests. * Mammography, Bilateral (12/10/2020) Anatomical Region Laterality Modality Other 12/10/2020 Unknown Provider MD HEALTH MAINTENANCE Final Res ult * Basic Metabolic Panel (07/22/2020 10:34 AM EDT) Glucose 92 65 - 99 mg/dL 07/22/2020 5:[address] [facility] Comment: ? Fasting reference interval BUN 14 7 - 25 mg/dL 07/22/2020 5:[address] [facility] Creatinine 0.78 0.60 - 0.93 mg/dL 07/22/2020 5:[address] [facility] Comment: For patients >49 years of age, the reference limit for Creatinine is approximately 13% higher for people identified as -Fijian. eGFR Non- 75 > OR = 60 mL/min/1 .73m2 07/22/2020 5:[address] [facility] eGFR 87 > OR = 60 mL/min/1 .73m2 07/22/2020 5:38 PM EDT [facility] Bun/Creatinine Ratio NOT APPLICABLE 6 - 22 (calc) 07/22/2020 5:[address] [facility] Sodium 141 135 - 146 mmol/L 07/22/2020 5:[address] [facility] Potassium 4.6 3.5 - 5.3 mmol/L 07/22/2020 5:[address] [facility] Chloride 103 98 - 110 mmol/L 07/22/2020 5:[address] [facility] Carbon Dioxide 29 20 - 32 mmol/L 07/22/2020 5:[address] [facility] Calcium 10.2 8.6 - 10.4 mg/dL 07/22/2020 5:[address] [facility] Blood Structure of peripheral vein / Unknown 07/22/2020 10:34 AM EDT 07/22/2020 4:17 PM EDT Narrative [facility] - 07/22/2020 6:46 PM EDT FASTING:YES us Lake Napoles MD LAB BLOOD ORDERABLES Fin al Result Performing Organization Address City/[facility]/ZIP Co de Phone Number [facility] [address], [place] [address], [place] [phone] [employer] [address] [address] * Hepatitis C Antibody w/Reflex to PCR (01/24/2019 9:50 AM EDT) Hepatitis C Antibody NON-REACT MEI NON-REACT MEI 01/24/2019 8:44 PM EDT [employer] [facility] Signal To Cut-Off 0.02 <1.00 01/24/2019 8:44 PM EDT [facility] Comment: HCV antibody was non-reactive. There is no laboratory evidence of HCV infection. In most cases, no further action is required. However, if recent HCV exposure is suspected, a test for HCV RNA (test code 33742) is suggested. For additional information please refer to http://education.[employer]/faq/VMB35e3 (This link is being provided for informational/ educational purposes only.) Blood specimen (specimen) Structure of peripheral vein / Unknown 01/24/2019 9:50 AM EDT 01/24/2019 5:08 PM EDT Narrative [facility] - 01/24/2019 9:22 PM EDT FASTING:YES Lake Napoles MD LAB BLOOD ORDERABLES Fin al Result Performing Organization Address City/[facility]/ZIP Co de Phone Number [facility] [address], [place] [address], [place] [phone] [employer] [address] [address] * COLONOSCOPY (01/24/2019) Narrative Procedure Note Arsen [...] Most Recently Relevant to Health Maintenance Insurance [facility] Advance Directives Documents on File Type Date Recorded Patient Piano Regulator Expl anation Health Care Proxy 08/01/2018 11:58 AM 07/05 Care Teams Clinical Statistics Manager Relationship Specialty Start Date End Date Jordan Brandon [address] [place] [address] [place] [address] PCP - General Internal Medicine 01/27/21
--- OUTSIDE RECORDS SUMMARY | 2024-06-22 12:30 | XMS_ITS ---
Author Organization [facility] Address [address] [place] [address] Care Team Providers Care Safety Deposit Supervisor Name Role Phone Sukhdev Layne Primary Care Provider Unavailab Karsten Kumar [phone] Encounters Encounter Location Date Provider Diagnosis [facility] [address] [place] [phone] 06/10/2023 Karsten Saunders Plan Of Treatment No Information Progress Notes * PAULINE VILLALBA DDOB: [birth year] (78 yo F)Acc No.[id number]:06/10/2023 Patient:?PAULINE VILLALBA :1945???Age:78 Y???Sex:Female Address:[address] [place] [address], [address] * true * Date:? Generated for Jose valentine/Leandro/eTransmitting on:?06/22/2024 12:30 PM EDT
--- OUTSIDE RECORDS SUMMARY | 2024-06-22 12:30 | XMS_ITS ---
Author Organization [facility] Address [address] [place] [address] Care Team Providers Care Grants And Contracts Assistant Name Role Phone Sukhdev Layne Primary Care Provider Unavailab Karsten Kumar Unavailable [phone] REASON FOR VISIT screening, hx polyps Problems Problem Type SNOMED Code ICD Code Onset Dates Problem Status W/U Status Risk Notes Problem Diverticular disease of colon (164850750) Diverticulosis of large intestine without perforation or abscess without bleeding (K57.30) Active confirmed Encounters Encounter Location Date Provider Diagnosis [facility] Outpatient [address] [place] [phone] 04/16/2023 Karsten Saunders Encounter for scre ening colonoscopy Z12.11 ; Colon polyps K63.5 ; Angiodysplasia K55.20 ; Diverticulosis of large intestine without perforation or abscess without bleeding K57.30 and Internal hemorrhoids K64.8 Assessments Encounter Date Diagnosis (ICD Code) Assessment Notes Treatment Notes Treatment Clinical Notes Section Notes 04/16/2023 Encounter for screening colonoscopy (ICD-10 - Z12.11) 04/16/2023 Colon polyps (ICD-10 - K63.5) 04/16/2023 Angiodysplasia (ICD-10 - K55.20) 04/16/2023 Diverticulosis of large intestine without perforation or abscess without bleeding (ICD-10 - K57.30) 04/16/2023 Internal hemorrhoids (ICD-10 - K64.8) Plan Of Treatment No Information Progress Notes * PAULINE VILLALBA DDOB: [birth year] (79 yo F)Acc No.[id number]:04/16/2023 COLON WITH MAC Patient:?PAULINE VILLALBA Provider:?Karsten Saunders MD :1945???Age:78 Y???Sex:Female D ate:04/16/2023 Address:[address] [place], [place] [address] Pcp:Sukhdev Layne Subjective: * Chief Complaints: * ???1. Screening, hx polyps. * Medical History:? Objective: * Vitals:? Assessment: * Assessment: 1.?Encounter for screening c olonoscopy - Z12.11 (Primary)???2.?Colon polyps - K63.5???3.?Angiodysplasia - K55.20???4.?Diverticulosis of large intestine without perforation or abscess without bleeding - K57.30???5.?Internal hemorrhoids - K64.8??? Plan: * Treatment: * Procedure Codes:?29802 COLON OSCOPY AND BIOPSY, Modifiers: 33 * * The named appointment provid er may or may not be the originator of this progress note, and it is not deemed complete until electronically signed by the appointment provider. Sign off status: Pending * Provider:?Karsten Saunders MD Date:? 024 Generated for Jose valentine/Leandro/Merissasmitting on:?06/22/2024 12:30 PM EDT
--- OUTSIDE RECORDS SUMMARY | 2024-06-22 12:30 | XMS_ITS ---
Author Organization [facility] Address [address] [place] [address] Care Team Providers Care Control Inspector Name Role Phone Sukhdev Layne Primary Care Provider Unavailab Karsten Kumar [phone] REASON FOR VISIT Needs to see Dr. Michael. Encounters Encounter Location Date Provider Diagnosis [facility] [address] [place] [address] 04/25/2023 Karsten Saunders Plan Of Treatment No Information Progress Notes * PAULINE VILLALBA DDOB: [birth year] (78 yo F)Acc No.[id number]:04/25/2023 Patient:?PAULINE VILLALBA :1945???Age:78 Y???Sex:Female Address:[address] [place] [address], [address] * true * Date:? Generated for Jo-Anni serge/Leandro/eTransmitting on:?06/22/2024 12:30 PM EDT
--- OUTSIDE RECORDS SUMMARY | 2024-06-22 12:30 | XMS_ITS | Patient Health Record ---
Author Organization [facility] Address [address] [place], [place] [id number] Care Team Providers Care Typist Name Role Phone Yesika WING, Lake Primary Care Provider Charlee Jose Meng Unavailable [phone] Castillo Dailey Unavailable Unavailable Reason For Referral No Information Plan Of Treatment No Information Insurance Providers Payer Name Payer Address Payer Phone Subscriber Number Group Number Insured Name Patient Relationship to Insured Coverage Start Date Coverage End Date [employer] [place] [facility] [address] [address] [place] [address] [id number] Tatiana Rawls Self - patient is the insured
--- OUTSIDE RECORDS SUMMARY | 2024-06-22 12:30 | XMS_ITS | Patient Health Record ---
Author Organization [facility] Address [address] [place] [address] Care Team Providers Care Oil Well Logging Engineer Name Role Phone Sukhdev Layne Primary Care Provider Karsten Mena Unavailable [phone] Allergies Allergen (clinical drug ingredient) Drug/Non Drug Allergy documented on EMR Reaction Allergy Type Onset Date Status Substance with sulfonamide structure and antibacterial mechanism of action (substance) Sulfa Antibiotics Unknown Drug Allergy Active Shellfish (FN) Shellfish-derived Products Unknown Drug Allergy Active amoxicillin / clavulanate Augmentin Unknown Drug Allergy Active Reason For Referral No Information Medications Medication SIG (Take, Route, Frequency, Duration) Notes [...] Once a day for 30 day(s) Active Immunizations Vaccine Route Administration Date Status Comme nts Influenza Unknown 01/20/2023 Refused Social History Tobacco Use: Social History Observation Description Date Details (start date - stop date) Current Smoker NA - NA Tobacco Use/Smoking Question Answer Notes Patient is [...] Never (0 point) Points 5 Interpretation Positive Section Notes: Smokes 1 ppd; 2-3 glasses of wine daily Problems Problem Type SNOMED Code ICD Code Onset Dates Problem Status W/U Status Risk Notes Problem 650765120 Colon cancer screening (Z12.11) Active confirmed Problem 067686435 History of adenomatous polyp of colon (Z86.010) Active confirmed Problem Diverticular disease of colon (519006643) Diverticulosis of large intestine without perforation or abscess without bleeding (K57.30) Active confirmed Problem 66669778 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) Active confirmed Plan Of Treatment Pending Test Test Name Order Date CELIAC PANEL #10 01/20/2023 Future Test Test Name Order Date COLONOSCOPY 01/20/2023 Insurance Providers Payer Name Payer Address Payer Phone Subscriber Number Group Number Insured Name Patient Relationship to Insured Coverage Start Date Coverage End Date [facility] [address] [place] [phone] [id number] PAULINE VILLALBA Self - patient is the insured Medical (General) History Medical History History ICD Code HTN Urinary incontinence GERD Denies [place],DM,CVA,Lung disease,renal dise ase IBS Aramis's with subsequent hypothyroidi sm Hyperlipidemia Right bundle branch block; r eports a negative Nuclear stress test [place] [address] Vogel Colonoscopies in 2012 and in 2018 at [facility] with removal of small tubular adenomas. The most recent exam in 01/2019 described only a fair bowel prep and Dr. Massey recommended a 3 year followup Surgical History Surgery Date(Month/Year) Hysterectomy and 1 ovary removed Tubal ligation Bladder suspension CCY
== END 2024-06-22 11:31 | disposition home or self-care (01) ==
PROVIDERS: PCP Family Medicine; Visit Provider Internal Medicine Cardiovascular Disease
DX: I25.10 Atherosclerotic heart disease of native coronary artery without angina pectoris (principal); I45.2 Bifascicular block
CPT/HCPCS: 93010; 99214; G2211

== ENCOUNTER → 2024-06-22 10:40 | Outpatient (BNVA) | payer MEDICARE, SELFPAY | PROVIDERS: PCP Family Medicine; Visit Provider Internal Medicine Cardiovascular Disease | DX: I25.10 Atherosclerotic heart disease of native coronary artery without angina pectoris (principal); I45.2 Bifascicular block; F17.210 Nicotine dependence, cigarettes, uncomplicated | CPT/HCPCS: 93005; 99212 ==

== ENCOUNTER 2024-06-27 10:31 | Outpatient (AMB) | payer MEDICARE, SELFPAY ==
--- NOTE | 2024-06-27 10:45 | A.OFFPC_ITS ---
Vital Signs 06/27/24 10:48 Height 5 ft 7 in Weight 150 lb 6 oz BMI 23.5 BP 130/60 Blood Pressure Location Lt brachial Position Sitting Respiration 14 Pulse 80 Pulse Source Pulse Oximeter Temp 98.3 F Temp Source Oral Pulse Oximetry (%) 94 Oxygen Delivery Method Room Air Intake Visit Reasons: Blood work Intake Note: patient is scheduled for lab review Yoga Instructor Required: No Allergies Sulfa (Sulfonamide Antibiotics) Allergy (Severe, Verified 06/27/24 10:47) Rash amoxicillin [From Augmentin] Allergy (Intermediate, Verified 06/27/24 10:47) Nausea and Vomiting clavulanic acid [From Augmentin] Allergy (Intermediate, Verified 06/27/24 10:47) Nausea and Vomiting shellfish derived Allergy (Intermediate, Verified 06/27/24 10:47) Nausea and Vomiting turmeric Allergy (Intermediate, Verified 06/27/24 10:47) Vomiting narcotic pain medications Adverse Reaction (Intermediate, Uncoded 04/07/24 14:30) Nausea and Vomiting Tobacco use date assessed: 04/09/23 Dental Screening Dental Screen Date: 07/14/23 HPI Blood work HPI Details 79 y/o female presents to f/u labs. Labs drawn 05/31/24. Reviewed labs with pt. Elevated liver enzymes - AST 41, ALT 43. Triglycerides 89. TC 144. LDL 58. HDL 69. TSH suppressed at 0.05. She is on levothyroxine 125mcg daily. Blood pressure today 130/60, 80p. She is on lisinopril 30mg daily, amlodipine 5mg daily. [facility] Medical History Obstructive sleep apnea Cervical dystonia Cervicalgia Gait instability Family history of gene mutation Colon cancer Family history of anesthesia complication COPD (chronic obstructive pulmonary disease) Cecal lesion RBBB (right bundle branch block) Bifascicular block Polycythemia CAD (coronary artery disease) GERD (gastroesophageal reflux disease) Sleep apnea Hypothyroidism Hyperlipidemia Hypertension Personal history of nicotine dependence Surgical History Hx of dilation and curettage H/O colonoscopy History of tonsillectomy History of lumpectomy of right breast History of tubal ligation History of cholecystectomy History of bladder surgery History of hysterectomy Family History Sister Cancer of kidney Psoriasis Arthritis Lupus Blood clot in vein Acute Crohn's disease Substance abuse Father Atherosclerosis Substance abuse Aortic aneurysm Mother Substance abuse Maternal Aunt Substance abuse Paternal Grandfather No problems noted. Social History Household Members: Significant Other Housing: House Are you a primary manager medicare marketing to a significant other at home: No Do you presently have visiting nurse or other home services: No Comment: counts correct Patient Tobacco Use Status: Current someday Tobacco user Tobacco use type: Cigarette Cigarette Packs Per Day: 1 Years Smoked: 61 e-Cigarette/Vaping Use: Never Used Second Hand Smoke Exposure: No service: No Current occupational status: retired Cognitive needs: No Hearing needs: No Vision needs: Yes (Patient wears reading glasses.) Questionnaire PHQ-9 Over the last 2 weeks, how often have you been bothered by any of the following problems? 1. Little interest or pleasure in doing things: not at all 2. Feeling down, depressed, or hopeless: not at all 3. Trouble falling or staying asleep, or sleeping too much: not at all 4. Feeling tired or having little energy: not at all 5. Poor appetite or overeating: not at all 6. Feeling bad about yourself - or that you are a failure or have let yourself or your family down: not at all 7. Trouble concentrating on things, such as reading the newspaper or watching television: not at all 8. Moving or speaking so slowly that other people could have noticed. Or the opposite - being so fidgety or restless that you have been moving around a lot more than usual: not at all 9. Thoughts that you would be better off or of hurting yourself in some way: not at all Total score: 0 Source: Developed by Drs. Karsten Mccloud, Michell Napoles, Jose Guerin and colleagues, with an educational janneth from [employer]. Thrive Questionnaire Date Thrive assessed: 05/29/24 I am a: Patient What is your living situation today?: I have a steady place to live Within the past 12 months, did the food you bought not last and you didn't have the money to get more?: Never true Within the past 12 months, did you worry whether your food would run out before you got money to buy more?: Never true Do you have trouble paying for medicines?: No Do you have trouble getting transportation to medical appointments?: No Do you have trouble paying your heating and electricity bill?: No Do you have trouble taking care of your child, family member or friend?: No Do you have trouble with day-to-day activities such as bathing, preparing meals, shopping, managing finances, etc.?: No Are you currently unemployed and looking for a job?: No Are you interested in more education?: No Please select the resources that you would like help with: None Currently or been in a relationship where the following occur: No concerns reported THRIVE Score: 0 KEILA-7 AMB Questionnaire KEILA-7 Date KEILA - 7 assessed: 07/14/23 Source: Developed by Drs. Karsten Mccloud, Michell Napoles, Jose Guerin and colleagues, with an educational janneth from [employer]. Review of Systems Const Denies chills, Denies fatigue, Denies fever(s), Denies headache(s) and Denies weakness ENT Denies dizziness and Denies headache(s) Card Denies dyspnea Resp Denies cough, Denies dyspnea, Denies wheezing and Denies other (shortness of breath) Musc Denies numbness and Denies tingling Neuro Denies dizziness, Denies headache(s), Denies numbness, Denies tingling and Denies weakness Psych Denies anxiety and Denies depression Endo Denies fatigue Aller/Immun Denies wheezing Physical exam (Primary Care) Vital Signs: Last Vital Signs Temp 98.3 F 06/27/24 10:48 Pulse 80 06/27/24 10:48 Resp 14 06/27/24 10:48 BP 130/60 06/27/24 10:48 Pulse Ox 94 06/27/24 10:48 Oxygen Delivery Method Room Air 06/27/24 10:48 BMI result Body Mass Index 23.5 Tobacco/Smoking Status: Tobacco use Status Tobacco use date assessed 04/09/23 06/27/24 10:52 Patient Tobacco Use Status Current someday Tobacco 06/27/24 10:52 Tobacco use type Cigarette 06/27/24 10:52 e-Cigarette/Vaping Use Never Used 06/27/24 10:52 PHQ-9: PHQ-9 Score PHQ-9: Total score 0 06/27/24 10:53 Thrive Assessment: Date of Thrive Assessment Date Thrive assessed 05/29/24 06/27/24 10:52 Currently or been in a relationship where the following occur: No concerns reported Const General: well developed; No acute distress Nutritional Appearance: well nourished Orientation/consciousness: patient oriented x3 HENMT Head: Yes normocephalic and Yes atraumatic Eyes General: appearance normal, both eyes and all related structures Pupils: Equal, round and reactive pupils present EOM: EOMs intact bilaterally Resp Effort & Inspection: normal respiratory effort Neuro General: patient oriented x3 and gait normal Cranial nerves: Yes Equal, round and reactive pupils present Psych Affect: normal affect Coding Level of Care Code Est Pt Level 4 (68662) Diagnoses Elevated liver enzymes R74.8 Abnormal urine R82.90 Hypothyroidism E03.9 Hyperlipidemia, unspecified hyperlipidemia type E78.5 Hyperlipidemia type: unspecified CAD (coronary artery disease) I25.10 Primary hypertension I10 Hypertension type: primary hypertension Obstructive sleep apnea G47.33 Assessment & Plan Assessment & Plan (1) Elevated liver enzymes: Code(s): R74.8 - Abnormal levels of other serum enzymes Category: Medical Plan: Mildly?elevated?but?persistent?liver?enzymes Will?check?an?ultrasound Encouraged?good?hydration.??Patient?does?drink?alcohol?regularly. Will?repeat?liver?enzymes?prior?to?next?visit?as?well. (2) Abnormal urine: Code(s): R82.90 - Unspecified abnormal findings in urine Category: Medical Plan: Patient?says?she?had?noticed?an?abnormal?color ?to?her?urine.??This?has?resolved.??Her?urine?studies?were?normal (3) Hypothyroidism: Comment: (hashimotos) Code(s): E03.9 - Hypothyroidism, unspecified Category: Medical Plan: TSH?is?still?suppressed Will?have?her?decrease?her?levothyroxine?further. Had?decreased?levothyroxine?from?150?mcg?6?days?a?week?to?125?mcg daily. Will?have?take?125?mcg?6?days?a?week?and?62.5?mcg?on?Mondays. A?further?decrease?of?62.5?mcg?weekly. She?will?get?her?thyroid?hormone?levels?checked?at?her?next?visit. If?there?is?still?no?change?in?her?TSH?levels,?will?consider?evaluating?for autonomous?nodules?or?other?causes. (4) Hyperlipidemia: Code(s): E78.5 - Hyperlipidemia, unspecified Category: Medical Qualifiers: Hyperlipidemia type: unspecified Qualified Code(s): E78.5 - Hyperlipidemia, unspecified Plan: She?is?taking?Zetia. She?will?continue?this.??We?can?recheck?this?at a?subsequent?visit (5) CAD (coronary artery disease): Code(s): I25.10 - Atherosclerotic heart disease of [place] coronary artery without angina pectoris Category: Medical Plan: Currently?stable (6) Hypertension: Code(s): I10 - Essential (primary) hypertension Category: Medical Qualifiers: Hypertension type: primary hypertension Qualified Code(s): I10 - Essential (primary) hypertension Plan: Blood?pressure?is?controlled (7) Obstructive sleep apnea: Code(s): G47.33 - Obstructive sleep apnea (adult) (pediatric) Category: Medical Plan: Patient?has?known?sleep?apnea.??She?is?working?with?sleep?medicine/neurology?to? get?retested?and?consider?an Inspire device. She?also?notes?for?sleep?and?muscl e?cramping?and?this?may?be?an?underlying?cause. Orders: Orders Comprehensive Met. Panel Today R74.8 - Abnormal levels of other serum enzymes Vitamin B12 and Folate Today E53.8 - Deficiency of other specified B group vitamins, R74.8 - Abnormal levels of other serum enzymes Magnesium Today R26.81 - Unsteadiness on feet Ferritin Today R26.81 - Unsteadiness on feet US abdomen jacobsen w elastography Today R74.8 - Abnormal levels of other serum enzymes Free T4 (Free Thyroxine) Today E03.9 - Hypothyroidism, unspecified Thyroid Stimulating Hormone Today E03.9 - Hypothyroidism, unspecified Triiodothyronine T3 Total Today E03.9 - Hypothyroidism, unspecified IRON PROFILE Today R26.81 - Unsteadiness on feet
[2024-06-27 10:48] VITALS: BP 130/60; PULSE 80; RESP 14; TEMP 36.8; O2SAT 94; BMI 23.5
--- OUTSIDE RECORDS SUMMARY | 2024-06-27 12:40 | XMS_ITS | Patient Health Record ---
Author Organization [facility] Address [address] [place] [address] Care Team Providers Care Shank Sorter Name Role Phone Sukhdev Layne Primary Care Provider Karsten Mena Unavailable [phone] Allergies Allergen (clinical drug ingredient) Drug/Non Drug [...] Problem Status W/U Status Risk Notes Problem 066364862 Colon cancer screening (Z12.11) Active confirmed Problem 138865690 History of adenomatous polyp of colon (Z86.010) Active confirmed Problem Diverticular disease of colon (325657665) Diverticulosis of large intestine without perforation or abscess without bleeding (K57.30) Active confirmed Problem 72698671 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) Active confirmed Plan Of Treatment Pending Test Test Name Order Date CELIAC PANEL #10 01/20/2023 Future Test Test Name Order Date COLONOSCOPY 01/20/2023 Insurance Providers Payer Name Payer Address Payer Phone Subscriber Number Group Number Insured Name Patient Relationship to Insured Coverage Start Date Coverage End Date [facility] [address] [place] [phone] [id number] PAULINE VILLALBA Self - patient is the insured Medical (General) History Medical History History ICD Code HTN Urinary incontinence GERD Denies [place],DM,CVA,Lung disease,renal dise ase IBS Aramis's with subsequent hypothyroidi sm Hyperlipidemia Right bundle branch block; r eports a negative Nuclear stress test [place] [address] Vogel Colonoscopies in 2012 and in 2018 at [facility] with removal of small tubular adenomas. The most recent exam in 01/2019 described only a fair bowel prep and Dr. Massey recommended a 3 year followup Surgical History Surgery Date(Month/Year) Hysterectomy and 1 ovary removed Tubal ligation Bladder suspension CCY
--- OUTSIDE RECORDS SUMMARY | 2024-06-27 12:40 | XMS_ITS ---
Author Organization [facility] Address [address] [place] [address] Care Team Providers Care Direct Marketing Coordinator Name Role Phone Sukhdev Layne Primary Care Provider Unavailab Karsten Kumar [phone] REASON FOR VISIT Needs to see Dr. Michael. Encounters Encounter Location Date Provider Diagnosis [facility] [address] [place] [address] 04/25/2023 Karsten Saunders Plan Of Treatment No Information Progress Notes * PAULINE VILLALBA DDOB: [birth year] (78 yo F)Acc No.[id number]:04/25/2023 Patient:?PAULINE VILLALBA :1945???Age:78 Y???Sex:Female Address:[address] [place] [address], [address] * true * Date:? Generated for Jo-Anni serge/Leandro/eTransmitting on:?06/27/2024 12:39 PM EDT
--- OUTSIDE RECORDS SUMMARY | 2024-06-27 12:40 | XMS_ITS ---
Author Organization [facility] Address [address] [place] [address] Care Team Providers Care Preparing Box Tender Name Role Phone Sukhdev Layne Primary Care Provider Unavailab Karsten Kumar [phone] Encounters Encounter Location Date Provider Diagnosis [facility] [address] [place] [address] 06/10/2023 Karsten Saunders Plan Of Treatment No Information Progress Notes * PAULINE VILLALBA DDOB: [birth year] (78 yo F)Acc No.[id number]:06/10/2023 Patient:?PAULINE VILLALBA :1945???Age:78 Y???Sex:Female Address:[address] [place] [address], [address] * true * Date:? Generated for Jose valentine/Leandro/eTransmitting on:?06/27/2024 12:39 PM EDT
--- OUTSIDE RECORDS SUMMARY | 2024-06-27 12:40 | XMS_ITS ---
Author Organization [facility] Address [address] [place] [address] Care Team Providers Care Contact Lens Flashing Puncher Name Role Phone Sukhdev Layne Primary Care Provider Unavailab Karsten Kumar Unavailable [phone] REASON FOR VISIT screening, hx polyps Problems Problem Type SNOMED Code ICD Code Onset Dates Problem Status W/U Status Risk Notes Problem Diverticular disease of colon (839956270) Diverticulosis of large intestine without perforation or abscess without bleeding (K57.30) Active confirmed Encounters Encounter Location Date Provider Diagnosis [facility] Outpatient [address] [place] [phone] 04/16/2023 Karsten Saunders Encounter for scre ening [...] PAULINE VILLALBA DDOB: [birth year] (79 yo F)Acc No.[id number]:04/16/2023 COLON WITH MAC Patient:?PAULINE VILLALBA Provider:?Karsten Saunders MD :1945???Age:78 Y???Sex:Female D ate:04/16/2023 Address:[address] [place] [address] Pcp:Sukhdev Layne Subjective: * Chief Complaints: * ???1. Screening, hx polyps. * Medical History:? Objective: * Vitals:? Assessment: * Assessment: 1.?Encounter for screening c olonoscopy - Z12.11 (Primary)???2.?Colon polyps - K63.5???3.?Angiodysplasia - K55.20???4.?Diverticulosis of large intestine without perforation or abscess without bleeding - K57.30???5.?Internal hemorrhoids - K64.8??? Plan: * Treatment: * Procedure Codes:?97294 COLON OSCOPY AND BIOPSY, Modifiers: 33 * * The named appointment provid er may or may not be the originator of this progress note, and it is not deemed complete until electronically signed by the appointment provider. Sign off status: Pending * Provider:?Karsten Saunders MD Date:? 024 Generated for Jose valentine/Leandro/Merissasmitting on:?06/27/2024 12:40 PM EDT
--- OUTSIDE RECORDS SUMMARY | 2024-06-27 12:40 | XMS_ITS | Patient Health Record ---
Author Organization [facility] Address [address] [place], [place] [address] Care Team Providers Care Family Specialist Name Role Phone Yesika WING, [place] Primary Care Provider Charlee Jose Meng Unavailable [phone] Castillo Dailey Unavailable Unavailable Reason For Referral No Information Plan Of Treatment No Information Insurance Providers Payer Name Payer Address Payer Phone Subscriber Number Group Number Insured Name Patient Relationship to Insured Coverage Start Date Coverage End Date [employer] [place] [facility] [address] [address] [place] [id number] Tatiana Rawls Self - patient is the insured
--- OUTSIDE RECORDS SUMMARY | 2024-06-27 12:40 | XMS_ITS | Referral Summary ---
Author Organization [facility] Address [address] [place] [address] Care Team Providers Care Health Care Social Worker Name Role Phone Jordan Brandon Primary Care Provider [phone] Allergies Active Allergy Reactions Criticality Noted Date [...] Problem Noted Date Diagnosed Date Resolved Date Gtxllzp-ky-rjf 07/21/2018 08/09/2018 Overview (07/21/2018): 07/2018. Dr. Kimball. [...] Not on file Procedures * Due to [place] [employer] law, this organization might not be sharing [...] to Health Maintenance Results * Due to [place] [employer] law, this organization might not be sharing negative HIV tests. * Mammography, Bilateral (12/10/2020) Anatomical Region Laterality Modality Other 12/10/2020 Unknown Provider MD HEALTH MAINTENANCE Final Res ult * Basic Metabolic Panel (07/22/2020 10:34 AM EDT) Glucose 92 65 - 99 mg/dL 07/22/2020 5:38 PM EDT [facility] Comment: ? Fasting reference interval BUN 14 7 - 25 mg/dL 07/22/2020 5:38 PM EDT [facility] Creatinine 0.78 0.60 - 0.93 mg/dL 07/22/2020 5:38 PM EDT [facility] Comment: For patients >49 years of age, the reference limit for Creatinine is approximately 13% higher for people identified as -Ku[place]i. eGFR Non- 75 > OR = 60 mL/min/1 .73m2 07/22/2020 5:38 PM EDT [facility] eGFR 87 > OR = 60 mL/min/1 .73m2 07/22/2020 5:38 PM EDT [facility] Bun/Creatinine Ratio NOT APPLICABLE 6 - 22 (calc) 07/22/2020 5:38 PM EDT [facility] Sodium 141 135 - 146 mmol/L 07/22/2020 5:38 PM EDT [facility] Potassium 4.6 3.5 - 5.3 mmol/L 07/22/2020 5:38 PM EDT [facility] Chloride 103 98 - 110 mmol/L 07/22/2020 5:38 PM EDT [facility] Carbon Dioxide 29 20 - 32 mmol/L 07/22/2020 5:38 PM EDT [facility] Calcium 10.2 8.6 - 10.4 mg/dL 07/22/2020 5:38 PM EDT [facility] Blood Structure of peripheral vein / Unknown 07/22/2020 10:34 AM EDT 07/22/2020 4:17 PM EDT Narrative [facility] - 07/22/2020 6:46 PM EDT FASTING:YES us [place] Napoles MD LAB BLOOD ORDERABLES Fin al Result Performing Organization Address City/[facility]/ZIP Co de Phone Number [facility] [address], [place] [address], [place] [phone] [employer] [employer] [address] [address] * Hepatitis C Antibody w/Reflex to PCR (01/24/2019 9:50 AM EDT) Hepatitis C Antibody NON-REACT MEI NON-REACT MEI 01/24/2019 8:44 PM EDT [employer] [facility] Signal To Cut-Off 0.02 <1.00 01/24/2019 8:44 PM EDT [facility] Comment: HCV antibody was non-reactive. There is no laboratory evidence of HCV infection. In most cases, no further action is required. However, if recent HCV exposure is suspected, a test for HCV RNA (test code 16786) is suggested. For additional information please refer to http://education.[employer].com/faq/BRP99l4 (This link is being provided for informational/ educational purposes only.) Blood specimen (specimen) Structure of peripheral vein / Unknown 01/24/2019 9:50 AM EDT 01/24/2019 5:08 PM EDT Narrative [facility] - 01/24/2019 9:22 PM EDT FASTING:YES Lake Napoles MD LAB BLOOD ORDERABLES Fin al Result Performing Organization Address City/[facility]/ZIP Co de Phone Number [facility] [address], [place] [address], [place] [phone] [employer] [address] [address] * COLONOSCOPY (01/24/2019) Narrative Procedure Note Arsen [...] Estimated Blood Loss: Estimated blood loss: none. Aresn Massey MD PROVATION PROCEDURES Final Re sult from Last 3 Months or Most Recently Relevant to Health Maintenance Insurance [facility] Advance Directives Documents on File Type Date Recorded Patient Supervisory Training Specialist Expl anation Health Care Proxy 08/01/2018 11:58 AM 07/05 Care Teams Health Care Social Worker Relationship Specialty Start Date End Date Jordan Brandon [address] [place] [address] [place] [address] PCP - General Internal Medicine 01/27/21
--- OUTSIDE RECORDS SUMMARY | 2024-06-27 12:40 | XMS_ITS | Clinical Summary ---
Author Organization [facility] Address [address] [place] [address] Care Team Providers Care Filler Picker Name Role Phone Jordan Brandon Primary Care Provider Allergies Active Allergy Reactions Criticality Noted Date [...] averse patient. Osteopenia 01/25/2015 Overview (12/23/2016): 01/2015. BD([facility]). L/S Spine -0.5. Hip(Neck) -1.5. Hip(Total) -1.9. [...] Problem Noted Date Diagnosed Date Resolved Date Cnjebyf-gb-myb 07/21/2018 08/09/2018 Overview (07/21/2018): 07/2018. Dr. Kimball. [...] complete this topic Procedures * Due to [place] [employer] law, this organization might not be sharing [...] to Health Maintenance Results * Due to [place] [employer] law, this organization might not be sharing negative HIV tests. * HM Mammography, Bilateral (12/10/2020) Anatomical Region Laterality Modality Other 12/10/2020 us Unknown Provider MD HEALTH MAINTENANCE Final Res ult * Basic Metabolic Panel (07/22/2020 10:34 AM EDT) Glucose 92 65 - 99 mg/dL 07/22/2020 5:38 PM EDT [facility] Comment: ? Fasting reference interval BUN 14 7 - 25 mg/dL 07/22/2020 5:38 PM EDT [facility] Creatinine 0.78 0.60 - 0.93 mg/dL 07/22/2020 5:38 PM EDT [employer] [facility] Comment: For patients >49 years of age, the reference limit for Creatinine is approximately 13% higher for people identified as -Tuvaluan. eGFR Non- 75 > OR = 60 mL/min/1 .73m2 07/22/2020 5:38 PM EDT [employer] [facility] eGFR 87 > OR = 60 mL/min/1 .73m2 07/22/2020 5:38 PM EDT [employer] [facility] Bun/Creatinine Ratio NOT APPLICABLE (calc) 07/22/2020 5:38 PM EDT [employer] [facility] Sodium 141 135 - 146 mmol/L 07/22/2020 5:38 PM EDT [employer] [facility] Potassium 4.6 3.5 - 5.3 mmol/L 07/22/2020 5:38 PM EDT [employer] [facility] Chloride 103 98 - 110 mmol/L 07/22/2020 5:38 PM EDT [employer] [facility] Carbon Dioxide 29 20 - 32 mmol/L 07/22/2020 5:38 PM EDT [employer] [facility] Calcium 10.2 8.6 - 10.4 mg/dL 07/22/2020 5:38 PM EDT [employer] [facility] Blood Structure of peripheral vein / Unknown 07/22/2020 10:34 AM EDT 07/22/2020 4:17 PM EDT Narrative [facility] - 07/22/2020 6:46 PM EDT FASTING:YES us Lake Napoles MD LAB BLOOD ORDERABLES Fin al Result [facility] 200 [facility] [address]rd Floor, [place] [address], [employer] [facility] [address] [place] [address] * Hepatitis C Antibody w/Reflex to PCR (01/24/2019 9:50 AM EDT) Hepatitis C Antibody NON-REACT MEI NON-REACT MEI 01/24/2019 8:44 PM EDT [employer] [facility] Signal To Cut-Off 0.02 <1.00 01/24/2019 8:44 PM EDT [employer] [facility] Comment: HCV antibody was non-reactive. There is no laboratory evidence of HCV infection. In most cases, no further action is required. However, if recent HCV exposure is suspected, a test for HCV RNA (test code 37873) is suggested. For additional information please refer to http://education.[employer]/faq/CQC92a8 (This link is being provided for informational/ educational purposes only.) Blood specimen (specimen) Structure of peripheral vein / Unknown 01/24/2019 9:50 AM EDT 01/24/2019 5:08 PM EDT Narrative [facility] - 01/24/2019 9:22 PM EDT FASTING:YES us Lake Napoles MD LAB BLOOD ORDERABLES Fin al Result [facility] 200 [facility] [address], [place] [address], [place] [phone] [employer] [facility] [address] [place] [address] * COLONOSCOPY (01/24/2019) Narrative Procedure Note Arsen [...] Relevant to Health Maintenance Insurance [employer]ISH [employer] [id number] [facility] Advance Directives Documents on File Type Date Recorded Patient Rail Car Repairman Expl anation Health Care Proxy 08/01/2018 11:58 AM /2 12/2018 Care Teams Filler Picker Relationship Specialty Start Date End Date Jordan Brandon [address] [place] [address] [place] [address] PCP - General Internal Medicine 01/27/21
== END 2024-06-27 11:12 | disposition home or self-care (01) ==
LOC: HO.HMCFM 10:32
PROVIDERS: PCP Family Medicine; Visit Provider Family Medicine
DX: R74.8 Abnormal levels of other serum enzymes (principal); R82.90 Unspecified abnormal findings in urine; E03.9 Hypothyroidism, unspecified; E78.5 Hyperlipidemia, unspecified; I25.10 Atherosclerotic heart disease of native coronary artery without angina pectoris; I10 Essential (primary) hypertension; G47.33 Obstructive sleep apnea (adult) (pediatric)

== ENCOUNTER → 2024-06-27 10:31 | Outpatient (BNVA) | payer MEDICARE, SELFPAY | PROVIDERS: PCP Family Medicine; Visit Provider Family Medicine | DX: R74.8 Abnormal levels of other serum enzymes (principal); R82.90 Unspecified abnormal findings in urine; E03.9 Hypothyroidism, unspecified; I25.10 Atherosclerotic heart disease of native coronary artery without angina pectoris; I10 Essential (primary) hypertension; G47.33 Obstructive sleep apnea (adult) (pediatric); E78.5 Hyperlipidemia, unspecified | CPT/HCPCS: 99212 ==

== ENCOUNTER 2024-07-04 12:50 | Outpatient (AMB) | payer MEDICARE, SELFPAY ==
[2024-07-04 13:08] VITALS: BMI 23.5
--- NOTE | 2024-07-04 13:08 | A.OFFVIS_ITS ---
Vital Signs 07/04/24 13:08 Height 5 ft 7 in Weight 150 lb BMI 23.5 Intake Visit Reasons: 1y follow up s/p AAA/Carotid US 06/19/24 Intake Note: 1 yr follow up AAA & carotid US 06/19/24. Pt states no complaints other than some general leg pain Residential Treatment Staff Required: No Accompanied by: Self / Same As Patient Allergies Sulfa (Sulfonamide Antibiotics) Allergy (Severe, Verified 07/04/24 13:13) Rash amoxicillin [From Augmentin] Allergy (Intermediate, Verified 07/04/24 13:13) Nausea and Vomiting clavulanic acid [From Augmentin] Allergy (Intermediate, Verified 07/04/24 13:13) Nausea and Vomiting shellfish derived Allergy (Intermediate, Verified 07/04/24 13:13) Nausea and Vomiting turmeric Allergy (Intermediate, Verified 07/04/24 13:13) Vomiting narcotic pain medications Adverse Reaction (Intermediate, Uncoded 07/04/24 13:13) Nausea and Vomiting HPI HPI 1y follow up s/p AAA/Carotid US 06/19/24: Details: The patient is a 79-year-old female presenting with a follow-up for monitoring of carotids and abdominal aortic aneurysm (AAA). Her carotid arteries have consistently shown no signs of obstruction, with current evaluations supporting prior findings. The AAA has shown a minor increase in size, presently measured at 3.2 cm, which is still below the threshold for surgical concern. This issue is of particular interest due to her familial history with vascular conditions, necessitating ongoing surveillance. She now presents for vascular follow-up [facility] Medical History Obstructive sleep apnea Cervical dystonia Cervicalgia Gait instability Family history of gene mutation Colon cancer Family history of anesthesia complication COPD (chronic obstructive pulmonary disease) Cecal lesion RBBB (right bundle branch block) Bifascicular block Polycythemia CAD (coronary artery disease) GERD (gastroesophageal reflux disease) Sleep apnea Hypothyroidism Hyperlipidemia Hypertension Personal history of nicotine dependence Surgical History Hx of dilation and curettage H/O colonoscopy History of tonsillectomy History of lumpectomy of right breast History of tubal ligation History of cholecystectomy History of bladder surgery History of hysterectomy Family History Sister Cancer of kidney Psoriasis Arthritis Lupus Blood clot in vein Acute Crohn's disease Substance abuse Father Atherosclerosis Substance abuse Aortic aneurysm Mother Substance abuse Maternal Aunt Substance abuse Paternal Grandfather No problems noted. Social History Household Members: Significant Other Housing: House Are you a primary aged or disabled care worker to a significant other at home: No Do you presently have visiting nurse or other home services: No Comment: counts correct Patient Tobacco Use Status: Current someday Tobacco user Tobacco use type: Cigarette Cigarette Packs Per Day: 1 Years Smoked: 61 e-Cigarette/Vaping Use: Never Used Second Hand Smoke Exposure: No service: No Current occupational status: retired Cognitive needs: No Hearing needs: No Vision needs: Yes (Patient wears reading glasses.) Review of Systems Const All systems reviewed & are unremarkable except as noted in HPI and below Reports no additional complaints ENT Reports Normal hearing present Card Denies chest pain, Denies chest pain at rest, Denies chest pain with activity and Denies pedal edema Resp Denies cough GI Denies abdominal pain Musc Denies abnormal gait, Denies muscle cramps and Denies radiating pain into limb Skin/Breast Denies skin ulcer and Denies wounds Neuro Reports Normal hearing present and Denies abnormal gait Psych Reports no additional complaints Physical Exam Vital Signs: BMI result Body Mass Index 23.5 Const General: cooperative, healthy appearing and comfortable Orientation/consciousness: oriented to person, oriented to place and oriented to time HEENT Head: Yes normal to inspection Neck Neck: Yes normal visual inspection Carotids: no bruits Chest Chest palpation & inspection: normal inspection of the chest Resp Effort & Inspection: normal respiratory effort and able to speak in complete sentences Auscultation: clear to auscultation bilaterally, no crackles, no rales, no rhonchi and no wheezes Cardio Rate: regular rate Rhythm: regular rhythm Heart sounds: S1 normal heart sound present and S2 normal heart sound present Bruits: no carotid bruits Peripheral pulses: Peripheral pulses 2+ throughout GI Inspection: Yes normal to inspection Skin Wounds: no wounds Hair: normal Neuro General: oriented to person, oriented to place and oriented to time Cranial nerves: Yes CN's II-XII intact bilaterally and Yes Normal hearing present Cognition (Neuro): normal cognition Motor exam (neuro): 5/5 motor strength present throughout Extrem Other: venous exam: No significant superficial varicosities or spider telangiectasias, minimal edema General: No clubbing, No cyanosis and No edema Psych Appearance: grossly normal Mental Status: mental status grossly normal Speech and movement: Normal speech and movement present Results Reviewed Results Reviewed: Carotid testing dated 06/19/2024 demonstrates bilateral 0-49% stenosis. Aortic ultrasound dated 06/19/2024 demonstrates aortic aneurysm measuring 3.2 cm. Written report and images were reviewed. Assessment & Plan Assessment & Plan (1) Abdominal aortic aneurysm: Code(s): I71.40 - Abdominal aortic aneurysm, without rupture, unspecified Category: Medical Qualifiers: Abdominal aorta location: infrarenal aorta Presence of rupture: without rupture Qualified Code(s): I71.43 - Infrarenal abdominal aortic aneurysm, without rupture Plan: In short patient has radiologic evidence of a AAA on ultrasound of 3.2 cm. We have discussed the pathophysiology of aortic aneurysms and the risk of ruptures. We have discussed rupture risk based on size. In addition we have discussed conservative measures and risk factor modification for prevention of increase in size of the aneurysm. the patient is scheduled for surveillance follow-up in approximately 1 year. Thank you for allowing us to participate in the care of this patient (2) Carotid bruit: Code(s): R09.89 - Other specified symptoms and signs involving the circulatory and respiratory systems Category: Medical Qualifiers: Laterality: bilateral Qualified Code(s): R09.89 - Other specified symptoms and signs involving the circulatory and respiratory systems Plan: Carotids have minimal disease. Would not recommend any further surveillance. We did discuss routine risk factor modification. (3) Varicose veins of right lower extremity with inflammation: Code(s): I83.11 - Varicose veins of right lower extremity with inflammation Category: Medical Plan: She does have some varicosities which have been a source of discomfort for her. At the current time she reports that she is doing fairly well with compression. Should they increase her become a problem in the future happy to see her back. She will be seeing us in [address] for aortic surveillance and we will re-evaluate her legs at that point. Thank you for allowing us to assist in her care. Plan Patient was informed and verbally consented to the use of an ambient scribe for clinic note documentation during this visit. Orders: Orders US abdominal aortic aneurysm 1 Year I71.43 - Infrarenal abdominal aortic aneurysm, without rupture Patient Instructions: - Continue regular follow-up appointments annually for the abdominal aortic aneurysm. - Monitor any new symptoms related to vascular or muscular concerns and report promptly. - Maintain lifestyle modifications to assist with weight and joint pressure. - Keep skin care of legs and watch for any changes around varicose veins. Coding Level of Care Code Est Pt Level 4 (59676) Complex EM visit Add On G2211 Diagnoses Infrarenal abdominal aortic aneurysm (AAA) without rupture I71.43 Abdominal aorta location: infrarenal aorta Presence of rupture: without rupture Bilateral carotid bruits R09.89 Laterality: bilateral Varicose veins of right lower extremity with inflammation I83.11
--- OUTSIDE RECORDS SUMMARY | 2024-07-04 14:59 | XMS_ITS ---
Author Organization [facility] Address [address] [place] [address] Care Team Providers Care Curing Oven Tender Name Role Phone Sukhdev Layne Primary Care Provider Unavailab Karsten Kumar Unavailable [phone] REASON FOR VISIT screening, hx polyps Problems Problem Type SNOMED Code ICD Code Onset Dates Problem Status W/U Status Risk Notes Problem Diverticular disease of colon (324063659) Diverticulosis of large intestine without perforation or abscess without bleeding (K57.30) Active confirmed Encounters Encounter Location Date Provider Diagnosis [facility] Outpatient [address] [place] [phone] 04/16/2023 Karsten Saunders Encounter for scre ening [...] PAULINE VILLALBA DDOB: [birth year] (79 yo F)Acc No.[id number]:04/16/2023 COLON WITH MAC Patient:?PAULINE VILLALBA Provider:?Karsten Saunders MD :1945???Age:78 Y???Sex:Female D ate:04/16/2023 Address:[address] [place], [place] [id number] Pcp:Sukhdev Layne Subjective: * Chief Complaints: * ???1. Screening, hx polyps. * Medical History:? Objective: * Vitals:? Assessment: * Assessment: 1.?Encounter for screening c olonoscopy - Z12.11 (Primary)???2.?Colon polyps - K63.5???3.?Angiodysplasia - K55.20???4.?Diverticulosis of large intestine without perforation or abscess without bleeding - K57.30???5.?Internal hemorrhoids - K64.8??? Plan: * Treatment: * Procedure Codes:?14635 COLON OSCOPY AND BIOPSY, Modifiers: 33 * * The named appointment provid er may or may not be the originator of this progress note, and it is not deemed complete until electronically signed by the appointment provider. Sign off status: Pending * Provider:?Karsten Saunders MD Date:? 024 Generated for Jose valentine/Leandro/eTrabiasmitting on:?07/04/2024 02:59 PM EDT
--- OUTSIDE RECORDS SUMMARY | 2024-07-04 14:59 | XMS_ITS ---
Author Organization [facility] Address [address] [place] [address] Care Team Providers Care Heel Painter Name Role Phone Sukhdev Layne Primary Care Provider Unavailab Karsten Kumar [phone] Encounters Encounter Location Date Provider Diagnosis [facility] [address] [place] [address] 06/10/2023 Karsten Saunders Plan Of Treatment No Information Progress Notes * PAULINE VILLALBA DDOB: [birth year] (78 yo F)Acc No.[id number]:06/10/2023 Patient:?PAULINE VILLALBA :1945???Age:78 Y???Sex:Female Address:[address] [place] [address], [address] * true * Date:? Generated for Jose valentine/Leandro/eTransmitting on:?07/04/2024 02:58 PM EDT
--- OUTSIDE RECORDS SUMMARY | 2024-07-04 14:59 | XMS_ITS | Clinical Summary ---
Author Organization [facility] Address [address] [place] [address] Care Team Providers Care Grab Jack Man Name Role Phone Jordan Brandon Primary Care Provider [phone] Allergies Active Allergy Reactions Criticality Noted Date [...] averse patient. Osteopenia 01/25/2015 Overview (12/23/2016): 01/2015. BD([facility]). L/S Spine -0.5. Hip(Neck) -1.5. Hip(Total) -1.9. Satisfactory. COPD, moderate 11/03/2013 Overview (12/23/2016): 10/2013. Clinical Dx. Lower back pain 11/29/2012 Overview (12/23/2016): 2007 to Present. Recurrent flairs of chronic back pain of a mechanical nature. Insomnia 04/19/2012 Overview (12/23/2016): Chronic for years. ++ 04/2012. Trial Trazodone. Hypertension 09/25/2011 Overview (12/23/2016): Years. ++ 2008. 24 Hour BP Monitor with Geronimo Brerios was Perfect. Hyperlipidemia 09/25/2011 Overview (12/23/2016): Years. ++ 08/2014. LDL 94. Hypothyroidism 09/25/2011 Overview (12/23/2016): Years. ++ 01/17/2016. + TSH 0.09. Change the levothyroid to 150 ugms daily from current dosage of 200 ugms 6 days weekly. Resolved Problems Problem Noted Date Diagnosed Date Resolved Date Exhdsgy-wl-yva 07/21/2018 08/09/2018 Overview (07/21/2018): 07/2018. Dr. Kimball. [...] complete this topic Procedures * Due to [place] [employer] law, this organization might not be sharing [...] to Health Maintenance Results * Due to [place] [employer] law, this organization might not be sharing negative HIV tests. * HM Mammography, Bilateral (12/10/2020) Anatomical Region Laterality Modality Other 12/10/2020 us Unknown Provider MD HEALTH MAINTENANCE Final Res ult * Basic Metabolic Panel (07/22/2020 10:34 AM EDT) Glucose 92 65 - 99 mg/dL 07/22/2020 5:38 PM EDT [facility] Comment: ? Fasting reference interval BUN 14 7 - 25 mg/dL 07/22/2020 5:38 PM EDT [facility] Creatinine 0.78 0.60 - 0.93 mg/dL 07/22/2020 5:38 PM EDT [facility] Comment: For patients >49 years of age, the reference limit for Creatinine is approximately 13% higher for people identified as -Vietnamese. eGFR Non- 75 > OR = 60 mL/min/1 .73m2 07/22/2020 5:38 PM EDT [facility] eGFR 87 > OR = 60 mL/min/1 .73m2 07/22/2020 5:38 PM EDT [facility] Bun/Creatinine Ratio NOT APPLICABLE (calc) 07/22/2020 5:38 PM EDT [facility] Sodium 141 135 - 146 mmol/L 07/22/2020 5:38 PM EDT [facility] Potassium 4.6 3.5 - 5.3 mmol/L 07/22/2020 5:38 PM EDT [facility] Chloride 103 98 - 110 mmol/L 07/22/2020 5:38 PM EDT [facility] Carbon Dioxide 29 20 - 32 mmol/L 07/22/2020 5:38 PM EDT [facility] Calcium 10.2 8.6 - 10.4 mg/dL 07/22/2020 5:38 PM EDT [facility] Blood Structure of peripheral vein / Unknown 07/22/2020 10:34 AM EDT 07/22/2020 4:17 PM EDT Narrative [facility] - 07/22/2020 6:46 PM EDT FASTING:YES us Lake Napoles MD LAB BLOOD ORDERABLES Fin al Result [facility] [address] [place] [address], [facility] [address] [place] [address] * Hepatitis C Antibody w/Reflex to PCR (01/24/2019 9:50 AM EDT) Hepatitis C Antibody NON-REACT MEI NON-REACT MEI 01/24/2019 8:44 PM EDT [facility] Signal To Cut-Off 0.02 <1.00 01/24/2019 8:44 PM EDT [facility] Comment: HCV antibody was non-reactive. There is no laboratory evidence of HCV infection. In most cases, no further action is required. However, if recent HCV exposure is suspected, a test for HCV RNA (test code 24274) is suggested. For additional information please refer to http://education.[employer]/faq/SMR61d9 (This link is being provided for informational/ educational purposes only.) Blood specimen (specimen) Structure of peripheral vein / Unknown 01/24/2019 9:50 AM EDT 01/24/2019 5:08 PM EDT Narrative [facility] - 01/24/2019 9:22 PM EDT FASTING:YES us Lake Napoles MD LAB BLOOD ORDERABLES Fin al Result [facility] [address] [facility] [address]rd [address], [place] [address], [place] [phone] [facility] [address] [place] [address] * COLONOSCOPY (01/24/2019) Narrative Procedure Note Arsen [...] Relevant to Health Maintenance Insurance ANISH [employer]AVER [id number] [facility] Advance Directives Documents on File Type Date Recorded Patient Furniture Technician Expl anation Health Care Proxy 08/01/2018 11:58 AM /2 12/2018 Care Teams Grab Jack Man Relationship Specialty Start Date End Date Jordan Brandon [address] [place] [address] [place] [address] PCP - General Internal Medicine 01/27/21
--- OUTSIDE RECORDS SUMMARY | 2024-07-04 14:59 | XMS_ITS | Referral Summary ---
Author Organization [facility] Address [address] [place] [address] Care Team Providers Care Timber Hand Name Role Phone Jordan Brandon Primary Care Provider [phone] Allergies Active Allergy Reactions Criticality Noted Date [...] averse patient. Osteopenia 01/25/2015 Overview (12/23/2016): 01/2015. BD([facility]). L/S Spine -0.5. Hip(Neck) -1.5. Hip(Total) -1.9. [...] Problem Noted Date Diagnosed Date Resolved Date Tlgramg-fz-dss 07/21/2018 08/09/2018 Overview (07/21/2018): 07/2018. Dr. Kimball. [...] Not on file Procedures * Due to [place] eMar law, this organization might not be sharing [...] to Health Maintenance Results * Due to [place] eMar law, this organization might not be sharing negative HIV tests. * Mammography, Bilateral (12/10/2020) Anatomical Region Laterality Modality Other 12/10/2020 Unknown Provider MD HEALTH MAINTENANCE Final Res ult * Basic Metabolic Panel (07/22/2020 10:34 AM EDT) Glucose 92 65 - 99 mg/dL 07/22/2020 5:38 PM EDT [facility] Comment: ? Fasting reference interval BUN 14 7 - 25 mg/dL 07/22/2020 5:38 PM EDT [facility] Creatinine 0.78 0.60 - 0.93 mg/dL 07/22/2020 5:38 PM EDT [facility] Comment: For patients >49 years of age, the reference limit for Creatinine is approximately 13% higher for people identified as -[place]. eGFR Non- 75 > OR = 60 mL/min/1 .73m2 07/22/2020 5:38 PM EDT [facility] eGFR 87 > OR = 60 mL/min/1 .73m2 07/22/2020 5:38 PM EDT [facility] Bun/Creatinine Ratio NOT APPLICABLE 6 - 22 (calc) 07/22/2020 5:38 PM EDT [facility] Sodium 141 135 - 146 mmol/L 07/22/2020 5:38 PM EDT [facility] Potassium 4.6 3.5 - 5.3 mmol/L 07/22/2020 5:38 PM EDT [facility] Chloride 103 98 - 110 mmol/L 07/22/2020 5:38 PM EDT [facility] Carbon Dioxide 29 20 - 32 mmol/L 07/22/2020 5:38 PM EDT [facility] Calcium 10.2 8.6 - 10.4 mg/dL 07/22/2020 5:38 PM EDT [facility] Blood Structure of peripheral vein / Unknown 07/22/2020 10:34 AM EDT 07/22/2020 4:17 PM EDT Narrative [facility] - 07/22/2020 6:46 PM EDT FASTING:YES us Lake Napoles MD LAB BLOOD ORDERABLES Fin al Result Performing Organization Address City/[facility]/ZIP Co de Phone Number [facility] [address], [place] [address], [place] [phone] [facility] [address] [address] * Hepatitis C Antibody w/Reflex to PCR (01/24/2019 9:50 AM EDT) Hepatitis C Antibody NON-REACT MEI NON-REACT MEI 01/24/2019 8:44 PM EDT [facility] Signal To Cut-Off 0.02 <1.00 01/24/2019 8:44 PM EDT [facility] Comment: HCV antibody was non-reactive. There is no laboratory evidence of HCV infection. In most cases, no further action is required. However, if recent HCV exposure is suspected, a test for HCV RNA (test code 83055) is suggested. For additional information please refer to http://education.LP Amina/faq/CIJ53i7 (This link is being provided for informational/ educational purposes only.) Blood specimen (specimen) Structure of peripheral vein / Unknown 01/24/2019 9:50 AM EDT 01/24/2019 5:08 PM EDT Narrative [facility] - 01/24/2019 9:22 PM EDT FASTING:YES Lake Napoles MD LAB BLOOD ORDERABLES Fin al Result Performing Organization Address City/[facility]/ZIP Co de Phone Number [facility] [address], [place] [address], [place] [phone] [address] [address] * COLONOSCOPY (01/24/2019) Narrative Procedure Note Arsen [...] Most Recently Relevant to Health Maintenance Insurance [facility] Advance Directives Documents on File Type Date Recorded Patient Nursery Rn Expl anation Health Care Proxy 08/01/2018 11:58 AM 07/05 Care Teams Timber Hand Relationship Specialty Start Date End Date Jordan Brandon [address] [place] [address] [place] [address] PCP - General Internal Medicine 01/27/21
--- OUTSIDE RECORDS SUMMARY | 2024-07-04 14:59 | XMS_ITS | Patient Health Record ---
Author Organization [facility] Address [address] [place] [address] Care Team Providers Care Tobacco Stemmer Machine Name Role Phone Sukhdev Layne Primary Care Provider Karsten Mena Unavailable [phone] Allergies Allergen (clinical drug ingredient) Drug/Non Drug [...] Problem Status W/U Status Risk Notes Problem 398890806 Colon cancer screening (Z12.11) Active confirmed Problem 730628137 History of adenomatous polyp of colon (Z86.010) Active confirmed Problem Diverticular disease of colon (812197125) Diverticulosis of large intestine without perforation or abscess without bleeding (K57.30) Active confirmed Problem 88240935 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) Active confirmed Plan Of Treatment Pending Test Test Name Order Date CELIAC PANEL #10 01/20/2023 Future Test Test Name Order Date COLONOSCOPY 01/20/2023 Insurance Providers Payer Name Payer Address Payer Phone Subscriber Number Group Number Insured Name Patient Relationship to Insured Coverage Start Date Coverage End Date [facility] [address] [place] [phone] [id number] PAULINE VILLALBA Self - patient is the insured Medical (General) History Medical History History ICD Code HTN Urinary incontinence GERD Denies LA,DM,CVA,Lung disease,renal dise ase IBS Aramis's with subsequent hypothyroidi sm Hyperlipidemia Right bundle branch block; r eports a negative Nuclear stress test in [address] Vogel Colonoscopies in 2012 and in 2018 at [facility] with removal of small tubular adenomas. The most recent exam in 01/2019 described only a fair bowel prep and Dr. Massey recommended a 3 year followup Surgical History Surgery Date(Month/Year) Hysterectomy and 1 ovary removed Tubal ligation Bladder suspension CCY
--- OUTSIDE RECORDS SUMMARY | 2024-07-04 14:59 | XMS_ITS ---
Author Organization [facility] Address [address] [place] [address] Care Team Providers Care Log Skidder Name Role Phone Sukhdev Layne Primary Care Provider Unavailab Karsten Kumar [phone] REASON FOR VISIT Needs to see Dr. Michael. Encounters Encounter Location Date Provider Diagnosis [facility] [address] [place] [address] 04/25/2023 Karsten Saunders Plan Of Treatment No Information Progress Notes * PAULINE VILLALBA DDOB: [birth year] (78 yo F)Acc No.[id number]:04/25/2023 Patient:?PAULINE VILLALBA :1945???Age:78 Y???Sex:Female Address:[address] [place] [address], [address] * true * Date:? Generated for Jo-Anni serge/Leandro/eTransmitting on:?07/04/2024 02:59 PM EDT
--- OUTSIDE RECORDS SUMMARY | 2024-07-04 14:59 | XMS_ITS | Patient Health Record ---
Author Organization [facility] Address [address] [place], [place] [id number] Care Team Providers Care Granite Sandblaster Apprentice Name Role Phone Yesika WING, Lake Primary Care Provider Charlee Jose Meng Unavailable [phone] Castillo Dailey Unavailable Unavailable Reason For Referral No Information Plan Of Treatment No Information Insurance Providers Payer Name Payer Address Payer Phone Subscriber Number Group Number Insured Name Patient Relationship to Insured Coverage Start Date Coverage End Date [facility] [address] [address] [place] [address] [id number] Tatiana Rawls Self - patient is the insured
== END 2024-07-04 13:51 | disposition home or self-care (01) ==
LOC: HO.HVS 12:51
PROVIDERS: PCP Family Medicine; Visit Provider Surgery Vascular Surgery
DX: I71.43 Infrarenal abdominal aortic aneurysm, without rupture (principal); R09.89 Other specified symptoms and signs involving the circulatory and respiratory systems; I83.11 Varicose veins of right lower extremity with inflammation
CPT/HCPCS: 99214; G2211

== ENCOUNTER → 2024-07-04 12:50 | Outpatient (BNVA) | payer MEDICARE, SELFPAY | PROVIDERS: PCP Family Medicine; Visit Provider Surgery Vascular Surgery | DX: I71.43 Infrarenal abdominal aortic aneurysm, without rupture (principal); I83.11 Varicose veins of right lower extremity with inflammation; R09.89 Other specified symptoms and signs involving the circulatory and respiratory systems | CPT/HCPCS: 99212 ==

== ENCOUNTER 2024-07-25 09:44 | Outpatient (AMB) | payer MEDICARE, SELFPAY ==
--- NOTE | 2024-07-25 09:49 | MHC.OFFVIS ---
Vital Signs 07/25/24 09:50 Height 5 ft 7 in Pulse 80 Pulse Source Pulse Oximeter Pulse Oximetry (%) 97 Oxygen Delivery Method Room Air Intake Visit Reasons: Follow Up 3mo-Conf Intake Note: patient following up RA. patient cancelled Sleep study scheduled on 06/19/24 Allergies Sulfa (Sulfonamide Antibiotics) Allergy (Severe, Verified 07/25/24 09:52) Rash amoxicillin [From Augmentin] Allergy (Intermediate, Verified 07/25/24 09:52) Nausea and Vomiting clavulanic acid [From Augmentin] Allergy (Intermediate, Verified 07/25/24 09:52) Nausea and Vomiting shellfish derived Allergy (Intermediate, Verified 07/25/24 09:52) Nausea and Vomiting turmeric Allergy (Intermediate, Verified 07/25/24 09:52) Vomiting narcotic pain medications Adverse Reaction (Intermediate, Uncoded 07/25/24 09:52) Nausea and Vomiting HPI Comments Details: 79y/o female comes for follow up of unsteadiness of gait.Home sleep test was denied by insurance she stopped using CPAP 2 years ago . she reports loud snoring , excessive daytime sleepiness and frequent arousals. MRI C spine- was nor done yet . No falls since last vist she also reports ocular migraine - 2 time s a week and usually resolves if she rests her eyes for 20 minutes. History from initial visit- In 1996 she had an episode while walking in a garden center she felt like someone pulled her to the left. she saw her PCP in [place] and neurologist - had a detailed evaluation.she had a similar episode in 2001 when she got out of her car and felt like she got pulled to left. last year she had a similar episode when she was in a store and turned to go to a different register and fell into the display . she denies dizziness, spinning sensation, double vision. she has h/o motion sickness when she sits in the back seat in the car. she has chronic neck pain and has a forward tilt . she has chronic back pain .she feels off balance when she bends over and comes up, She denies tinnitus, no hearing loss. No head injury. SHe has sleep apnea and is not on treatment . she could not tolerate CPAP. [facility] Medical History (Updated 07/25/24 @ 10:21 by Elli Rangel MD) Excessive daytime sleepiness Snoring Ocular migraine Obstructive sleep apnea Cervical dystonia Cervicalgia Gait instability Family history of gene mutation Colon cancer Family history of anesthesia complication COPD (chronic obstructive pulmonary disease) Cecal lesion RBBB (right bundle branch block) Bifascicular block Polycythemia CAD (coronary artery disease) GERD (gastroesophageal reflux disease) Sleep apnea Hypothyroidism Hyperlipidemia Hypertension Personal history of nicotine dependence Surgical History Hx of dilation and curettage H/O colonoscopy History of tonsillectomy History of lumpectomy of right breast History of tubal ligation History of cholecystectomy History of bladder surgery History of hysterectomy Family History Sister Cancer of kidney Psoriasis Arthritis Lupus Blood clot in vein Acute Crohn's disease Substance abuse Father Atherosclerosis Substance abuse Aortic aneurysm Mother Substance abuse Maternal Aunt Substance abuse Paternal Grandfather No problems noted. Social History Household Members: Significant Other Housing: House Are you a primary primary care nurse practitioner to a significant other at home: No Do you presently have visiting nurse or other home services: No Comment: counts correct Patient Tobacco Use Status: Current someday Tobacco user Tobacco use type: Cigarette Cigarette Packs Per Day: 1 Years Smoked: 61 e-Cigarette/Vaping Use: Never Used Second Hand Smoke Exposure: No service: No Current occupational status: retired Cognitive needs: No Hearing needs: No Vision needs: Yes (Patient wears reading glasses.) Physical Exam Vital Signs: Last Vital Signs Pulse 80 07/25/24 09:50 Pulse Ox 97 07/25/24 09:50 Oxygen Delivery Method Room Air 07/25/24 09:50 Const General: cooperative and comfortable Nutritional Appearance: average body habitus Orientation/consciousness: patient oriented x3 Eyes Pupils: Equal, round and reactive pupils present Neck Neck: Yes no meningeal signs Neuro Other: antecollis Tenderness on august levator muscles gait- mild stoop , genu valgum General: patient oriented x3, tone normal, moves all extremities, no meningeal signs and no focal motor deficits Cranial nerves: Yes Equal, round and reactive pupils present, Yes Bilaterally intact EOM present, Yes Nystagmus not present, Yes Normal facial strength present, Yes Midline tongue present and Yes Symmetric palate elevation present Cognition (Neuro): normal cognition Gait exam (Neuro): Antalgic gait present Motor exam (neuro): 5/5 motor strength present throughout and Normal motor muscle tone present throughout Coordination: wotqpj-ge-zjli test normal Assessment & Plan Assessment & Plan (1) Gait instability: Comment: episodes of being pulled to left Code(s): R26.81 - Unsteadiness on feet Category: Medical (2) Cervicalgia: Code(s): M54.2 - Cervicalgia Category: Medical (3) Cervical dystonia: Code(s): G24.3 - Spasmodic torticollis Category: Medical (4) Obstructive sleep apnea: Code(s): G47.33 - Obstructive sleep apnea (adult) (pediatric) Category: Medical (5) Ocular migraine: Code(s): G43.109 - Migraine with aura, not intractable, without status migrainosus Category: Medical Plan Reviewed MRI brain - mild gen volume loss and microangiopathy MRI c spine to evaluate for spinal stenosis continue exercises. Magnesium 250mg qhs for migraines Home sleep test to reevaluate sleep apnea.- she stopped using CPAP more than 2 years ago and has poor sleep, frequent arousals , excessive daytime sleepiness and snoring . she needs reevaluation to be considered for treatment with [facility]. Orders: Orders RT home sleep study Today G47.19 - Other hypersomnia, R06.83 - Snoring MR cervical spine wo con Today G24.3 - Spasmodic torticollis, M54.2 - Cervicalgia, R26.81 - Unsteadiness on feet Coding Level of Care Code Est Pt Level 4 (64511) Complex EM visit Add On G2211 Diagnoses Gait instability R26.81 Cervicalgia M54.2 Cervical dystonia G24.3 Obstructive sleep apnea G47.33 Ocular migraine G43.109
[2024-07-25 09:50] VITALS: PULSE 80; O2SAT 97
--- OUTSIDE RECORDS SUMMARY | 2024-07-25 10:48 | XMS_ITS ---
Author Organization [facility] Address [address] [place] [address] Care Team Providers Care Brazing Machine Operator Name Role Phone Sukhdev Layne Primary Care Provider Unavailab Karsten Kumar [phone] REASON FOR VISIT Needs to see Dr. Michael. Encounters Encounter Location Date Provider Diagnosis [facility] [address] [place] [address] 04/25/2023 Karsten Saunders Plan Of Treatment Next Appt Details Provider Name:Karsten Saunders , 09/05/2024 02:40:00 PM, [address], [address], [place], [address], Progress Notes * PAULINE VILLALBA DDOB: [birth year] (78 yo F)Acc No.[id number]:04/25/2023 Patient:?PAULINE VILLALBA :1945???Age:78 Y???Sex:Female Address:[address] [place], [address] * true * Date:? Generated for Printi ng/Leandro/eTransmitting on:?07/25/2024 10:48 AM EDT
--- OUTSIDE RECORDS SUMMARY | 2024-07-25 10:48 | XMS_ITS ---
Author Organization [facility] Address [address] [place] [address] Care Team Providers Care Back Seam Stitcher Name Role Phone Sukhdev Layne Primary Care Provider UnavailKarsten Ansari [phone] Encounters Encounter Location Date Provider Diagnosis [facility] [address] [place] [address] 06/10/2023 Karsten Saunders Plan Of Treatment Next Appt Details Provider Name:Karsten Saunders , 09/05/2024 02:40:00 PM, [address], [address], [place], [address], Progress Notes * PAULINE VILLALBA DDOB: [birth year] (78 yo F)Acc No.[id number]:06/10/2023 Patient:?PAULINE VILLALBA :1945???Age:78 Y???Sex:Female Address:[address] [place], [address] * true * Date:? Generated for Printi ng/Faabisaig/eTransmitting on:?07/25/2024 10:48 AM EDT
--- OUTSIDE RECORDS SUMMARY | 2024-07-25 10:48 | XMS_ITS | Clinical Summary ---
Author Organization [facility] Address [address] [place] [address] Care Team Providers Care Special Forces Medical Sergeant Name Role Phone Jordan Brandon Primary Care Provider [phone] Allergies Active Allergy Reactions Criticality Noted Date [...] averse patient. Osteopenia 01/25/2015 Overview (12/23/2016): 01/2015. BD([facility]). L/S Spine -0.5. Hip(Neck) -1.5. [...] Problem Noted Date Diagnosed Date Resolved Date Vbsbojk-bp-vvt 07/21/2018 08/09/2018 Overview (07/21/2018): 07/2018. Dr. Kimball. [...] 12/27/2012 COVID-19 Vaccine ( season) 2023 08/08/2020 Alcohol/Substance Use Screening 04/05/2024 Depression Screening and Follow-Up 04/05/2024 Health Care Proxy Review 04/05/2024 Social Drivers of Health Annual Screening 04/05/2024 Influenza Vaccine (Season Ended) 2024 Hepatitis C Screening Completed 01/24/2019 Mammogram Discontinued 12/10/2020, 09/03, 07/23/2016, Additional history exists Hepatitis B Vaccines Aged Out No long er eligible based on patient's age to complete this topic Procedures * Due to [place] law, this organization might not be sharing [...] to Health Maintenance Results * Due to [place] law, this organization might not be sharing negative HIV tests. * HM Mammography, Bilateral (12/10/2020) Anatomical Region Laterality Modality Other 12/10/2020 us Unknown Provider MD HEALTH MAINTENANCE Final Res ult * Basic Metabolic Panel (07/22/2020 10:34 AM EDT) Glucose 92 65 - 99 mg/dL 07/22/2020 5:38 PM EDT [facility] Comment: ? Fasting reference interval BUN 14 7 - 25 mg/dL 07/22/2020 5:38 PM EDT [facility] Creatinine 0.78 0.60 - 0.93 mg/dL 07/22/2020 5:38 PM EDT [facility] Comment: For patients >49 years of age, the reference limit for Creatinine is approximately 13% higher for people identified as -Citizen Of [place]. eGFR Non- 75 > OR = 60 mL/min/1 .73m2 07/22/2020 5:38 PM EDT [facility] eGFR 87 > OR = 60 mL/min/1 .73m2 07/22/2020 5:38 PM EDT [facility] Bun/Creatinine Ratio NOT APPLICABLE (calc) 07/22/2020 5:38 PM EDT [facility] Sodium 141 135 - 146 mmol/L 07/22/2020 5:38 PM EDT [facility] Potassium 4.6 3.5 - 5.3 mmol/L 07/22/2020 5:38 PM EDT [facility] Chloride 103 98 - 110 mmol/L 07/22/2020 5:38 PM EDT [facility] Carbon Dioxide 29 20 - 32 mmol/L 07/22/2020 5:38 PM EDT [facility] Calcium 10.2 8.6 - 10.4 mg/dL 07/22/2020 5:38 PM EDT [facility] Blood Structure of peripheral vein / Unknown 07/22/2020 10:34 AM EDT 07/22/2020 4:17 PM EDT Narrative [facility] - 07/22/2020 6:46 PM EDT FASTING:YES us Lake Napoles MD LAB BLOOD ORDERABLES Fin al Result [facility] [address] [facility] 3[address], [place] [address], [facility] [address] [place] [address] * Hepatitis C Antibody w/Reflex to PCR (01/24/2019 9:50 AM EDT) Hepatitis C Antibody NON-REACT MEI NON-REACT MEI 01/24/2019 8:44 PM EDT [facility] Signal To Cut-Off 0.02 <1.00 01/24/2019 8:44 PM EDT [facility] Comment: HCV antibody was non-reactive. There is no laboratory evidence of HCV infection. In most cases, no further action is required. However, if recent HCV exposure is suspected, a test for HCV RNA (test code 86432) is suggested. For additional information please refer to http://education.[employer]/faq/AZG52f3 (This link is being provided for informational/ educational purposes only.) Blood specimen (specimen) Structure of peripheral vein / Unknown 01/24/2019 9:50 AM EDT 01/24/2019 5:08 PM EDT Narrative [facility] - 01/24/2019 9:22 PM EDT FASTING:YES us Lake Napoles MD LAB BLOOD ORDERABLES Fin al Result [facility] [address] [facility] [address], [place] [address], [place] [phone] [facility] [address] [place] [address] * COLONOSCOPY (01/24/2019) Narrative Procedure Note Arsen [...] Relevant to Health Maintenance Insurance [employer] [id number] [facility] Advance Directives Documents on File Type Date Recorded Patient Claim Adjuster Expl anation Health Care Proxy 08/01/2018 11:58 AM /2 12/2018 Care Teams Special Forces Medical Sergeant Relationship Specialty Start Date End Date Jordan Brandon [address] [place] [address] [place] [address] PCP - General Internal Medicine 01/27/21
--- OUTSIDE RECORDS SUMMARY | 2024-07-25 10:48 | XMS_ITS | Referral Summary ---
Author Organization [facility] Address [address] [place] [address] Care Team Providers Care Fax Machine Operator Name Role Phone Jordan Brandon Primary Care [...] averse patient. Osteopenia 01/25/2015 Overview (12/23/2016): 01/2015. BD([facility]). L/S Spine -0.5. Hip(Neck) -1.5. Hip(Total) [...] Problem Noted Date Diagnosed Date Resolved Date Floftfs-dm-uda 07/21/2018 08/09/2018 Overview (07/21/2018): 07/2018. Dr. Kimball. [...] Not on file Procedures * Due to [place] law, this organization might not be sharing [...] to Health Maintenance Results * Due to [place] law, this organization might not be sharing negative HIV tests. * Mammography, Bilateral (12/10/2020) Anatomical Region Laterality Modality Other 12/10/2020 Unknown Provider MD HEALTH MAINTENANCE Final Res ult * Basic Metabolic Panel (07/22/2020 10:34 AM EDT) Glucose 92 65 - 99 mg/dL 07/22/2020 5:38 PM EDT [facility] Comment: ? Fasting reference interval BUN 14 7 - 25 mg/dL 07/22/2020 5:38 PM EDT [facility] Creatinine 0.78 0.60 - 0.93 mg/dL 07/22/2020 5:38 PM EDT [facility] Comment: For patients >49 years of age, the reference limit for Creatinine is approximately 13% higher for people identified as -[place]banian. eGFR Non- 75 > OR = 60 mL/min/1 .73m2 07/22/2020 5:38 PM EDT [facility] eGFR 87 > OR = 60 mL/min/1 .73m2 07/22/2020 5:[address] [facility] Bun/Creatinine Ratio NOT APPLICABLE 6 - 22 (calc) 07/22/2020 5:38 PM EDT [facility] Sodium 141 135 - 146 mmol/L 07/22/2020 5:38 PM EDT [facility] Potassium 4.6 3.5 - 5.3 mmol/L 07/22/2020 5:38 PM EDT [facility] Chloride 103 98 - 110 mmol/L 07/22/2020 5:38 PM EDT [facility] Carbon Dioxide 29 20 - 32 mmol/L 07/22/2020 5:38 PM EDT [facility] Calcium 10.2 8.6 - 10.4 mg/dL 07/22/2020 5:38 PM EDT [facility] Blood Structure of peripheral vein / Unknown 07/22/2020 10:34 AM EDT 07/22/2020 4:17 PM EDT Narrative [facility] - 07/22/2020 6:46 PM EDT FASTING:YES us Lake Napoles MD LAB BLOOD ORDERABLES Fin al Result Performing Organization Address City/[facility]/ZIP Co de Phone Number [facility] [address], [place] [address], [place] [phone] [facility] [address] [address] * Hepatitis C Antibody w/Reflex to PCR (01/24/2019 9:50 AM EDT) Hepatitis C Antibody NON-REACT MEI NON-REACT MEI 01/24/2019 8:44 PM EDT [facility] Signal To Cut-Off 0.02 <1.00 01/24/2019 8:[address] [facility] Comment: HCV antibody was non-reactive. There is no laboratory evidence of HCV infection. In most cases, no further action is required. However, if recent HCV exposure is suspected, a test for HCV RNA (test code 95272) is suggested. For additional information please refer to http://education.U4EA/faq/PBB92j0 (This link is being provided for informational/ educational purposes only.) Blood specimen (specimen) Structure of peripheral vein / Unknown 01/24/2019 9:50 AM EDT 01/24/2019 5:08 PM EDT Narrative [facility] - 01/24/2019 9:22 PM EDT FASTING:YES Lake Napoles MD LAB BLOOD ORDERABLES Fin al Result Performing Organization Address City/[facility]/ZIP Co de Phone Number [facility] [address], [place] [address], [place] [phone] [facility] [address] [address] * COLONOSCOPY (01/24/2019) Narrative Procedure Note Arsen [...] Most Recently Relevant to Health Maintenance Insurance [facility] Advance Directives Documents on File Type Date Recorded 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
--- OUTSIDE RECORDS SUMMARY | 2024-07-25 10:49 | XMS_ITS | Patient Health Record ---
Author Organization [facility] Address [address] [place], [place] [address] Care Team Providers Care Senior Sas Programmer Name Role Phone Yesika WING, Lake Primary Care Provider Charlee Jose Meng Unavailable [phone] Castillo Dailey Unavailable Unavailable Reason For Referral No Information Plan Of Treatment No Information Insurance Providers Payer Name Payer Address Payer Phone Subscriber Number Group Number Insured Name Patient Relationship to Insured Coverage Start Date Coverage End Date [facility] [address] [address] [place] [address] [id number] Tatiana Rawls Self - patient is the insured
--- OUTSIDE RECORDS SUMMARY | 2024-07-25 10:49 | XMS_ITS ---
Author Organization [facility] Address [address] [place] [address] Care Team Providers Care Charter Boat Operator Name Role Phone Sukhdev Layne Primary Care Provider Unavailab Karsten Kumar Unavailable [phone] REASON FOR VISIT screening, hx polyps Problems Problem Type SNOMED Code ICD Code Onset Dates Problem Status W/U Status Risk Notes Problem Diverticular disease of colon (532923181) Diverticulosis of large intestine without perforation or abscess without bleeding (K57.30) Active confirmed Encounters Encounter Location Date Provider Diagnosis [facility] Outpatient [address] [place] [phone] 04/16/2023 Karsten Saunders Encounter for scre ening [...] hemorrhoids (ICD-10 - K64.8) Plan Of Treatment Next Appt Details Provider Name:Karsten Saunders , 09/05/2024 02:40:00 PM, [address], [address], [place], [address], Progress Notes * PAULINE VILLALBA DDOB: [birth year] (79 yo F)Acc No.[id number]:04/16/2023 COLON WITH MAC Patient:?PAULINE VILLALBA Provider:?Karsten Saunders MD :1945???Age:78 Y???Sex:Female D ate:04/16/2023 Address:[address] [place], [place] [id number] Pcp:Sukhdev Layne Subjective: * Chief Complaints: * ???1. Screening, hx polyps. * Medical History:? Objective: * Vitals:? Assessment: * Assessment: 1.?Encounter for screening c olonoscopy - Z12.11 (Primary)???2.?Colon polyps - K63.5???3.?Angiodysplasia - K55.20???4.?Diverticulosis of large intestine without perforation or abscess without bleeding - K57.30???5.?Internal hemorrhoids - K64.8??? Plan: * Treatment: * Procedure Codes:?35678 COLON OSCOPY AND BIOPSY, Modifiers: 33 * * The named appointment provid er may or may not be the originator of this progress note, and it is not deemed complete until electronically signed by the appointment provider. Sign off status: Pending * Provider:?Karsten Saunders MD Date:? 024 Generated for Jose valentine/Leandro/eTrabiasmitting on:?07/25/2024 10:48 AM EDT
--- OUTSIDE RECORDS SUMMARY | 2024-07-25 10:49 | XMS_ITS | Patient Health Record ---
Author Organization [facility] Address [address] [place] [address] Care Team Providers Care Business Development Consultant Name Role Phone Sukhdev Layne Primary Care Provider Karsten Mena Unavailable [phone] Allergies Allergen (clinical drug ingredient) Drug/Non Drug [...] Problem Status W/U Status Risk Notes Problem 122458190 Colon cancer screening (Z12.11) Active confirmed Problem 832454035 History of adenomatous polyp of colon (Z86.010) Active confirmed Problem Diverticular disease of colon (419286040) Diverticulosis of large intestine without perforation or abscess without bleeding (K57.30) Active confirmed Problem 99684875 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) Active confirmed Plan Of Treatment Pending Test Test Name Order Date CELIAC PANEL #10 01/20/2023 Future Test Test Name Order Date COLONOSCOPY 01/20/2023 Next Appt Details Provider Name:Karsten Saunders , 09/05/2024 02:40:00 PM, [address] [place] [address], [address], [place], [address], Insurance Providers Payer Name Payer Address Payer Phone Subscriber Number Group Number Insured Name Patient Relationship to Insured Coverage Start Date Coverage End Date [facility] [address] [place] [phone] [id number] PAULINE VILLALBA Self - patient is the insured Medical (General) History Medical History History ICD Code HTN Urinary incontinence GERD Denies [place],DM,CVA,Lung disease,renal dise ase IBS Aramis's with subsequent hypothyroidi sm Hyperlipidemia Right bundle branch block; r eports a negative Nuclear stress test [place] [address] Vogel Colonoscopies in 2012 and in 2018 at [facility] with removal of small tubular adenomas. The most recent exam in 01/2019 described only a fair bowel prep and Dr. Massey recommended a 3 year followup Surgical History Surgery Date(Month/Year) Hysterectomy and 1 ovary removed Tubal ligation Bladder suspension CCY
== END 2024-07-25 10:26 | disposition home or self-care (01) ==
LOC: HO.HSMS 09:45
PROVIDERS: PCP Family Medicine; Visit Provider Psychiatry & Neurology Neurology
DX: R26.81 Unsteadiness on feet (principal); M54.2 Cervicalgia; G24.3 Spasmodic torticollis; G47.33 Obstructive sleep apnea (adult) (pediatric); G43.109 Migraine with aura, not intractable, without status migrainosus
CPT/HCPCS: 99214; G2211

== ENCOUNTER → 2024-07-25 09:44 | Outpatient (BNVA) | payer MEDICARE, SELFPAY | PROVIDERS: PCP Family Medicine; Visit Provider Psychiatry & Neurology Neurology | DX: G47.33 Obstructive sleep apnea (adult) (pediatric) (principal); R26.81 Unsteadiness on feet; M54.2 Cervicalgia; G24.3 Spasmodic torticollis; G43.109 Migraine with aura, not intractable, without status migrainosus | CPT/HCPCS: 99212 ==

== ENCOUNTER 2024-08-03 10:18 | Outpatient (REF) | payer MEDICARE, SELFPAY ==
--- NOTE | ~2024-08-03 | US_ITS ---
EXAMINATION: US ABDOMEN LIMITED WITH LIVER ELASTOGRAPHY HISTORY: R74.8 - Abnormal levels of other serum enzymes TECHNIQUE: Real-time grayscale ultrasound imaging of the right upper quadrant was performed and images were reviewed. COMPARISON: Correlation is made with a CT of the abdomen with contrast dated 06/11/2023. FINDINGS: Liver: The right lobe of the liver measures 13.9 cm in size. The left lobe of the liver measures 8.8 cm in size. The liver demonstrates increased echotexture, consistent with steatosis. There is a 10 mm cyst in the right lobe. No intrahepatic biliary ductal dilatation is identified. There is normal hepatopedal flow in the portal vein. Ultrasound elastography of the liver was performed with 10 separate measurements of the liver parenchyma with the patient in the supine position. Measurements were obtained approximately 2 cm below Cindy's capsule and perpendicular to the capsule. Images are of satisfactory quality. The median shear wave velocity is 1.37 m/s. The interquartile range/median (IQR/median) is 0.07. Gallbladder and biliary tree: The gallbladder is surgically absent. The common bile duct is normal in caliber measuring 5 mm. Right Kidney: The right kidney measures 12.1 cm in length and demonstrates multiple cysts measuring up to 2.1 cm in size. The right kidney is otherwise unremarkable, without evidence of solid masses, hydronephrosis, or calculi. Pancreas: The pancreatic head, neck, and body are unremarkable. The pancreatic tail is obscured by bowel gas. Abdominal aorta and inferior vena cava: The visualized portions of the abdominal aorta and inferior vena cava are normal in caliber. There is no free fluid in the right upper quadrant. US/US abdomen jacobsen w elastography IMPRESSION: Hepatic steatosis. Hepatic and right renal cysts as described. The median shear wave velocity in the liver is 1.37 m/s, corresponding to a median liver stiffness of 5.66 kPa. The IQR/median value is 0.07. This is indicative of a quality data set. Findings are indicative of a low elastography value which rules out advanced chronic liver disease in asymptomatic patients. REFERENCE: Society of Radiologists in Ultrasound Liver Stiffness Thresholds (2020): LIVER STIFFNESS THRESHOLDS: *Shear wave velocity less than 1.3 m/s (Liver Stiffness equal or less than 5 kPa): High probability of being normal. *Shear wave velocity less than 1.7 m/s (Liver Stiffness less than 9 kPa): In the absence of other known clinical signs, rules out compensated advanced chronic liver disease. *Shear wave velocity between 1.7-2.1 m/s (Liver Stiffness 9-13 kPa): Suggestive of compensated advanced chronic liver disease but need further test for confirmation. *Shear wave velocity between 2.1-2.4 m/s (Liver Stiffness 13-17 kPa): Rules in compensated advanced chronic liver disease. *Shear wave velocity greater than 2.4 m/s (Liver Stiffness over 17 kPa): Suggestive of clinically significant portal hypertension. QUALITY OF DATA SET: *IQR/Median value equal or less that 0.15 implies a quality data set. *IQR/Median value over 0.15 implies a poor quality data set. SIGNIFICANT CHANGE FROM PRIOR EXAM: Significant change if liver stiffness measurement is 10% or greater from prior exam. OTHER CONSIDERATIONS: The stage of liver fibrosis may be overestimated in the setting of acute hepatitis, liver inflammation, elevated liver function tests, hepatic vascular congestion, obstructive cholestasis, non-fasting state, and infiltrative diseases such as amyloidosis and lymphoma. In some patients with NAFLD, the liver stiffness thresholds for compensated advanced chronic liver disease may be lower. In causes other than viral hepatitis and NAFLD, liver stiffness thresholds are not well established. Electronically signed by: Karsten Arzola MD 08/03/2024 11:36 AM EDT
--- OUTSIDE RECORDS SUMMARY | 2024-08-03 11:43 | XMS_ITS | Referral Summary ---
Author Organization [facility] Address [address] [place] [address] Care Team Providers Care Software Test Manager Name Role Phone Jordan Brandon Primary Care Provider [phone] Allergies Active Allergy Reactions Criticality Noted Date [...] averse patient. Osteopenia 01/25/2015 Overview (12/23/2016): 01/2015. BD([facility]). L/S Spine -0.5. Hip(Neck) -1.5. Hip(Total) -1.9. [...] Problem Noted Date Diagnosed Date Resolved Date [id number] 07/21/2018 08/09/2018 Overview (07/21/2018): 07/2018. Dr. Kimball. [...] Not on file Procedures * Due to [place] idio law, this organization might not be sharing [...] to Health Maintenance Results * Due to [place] idio law, this organization might not be sharing negative HIV tests. * Mammography, Bilateral (12/10/2020) Anatomical Region Laterality Modality Other 12/10/2020 Unknown Provider MD HEALTH MAINTENANCE Final Res ult * Basic Metabolic Panel (07/22/2020 10:34 AM EDT) Glucose 92 65 - 99 mg/dL 07/22/2020 5:38 PM EDT [facility] Comment: ? Fasting reference interval BUN 14 7 - 25 mg/dL 07/22/2020 5:38 PM EDT [facility] Creatinine 0.78 0.60 - 0.93 mg/dL 07/22/2020 5:38 PM EDT [facility] Comment: For patients >49 years of age, the reference limit for Creatinine is approximately 13% higher for people identified as -Maldivian. eGFR Non- 75 > OR = 60 mL/min/1 .73m2 07/22/2020 5:38 PM EDT [facility] eGFR 87 > OR = 60 mL/min/1 .73m2 07/22/2020 5:38 PM EDT [facility] Bun/Creatinine Ratio NOT APPLICABLE 6 - 22 (calc) 07/22/2020 5:38 PM EDT [facility] Sodium 141 135 - 146 mmol/L 07/22/2020 5:38 PM EDT [facility] Potassium 4.6 3.5 - 5.3 mmol/L 07/22/2020 5:38 PM EDT [facility] Chloride 103 98 - 110 mmol/L 07/22/2020 5:38 PM EDT [facility] Carbon Dioxide 29 20 - 32 mmol/L 07/22/2020 5:38 PM EDT [facility] Calcium 10.2 8.6 - 10.4 mg/dL 07/22/2020 5:38 PM EDT [facility] Blood Structure of peripheral vein / Unknown 07/22/2020 10:34 AM EDT 07/22/2020 4:17 PM EDT Narrative [facility] - 07/22/2020 6:46 PM EDT FASTING:YES us [place] Napoles MD LAB BLOOD ORDERABLES Fin al Result Performing Organization Address City/[facility]/ZIP Co de Phone Number [facility] [address], [place] [address], [place] [phone] [facility] [address] [address] * Hepatitis C Antibody w/Reflex to PCR (01/24/2019 9:50 AM EDT) Hepatitis C Antibody NON-REACT MEI NON-REACT MEI 01/24/2019 8:44 PM EDT [facility] Signal To Cut-Off 0.02 <1.00 01/24/2019 8:44 PM EDT [facility] Comment: HCV antibody was non-reactive. There is no laboratory evidence of HCV infection. In most cases, no further action is required. However, if recent HCV exposure is suspected, a test for HCV RNA (test code 06217) is suggested. For additional information please refer to http://education.[employer]/faq/BYC79p8 (This link is being provided for informational/ educational purposes only.) Blood specimen (specimen) Structure of peripheral vein / Unknown 01/24/2019 9:50 AM EDT 01/24/2019 5:08 PM EDT Narrative [facility] - 01/24/2019 9:22 PM EDT FASTING:YES [place] Napoles MD LAB BLOOD ORDERABLES Fin al Result Performing Organization Address City/[facility]/ZIP Co de Phone Number [facility] [address], [place] [address], [place] [phone] [facility] [address] [address] * COLONOSCOPY (01/24/2019) Narrative Procedure Note Arsen [...] Most Recently Relevant to Health Maintenance Insurance [facility] Advance Directives Documents on File Type Date Recorded 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
--- OUTSIDE RECORDS SUMMARY | 2024-08-03 11:43 | XMS_ITS | Patient Health Record ---
Author Organization [facility] Address [address] [place], [place] [address] Care Team Providers Care Fruit Inspector Name Role Phone Yesika WING, [place] Primary Care Provider Charlee Jose Meng Unavailable [phone] Castillo Dailey Unavailable Unavailable Reason For Referral No Information Plan Of Treatment No Information Insurance Providers Payer Name Payer Address Payer Phone Subscriber Number Group Number Insured Name Patient Relationship to Insured Coverage Start Date Coverage End Date [employer] [place] [facility] [address] [address] [place] [id number] Tatiana Rawls Self - patient is the insured
--- OUTSIDE RECORDS SUMMARY | 2024-08-03 11:43 | XMS_ITS | Clinical Summary ---
Author Organization [facility] Address [address] [place] [address] Care Team Providers Care Desktop Support Manager Name Role Phone Jordan Brandon Primary Care Provider [phone] Allergies Active Allergy Reactions Criticality Noted Date [...] patient. Osteopenia 01/25/2015 Overview (12/23/2016): 01/2015. BD([facility]). L/S Spine -0.5. Hip(Neck) -1.5. Hip(Total) [...] Problem Noted Date Diagnosed Date Resolved Date [id number] 07/21/2018 08/09/2018 Overview (07/21/2018): 07/2018. Dr. Kimball. [...] complete this topic Procedures * Due to [place] law, this organization might not be sharing [...] Health Maintenance Results * Due to [place] law, this organization might not be sharing negative HIV tests. * HM Mammography, Bilateral (12/10/2020) Anatomical Region Laterality Modality Other 12/10/2020 us Unknown Provider MD HEALTH MAINTENANCE Final Res ult * Basic Metabolic Panel (07/22/2020 10:34 AM EDT) Glucose 92 65 - 99 mg/dL 07/22/2020 5:38 PM EDT [facility] Comment: ? Fasting reference interval BUN 14 7 - 25 mg/dL 07/22/2020 5:38 PM EDT [facility] Creatinine 0.78 0.60 - 0.93 mg/dL 07/22/2020 5:38 PM EDT [facility] Comment: For patients >49 years of age, the reference limit for Creatinine is approximately 13% higher for people identified as -Russian. eGFR Non- 75 > OR = 60 mL/min/1 .73m2 07/22/2020 5:38 PM EDT [facility] eGFR 87 > OR = 60 mL/min/1 .73m2 07/22/2020 5:38 PM EDT [facility] Bun/Creatinine Ratio NOT APPLICABLE (calc) 07/22/2020 5:38 PM EDT [facility] Sodium 141 135 - 146 mmol/L 07/22/2020 5:38 PM EDT [facility] Potassium 4.6 3.5 - 5.3 mmol/L 07/22/2020 5:38 PM EDT [facility] Chloride 103 98 - 110 mmol/L 07/22/2020 5:38 PM EDT [facility] Carbon Dioxide 29 20 - 32 mmol/L 07/22/2020 5:38 PM EDT [facility] Calcium 10.2 8.6 - 10.4 mg/dL 07/22/2020 5:38 PM EDT [facility] Blood Structure of peripheral vein / Unknown 07/22/2020 10:34 AM EDT 07/22/2020 4:17 PM EDT Narrative [facility] - 07/22/2020 6:46 PM EDT FASTING:YES us [place] Napoles MD LAB BLOOD ORDERABLES Fin al Result [facility] [address] [facility] [address], [place] [address], [facility] [address] [place] [address] * Hepatitis C Antibody w/Reflex to PCR (01/24/2019 9:50 AM EDT) Hepatitis C Antibody NON-REACT MEI NON-REACT MEI 01/24/2019 8:44 PM EDT [facility] Signal To Cut-Off 0.02 <1.00 01/24/2019 8:44 PM EDT [facility] Comment: HCV antibody was non-reactive. There is no laboratory evidence of HCV infection. In most cases, no further action is required. However, if recent HCV exposure is suspected, a test for HCV RNA (test code 57932) is suggested. For additional information please refer to http://education.[employer]/faq/BQM03u2 (This link is being provided for informational/ educational purposes only.) Blood specimen (specimen) Structure of peripheral vein / Unknown 01/24/2019 9:50 AM EDT 01/24/2019 5:08 PM EDT Narrative [facility] - 01/24/2019 9:22 PM EDT FASTING:YES us [place] Napoles MD LAB BLOOD ORDERABLES Fin al Result [facility] [address] [facility] [address], [place] [address], [place] [phone] [employer] [facility] [address] [place] [address] * COLONOSCOPY (01/24/2019) Narrative Procedure Note Arsen [...] Relevant to Health Maintenance Insurance [employer] [id number] [facility] Advance Directives Documents on File Type Date Recorded Patient Animal Chiropractor Expl anation Health Care Proxy 08/01/2018 11:58 AM /2 12/2018 Care Teams Desktop Support Manager Relationship Specialty Start Date End Date Jordan Brandon [address] [place] [address] [place] [address] PCP - General Internal Medicine 01/27/21
== END 2024-08-03 10:19 | disposition home or self-care (01) ==
LOC: HO.US 10:18
PROVIDERS: PCP Family Medicine; Visit Provider Family Medicine
DX: R74.8 Abnormal levels of other serum enzymes (principal)
CPT/HCPCS: 76705; 76981

== ENCOUNTER → 2024-08-03 10:22 | Outpatient (BNV) | payer MEDICARE, SELFPAY | PROVIDERS: PCP Family Medicine; Visit Provider Radiology Diagnostic Radiology | DX: K76.0 Fatty (change of) liver, not elsewhere classified (principal); K76.89 Other specified diseases of liver; N28.1 Cyst of kidney, acquired | CPT/HCPCS: 76705; 76981 ==

== ENCOUNTER → 2024-08-04 10:48 | Outpatient (BNV) | payer MEDICARE, SELFPAY | PROVIDERS: PCP Family Medicine; Visit Provider Radiology Diagnostic Radiology | DX: M47.812 Spondylosis without myelopathy or radiculopathy, cervical region (principal) | CPT/HCPCS: 72141 ==

== ENCOUNTER 2024-08-04 10:51 | Outpatient (REF) | payer MEDICARE, SELFPAY ==
--- NOTE | ~2024-08-04 | MR_ITS ---
EXAMINATION: MR CERVICAL SPINE WITHOUT CONTRAST CLINICAL INFORMATION: Torticollis, spasmodic. COMPARISON: None available. TECHNIQUE: MRI of the cervical spine was obtained using routine sequences without contrast. FINDINGS: Craniocervical junction is intact and normal alignment. There is a subtle bone marrow STIR signal at C4-5 and to a lesser extent superior endplate of C6 and C7. There is hyperintense STIR signal abnormality involving the left lateral posterior elements of C3-4 and to a lesser extent C5 with associated the hyperintense STIR signal in the soft tissues adjacent to the facet joints. Bone marrow inhomogeneity. Multilevel marginal osteophyte formation and disc desiccation, C3-C7. Grade 1 anterolisthesis C7-T1. Grade 1 retrolisthesis C6-7. Buckling deformity at the dorsal aspect of the thecal sac likely related to ligamentum flavum hypertrophy from C4 to C6. Cervical spinal cord signal is normal. C2-3: No disc herniation. No neuroforamina stenosis. Left facet joint hypertrophy. C3-4: Broad-based disc osteophyte complex formation. No cord compression. Bilateral neuroforamina narrowing, left greater than the right on a degenerative basis. C4-5: Broad-based disc bulging abutting the cord and flattening deformity without cord signal abnormality. Right neuroforamina narrowing on a degenerative basis. C5-6: Broad-based disc osteophyte complex formation resulting in CSF effacement on the ventral aspect of the thecal sac. Right neuroforamina narrowing on a degenerative basis. C6-7: Broad-based disc osteophyte complex formation slightly asymmetric to the left resulting in ventral deformity of the thecal sac. No cord signal abnormality. Left neuroforamina narrowing on a degenerative basis. C7-T1: No disc herniation. No neuroforamina stenosis. Flow-void signal within the renal vessels is normal. Codominant vertebral arteries. MR/MR cervical spine wo con IMPRESSION: Multilevel cervical spondylosis resulting in central spinal canal stenosis and likely compressing the cord at C4-5 and C5-6 and to a lesser extent C6-7 levels without cord edema and or myelopathy. Acute inflammatory processes versus bone contusions/injury from C4 to C6 and involving mostly the left lateral posterior elements of C4-5 and C5-6 with associated soft tissue edema pattern/mild contusion/injury. Electronically signed by: Sridhar Mansfield MD 08/04/2024 01:12 PM EDT RP
--- OUTSIDE RECORDS SUMMARY | 2024-08-04 11:59 | XMS_ITS ---
Author Organization [facility] Address [address] [place] [address] Care Team Providers Care Forming Roll Operator Name Role Phone Sukhdev Layne Primary Care Provider Unavailab Karsten Kumar [phone] REASON FOR VISIT Needs to see Dr. Michael. Encounters Encounter Location Date Provider Diagnosis [facility] [address] [place] [address] 04/25/2023 Karsten Saunders Plan Of Treatment Next Appt Details Provider Name:Karsten Saunders , 09/05/2024 02:40:00 PM, [address], [address], [place], [address], Progress Notes * PAULINE VILLALBA DDOB: [birth year] (78 yo F)Acc No.[id number]:04/25/2023 Patient:?PAULINE VILLALBA :1945???Age:78 Y???Sex:Female Address:[address] [place], [address] * true * Date:? Generated for Printi serge/Leandro/eTransmitting on:?08/04/2024 11:59 AM EDT
--- OUTSIDE RECORDS SUMMARY | 2024-08-04 11:59 | XMS_ITS | Patient Health Record ---
Author Organization [facility] Address [address] [place] [address] Care Team Providers Care Machine Maintenance Mechanic Name Role Phone Sukhdev Layne Primary Care Provider Karsten Mena Unavailable [phone] Allergies Allergen (clinical drug ingredient) Drug/Non Drug [...] Problem Status W/U Status Risk Notes Problem 984085456 Colon cancer screening (Z12.11) Active confirmed Problem 327064265 History of adenomatous polyp of colon (Z86.010) Active confirmed Problem Diverticulosis o f large intestine without perforation or abscess without bleeding (K57.30) Active confirmed Problem 34950832 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) Active confirmed Plan Of Treatment Pending Test Test Name Order Date CELIAC PANEL #10 01/20/2023 Future Test Test Name Order Date COLONOSCOPY 01/20/2023 Next Appt Details Provider Name:Karsten Saunders , 09/05/2024 02:40:00 PM, [address] [place] [address], [address], [place], [address], Insurance Providers Payer Name Payer Address Payer Phone Subscriber Number Group Number Insured Name Patient Relationship to Insured Coverage Start Date Coverage End Date [facility] [address] [place] [phone] [id number] PAULINE VILLALBA Self - patient is the insured Medical (General) History Medical History History ICD Code HTN Urinary incontinence GERD Denies [place],DM,CVA,Lung disease,renal dise ase IBS Aramis's with subsequent hypothyroidi sm Hyperlipidemia Right bundle branch block; r eports a negative Nuclear stress test [place] [address] Vogel Colonoscopies in 2012 and in 2018 at [facility] with removal of small tubular adenomas. The most recent exam in 01/2019 described only a fair bowel prep and Dr. Massey recommended a 3 year followup Surgical History Surgery Date(Month/Year) Hysterectomy and 1 ovary removed Tubal ligation Bladder suspension [facility]
--- OUTSIDE RECORDS SUMMARY | 2024-08-04 11:59 | XMS_ITS | Clinical Summary ---
Author Organization [facility] Address [address] [place] [address] Care Team Providers Care Appetizer Packer Name Role Phone Jordan Brandon Primary Care Provider [phone] Allergies Active Allergy Reactions Criticality Noted Date [...] averse patient. Osteopenia 01/25/2015 Overview (12/23/2016): 01/2015. BD([facility]). L/S Spine -0.5. Hip(Neck) -1.5. [...] Problem Noted Date Diagnosed Date Resolved Date Zpptzsx-iu-hzq 07/21/2018 08/09/2018 Overview (07/21/2018): 07/2018. Dr. Kimball. [...] complete this topic Procedures * Due to [place] [employer] law, this organization might not be sharing [...] Health Maintenance Results * Due to [place] [employer] law, this organization might not be sharing negative HIV tests. * HM Mammography, Bilateral (12/10/2020) Anatomical Region Laterality Modality Other 12/10/2020 us Unknown Provider MD HEALTH MAINTENANCE Final Res ult * Basic Metabolic Panel (07/22/2020 10:34 AM EDT) Glucose 92 65 - 99 mg/dL 07/22/2020 5:38 PM EDT [facility] Comment: ? Fasting reference interval BUN 14 7 - 25 mg/dL 07/22/2020 5:38 PM EDT [facility] Creatinine 0.78 0.60 - 0.93 mg/dL 07/22/2020 5:38 PM EDT [facility] Comment: For patients >49 years of age, the reference limit for Creatinine is approximately 13% higher for people identified as -Namibian. eGFR Non- 75 > OR = 60 mL/min/1 .73m2 07/22/2020 5:38 PM EDT [facility] eGFR 87 > OR = 60 mL/min/1 .73m2 07/22/2020 5:38 PM EDT [facility] Bun/Creatinine Ratio NOT APPLICABLE (calc) 07/22/2020 5:38 PM EDT [facility] Sodium 141 135 - 146 mmol/L 07/22/2020 5:38 PM EDT [facility] Potassium 4.6 3.5 - 5.3 mmol/L 07/22/2020 5:38 PM EDT [facility] Chloride 103 98 - 110 mmol/L 07/22/2020 5:38 PM EDT [facility] Carbon Dioxide 29 20 - 32 mmol/L 07/22/2020 5:38 PM EDT [facility] Calcium 10.2 8.6 - 10.4 mg/dL 07/22/2020 5:38 PM EDT [facility] Blood Structure of peripheral vein / Unknown 07/22/2020 10:34 AM EDT 07/22/2020 4:17 PM EDT Narrative [facility] - 07/22/2020 6:46 PM EDT FASTING:YES us Lake Napoles MD LAB BLOOD ORDERABLES Fin al Result [facility] [address] [facility] 3rd Floor, [place] [address], [facility] [address] [place] [address] * Hepatitis C Antibody w/Reflex to PCR (01/24/2019 9:50 AM EDT) Hepatitis C Antibody NON-REACT MEI NON-REACT MEI 01/24/2019 8:44 PM EDT [facility] Signal To Cut-Off 0.02 <1.00 01/24/2019 8:44 PM EDT [facility] Comment: HCV antibody was non-reactive. There is no laboratory evidence of HCV infection. In most cases, no further action is required. However, if recent HCV exposure is suspected, a test for HCV RNA (test code 80610) is suggested. For additional information please refer to http://education.I-Pulse/faq/DRU13w4 (This link is being provided for informational/ educational purposes only.) Blood specimen (specimen) Structure of peripheral vein / Unknown 01/24/2019 9:50 AM EDT 01/24/2019 5:08 PM EDT Narrative [facility] - 01/24/2019 9:22 PM EDT FASTING:YES us Lake Napoles MD LAB BLOOD ORDERABLES Fin al Result [facility] [address] [facility] 3rd Floor, [place] [address], [place] [phone] [employer] [facility] [address] [place] [address] * COLONOSCOPY (01/24/2019) Narrative Procedure Note Arsen [...] Relevant to Health Maintenance Insurance ANISH WEAVER [id number] [facility] Advance Directives Documents on File Type Date Recorded Patient Licensed Home Inspector Expl anation Health Care Proxy 08/01/2018 11:58 AM /2 12/2018 Care Teams Appetizer Packer Relationship Specialty Start Date End Date Jordan Brandon [address] [place] [address] [place] [address] PCP - General Internal Medicine 01/27/21
--- OUTSIDE RECORDS SUMMARY | 2024-08-04 11:59 | XMS_ITS ---
Author Organization [facility] Address [address] [place] [address] Care Team Providers Care Physical Therapy Aide Name Role Phone Sukhdev Layne Primary Care Provider Unavailab Karsten Kumar [phone] Encounters Encounter Location Date Provider Diagnosis [facility] [address] [facility] [address] [place] [address] 06/10/2023 Karsten Saunders Plan Of Treatment Next Appt Details Provider Name:Karsten Saunders , 09/05/2024 02:40:00 PM, [address], [address], [place], [address], Progress Notes * PAULINE VILLALBA DDOB: [birth year] (78 yo F)Acc No.[id number]:06/10/2023 Patient:?PAULINE VILLALBA :1945???Age:78 Y???Sex:Female Address:[address] [place], [address] * true * Date:? Generated for Printi ng/Faabisaig/eTransmitting on:?08/04/2024 11:59 AM EDT
--- OUTSIDE RECORDS SUMMARY | 2024-08-04 11:59 | XMS_ITS | Referral Summary ---
Author Organization [facility] Address [address] [place] [address] Care Team Providers Care German Teacher Name Role Phone Jordan Brandon Primary Care Provider [phone] Allergies Active Allergy Reactions Criticality Noted Date [...] averse patient. Osteopenia 01/25/2015 Overview (12/23/2016): 01/2015. BD([facility]). L/S Spine -0.5. Hip(Neck) -1.5. [...] Problem Noted Date Diagnosed Date Resolved Date Maekhqy-st-mjl 07/21/2018 08/09/2018 Overview (07/21/2018): 07/2018. Dr. Kimball. [...] Not on file Procedures * Due to [place] [employer] law, this organization might not be sharing [...] to Health Maintenance Results * Due to [place] [employer] law, this organization might not be sharing negative HIV tests. * Mammography, Bilateral (12/10/2020) Anatomical Region Laterality Modality Other 12/10/2020 Unknown Provider MD HEALTH MAINTENANCE Final Res ult * Basic Metabolic Panel (07/22/2020 10:34 AM EDT) Glucose 92 65 - 99 mg/dL 07/22/2020 5:38 PM EDT [facility] Comment: ? Fasting reference interval BUN 14 7 - 25 mg/dL 07/22/2020 5:38 PM EDT [facility] Creatinine 0.78 0.60 - 0.93 mg/dL 07/22/2020 5:38 PM EDT [facility] Comment: For patients >49 years of age, the reference limit for Creatinine is approximately 13% higher for people identified as -South Sudanese. eGFR Non- 75 > OR = 60 mL/min/1 .73m2 07/22/2020 5:38 PM EDT [facility] eGFR 87 > OR = 60 mL/min/1 .73m2 07/22/2020 5:38 PM EDT [facility] Bun/Creatinine Ratio NOT APPLICABLE 6 - 22 (calc) 07/22/2020 5:38 PM EDT [facility] Sodium 141 135 - 146 mmol/L 07/22/2020 5:38 PM EDT [facility] Potassium 4.6 3.5 - 5.3 mmol/L 07/22/2020 5:38 PM EDT [facility] Chloride 103 98 - 110 mmol/L 07/22/2020 5:38 PM EDT [facility] Carbon Dioxide 29 20 - 32 mmol/L 07/22/2020 5:38 PM EDT [facility] Calcium 10.2 8.6 - 10.4 mg/dL 07/22/2020 5:38 PM EDT [facility] Blood Structure of peripheral vein / Unknown 07/22/2020 10:34 AM EDT 07/22/2020 4:17 PM EDT Narrative [facility] - 07/22/2020 6:46 PM EDT FASTING:YES us Lake Napoles MD LAB BLOOD ORDERABLES Fin al Result Performing Organization Address City/[facility]/ZIP Co de Phone Number [facility] [address], [place] [address], [place] [phone] [employer] [address] [address] * Hepatitis C Antibody w/Reflex to PCR (01/24/2019 9:50 AM EDT) Hepatitis C Antibody NON-REACT MEI NON-REACT MEI 01/24/2019 8:44 PM EDT [employer] [facility] Signal To Cut-Off 0.02 <1.00 01/24/2019 8:44 PM EDT [facility] Comment: HCV antibody was non-reactive. There is no laboratory evidence of HCV infection. In most cases, no further action is required. However, if recent HCV exposure is suspected, a test for HCV RNA (test code 10789) is suggested. For additional information please refer to http://education.Gift2Greet.com/faq/ZDI46f8 (This link is being provided for informational/ educational purposes only.) Blood specimen (specimen) Structure of peripheral vein / Unknown 01/24/2019 9:50 AM EDT 01/24/2019 5:08 PM EDT Narrative [facility] - 01/24/2019 9:22 PM EDT FASTING:YES Lake Napoles MD LAB BLOOD ORDERABLES Fin al Result Performing Organization Address City/[facility]/ZIP Co de Phone Number [facility] [address], [place] [address], [place] [phone] [employer] [address] [address] * COLONOSCOPY (01/24/2019) Narrative Procedure Note Arsen [...] Most Recently Relevant to Health Maintenance Insurance [facility] Advance Directives Documents on File Type Date Recorded Patient Jig Maker Expl anation Health Care Proxy 08/01/2018 11:58 AM 07/05 Care Teams German Teacher Relationship Specialty Start Date End Date Jordan Brandon [address] [place] [address] [place] [address] PCP - General Internal Medicine 01/27/21
--- OUTSIDE RECORDS SUMMARY | 2024-08-04 12:00 | XMS_ITS ---
Author Organization [facility] Address [address] [facility] [address] [place] [address] Care Team Providers Care Assistant Manager Quality Management Name Role Phone Sukhdev Layne Primary Care Provider Unavailab Karsten Kumar [phone] REASON FOR VISIT screening, hx polyps Problems Problem Type SNOMED Code ICD Code Onset Dates Problem Status W/U Status Risk Notes Problem Diverticulosis o f large intestine without perforation or abscess without bleeding (K57.30) Active confirmed Encounters Encounter Location Date Provider Diagnosis [facility] [address] [place] [phone] 04/16/2023 Karsten Saunders Encounter for scre ening [...] Name:Karsten Saunders , 09/05/2024 02:40:00 PM, [address] [facility], [address], [place], [address], Progress Notes * PAULINE VILLALBA DDOB: [birth year] (79 yo F)Acc No.[id number]:04/16/2023 COLON WITH MAC Patient:?PAULINE VILLALBA Provider:?Karsten Saunders MD :1945???Age:78 Y???Sex:Female D ate:04/16/2023 Address:[address] [place] [address] Pcp:Sukhdev Layne Subjective: * Chief Complaints: * ???1. Screening, hx polyps. * Medical History:? Objective: * Vitals:? Assessment: * Assessment: 1.?Encounter for screening c olonoscopy - Z12.11 (Primary)???2.?Colon polyps - K63.5???3.?Angiodysplasia - K55.20???4.?Diverticulosis of large intestine without perforation or abscess without bleeding - K57.30???5.?Internal hemorrhoids - K64.8??? Plan: * Treatment: * Procedure Codes:?29237 COLON OSCOPY AND BIOPSY, Modifiers: 33 * * The named appointment provid er may or may not be the originator of this progress note, and it is not deemed complete until electronically signed by the appointment provider. Sign off status: Pending * Provider:?Karsten Saunders MD Date:? 024 Generated for Jose valentine/Leandro/Merissasmitting on:?08/04/2024 11:59 AM EDT
--- OUTSIDE RECORDS SUMMARY | 2024-08-04 12:00 | XMS_ITS | Patient Health Record ---
Author Organization [facility] Address [address] [place], [place] [address] Care Team Providers Care Fondant Machine Operator Name Role Phone Yesika WING, Lake Primary Care Provider Charlee Jose Meng Unavailable [phone] Castillo Dailey Unavailable Unavailable Reason For Referral No Information Plan Of Treatment No Information Insurance Providers Payer Name Payer Address Payer Phone Subscriber Number Group Number Insured Name Patient Relationship to Insured Coverage Start Date Coverage End Date [facility] [address] [address] [place] [address] [id number] Tatiana Rawls Self - patient is the insured
== END 2024-08-04 10:52 | disposition home or self-care (01) ==
LOC: HO.MRI 10:51
PROVIDERS: PCP Family Medicine; Visit Provider Psychiatry & Neurology Neurology
DX: G24.3 Spasmodic torticollis (principal); M54.2 Cervicalgia; R26.81 Unsteadiness on feet
CPT/HCPCS: 72141

== ENCOUNTER 2024-08-22 10:14 | Outpatient (REF) | payer MEDICARE, SELFPAY ==
--- OUTSIDE RECORDS SUMMARY | 2024-08-22 11:25 | XMS_ITS ---
Author Organization [facility] Address [address] [place] [address] Care Team Providers Care Salt Washer Name Role Phone Sukhdev Layne Primary Care Provider UnavailKarsten Ansari [phone] Encounters Encounter Location Date Provider Diagnosis [facility] [address] [facility] [address] [place] [address] 06/10/2023 Karsten Saunders Plan Of Treatment Next Appt Details Provider Name:Karsten Saunders , 09/05/2024 02:40:00 PM, [address], [address], [place], [address], Progress Notes * PAULINE VILLALBA DDOB: [birth year] (78 yo F)Acc No.[id number]:06/10/2023 Patient:?PAULINE VILLALBA :1945???Age:78 Y???Sex:Female Address:[address] [place], [address] * true * Date:? Generated for Printi ng/Faabisaig/eTransmitting on:?08/22/2024 11:25 AM EDT
--- OUTSIDE RECORDS SUMMARY | 2024-08-22 11:25 | XMS_ITS ---
Author Organization [facility] Address [address] [facility] [address] [place] [address] Care Team Providers Care Folder And Notcher Name Role Phone Sukhdev Layne Primary Care Provider Unavailab Karsten Kumar Unavailable [phone] REASON FOR VISIT screening, hx polyps Problems Problem Type SNOMED Code ICD Code Onset Dates Problem Status W/U Status Risk Notes Problem Diverticular disease of colon (228555808) Diverticulosis of large intestine without perforation or abscess without bleeding (K57.30) Active confirmed Encounters Encounter Location Date Provider Diagnosis [facility] [place] [address] [place] [phone] 04/16/2023 Karsten Saunders Encounter for scre ening [...] Name:Karsten Saunders , 09/05/2024 02:40:00 PM, [address] [facility], [address], [place], [address], Progress Notes * PAULINE VILLALBA DDOB: [birth year] (79 yo F)Acc No.[id number]:04/16/2023 COLON WITH MAC Patient:?PAULINE VILLALBA Provider:?Karsten Saunders MD :1945???Age:78 Y???Sex:Female D ate:04/16/2023 Address:[address] [place], [place] [address] Pcp:Sukhdev Layne Subjective: * Chief Complaints: * ???1. Screening, hx polyps. * Medical History:? Objective: * Vitals:? Assessment: * Assessment: 1.?Encounter for screening c olonoscopy - Z12.11 (Primary)???2.?Colon polyps - K63.5???3.?Angiodysplasia - K55.20???4.?Diverticulosis of large intestine without perforation or abscess without bleeding - K57.30???5.?Internal hemorrhoids - K64.8??? Plan: * Treatment: * Procedure Codes:?26290 COLON OSCOPY AND BIOPSY, Modifiers: 33 * * The named appointment provid er may or may not be the originator of this progress note, and it is not deemed complete until electronically signed by the appointment provider. Sign off status: Pending * Provider:?Karsten Saunders MD Date:? 024 Generated for Jose valentine/Leandro/Merissasmitting on:?08/22/2024 11:25 AM EDT
--- OUTSIDE RECORDS SUMMARY | 2024-08-22 11:25 | XMS_ITS | Referral Summary ---
Author Organization [facility] Address [address] [place] [address] Care Team Providers Care Shadowgraph Operator Name Role Phone Jordan Brandon Primary Care Provider [phone] Allergies Active Allergy Reactions Criticality Noted Date [...] averse patient. Osteopenia 01/25/2015 Overview (12/23/2016): 01/2015. BD([facility]). L/S Spine -0.5. Hip(Neck) -1.5. [...] Problem Noted Date Diagnosed Date Resolved Date Samigcj-do-gqi 07/21/2018 08/09/2018 Overview (07/21/2018): 07/2018. Dr. Kimball. [...] Not on file Procedures * Due to [place] [employer] law, this organization might not be sharing [...] to Health Maintenance Results * Due to [place] [employer] law, this organization might not be sharing negative HIV tests. * Mammography, Bilateral (12/10/2020) Anatomical Region Laterality Modality Other 12/10/2020 Unknown Provider MD HEALTH MAINTENANCE Final Res ult * Basic Metabolic Panel (07/22/2020 10:34 AM EDT) Glucose 92 65 - 99 mg/dL 07/22/2020 5:38 PM EDT [facility] Comment: ? Fasting reference interval BUN 14 7 - 25 mg/dL 07/22/2020 5:38 PM EDT [facility] Creatinine 0.78 0.60 - 0.93 mg/dL 07/22/2020 5:38 PM EDT [facility] Comment: For patients >49 years of age, the reference limit for Creatinine is approximately 13% higher for people identified as -South Korean. eGFR Non- 75 > OR = 60 mL/min/1 .73m2 07/22/2020 5:38 PM EDT [facility] eGFR 87 > OR = 60 mL/min/1 .73m2 07/22/2020 5:38 PM EDT [employer] Bun/Creatinine Ratio NOT APPLICABLE 6 - 22 (calc) 07/22/2020 5:38 PM EDT [facility] Sodium 141 135 - 146 mmol/L 07/22/2020 5:38 PM EDT [facility] Potassium 4.6 3.5 - 5.3 mmol/L 07/22/2020 5:38 PM EDT [facility] Chloride 103 98 - 110 mmol/L 07/22/2020 5:38 PM EDT [facility] Carbon Dioxide 29 20 - 32 mmol/L 07/22/2020 5:38 PM EDT [facility] Calcium 10.2 8.6 - 10.4 mg/dL 07/22/2020 5:38 PM EDT [facility] Blood Structure of peripheral vein / Unknown 07/22/2020 10:34 AM EDT 07/22/2020 4:17 PM EDT Narrative [facility] - 07/22/2020 6:46 PM EDT FASTING:YES us Lake Napoles MD LAB BLOOD ORDERABLES Fin al Result Performing Organization Address City/[facility]/ZIP Co de Phone Number [facility] [address], [place] [address], [place] [phone] [facility] [address] [address] * Hepatitis C Antibody w/Reflex to PCR (01/24/2019 9:50 AM EDT) Hepatitis C Antibody NON-REACT MEI NON-REACT MEI 01/24/2019 8:44 PM EDT [facility] Signal To Cut-Off 0.02 <1.00 01/24/2019 8:44 PM EDT [employer] [facility] Comment: HCV antibody was non-reactive. There is no laboratory evidence of HCV infection. In most cases, no further action is required. However, if recent HCV exposure is suspected, a test for HCV RNA (test code 56434) is suggested. For additional information please refer to http://education.American Hometec/faq/WIS63u8 (This link is being provided for informational/ educational purposes only.) Blood specimen (specimen) Structure of peripheral vein / Unknown 01/24/2019 9:50 AM EDT 01/24/2019 5:08 PM EDT Narrative [facility] - 01/24/2019 9:22 PM EDT FASTING:YES Lake Napoles MD LAB BLOOD ORDERABLES Fin al Result Performing Organization Address City/[facility]/ZIP Co de Phone Number [facility] [address], [place] [address], [place] [phone] [facility] [address] [address] * COLONOSCOPY (01/24/2019) Narrative Procedure Note Arsen [...] Most Recently Relevant to Health Maintenance Insurance [facility] Advance Directives Documents on File Type Date Recorded Patient Semi Conductor Assembler Expl anation Health Care Proxy 08/01/2018 11:58 AM 07/05 Care Teams Shadowgraph Operator Relationship Specialty Start Date End Date Jordan Brandon [address] [place] [address] [place] [address] PCP - General Internal Medicine 01/27/21
--- OUTSIDE RECORDS SUMMARY | 2024-08-22 11:25 | XMS_ITS | Patient Health Record ---
Author Organization [facility] Address [address] [place] [address] Care Team Providers Care Juvenile Counselor Name Role Phone Sukhdev Layne Primary Care Provider Karsten Mena Unavailable [phone] Allergies Allergen (clinical drug ingredient) Drug/Non Drug [...] Problem Status W/U Status Risk Notes Problem 262147745 Colon cancer screening (Z12.11) Active confirmed Problem 142544520 History of adenomatous polyp of colon (Z86.010) Active confirmed Problem Diverticulosis o f large intestine without perforation or abscess without bleeding (K57.30) Active confirmed Problem 96484708 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) Active confirmed Plan Of Treatment Pending Test Test Name Order Date CELIAC PANEL #10 01/20/2023 Future Test Test Name Order Date COLONOSCOPY 01/20/2023 Next Appt Details Provider Name:Karsten Saunders , 09/05/2024 02:40:00 PM, [address] [place] [address], [address], [place], [address], Insurance Providers Payer Name Payer Address Payer Phone Subscriber Number Group Number Insured Name Patient Relationship to Insured Coverage Start Date Coverage End Date [facility] [id number] [place] [phone] [id number] PAULINE VILLALBA Self - patient is the insured Medical (General) History Medical History History ICD Code HTN Urinary incontinence GERD Denies VT,DM,CVA,Lung disease,renal dise ase IBS Aramis's with subsequent hypothyroidi sm Hyperlipidemia Right bundle branch block; r eports a negative Nuclear stress test in [address] Vogel Colonoscopies in 2012 and in 2018 at [facility] with removal of small tubular adenomas. The most recent exam in 01/2019 described only a fair bowel prep and Dr. Massey recommended a 3 year followup Surgical History Surgery Date(Month/Year) Hysterectomy and 1 ovary removed Tubal ligation Bladder suspension [facility]
--- OUTSIDE RECORDS SUMMARY | 2024-08-22 11:25 | XMS_ITS | Clinical Summary ---
Author Organization [facility] Address [address] [place] [address] Care Team Providers Care Costume Maker Name Role Phone Jordan Brandon Primary Care Provider [phone] Allergies Active Allergy Reactions Criticality Noted Date [...] averse patient. Osteopenia 01/25/2015 Overview (12/23/2016): 01/2015. BD([facility]). L/S Spine -0.5. Hip(Neck) -1.5. [...] Problem Noted Date Diagnosed Date Resolved Date [id number] 07/21/2018 08/09/2018 Overview (07/21/2018): 07/2018. Dr. Kimball. [...] complete this topic Procedures * Due to [place] [employer] law, this organization might not be sharing [...] to Health Maintenance Results * Due to [place] [employer] law, this organization might not be sharing negative HIV tests. * HM Mammography, Bilateral (12/10/2020) Anatomical Region Laterality Modality Other 12/10/2020 us Unknown Provider MD HEALTH MAINTENANCE Final Res ult * Basic Metabolic Panel (07/22/2020 10:34 AM EDT) Glucose 92 65 - 99 mg/dL 07/22/2020 5:38 PM EDT [facility] Comment: ? Fasting reference interval BUN 14 7 - 25 mg/dL 07/22/2020 5:38 PM EDT [facility] Creatinine 0.78 0.60 - 0.93 mg/dL 07/22/2020 5:38 PM EDT [facility] Comment: For patients >49 years of age, the reference limit for Creatinine is approximately 13% higher for people identified as -[place]. eGFR Non- 75 > OR = 60 mL/min/1 .73m2 07/22/2020 5:38 PM EDT [facility] eGFR 87 > OR = 60 mL/min/1 .73m2 07/22/2020 5:38 PM EDT [facility] Bun/Creatinine Ratio NOT APPLICABLE (calc) 07/22/2020 5:38 PM EDT [facility] Sodium 141 135 - 146 mmol/L 07/22/2020 5:38 PM EDT [facility] Potassium 4.6 3.5 - 5.3 mmol/L 07/22/2020 5:38 PM EDT [facility] Chloride 103 98 - 110 mmol/L 07/22/2020 5:38 PM EDT [facility] Carbon Dioxide 29 20 - 32 mmol/L 07/22/2020 5:38 PM EDT [facility] Calcium 10.2 8.6 - 10.4 mg/dL 07/22/2020 5:38 PM EDT [facility] Blood Structure of peripheral vein / Unknown 07/22/2020 10:34 AM EDT 07/22/2020 4:17 PM EDT Narrative [facility] - 07/22/2020 6:46 PM EDT FASTING:YES us Lake Napoles MD LAB BLOOD ORDERABLES Fin al Result [facility] [address] [facility] [address], [place] [address], [facility] [address] [place] [address] * Hepatitis C Antibody w/Reflex to PCR (01/24/2019 9:50 AM EDT) Hepatitis C Antibody NON-REACT MEI NON-REACT MEI 01/24/2019 8:44 PM EDT [facility] Signal To Cut-Off 0.02 <1.00 01/24/2019 8:44 PM EDT [facility] Comment: HCV antibody was non-reactive. There is no laboratory evidence of HCV infection. In most cases, no further action is required. However, if recent HCV exposure is suspected, a test for HCV RNA (test code 16575) is suggested. For additional information please refer to http://education.[employer]/faq/UXT25r7 (This link is being provided for informational/ educational purposes only.) Blood specimen (specimen) Structure of peripheral vein / Unknown 01/24/2019 9:50 AM EDT 01/24/2019 5:08 PM EDT Narrative [facility] - 01/24/2019 9:22 PM EDT FASTING:YES us Lake Napoles MD LAB BLOOD ORDERABLES Fin al Result [facility] [address] [facility] [address], [place] [address], [place] [phone] [employer] [facility] [address] [place] [address] * COLONOSCOPY (01/24/2019) Narrative Procedure Note Arsen [...] Relevant to Health Maintenance Insurance ANISH [employer]ER [id number] [facility] Advance Directives Documents on File Type Date Recorded Patient Wire Cutter Expl anation Health Care Proxy 08/01/2018 11:58 AM /2 12/2018 Care Teams Costume Maker Relationship Specialty Start Date End Date Jordan Brandon [address] [place] [address] [place] [address] PCP - General Internal Medicine 01/27/21
--- OUTSIDE RECORDS SUMMARY | 2024-08-22 11:25 | XMS_ITS | Patient Health Record ---
Author Organization [facility] Address [address] [place], [place] [id number] Care Team Providers Care Journalism Intern Name Role Phone Yesika WING, Lake Primary Care Provider Charlee Jose Meng Unavailable [phone] Castillo Dailey Unavailable Unavailable Reason For Referral No Information Plan Of Treatment No Information Insurance Providers Payer Name Payer Address Payer Phone Subscriber Number Group Number Insured Name Patient Relationship to Insured Coverage Start Date Coverage End Date [facility] [facility] [address] [address] [place] [address] [id number] Tatiana Rawls Self - patient is the insured
--- OUTSIDE RECORDS SUMMARY | 2024-08-22 11:25 | XMS_ITS ---
Author Organization [facility] Address [address] [place] [address] Care Team Providers Care Boring Machine Operator Double End Name Role Phone Sukhdev Layne Primary Care Provider Unavailab Karsten Kumar [phone] REASON FOR VISIT Needs to see Dr. Michael. Encounters Encounter Location Date Provider Diagnosis [facility] [address] [facility] [address] [place] [address] 04/25/2023 Karsten Saunders Plan Of Treatment Next Appt Details Provider Name:Karsten Saunders , 09/05/2024 02:40:00 PM, [address] [facility] [address], [address], [place], [address], Progress Notes * PAULINE VILLALBA DDOB: [birth year] (78 yo F)Acc No.[id number]:04/25/2023 Patient:?PAULINE VILLALBA :1945???Age:78 Y???Sex:Female Address:[address] [place], [address] * true * Date:? Generated for Printi ng/Leandro/eTransmitting on:?08/22/2024 11:25 AM EDT
[2024-08-22 12:49] LABS: Alanine Aminotransferase 34 U/L (0-31); Albumin Level 4.4 g/dL (3.5-5.0); Alkaline Phosphatase 71 U/L (39-117); Anion Gap 11 (12-20); Aspartate Amino Transferase 35 U/L (5-31); Bilirubin Total 0.4 mg/dL (0.0-1.0); Blood Urea Nitrogen 12 mg/dL (9-16); Calcium 9.8 mg/dL (8.4-10.2); Carbon Dioxide 29 mmol/L (22-29); Chloride 102 mmol/L (96-108); Cholesterol 135 mg/dL (<200); Estimated Glomerular Filt Rate > 60; Glucose Random 109 mg/dL (60-115); HDL Cholesterol 66 mg/dL (>40); Iron 87 mcg/dL (30-160); LDL Cholesterol Calculated 55 mg/dL (<100); Magnesium 2.2 mg/dL (1.6-2.6); Percent Iron Saturation 32 % (15-50); Potassium 4.1 mmol/L (3.3-5.1); Sodium 138 mmol/L (135-145); Thyroid Stimulating Hormone 0.06 uIU/mL (0.32-4.0); Total Iron Binding Capacity 270 mcg/dL (228-428); Total Protein 7.4 g/dL (6.5-8.0); Triglycerides 72 mg/dL (<150); Unsaturated Iron Binding 183 ug/dL
[2024-08-22 12:50] LABS: Ferritin 96 ng/mL (10-250); Free T4 (Free Thyroxine) 1.33 ng/dL (0.71-1.85)
[2024-08-22 13:06] LABS: Folate 6.7 ng/mL (> or = 4.0); Vitamin B12 254 pg/mL (200-900)
[2024-08-23 03:53] LABS: Triiodothyronine T3 Total 73 ng/dL (76-181)
== END 2024-08-22 10:15 | disposition home or self-care (01) ==
LOC: HO.WFDLDS 10:14
PROVIDERS: Nurse Practitioner Family; Visit Provider Family Medicine
DX: I25.10 Atherosclerotic heart disease of native coronary artery without angina pectoris (principal); R26.81 Unsteadiness on feet; E03.9 Hypothyroidism, unspecified; R74.8 Abnormal levels of other serum enzymes; E53.8 Deficiency of other specified B group vitamins
CPT/HCPCS: 36415; 80053; 80061; 82607; 82728; 82746; 83540; 83735; 84439; 84443; 84480

== ENCOUNTER 2024-08-29 10:22 | Outpatient (AMB) | payer MEDICARE, SELFPAY ==
--- NOTE | 2024-08-29 10:26 | MHC.PC.OV ---
Vital Signs 08/29/24 10:32 Height 5 ft 7 in Weight 148 lb 8 oz BMI 23.3 BP 130/62 Blood Pressure Location Lt brachial Position Sitting Respiration 16 Pulse 79 Pulse Source Pulse Oximeter Temp 97.8 F Temp Source Oral Pulse Oximetry (%) 99 Oxygen Delivery Method Room Air Intake Visit Reasons: f/u hypothyroidism, labs Intake Note: patient is scheduled for follow-up for hypothyroidism and lab work patient has no concerns at this time. Is last menstrual period known: No Post menopausal: No Patient : No Allergies Sulfa (Sulfonamide Antibiotics) Allergy (Severe, Verified 08/29/24 10:27) Rash amoxicillin [From Augmentin] Allergy (Intermediate, Verified 08/29/24 10:27) Nausea and Vomiting clavulanic acid [From Augmentin] Allergy (Intermediate, Verified 08/29/24 10:27) Nausea and Vomiting shellfish derived Allergy (Intermediate, Verified 08/29/24 10:27) Nausea and Vomiting turmeric Allergy (Intermediate, Verified 08/29/24 10:27) Vomiting narcotic pain medications Adverse Reaction (Intermediate, Uncoded 08/29/24 10:27) Nausea and Vomiting Medication List - Last Reconciled 08/29/24 by Sukhdev Layne MD amlodipine 5 mg PO DAILY 90 days ammonium lactate 12% 1 appl topical DAILY 30 days aspirin (Adult Aspirin Regimen) 81 mg PO DAILY 90 days cholecalciferol (vitamin D3) 50 mcg PO QAM coenzyme Q10 (Ultra CoQ10) 75 mg PO QAM ezetimibe 10 mg PO DAILY hydrocortisone 2.5% 1 appl topical BID PRN 30 days ibuprofen 800 mg PO Q8H PRN 14 days levothyroxine 125 mcg PO DAILY 90 days lisinopril 30 mg PO DAILY 90 days omega 7-ftv-rnp-fish oil 1,200 (144-216) mg (Fish Oil) 1 cap PO DAILY omeprazole 20 mg PO BID@0630,1630 30 days rosuvastatin 40 mg PO BEDTIME 90 days varenicline tartrate PO PER PKG DIR Tobacco use date assessed: 08/29/24 Fall risk assessment: No Falls in past year Dental Screening Dental Screen Date: 08/29/24 Did you have a dental visit in the last 12 months?: No Did you have a dental problem in the last 6 months where you did not have access to dental care?: No Was dental information given to patient?: No HPI f/u hypothyroidism, labs HPI Details 79 y/o female presents to f/u hypothyroidism, labs. Labs drawn 08/22/24. Reviewed labs with pt. Elevated liver enzymes - AST 35, ALT 34. TSH 0.06 uIU/mL. Free T4 1.33. Total T3 73 ng/dL. She is on levothyroxine 125 mcg daily. Triglycerides 72. TC 135. LDL 55. HDL 66. Follows up with vascular for AAA. She has a f/u in about a year for surveillance. Cervical spine MRI 08/04/24 showed: Multilevel cervical spondylosis resulting in central spinal canal stenosis and likely compressing the cord at C4-5 and C5-6 and to a lesser extent C6-7 levels without cord edema and or myelopathy. [facility] Medical History (Updated 08/29/24 @ 11:12 by Sukhdev Layne MD) Excessive daytime sleepiness Snoring Ocular migraine Obstructive sleep apnea Cervical dystonia Cervicalgia Gait instability Family history of gene mutation Colon cancer Family history of anesthesia complication COPD (chronic obstructive pulmonary disease) Cecal lesion RBBB (right bundle branch block) Bifascicular block Polycythemia CAD (coronary artery disease) GERD (gastroesophageal reflux disease) Sleep apnea Hypothyroidism Hyperlipidemia Hypertension Personal history of nicotine dependence Surgical History Hx of dilation and curettage H/O colonoscopy History of tonsillectomy History of lumpectomy of right breast History of tubal ligation History of cholecystectomy History of bladder surgery History of hysterectomy Family History Sister Cancer of kidney Psoriasis Arthritis Lupus Blood clot in vein Acute Crohn's disease Substance abuse Father Atherosclerosis Substance abuse Aortic aneurysm Mother Substance abuse Maternal Aunt Substance abuse Paternal Grandfather No problems noted. Social History Household Members: Significant Other Housing: House Are you a primary childcare administrator to a significant other at home: No Do you presently have visiting nurse or other home services: No Comment: counts correct Patient Tobacco Use Status: Current someday Tobacco user Tobacco use type: Cigarette Cigarette Packs Per Day: 1 Years Smoked: 61 e-Cigarette/Vaping Use: Never Used Second Hand Smoke Exposure: No service: No Current occupational status: retired Current occupational exposures/hazards: No Cognitive needs: No Hearing needs: No Vision needs: Yes (Patient wears reading glasses.) Questionnaire Thrive Questionnaire Date Thrive assessed: 08/29/24 I am a: Patient What is your living situation today?: I have a steady place to live Within the past 12 months, did the food you bought not last and you didn't have the money to get more?: Never true Within the past 12 months, did you worry whether your food would run out before you got money to buy more?: Never true Do you have trouble paying for medicines?: No Do you have trouble getting transportation to medical appointments?: No Do you have trouble paying your heating and electricity bill?: No Do you have trouble taking care of your child, family member or friend?: No Do you have trouble with day-to-day activities such as bathing, preparing meals, shopping, managing finances, etc.?: No Are you currently unemployed and looking for a job?: No Are you interested in more education?: No Please select the resources that you would like help with: None Currently or been in a relationship where the following occur: No concerns reported THRIVE Score: 0 KEILA-7 AMB Questionnaire KEILA-7 Date KEILA - 7 assessed: 07/14/23 Source: Developed by Drs. Karsten Mccloud, Michell Napoles, Jose Guerin and colleagues, with an educational janneth from [employer] Review of Systems Const Denies chills, Denies fatigue, Denies fever(s), Denies headache(s) and Denies weakness ENT Denies dizziness and Denies headache(s) Card Denies dyspnea Resp Denies cough, Denies dyspnea, Denies wheezing and Denies other (shortness of breath) Musc Denies numbness and Denies tingling Neuro Denies dizziness, Denies headache(s), Denies numbness, Denies tingling and Denies weakness Psych Denies anxiety and Denies depression Endo Denies fatigue Aller/Immun Denies wheezing Physical exam (Primary Care) Vital Signs: Last Vital Signs Temp 97.8 F 08/29/24 10:32 Pulse 79 08/29/24 10:32 Resp 16 08/29/24 10:32 BP 130/62 08/29/24 10:32 Pulse Ox 99 08/29/24 10:32 Oxygen Delivery Method Room Air 08/29/24 10:32 BMI result Body Mass Index 23.3 Tobacco/Smoking Status: Tobacco use Status Tobacco use date assessed 08/29/24 08/29/24 10:31 Patient Tobacco Use Status Current someday Tobacco 08/29/24 10:31 Tobacco use type Cigarette 08/29/24 10:31 e-Cigarette/Vaping Use Never Used 08/29/24 10:31 Thrive Assessment: Date of Thrive Assessment Date Thrive assessed 08/29/24 08/29/24 10:31 Currently or been in a relationship where the following occur: No concerns reported Const General: well developed; No acute distress Nutritional Appearance: well nourished Orientation/consciousness: patient oriented x3 HENMT Head: Yes normocephalic and Yes atraumatic Eyes General: appearance normal, both eyes and all related structures Pupils: Equal, round and reactive pupils present EOM: EOMs intact bilaterally Resp Effort & Inspection: normal respiratory effort Auscultation: clear to auscultation bilaterally Cardio Rate: regular rate Rhythm: regular rhythm Heart sounds: S1 normal heart sound present, S2 normal heart sound present, no gallops, no murmurs and no rubs Neuro General: patient oriented x3 and gait normal Cranial nerves: Yes Equal, round and reactive pupils present Psych Affect: normal affect Coding Level of Care Code Est Pt Level 4 (55323) Diagnoses Hypothyroidism E03.9 Elevated liver enzymes R74.8 Infrarenal abdominal aortic aneurysm (AAA) without rupture I71.43 Abdominal aorta location: infrarenal aorta Presence of rupture: without rupture 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 Still?in?hyperthyroid?state?and?I?suspect?this?may?be?1?of?the?underlying?causes?of?her?other?complaints?such?as?flushing?and?some?unsteadiness?or?dizziness Will?refer?to?endocrinology?but?will?decrease?her?levothyroxine?further.??She?is?taking?125?mcg?6?days?a?week?and?1/2?tab?on?Tuesdays. She?will?take?112?mcg?6?days?a?week?and?1/2?tab on Tuesdays. (2) Elevated liver enzymes: Code(s): R74.8 - Abnormal levels of other serum enzymes Category: Medical Plan: Liver?enzymes?improving Ultrasound?showed?hepatic?steatosis?but?no?advanced?chronic?liver?disease Encouraged?weight?loss?and?good?hydration (3) Abdominal aortic aneurysm: Code(s): I71.40 - Abdominal aortic aneurysm, without rupture, unspecified Category: Medical Qualifiers: Abdominal aorta location: infrarenal aorta Presence of rupture: without rupture Qualified Code(s): I71.43 - Infrarenal abdominal aortic aneurysm, without rupture Plan: Stable Vascular?surgery?recommends?annual?screening (4) Cervical spondylolysis: Code(s): M43.02 - Spondylolysis, cervical region Category: Medical Plan: Follow-up?with?Neurology?as?recommended Orders: Orders US thyroid Today E03.9 - Hypothyroidism, unspecified Referrals Endocrinology Referral E03.9 - Hypothyroidism, unspecified, Z86.39 - Personal history of other endocrine, nutritional and metabolic disease Medications: Changed From levothyroxine 125 mcg PO DAILY 90 days 90 tabs 2RF To levothyroxine 112 mcg PO DAILY 90 days 90 tabs 2RF
[2024-08-29 10:32] VITALS: BP 130/62; PULSE 79; RESP 16; TEMP 36.6; O2SAT 99; BMI 23.3
--- OUTSIDE RECORDS SUMMARY | 2024-08-29 11:09 | XMS_ITS | Referral Summary ---
Author Organization [facility] Address [address] [place] [address] Care Team Providers Care Clam Digger Name Role Phone Jordan Brandon Primary Care Provider [phone] Allergies Active Allergy Reactions Criticality Noted Date [...] averse patient. Osteopenia 01/25/2015 Overview (12/23/2016): 01/2015. BD([facility]). L/S Spine -0.5. Hip(Neck) -1.5. Hip(Total) -1.9. Satisfactory. COPD, moderate 11/03/2013 Overview (12/23/2016): 10/2013. Clinical Dx. Lower back pain 11/29/2012 Overview (12/23/2016): 2007 to Present. Recurrent flairs of chronic back pain of a mechanical nature. Insomnia 04/19/2012 Overview (12/23/2016): Chronic for years. ++ 04/2012. Trial Trazodone. Hypertension 09/25/2011 Overview (12/23/2016): Years. ++ 2008. 24 Hour BP Monitor with Greonimo Berrios was Perfect. Hyperlipidemia 09/25/2011 Overview (12/23/2016): Years. ++ 08/2014. LDL 94. Hypothyroidism 09/25/2011 Overview (12/23/2016): Years. ++ 01/17/2016. + TSH 0.09. Change the levothyroid to 150 ugms daily from current dosage of 200 ugms 6 days weekly. Resolved Problems Problem Noted Date Diagnosed Date Resolved Date [id number] 07/21/2018 08/09/2018 Overview (07/21/2018): 07/2018. Dr. Kimball. [...] on file Procedures * Due to [place] [employer] law, this organization might not be sharing [...] Health Maintenance Results * Due to [place] [employer] law, this organization might not be sharing negative HIV tests. * Mammography, Bilateral (12/10/2020) Anatomical Region Laterality Modality Other 12/10/2020 Unknown Provider MD HEALTH MAINTENANCE Final Res ult * Basic Metabolic Panel (07/22/2020 10:34 AM EDT) Glucose 92 65 - 99 mg/dL 07/22/2020 5:38 PM EDT [facility] Comment: ? Fasting reference interval BUN 14 7 - 25 mg/dL 07/22/2020 5:38 PM EDT [facility] Creatinine 0.78 0.60 - 0.93 mg/dL 07/22/2020 5:38 PM EDT [facility] Comment: For patients >49 years of age, the reference limit for Creatinine is approximately 13% higher for people identified as -[place] Citizen. eGFR Non- 75 > OR = 60 mL/min/1 .73m2 07/22/2020 5:38 PM EDT [facility] eGFR 87 > OR = 60 mL/min/1 .73m2 07/22/2020 5:38 PM EDT [facility] Bun/Creatinine Ratio NOT APPLICABLE 6 - 22 (calc) 07/22/2020 5:38 PM EDT [facility] Sodium 141 135 - 146 mmol/L 07/22/2020 5:38 PM EDT [facility] Potassium 4.6 3.5 - 5.3 mmol/L 07/22/2020 5:38 PM EDT [facility] Chloride 103 98 - 110 mmol/L 07/22/2020 5:38 PM EDT [facility] Carbon Dioxide 29 20 - 32 mmol/L 07/22/2020 5:38 PM EDT [facility] Calcium 10.2 8.6 - 10.4 mg/dL 07/22/2020 5:38 PM EDT [facility] Blood Structure of peripheral vein / Unknown 07/22/2020 10:34 AM EDT 07/22/2020 4:17 PM EDT Narrative [facility] - 07/22/2020 6:46 PM EDT FASTING:YES us Lake Napoles MD LAB BLOOD ORDERABLES Fin al Result Performing Organization Address City/[facility]/ZIP Co de Phone Number [facility] [address], [place] [address], [place] [phone] [address] [address] * Hepatitis C Antibody w/Reflex to PCR (01/24/2019 9:50 AM EDT) Hepatitis C Antibody NON-REACT MEI NON-REACT MEI 01/24/2019 8:44 PM EDT [facility] Signal To Cut-Off 0.02 <1.00 01/24/2019 8:44 PM EDT [facility] Comment: HCV antibody was non-reactive. There is no laboratory evidence of HCV infection. In most cases, no further action is required. However, if recent HCV exposure is suspected, a test for HCV RNA (test code 89929) is suggested. For additional information please refer to http://education.Meetyl/faq/RKX74i8 (This link is being provided for informational/ educational purposes only.) Blood specimen (specimen) Structure of peripheral vein / Unknown 01/24/2019 9:50 AM EDT 01/24/2019 5:08 PM EDT Narrative [facility] - 01/24/2019 9:22 PM EDT FASTING:YES Lake Napoles MD LAB BLOOD ORDERABLES Fin al Result Performing Organization Address City/[facility]/ZIP Co de Phone Number [facility] [address], [place] [address], [place] [phone] [address] [address] * COLONOSCOPY (01/24/2019) Narrative Procedure Note Arsen [...] Most Recently Relevant to Health Maintenance Insurance [facility] Advance Directives Documents on File Type Date Recorded Patient Farm General Manager Expl anation Health Care Proxy 08/01/2018 11:58 AM 07/05 Care Teams Clam Digger Relationship Specialty Start Date End Date Jordan Brandon [address] [place] [address] [place] [address] PCP - General Internal Medicine 01/27/21
== END 2024-08-29 11:10 | disposition home or self-care (01) ==
LOC: HO.HMCFM 10:23
PROVIDERS: PCP Family Medicine; Visit Provider Family Medicine
DX: E03.9 Hypothyroidism, unspecified (principal); R74.8 Abnormal levels of other serum enzymes; I71.43 Infrarenal abdominal aortic aneurysm, without rupture; M43.02 Spondylolysis, cervical region

== ENCOUNTER → 2024-08-29 10:22 | Outpatient (BNVA) | payer MEDICARE, SELFPAY | PROVIDERS: PCP Family Medicine; Visit Provider Family Medicine | DX: E03.9 Hypothyroidism, unspecified (principal); R74.8 Abnormal levels of other serum enzymes; I71.43 Infrarenal abdominal aortic aneurysm, without rupture; M43.02 Spondylolysis, cervical region | CPT/HCPCS: 99212 ==

== ENCOUNTER 2024-10-05 12:19 | Outpatient (REF) | payer MEDICARE, SELFPAY ==
--- NOTE | ~2024-10-05 | US_ITS ---
EXAMINATION: US THYROID HISTORY: E03.9 - Hypothyroidism, unspecified TECHNIQUE: Real-time grayscale ultrasound imaging was performed and images were reviewed. COMPARISON: There are no prior studies available for comparison. FINDINGS: SIZE: The right thyroid lobe measures 4.0 x 1.7 x 1.3 cm. The left thyroid lobe measures 3.4 x 1.0 x 1.0 cm. The isthmus measures 6 mm. FLOW: Flow to the gland is normal. ECHOGENICITY: The echotexture of the gland is markedly heterogeneous. NODULES: No discrete nodules are identified. US/US thyroid IMPRESSION: Markedly heterogeneous thyroid echotexture. No discrete nodules are identified. ACR TI-RADS Guidelines TR1 (0 points): Benign, No follow-up or biopsy required TR2 (2 points): Not Suspicious, No biopsy or follow up indicated TR3 (3 points): Mildly Suspicious, FNA if >= 2.5 cm, Follow if >= 1.5 cm TR4 (4-6 points): Moderately Suspicious, FNA if >= 1.5 cm, Follow if >= 1.0 cm TR5 (>=7 points): Highly Suspicious, FNA if >= 1.0 cm, Follow if >= 0.5 cm Electronically signed by: Karsten Arzola MD 10/05/2024 12:57 PM EDT
--- OUTSIDE RECORDS SUMMARY | 2024-10-05 12:39 | XMS_ITS | Referral Summary ---
Author Organization [facility] Address [address] [place] [address] Care Team Providers Care Archaeology Professor Name Role Phone Jordan Brandon Primary Care Provider [phone] Allergies Active Allergy Reactions Criticality Noted Date [...] ano. Area seems to be healing well. Gynecologic exam normal 08/20/2017 Overview (08/20/2017): Age [...] averse patient. Osteopenia 01/25/2015 Overview (12/23/2016): 01/2015. BD([facility]). L/S Spine -0.5. Hip(Neck) -1.5. [...] Problem Noted Date Diagnosed Date Resolved Date Plceven-ga-edg 07/21/2018 08/09/2018 Overview (07/21/2018): 07/2018. Dr. Kimball. [...] 84 07/29/2020 1:29 PM EDT Temperature 36.7 C (98.1 F) 07/29/2020 1:29 PM EDT Respiratory Rate 18 01/24/2019 8:50 AM EDT Oxygen Saturation 100% 07/29/2020 1:29 PM EDT ON RA @ REST Inhaled Oxygen Concentration - - Weight 73.5 kg (162 lb) 08/06/2020 1:03 PM EDT Height 168.9 cm (5' 6.5 ) 08/06/2020 1:03 PM EDT Body Mass Index 25.76 08/06/2020 1:03 PM EDT Plan of Treatment Not on file Procedures * Due to [place] [employer] law, this organization might not be sharing [...] Health Maintenance Results * Due to [place] [employer] law, this organization might not be sharing negative HIV tests. * HM Mammography, Bilateral (12/10/2020) Anatomical Region Laterality Modality Other 12/10/2020 us Unknown Provider HEALTH MAINTENANCE Final Res ult * Basic Metabolic Panel (07/22/2020 10:34 AM EDT) Pathologist [facility] Glucose 92 65 - 99 mg/dL 07/22/2020 5:38 PM EDT [facility] Comment: Fasting reference interval BUN 14 7 - 25 mg/dL 07/22/2020 5:38 PM EDT [facility] Creatinine 0.78 0.60 - 0.93 mg/dL 07/22/2020 5:38 PM EDT [facility] Comment: For patients >49 years of age, the reference limit for Creatinine is approximately 13% higher for people identified as -Vietnamese. eGFR Non- 75 > OR = 60 mL/min/1 .73m2 07/22/2020 5:38 PM EDT [facility] eGFR 87 > OR = 60 mL/min/1 .73m2 07/22/2020 5:38 PM EDT [facility] Bun/Creatinine Ratio NOT APPLICABLE 6 - 22 (calc) 07/22/2020 5:38 PM EDT [facility] Sodium 141 135 - 146 mmol/L 07/22/2020 5:38 PM EDT [facility] Potassium 4.6 3.5 - 5.3 mmol/L 07/22/2020 5:38 PM EDT [facility] Chloride 103 98 - 110 mmol/L 07/22/2020 5:38 PM EDT [facility] Carbon Dioxide 29 20 - 32 mmol/L 07/22/2020 5:38 PM EDT [facility] Calcium 10.2 8.6 - 10.4 mg/dL 07/22/2020 5:38 PM EDT [facility] Blood Structure of peripheral vein / Unknown 07/22/2020 10:34 AM EDT 07/22/2020 4:17 PM EDT Narrative [facility] - 07/22/2020 6:46 PM EDT FASTING:YES us [place] MD LAB BLOOD ORDERABLES Fin al Result Performing Organization Address City/[facility]/ZIP Co de Phone Number [facility] [address], [place] [address], [facility] [address] [address] * Hepatitis C Antibody w/Reflex to PCR (01/24/2019 9:50 AM EDT) Hepatitis C Antibody NON-REACT MEI NON-REACT MEI 01/24/2019 8:44 PM EDT [facility] [employer] Signal To Cut-Off 0.02 <1.00 01/24/2019 8:44 PM EDT [facility] Comment: HCV antibody was non-reactive. There is no laboratory evidence of HCV infection. In most cases, no further action is required. However, if recent HCV exposure is suspected, a test for HCV RNA (test code 87148) is suggested. For additional information please refer to http://education.5173.com/faq/LPH72b7 (This link is being provided for informational/ educational purposes only.) Blood specimen (specimen) Structure of peripheral vein / Unknown 01/24/2019 9:50 AM EDT 01/24/2019 5:08 PM EDT Narrative [facility] - 01/24/2019 9:22 PM EDT FASTING:YES [place] Nap[place] MD LAB BLOOD ORDERABLES Fin al Result Performing Organization Address City/[facility]/ZIP Co de Phone Number [facility] [address], [place] [address], [employer] [address] [address] * COLONOSCOPY (01/24/2019) Narrative Procedure Note Arsen [...] Most Recently Relevant to Health Maintenance Insurance [facility] Advance Directives Documents on File Type Date Recorded Patient Bore Miner Operator Expl anation Health Care Proxy 08/01/2018 11:58 AM 07/05 Care Teams Archaeology Professor Relationship Specialty Start Date End Date Jordan Brandon [address] [place] [address] [place] [address] PCP - General Internal Medicine 01/27/21
--- OUTSIDE RECORDS SUMMARY | 2024-10-05 12:39 | XMS_ITS | Patient Health Record ---
Author Organization [facility] Address [address] [place], [place] [id number] Care Team Providers Care Credit Control Administrator Name Role Phone Yesika WING, Lake Primary Care Provider Charlee Jose Meng Unavailable [phone] Castillo Dailey Unavailable Unavailable Reason For Referral No Information Plan Of Treatment No Information Insurance Providers Payer Name Payer Address Payer Phone Subscriber Number Group Number Insured Name Patient Relationship to Insured Coverage Start Date Coverage End Date [facility] [address] [address] [place] [address] [id number] Tatiana Rawls Self - patient is the insured
--- OUTSIDE RECORDS SUMMARY | 2024-10-05 12:39 | XMS_ITS | Patient Health Record ---
Author Organization [facility] Address [address] [place] [phone] Care Team Providers Care [employer] Assistant Manager Name Role Phone Sukhdev Layne Primary Care Provider Karsten Mena [phone] Allergies Allergen (clinical drug ingredient) Drug/Non Drug [...] Duration) Notes Start Date End Date Status Levothyroxine Sodium 125 MCG Oral for 90 Days Active amLODIPine Besylate 5 MG TAKE 1 TABLET B Y MOUTH DAILY Oral for 90 Days Active Vitamin D-3 25 MCG (1000 UT) 1 capsule O rally Once a day for 30 day(s) Active Fish Oil 1000 MG 1 capsule Orally Onc e a day for 30 day(s) Active Omeprazole 20 MG Oral for 90 A ctive Lisinopril 30 MG TAKE 1 TABLET BY LEAH TH TWICE DAILY Oral for 90 Active Aspirin Low Dose 81 MG TAKE 1 TABLET BY MOUTH DAILY Oral for 90 Active Rosuvastatin Calcium 40 MG Oral for 90 Days Active Immunizations Vaccine Route Administration Date Status [...] 1 ppd; 2-3 glasses of wine daily Smokes 1 ppd; 2-3 glasses of wine daily Problems Problem Type SNOMED Code ICD Code Onset Dates Problem Status W/U Status Risk Notes Problem 578814717 Colon cancer screening (Z12.11) Active confirmed Problem 268396748 History of adenomatous polyp of colon (Z86.010) Active confirmed Problem Diverticular disease of colon (208817584) Diverticulosis of large intestine without perforation or abscess without bleeding (K57.30) Active confirmed Problem GERD (gastroesophageal reflux disease) (K21.9) Active confirmed Problem 48626802 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) Active confirmed Problem Adenocarcinoma of cecum (633794674) 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 Vital Signs Blood pressure diastolic 77 mm Hg 09/05/2024 Height 5 ft 8 in in 09/05/2024 Blood pressure systolic 111 mm Hg 09/05/2024 Weight 149 lbs 09/05/2024 BMI 22.65 kg/m2 09/05/2024 Procedures Procedure Date Ordered Date Performed Result Body Sit e UPPER GI ENDOSCOPY 09/05/2024 N/A COLONOSCOPY 09/05/2024 N/A Encounters Encounter Location Date Provider Diagnosis [facility] [address] [place] [phone] 09/05/2024 Karsten Saunders Adenocarcinoma of ce cum C18.0 ; GERD (gastroesophageal reflux disease) K21.9 and Colon cancer screening Z12.11 [facility] [address] [place] [phone] 09/06/2024 Karsten Saunders Assessments Encounter Date Diagnosis (ICD Code) Assessment Notes Treatment Notes Treatment Clinical Notes Section Notes 09/05/2024 GERD (gastroesophageal reflux disease) (ICD-10 - K21.9) Overall, Pauline appears well. We did review her history of her colon cancer and the favorable pathology from her surgery last year. I have recommended a follow-up colonoscopy for further screening purposes given the colon cancer resection from over 1 year ago and the presence of other polyps that were removed simultaneously from the ascending colon during the surgery. We did review the rationale for this in regard to colorectal cancer prevention and/or early detection. I have also recommended an upper endoscopy in the same day given her longstanding reflux and some ongoing issues with occasional breakthrough heartburn despite the use of the PPI. Full consent has been obtained from her for this, including risks of bleeding and perforation. The procedures will be done with monitored anesthesia care.She was advised to stop her aspirin and fish oil for 1 week before the procedure.The procedures will be done with monitored anesthesia care. In regard to her irregular bowel movements I did recommend the addition of some Metamucil fiber pills to her daily regimen. I did advise her to use the Metamucil once or twice a day with plenty of water to see if that can help improve the bowel movement regularity. We did review that if her diarrhea was to increase in frequency then we could consider giving her something such as cholestyramine to treat any component of bile-induced diarrhea after the surgery due to the removal of her ileocecal valve and distal ileum. However at this point, based on her history, I do not think cholestyramine would be good for her as the majority of her symptoms are not related to diarrhea. I did advise Pauline to contact me prior to her procedures if she has any problems or questions I can be of assistance with. Pauline was comfortable with this plan. Thank you again for allowing me to participate in Pauline's care. I shall continue to keep you advised of her progress. 09/05/2024 Adenocarcinoma of cecum (ICD-10 - C18.0) Overall, Pauline appears well. We did review her history of her colon cancer and the favorable pathology from her surgery last year. I have recommended a follow-up colonoscopy for further screening purposes given the colon cancer resection from over 1 year ago and the presence of other polyps that were removed simultaneously from the ascending colon during the surgery. We did review the rationale for this in regard to colorectal cancer prevention and/or early detection. I have also recommended an upper endoscopy in the same day given her longstanding reflux and some ongoing issues with occasional breakthrough heartburn despite the use of the PPI. Full consent has been obtained from her for this, including risks of bleeding and perforation. The procedures will be done with monitored anesthesia care.She was advised to stop her aspirin and fish oil for 1 week before the procedure.The procedures will be done with monitored anesthesia care. In regard to her irregular bowel movements I did recommend the addition of some Metamucil fiber pills to her daily regimen. I did advise her to use the Metamucil once or twice a day with plenty of water to see if that can help improve the bowel movement regularity. We did review that if her diarrhea was to increase in frequency then we could consider giving her something such as cholestyramine to treat any component of bile-induced diarrhea after the surgery due to the removal of her ileocecal valve and distal ileum. However at this point, based on her history, I do not think cholestyramine would be good for her as the majority of her symptoms are not related to diarrhea. I did advise Pauline to contact me prior to her procedures if she has any problems or questions I can be of assistance with. Pauline was comfortable with this plan. Thank you again for allowing me to participate in Pauline's care. I shall continue to keep you advised of her progress. 09/05/2024 Colon cancer screening (ICD-10 - Z12.11) Overall, Pauline appears well. We did review her history of her colon cancer and the favorable pathology from her surgery last year. I have recommended a follow-up colonoscopy for further screening purposes given the colon cancer resection from over 1 year ago and the presence of other polyps that were removed simultaneously from the ascending colon during the surgery. We did review the rationale for this in regard to colorectal cancer prevention and/or early detection. I have also recommended an upper endoscopy in the same day given her longstanding reflux and some ongoing issues with occasional breakthrough heartburn despite the use of the PPI. Full consent has been obtained from her for this, including risks of bleeding and perforation. The procedures will be done with monitored anesthesia care.She was advised to stop her aspirin and fish oil for 1 week before the procedure.The procedures will be done with monitored anesthesia care. In regard to her irregular bowel movements I did recommend the addition of some Metamucil fiber pills to her daily regimen. I did advise her to use the Metamucil once or twice a day with plenty of water to see if that can help improve the bowel movement regularity. We did review that if her diarrhea was to increase in frequency then we could consider giving her something such as cholestyramine to treat any component of bile-induced diarrhea after the surgery due to the removal of her ileocecal valve and distal ileum. However at this point, based on her history, I do not think cholestyramine would be good for her as the majority of her symptoms are not related to diarrhea. I did advise Pauline to contact me prior to her procedures if she has any problems or questions I can be of assistance with. Pauline was comfortable with this plan. Thank you again for allowing me to participate in Pauline's care. I shall continue to keep you advised of her progress. 09/05/2024 Other Use 2 Metamucil fiber pills with a big glass of water once or twice a day to try to make the BM's more regular. Overall, Pauline appears well. We did review her history of her colon cancer and the favorable pathology from her surgery last year. I have recommended a follow-up colonoscopy for further screening purposes given the colon cancer resection from over 1 year ago and the presence of other polyps that were removed simultaneously from the ascending colon during the surgery. We did review the rationale for this in regard to colorectal cancer prevention and/or early detection. I have also recommended an upper endoscopy in the same day given her longstanding reflux and some ongoing issues with occasional breakthrough heartburn despite the use of the PPI. Full consent has been obtained from her for this, including risks of bleeding and perforation. The procedures will be done with monitored anesthesia care.She was advised to stop her aspirin and fish oil for 1 week before the procedure.The procedures will be done with monitored anesthesia care. In regard to her irregular bowel movements I did recommend the addition of some Metamucil fiber pills to her daily regimen. I did advise her to use the Metamucil once or twice a day with plenty of water to see if that can help improve the bowel movement regularity. We did review that if her diarrhea was to increase in frequency then we could consider giving her something such as cholestyramine to treat any component of bile-induced diarrhea after the surgery due to the removal of her ileocecal valve and distal ileum. However at this point, based on her history, I do not think cholestyramine would be good for her as the majority of her symptoms are not related to diarrhea. I did advise Pauline to contact me prior to her procedures if she has any problems or questions I can be of assistance with. Pauline was comfortable with this plan. Thank you again for allowing me to participate in Pauline's care. I shall continue to keep you advised of her progress. Plan Of Treatment Pending Test Test Name Order Date UPPER GI ENDOSCOPY 09/05/2024 COLONOSCOPY 09/05/2024 CELIAC PANEL #10 01/20/2023 Future Test Test Name Order Date COLONOSCOPY 01/20/2023 Next Appt Details Provider Name:Karsten Saunders , 01/19/2025 09:00:00 AM, [address] [place] [address] , [place], [place], [id number], Insurance Providers Payer Name Payer Address Payer Phone Subscriber Number Group Number Insured Name Patient Relationship to Insured Coverage Start Date Coverage End Date [facility] [address] [place] [phone] [id number] Self - patient is the insured Medical (General) History Medical History History ICD Code HTN Urinary incontinence GERD Denies IA,DM,CVA,Lung disease,renal dise ase IBS Aramis's with subsequent hypothyroidi sm Hyperlipidemia Right bundle branch block; r eports a negative Nuclear stress test in [address] Vogel Colonoscopies in 2012 and in 2018 at [facility] with removal of small tubular adenomas. The most recent exam in 01/2019 described only a fair bowel prep and Dr. Massey recommended a 3 year followup Screening colonoscopy with senthil bello in April 2023 revealed a small cecal adenocarcinoma as well as some other polyps in the ascending colon. She had the below surgery in June [address] Michael with the finding of very favorable pathology and no need for adjuvant chemotherapy. Her pathology was pT1N0.--- All lymph nodes were negative and the cancer was only into the submucosa with clean margins. There were also tubular adenomas noted in the ascending colon specimen that was removed. Surgical History Surgery Date(Month/Year) Right colectomy in June with Dr. Michael for the above colon cancer 2023 [facility] Bladder suspension Tubal ligation Hysterectomy and 1 ovary removed
== END 2024-10-05 12:20 | disposition home or self-care (01) ==
LOC: HO.US 12:19
PROVIDERS: PCP Family Medicine; Visit Provider Family Medicine
DX: E03.9 Hypothyroidism, unspecified (principal)
CPT/HCPCS: 76536

== ENCOUNTER → 2024-10-05 12:22 | Outpatient (BNV) | payer MEDICARE, SELFPAY | PROVIDERS: PCP Family Medicine; Visit Provider Radiology Diagnostic Radiology | DX: E03.9 Hypothyroidism, unspecified (principal) | CPT/HCPCS: 76536 ==

== ENCOUNTER 2024-10-17 12:51 | Outpatient (AMB) | payer MEDICARE, SELFPAY ==
[2024-10-17 12:53] VITALS: BP 146/66; PULSE 80; O2SAT 100; BMI 23.5
--- NOTE | 2024-10-17 12:53 | A.OFFVIS_ITS ---
Vital Signs 10/17/24 12:53 Height 5 ft 7 in Weight 149 lb 14.629 oz BMI 23.5 BP 146/66 H Blood Pressure Location Lt brachial Position Sitting Pulse 80 Pulse Source Pulse Oximeter Pulse Oximetry (%) 100 Oxygen Delivery Method Room Air Intake Visit Reasons: Hypothyroidism, unspecified Intake Note: New patient present today for Hypothyroidism, unspecified office visit. Winding Operator Required: No Accompanied by: Self / Same As Patient Allergies Sulfa (Sulfonamide Antibiotics) Allergy (Severe, Verified 08/29/24 10:27) Rash amoxicillin (From Augmentin) Allergy (Intermediate, Verified 08/29/24 10:27) Nausea and Vomiting clavulanic acid (From Augmentin) Allergy (Intermediate, Verified 08/29/24 10:27) Nausea and Vomiting shellfish derived Allergy (Intermediate, Verified 08/29/24 10:27) Nausea and Vomiting turmeric Allergy (Intermediate, Verified 08/29/24 10:27) Vomiting narcotic pain medications Adverse Reaction (Intermediate, Uncoded 08/29/24 10:27) Nausea and Vomiting Medication List - Last Reconciled 10/17/24 by Camila Dan MD amlodipine 5 mg PO DAILY 90 days ammonium lactate 12% 1 appl topical DAILY 30 days aspirin (Adult Aspirin Regimen) 81 mg PO DAILY 90 days cholecalciferol (vitamin D3) 50 mcg PO QAM coenzyme Q10 (Ultra CoQ10) 75 mg PO QAM ezetimibe 10 mg PO DAILY hydrocortisone 2.5% 1 appl topical BID PRN 30 days ibuprofen 800 mg PO Q8H PRN 14 days levothyroxine 112 mcg PO DAILY 90 days lisinopril 30 mg PO DAILY 90 days omega 2-vjk-msp-fish oil 1,200 (144-216) mg (Fish Oil) 1 cap PO DAILY omeprazole 20 mg PO BID@0630,1630 30 days rosuvastatin 40 mg PO BEDTIME 90 days varenicline tartrate PO PER PKG DIR HPI Comments Details: 79-year-old female coming in today for initial evaluation of hypothyroidism. Referred by PCP because recently she has required a lot of adjustments on her levothyroxine. 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 Thinks she had some nodules biopsied. Ultrasound thyroid October 2024 does not show any discrete nodules. Shows heterogenous appearance of a gland as expected in Aramis's disease. Most recent set of labs 08/22/2024, TSH 0.06, low, free T4 is normal at 1.33, interestingly total T3 was on the lower side at 73. MRI brain showed normal pitutary 02/26. 08/29/2024: Dose of levothyroxine reduced from 125 mcg 6-1/2 pills a week to 112 mcg 6-1/2 also week. She takes half a pill on Tuesdays. takes it 3 to 4 am in the morning and then goes back to sleep. s/p right colectomy June 2023 Weight stable. reports some night sweats again. does go between loose stools. some incontinence recently. Patient currently denies hair loss (improved now), palpitation, anxiety, weight changes, mood changes, low energy, changes in appearance of eyes or vision changes, tremors, increased diaphoresis. ?some dry skin no headaches or visions chnages No change in ring size or shoe size no nipple discharge Patient denies any pain on swallowing or voice changes or difficulty breathing. reports intermittent difficult swallowing. Patient denies any history of childhood neck radiation. Denies having ever used lithium, amiodarone or biotin supplements. Patient denies any family history of thyroid disease. 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 Physical exam General: sitting comfortably in no acute distress HEENT: normocephalic/atraumatic, EOM intact, moist oral mucosa Neck: supple, symmetrical, no thyromegaly , no dorsocervical or supraclavicular fat pads Cardiac: normal heart sounds Pulm: normal breath sounds B/L, no added breath sounds Abd: not distended, no tenderness Extremities: no edema, no signs of myxedema Neuro: AAO x3, Speech: normal, no facial droop, moving all 4 extremities Laboratory Tests 12/23/23 03/08/24 05/31/24 14:38 11:28 10:13 TSH 0.08 L 0.15 L 0.05 L Free T4 1.59 1.28 1.52 Total T3 94 102 08/22/24 10:17 TSH 0.06 L Free T4 1.33 Total T3 73 L MR BRAIN WITHOUT CONTRAST 02/17/24 CLINICAL INFORMATION: Unsteadiness on feet. COMPARISON: None available. TECHNIQUE: MRI of the brain was obtained using routine sequences without contrast. FINDINGS: No focal restricted diffusion is demonstrated to suggest acute or subacute cerebral ischemia. No evidence of acute or chronic hemorrhagic products on heme-sensitive imaging. Scattered periventricular and deep white matter T2 FLAIR hyperintensities consistent with mild underlying microangiopathy. Proportional prominence of the ventricles and sulcal spaces without evidence of obstructive hydrocephalus. No abnormal mass effect. No midline shift. Normal appearance of the pituitary gland. Normal positioning of the cerebellar tonsils. Normal arterial and venous vascular flow voids are present. Normal, homogeneous marrow signal. Mild mucosal thickening of the paranasal sinuses. No signal abnormalities within the mastoids. MR/MR head/brain wo con IMPRESSION: 1. No acute intracranial abnormalities. 2. Mild underlying microangiopathy and generalized cerebral volume loss. Electronically signed by: Jarod Vuong DO 03/15/2024 06:45 AM [facility] EXAMINATION: US THYROID 10/05/24 HISTORY: E03.9 - Hypothyroidism, unspecified TECHNIQUE: Real-time grayscale ultrasound imaging was performed and images were reviewed. COMPARISON: There are no prior studies available for comparison. FINDINGS: SIZE: The right thyroid lobe measures 4.0 x 1.7 x 1.3 cm. The left thyroid lobe measures 3.4 x 1.0 x 1.0 cm. The isthmus measures 6 mm. FLOW: Flow to the gland is normal. ECHOGENICITY: The echotexture of the gland is markedly heterogeneous. NODULES: No discrete nodules are identified. US/US thyroid IMPRESSION: Markedly heterogeneous thyroid echotexture. No discrete nodules are identified. [facility] Medical History (Updated 10/17/24 @ 13:31 by Camila Dan MD) Excessive daytime sleepiness Snoring Ocular migraine Obstructive sleep apnea Cervical dystonia Cervicalgia Gait instability Family history of gene mutation Colon cancer Family history of anesthesia complication COPD (chronic obstructive pulmonary disease) Cecal lesion RBBB (right bundle branch block) Bifascicular block Polycythemia CAD (coronary artery disease) GERD (gastroesophageal reflux disease) Sleep apnea Hypothyroidism Hyperlipidemia Hypertension Personal history of nicotine dependence Surgical History Hx of dilation and curettage H/O colonoscopy History of tonsillectomy History of lumpectomy of right breast History of tubal ligation History of cholecystectomy History of bladder surgery History of hysterectomy Family History Sister Cancer of kidney Psoriasis Arthritis Lupus Blood clot in vein Acute Crohn's disease Substance abuse Father Atherosclerosis Substance abuse Aortic aneurysm Mother Substance abuse Maternal Aunt Substance abuse Paternal Grandfather No problems noted. Social History Household Members: Significant Other Housing: House Are you a primary careers adviser to a significant other at home: No Do you presently have visiting nurse or other home services: No Comment: counts correct Patient Tobacco Use Status: Current someday Tobacco user Tobacco use type: Cigarette Cigarette Packs Per Day: 1 Years Smoked: 61 e-Cigarette/Vaping Use: Never Used Second Hand Smoke Exposure: No service: No Current occupational status: retired Current occupational exposures/hazards: No Cognitive needs: No Hearing needs: No Vision needs: Yes (Patient wears reading glasses.) Physical Exam Vital Signs: Last Vital Signs Pulse 80 10/17/24 12:53 BP 146/66 H 10/17/24 12:53 Pulse Ox 100 10/17/24 12:53 Oxygen Delivery Method Room Air 10/17/24 12:53 BMI result Body Mass Index 23.5 Assessment & Plan Assessment & Plan (1) Hypothyroidism: Comment: (hashimotos) Code(s): E03.9 - Hypothyroidism, unspecified Category: Medical Qualifiers: 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 Most recent labs from August 2024 showed TSH was still low at TSH 0.06, low, free T4 is normal at 1.33, interestingly total T3 was on the lower side at 73. 08/29/2024: Dose of levothyroxine reduced from 125 mcg 6-1/2 pills a week to 112 mcg 6-1/2 also week. She takes half a pill on Tuesdays. At this point we will repeat her labs and see if her TSH has normalized. Total T3 can have a lot of variation depending on nutritional intake that day, that is why we do not use it to dose levothyroxine. However it is interesting to keep in mind the total T3 was on the lower side, making us think about possibly central hypothyroidism. She did have an MRI of her brain February 2024 which showed a normal pituitary. She does not have any other symptoms to suggest pituitary dysfunction at this time. I will repeat her thyroid labs now that she had a a dose change about 6 weeks ago. We will see if they have normalized. If I am concerned about central hypothyroidism I will order a pituitary panel prior to her next follow up. Plan: -continue current dose of levothyroxine 112 mcg 6-1/2 pills a week -do TSH, free T4, total T3 now, we will reach out with the results -follow up in 7 weeks Plan I spent 45 minutes in reviewing the record, seeing the patient and documenting in the medical record. 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
--- OUTSIDE RECORDS SUMMARY | 2024-10-17 14:03 | XMS_ITS | Patient Health Record ---
Author Organization [facility] Address [address] [place], [place] [id number] Care Team Providers Care Salesperson Shoes Name Role Phone Yesika WING, [place] Primary Care Provider Charlee Jose Meng Unavailable [phone] Castillo Dailey Unavailable Unavailable Reason For Referral No Information Plan Of Treatment No Information Insurance Providers Payer Name Payer Address Payer Phone Subscriber Number Group Number Insured Name Patient Relationship to Insured Coverage Start Date Coverage End Date [facility] [facility] [address] [address] [place] [address] [id number] Tatiana Rawls Self - patient is the insured
--- OUTSIDE RECORDS SUMMARY | 2024-10-17 14:03 | XMS_ITS | Patient Health Record ---
Author Organization [facility] Address [address] [place] [id number] Care Team Providers Care Heel Builder Machine Name Role Phone Sukhdev Layne Primary Care Provider Karsten Mena [phone] Allergies Allergen (clinical drug ingredient) Drug/Non Drug [...] Problem Status W/U Status Risk Notes Problem 497591055 Colon cancer screening (Z12.11) Active confirmed Problem 530070605 History of adenomatous polyp of colon (Z86.010) Active confirmed Problem Diverticulosis o f large intestine without perforation or abscess without bleeding (K57.30) Active confirmed Problem Gastroesophageal reflux disease (220002241) GERD (gastroesophageal reflux disease) (K21.9) Active confirmed Problem 08587249 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) Active confirmed Problem Adenocarcinoma of cecum (805360995) 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 Vital Signs Blood pressure diastolic 77 mm Hg 09/05/2024 Height 5 ft 8 in in 09/05/2024 Blood pressure systolic 111 mm Hg 09/05/2024 Weight 149 lbs 09/05/2024 BMI 22.65 kg/m2 09/05/2024 Procedures Procedure Date Ordered Date Performed Result Body Sit e UPPER GI ENDOSCOPY 09/05/2024 N/A COLONOSCOPY 09/05/2024 N/A Encounters Encounter Location Date Provider Diagnosis [facility] [address] [place] [phone] 09/05/2024 Karsten Saunders Adenocarcinoma of ce cum C18.0 ; GERD (gastroesophageal reflux disease) K21.9 and Colon cancer screening Z12.11 [facility] [address] [place] [phone] 09/06/2024 Karsten Saunders Assessments Encounter Date Diagnosis [...] Provider Name:Karsten Saunders , 01/19/2025 09:00:00 AM, [address] [place] [address] , [place], [place], [phone], Insurance Providers Payer Name Payer Address Payer Phone Subscriber Number Group Number Insured Name Patient Relationship to Insured Coverage Start Date Coverage End Date [facility] [address] [place] [phone] [id number] AIDANTaylorPAULINE Self - patient is the insured Medical (General) History Medical History History ICD Code HTN Urinary incontinence GERD Denies [place],DM,CVA,Lung disease,renal dise ase IBS Aramis's with subsequent hypothyroidi sm Hyperlipidemia Right bundle branch block; r eports a negative Nuclear stress test [place] [address] Vogel Colonoscopies in 2012 and in 2018 at [facility] with removal of small tubular adenomas. [...]
--- OUTSIDE RECORDS SUMMARY | 2024-10-17 14:03 | XMS_ITS | Referral Summary ---
Author Organization [facility] Address [address] [place] [address] Care Team Providers Care Supervisor Central Supply Name Role Phone Jordan Brandon Primary Care Provider [phone] Allergies Active Allergy Reactions Criticality Noted Date [...] Problem Noted Date Diagnosed Date Resolved Date Mcwgyto-mz-jii 07/21/2018 08/09/2018 Overview (07/21/2018): 07/2018. Dr. Kimball. [...] Not on file Procedures * Due to [place] [employer] law, this organization might not be sharing [...] to Health Maintenance Results * Due to [place] [employer] law, this organization might not be sharing negative HIV tests. * HM Mammography, Bilateral (12/10/2020) Anatomical Region Laterality Modality Other 12/10/2020 us Unknown Provider HEALTH MAINTENANCE Final Res ult * Basic Metabolic Panel (07/22/2020 10:34 AM EDT) Pathologist [facility] Glucose 92 65 - 99 mg/dL 07/22/2020 5:38 PM EDT [facility] Comment: Fasting reference interval BUN 14 7 - 25 mg/dL 07/22/2020 5:38 PM EDT [facility] Creatinine 0.78 0.60 - 0.93 mg/dL 07/22/2020 5:38 PM EDT [facility] Comment: For patients >49 years of age, the reference limit for Creatinine is approximately 13% higher for people identified as -Croatian. eGFR Non- 75 > OR = 60 mL/min/1 .73m2 07/22/2020 5:38 PM EDT [facility] eGFR 87 > OR = 60 mL/min/1 .73m2 07/22/2020 5:38 PM EDT [facility] Bun/Creatinine Ratio NOT APPLICABLE 6 - 22 (calc) 07/22/2020 5:38 PM EDT [facility] Sodium 141 135 - 146 mmol/L 07/22/2020 5:38 PM EDT [facility] Potassium 4.6 3.5 - 5.3 mmol/L 07/22/2020 5:38 PM EDT [facility] Chloride 103 98 - 110 mmol/L 07/22/2020 5:38 PM EDT [facility] Carbon Dioxide 29 20 - 32 mmol/L 07/22/2020 5:38 PM EDT [facility] Calcium 10.2 8.6 - 10.4 mg/dL 07/22/2020 5:38 PM EDT [facility] Blood Structure of peripheral vein / Unknown 07/22/2020 10:34 AM EDT 07/22/2020 4:17 PM EDT Narrative [facility] - 07/22/2020 6:46 PM EDT FASTING:YES us [place] Napoles MD LAB BLOOD ORDERABLES Fin al Result Performing Organization Address City/[facility]/ZIP Co de Phone Number [facility] [address], [place] [address], [employer] [address] [address] * Hepatitis C Antibody w/Reflex to PCR (01/24/2019 9:50 AM EDT) Hepatitis C Antibody NON-REACT MEI NON-REACT MEI 01/24/2019 8:44 PM EDT [facility] Signal To Cut-Off 0.02 <1.00 01/24/2019 8:44 PM EDT [facility] Comment: HCV antibody was non-reactive. There is no laboratory evidence of HCV infection. In most cases, no further action is required. However, if recent HCV exposure is suspected, a test for HCV RNA (test code 20623) is suggested. For additional information please refer to http://education.Bankfeeinsider.com/faq/EEK13l1 (This link is being provided for informational/ educational purposes only.) Blood specimen (specimen) Structure of peripheral vein / Unknown 01/24/2019 9:50 AM EDT 01/24/2019 5:08 PM EDT Narrative [facility] - 01/24/2019 9:22 PM EDT FASTING:YES [place] Napoles MD LAB BLOOD ORDERABLES Fin al Result Performing Organization Address City/[facility]/ZIP Co de Phone Number [facility] [address], [place] [address], [employer] [address] [address] * COLONOSCOPY (01/24/2019) Narrative Procedure Note Arsen [...] Recently Relevant to Health Maintenance Insurance [facility] Advance Directives Documents on File Type Date Recorded Patient Camera Engineer Expl anation Health Care Proxy 08/01/2018 11:58 AM 07/05 Care Teams Supervisor Central Supply Relationship Specialty Start Date End Date Jordan Brandon [address] [place] [address] [place] [address] PCP - General Internal Medicine 01/27/21
== END 2024-10-17 13:31 | disposition home or self-care (01) ==
LOC: HO.ENCR 12:52
PROVIDERS: PCP Family Medicine; Visit Provider Student in an Organized Health Care Education/Training Program
DX: E06.3 Autoimmune thyroiditis (principal)
CPT/HCPCS: 99204

== ENCOUNTER 2024-10-17 12:51 | Outpatient (REF) | payer MEDICARE, SELFPAY ==
[2024-10-17 15:36] LABS: Free T4 (Free Thyroxine) 1.24 ng/dL (0.71-1.85); Thyroid Stimulating Hormone 0.62 uIU/mL (0.32-4.0)
== END 2024-10-17 12:52 | disposition home or self-care (01) ==
LOC: HO.LAB 12:51
PROVIDERS: PCP Family Medicine; Visit Provider Student in an Organized Health Care Education/Training Program
DX: E03.9 Hypothyroidism, unspecified (principal)
CPT/HCPCS: 36415; 84439; 84443; 84480; 99202

== ENCOUNTER 2024-11-01 08:01 | Outpatient (REF) | payer MEDICARE, SELFPAY ==
--- OUTSIDE RECORDS SUMMARY | 2024-11-01 08:03 | XMS_ITS | Referral Summary ---
Author Organization [facility] Address [address] [place] [address] Care Team Providers Care Operations General Agent Name Role Phone Jordan Brandon Primary Care Provider [phone] Allergies Active Allergy Reactions Criticality Noted Date [...] patient. Osteopenia 01/25/2015 Overview (12/23/2016): 01/2015. BD([facility] L/S Spine -0.5. Hip(Neck) -1.5. Hip(Total) -1.9. [...] Problem Noted Date Diagnosed Date Resolved Date Hskyfvl-jb-avg 07/21/2018 08/09/2018 Overview (07/21/2018): 07/2018. Dr. Kimball. [...] Not on file Procedures * Due to [place] [employer] law, this organization might not be [...] Health Maintenance Results * Due to [place] [employer] law, this organization might not be sharing negative HIV tests. * HM Mammography, Bilateral (12/10/2020) Anatomical Region Laterality Modality Other 12/10/2020 us Unknown Provider HEALTH MAINTENANCE Final Res ult * Basic Metabolic Panel (07/22/2020 10:34 AM EDT) Pathologist [facility] Glucose 92 65 - 99 mg/dL 07/22/2020 5:38 PM EDT [facility] Comment: Fasting reference interval BUN 14 7 - 25 mg/dL 07/22/2020 5:38 PM EDT [facility] Creatinine 0.78 0.60 - 0.93 mg/dL 07/22/2020 5:38 PM EDT [facility] Comment: For patients >49 years of age, the reference limit for Creatinine is approximately 13% higher for people identified as -Jamaican. eGFR Non- 75 > OR = 60 mL/min/1 .73m2 07/22/2020 5:38 PM EDT [facility] eGFR 87 > OR = 60 mL/min/1 .73m2 07/22/2020 5:38 PM EDT [facility] Bun/Creatinine Ratio NOT APPLICABLE 6 - 22 (calc) 07/22/2020 5:38 PM EDT [facility] Sodium 141 135 - 146 mmol/L 07/22/2020 5:38 PM EDT [facility] Potassium 4.6 3.5 - 5.3 mmol/L 07/22/2020 5:38 PM EDT [facility] Chloride 103 98 - 110 mmol/L 07/22/2020 5:38 PM EDT [facility] Carbon Dioxide 29 20 - 32 mmol/L 07/22/2020 5:38 PM EDT [facility] Calcium 10.2 8.6 - 10.4 mg/dL 07/22/2020 5:38 PM EDT [facility] Blood Structure of peripheral vein / Unknown 07/22/2020 10:34 AM EDT 07/22/2020 4:17 PM EDT Narrative [facility] - 07/22/2020 6:46 PM EDT FASTING:YES us [place] Napoles MD LAB BLOOD ORDERABLES Fin al Result Performing Organization Address City/[facility]/ZIP Co de Phone Number [facility] [address], [place] [address], [employer] [address] [address] * Hepatitis C Antibody w/Reflex to PCR (01/24/2019 9:50 AM EDT) Hepatitis C Antibody NON-REACT MEI NON-REACT MEI 01/24/2019 8:44 PM EDT [employer] [facility] Signal To Cut-Off 0.02 <1.00 01/24/2019 8:44 PM EDT [facility] Comment: HCV antibody was non-reactive. There is no laboratory evidence of HCV infection. In most cases, no further action is required. However, if recent HCV exposure is suspected, a test for HCV RNA (test code 62371) is suggested. For additional information please refer to http://education.Migoa/faq/NQT97z4 (This link is being provided for informational/ educational purposes only.) Blood specimen (specimen) Structure of peripheral vein / Unknown 01/24/2019 9:50 AM EDT 01/24/2019 5:08 PM EDT Narrative [facility] - 01/24/2019 9:22 PM EDT FASTING:YES [place] Napoles MD LAB BLOOD ORDERABLES Fin al Result Performing Organization Address City/[facility]/ZIP Co de Phone Number [facility] [address], [place] [address], [employer] [address] [address] * COLONOSCOPY (01/24/2019) Narrative Procedure Note Arsen [...] Most Recently Relevant to Health Maintenance Insurance [facility] Advance Directives Documents on File Type Date Recorded Patient Machine Cleaner Expl anation Health Care Proxy 08/01/2018 11:58 AM 07/05 Care Teams Operations General Agent Relationship Specialty Start Date End Date Jordan Brandon [address] [place] [address] [place] [address] PCP - General Internal Medicine 01/27/21
--- OUTSIDE RECORDS SUMMARY | 2024-11-01 08:04 | XMS_ITS | Patient Health Record ---
Author Organization [facility] Address [address] [place] [phone] Care Team Providers Care Hoop Punch And Coiler Operator Name Role Phone Sukhdev Layne Primary Care Provider Karsten Mena [phone] Allergies Allergen (clinical drug ingredient) Drug/Non Drug [...] Problem Status W/U Status Risk Notes Problem 869348766 Colon cancer screening (Z12.11) Active confirmed Problem 698061806 History of adenomatous polyp of colon (Z86.010) Active confirmed Problem Diverticular disease of colon (063725688) Diverticulosis of large intestine without perforation or abscess without bleeding (K57.30) Active confirmed Problem GERD (gastroesophageal reflux disease) (K21.9) Active confirmed Problem 27715395 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) Active confirmed Problem Adenocarcinoma of cecum (833293672) 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 Vital Signs Blood pressure diastolic 77 mm Hg 09/05/2024 Height 5 ft 8 in in 09/05/2024 Blood pressure systolic 111 mm Hg 09/05/2024 Weight 149 lbs 09/05/2024 BMI 22.65 kg/m2 09/05/2024 Procedures Procedure Date Ordered Date Performed Result Body Sit e UPPER GI ENDOSCOPY 09/05/2024 N/A COLONOSCOPY 09/05/2024 N/A Encounters Encounter Location Date Provider Diagnosis [facility] [address] [place] [phone] 09/05/2024 Karsten Saunders Adenocarcinoma of ce cum C18.0 ; GERD (gastroesophageal reflux disease) K21.9 and Colon cancer screening Z12.11 [facility] [address] [place] [phone] 09/06/2024 Karsten Saunders Assessments Encounter Date Diagnosis [...] Provider Name:Karsten Saunders , 01/19/2025 09:00:00 AM, [address] [place] [address] , [place], [place], [phone], Insurance Providers Payer Name Payer Address Payer Phone Subscriber Number Group Number Insured Name Patient Relationship to Insured Coverage Start Date Coverage End Date [facility] [address] [place] [phone] [id number] AIDANTaylorPAULINE Self - patient is the insured Medical (General) History Medical History History ICD Code HTN Urinary incontinence GERD Denies [place],DM,CVA,Lung disease,renal dise ase IBS Aramis's with subsequent hypothyroidi sm Hyperlipidemia Right bundle branch block; r eports a negative Nuclear stress test [place] [address] Vogel Colonoscopies in 2012 and in 2018 at [facility] with removal of small tubular adenomas. The [...]
--- OUTSIDE RECORDS SUMMARY | 2024-11-01 08:04 | XMS_ITS | Patient Health Record ---
Author Organization [facility] Address [address] [place], [place] [id number] Care Team Providers Care Bottom Hoop Driver Name Role Phone Yesika WING, [place] Primary Care Provider Charlee Jose Meng Unavailable [phone] Castillo Dailey Unavailable Unavailable Reason For Referral No Information Plan Of Treatment No Information Insurance Providers Payer Name Payer Address Payer Phone Subscriber Number Group Number Insured Name Patient Relationship to Insured Coverage Start Date Coverage End Date [facility] [address] [address] [place] [address] [id number] Tatiana Rawls Self - patient is the insured
--- OUTSIDE RECORDS SUMMARY | 2024-11-01 08:04 | XMS_ITS | Clinical Summary ---
Author Organization [facility] Address [address] [place] [address] Phone Care Team Providers Care Tool And Die Maker Apprentice Name Role Phone Pcp, Unknown Primary Care Provider Unavailabl e Allergies Active Allergy Reactions Criticality Noted Date Comments Amoxicillin-Pot Clavulanate 01/17/20 21 Morphine 01/16/2021 Shellfish Containing Products 2020 Sulfa (Sulfonamide Antibiotics) 01/03 Medications amLODIPine (NORVASC) 2.5 MG tablet Take 2.5 mg by mouth daily. Active famotidine (PEPCID) 20 MG tablet Take 20 mg by mouth 2 (two) times a day. Active rosuvastatin (CRESTOR) 10 MG tablet Take 10 mg by mouth daily. Active levothyroxine (SYNTHROID, LEVOTHROID) 150 MCG tablet Take 150 mcg by mouth every morning. Active buPROPion (WELLBUTRIN XL) 150 MG ER 24 hr tablet Take 150 mg by mouth daily. Active lisinopril (PRINIVIL,ZESTR IL) 10 MG tablet Take 10 mg by mouth daily. Active gabapentin (NEURONTIN) 300 MG capsule Take 1 capsule (300 mg total) by mouth 3 (three) times a day for 7 days. 21 capsule 01/18/2021 Active Social History Tobacco Use Types Packs/Day Years Used Date Smoking Tobacco: Every Day Smokeless Tobacco: Never Alcohol Use Standard Drinks/Week Comments Yes 0 (1 standard drink = 0.6 oz pur e alcohol) daily- 2 or 3 glasses of wine Education Answer Date Recorded Are you interested in more education? Not on anastacio e 07/31/2022 Are you concerned about learning? Not on file 07/31/2022 No 07/31/2022 No 07/31/2022 Digital Access Answer Date Recorded No 08/31/2022 No 08/31/2022 No 08/31/2022 Reliable internet access at home? Not on file 08/31/2022 Device with a working camera? Not on file Comments Unknown Sex and Gender Information Value Date Recorded Sex Assigned at Female 01/18/2021 12:22 PM EDT Legal Sex Female 2:13 AM EDT Gender Identity Female 01/18/2021 12:22 PM EDT Sexual Orientation Choose not to disclose 2020 12:22 PM EDT Last Filed Vital Signs Vital Sign Reading Time Taken Comments Blood Pressure 194/77 01/18/2021 5:50 PM EDT Pulse 79 01/18/2021 5:50 PM EDT Temperature 36.1 C (97 F) 01/18/2021 5:50 PM EDT Respiratory Rate 16 01/18/2021 5:50 PM EDT Oxygen Saturation 97% 01/18/2021 5:50 PM EDT Inhaled Oxygen Concentration - - Weight 73.5 kg (162 lb) 01/18/2021 12:20 PM EDT Height 170.2 cm (5' 7 ) 01/18/2021 12:20 PM EDT Body Mass Index 25.37 01/18/2021 12:20 PM EDT Plan of Treatment Not on file Medical Devices Not on file Insurance [employer] JACK NEGRO [id number] MEDICARE REPLACEMENT MEDICARE REPLACEMENT MEDICARE REPLACEMENT MEDICARE REPLACEMENT MEDICARE REPLACEMENT MEDICARE REPLACEMENT MEDICARE REPLACEMENT [employer] Care Teams Tool And Die Maker Apprentice Relationship Specialty Start Date End Date Pcp, Unknown PCP - General 01/16/21 Additional Source Comments The information contained in this document represents components of the legal health record. It is not the complete legal health record.[facility]
[2024-11-01 11:14] LABS: Appearance Urine Clear; Glucose Urine UA Negative (Negative); PH 7.5 (5.0-9.0); Specific Gravity - Urine 1.010 (1.005-1.025)
[2024-11-01 11:19] LABS: MANUAL DIFF FLAG NO
[2024-11-01 11:35] LABS: Hematocrit 48.2 % (37.0-47.0); Hemoglobin 15.9 g/dl (12.0-16.0); Imm Gran Abs Auto 0.00 X10*3/uL (0.00-0.03); Imm Gran Pct Auto 0.0 % (0.0-0.4); Lymphocytes Absolute Auto 1.6 X10*3/uL (1.2-4.9); Mean Corpuscular HGB Conc 33.0 g/dl (31.0-35.0); Mean Corpuscular Hemoglobin 31.8 pg (27.0-33.0); Mean Corpuscular Volume 96.4 fL (80.0-98.0); NRBC Abs Auto 0.000 X10*3/uL (0.0-0.012); NRBC Pct Auto 0.0 /100WBC (0.0-0.2); Platelet Count 352 X10*3/uL (160-400); Red Blood Count 5.00 X10*6/uL (4.20-5.50); White Blood Count 5.7 X10*3/uL (4.8-10.8)
[2024-11-01 12:04] LABS: Alanine Aminotransferase 64 U/L (0-31); Albumin Level 4.5 g/dL (3.5-5.0); Alkaline Phosphatase 108 U/L (39-117); Anion Gap 13 (12-20); Aspartate Amino Transferase 58 U/L (5-31); Blood Urea Nitrogen 10 mg/dL (9-16); Calcium 9.4 mg/dL (8.4-10.2); Carbon Dioxide 28 mmol/L (22-29); Chloride 104 mmol/L (96-108); Cholesterol 143 mg/dL (<200); Estimated Glomerular Filt Rate > 60; HDL Cholesterol 69 mg/dL (>40); Potassium 4.1 mmol/L (3.3-5.1); Sodium 141 mmol/L (135-145); Total Protein 7.3 g/dL (6.5-8.0); Triglycerides 84 mg/dL (<150)
[2024-11-01 12:46] LABS: Folate 6.2 ng/mL (> or = 4.0); Vitamin B12 179 pg/mL (200-900)
== END 2024-11-01 08:02 | disposition home or self-care (01) ==
LOC: HO.WFDLDS 08:01
PROVIDERS: Visit Provider Family Medicine
DX: Z00.00 Encounter for general adult medical examination without abnormal findings (principal); I10 Essential (primary) hypertension; E55.9 Vitamin D deficiency, unspecified; E53.8 Deficiency of other specified B group vitamins; E03.9 Hypothyroidism, unspecified
CPT/HCPCS: 36415; 80053; 80061; 81003; 82043; 82306; 82570; 82607; 82746; 85025

== ENCOUNTER 2024-11-03 13:44 | Outpatient (AMB) | payer MEDICARE, SELFPAY ==
--- OUTSIDE RECORDS SUMMARY | 2024-11-03 13:46 | XMS_ITS | Referral Summary ---
Author Organization [facility] Address [address] [place] [address] Care Team Providers Care Research Technician Name Role Phone Jordan Brandon Primary Care Provider [phone] Allergies Active Allergy Reactions Criticality Noted Date [...] patient. Osteopenia 01/25/2015 Overview (12/23/2016): 01/2015. [facility]). L/S Spine -0.5. Hip(Neck) -1.5. Hip(Total) [...] Problem Noted Date Diagnosed Date Resolved Date [id number] 07/21/2018 08/09/2018 Overview (07/21/2018): 07/2018. Dr. Kimball. [...] Not on file Procedures * Due to [place] Ginx law, this organization might not be sharing [...] to Health Maintenance Results * Due to [place] Ginx law, this organization might not be sharing negative HIV tests. * HM Mammography, Bilateral (12/10/2020) Anatomical Region Laterality Modality Other 12/10/2020 us Unknown Provider HEALTH MAINTENANCE Final Res ult * Basic Metabolic Panel (07/22/2020 10:34 AM EDT) Pathologist [facility] Glucose 92 65 - 99 mg/dL 07/22/2020 5:38 PM EDT [employer] Comment: Fasting reference interval BUN 14 7 - 25 mg/dL 07/22/2020 5:38 PM EDT [employer] Creatinine 0.78 0.60 - 0.93 mg/dL 07/22/2020 5:38 PM EDT [employer] Comment: For patients >49 years of age, the reference limit for Creatinine is approximately 13% higher for people identified as -Filipino. eGFR Non- 75 > OR = 60 mL/min/1 .73m2 07/22/2020 5:38 PM EDT [employer] [facility] [employer] eGFR 87 > OR = 60 mL/min/1 .73m2 07/22/2020 5:38 PM EDT [employer] Bun/Creatinine Ratio NOT APPLICABLE 6 - 22 (calc) 07/22/2020 5:38 PM EDT [employer] Sodium 141 135 - 146 mmol/L 07/22/2020 5:38 PM EDT [employer] Potassium 4.6 3.5 - 5.3 mmol/L 07/22/2020 5:38 PM EDT [facility] [facility] Chloride 103 98 - 110 mmol/L 07/22/2020 5:38 PM EDT [employer] [facility] Carbon Dioxide 29 20 - 32 mmol/L 07/22/2020 5:38 PM EDT [facility] Calcium 10.2 8.6 - 10.4 mg/dL 07/22/2020 5:38 PM EDT [employer] [facility] Blood Structure of peripheral vein / Unknown 07/22/2020 10:34 AM EDT 07/22/2020 4:17 PM EDT Narrative [facility] - 07/22/2020 6:46 PM EDT FASTING:YES us [place] MD LAB BLOOD ORDERABLES Fin al Result Performing Organization Address City/[facility]/ZIP Co de Phone Number [facility] [address], [place] [address], [facility] / [facility] [address] [address] * Hepatitis C Antibody w/Reflex to PCR (01/24/2019 9:50 AM EDT) Hepatitis C Antibody NON-REACT MEI NON-REACT MEI 01/24/2019 8:44 PM EDT [facility] / [facility] Signal To Cut-Off 0.02 <1.00 01/24/2019 8:44 PM EDT [employer] [facility] Comment: HCV antibody was non-reactive. There is no laboratory evidence of HCV infection. In most cases, no further action is required. However, if recent HCV exposure is suspected, a test for HCV RNA (test code 55059) is suggested. For additional information please refer to http://education.[employer] logo/faq/RNV35y2 (This link is being provided for informational/ educational purposes only.) Blood specimen (specimen) Structure of peripheral vein / Unknown 01/24/2019 9:50 AM EDT 01/24/2019 5:08 PM EDT Narrative [facility] - 01/24/2019 9:22 PM EDT FASTING:YES [place] MD LAB BLOOD ORDERABLES Fin al Result Performing Organization Address City/[facility]/ZIP Co de Phone Number [facility] [address], [place] [address], [facility] / [facility] [address] [address] * COLONOSCOPY (01/24/2019) Narrative Procedure Note Arsen [...] Most Recently Relevant to Health Maintenance Insurance [facility] Advance Directives Documents on File Type Date Recorded Patient Ios Software Engineer Expl anation Health Care Proxy 08/01/2018 11:58 AM 07/05 Care Teams Research Technician Relationship Specialty Start Date End Date Jordan Brandon [address] [place] [address] [place] [address] PCP - General Internal Medicine 01/27/21
--- OUTSIDE RECORDS SUMMARY | 2024-11-03 13:46 | XMS_ITS | Patient Health Record ---
Author Organization [facility] Address [address] [place] [id number] Care Team Providers Care Director Search Name Role Phone Sukhdev Layne Primary Care Provider Karsten Mena [phone] Allergies Allergen (clinical drug ingredient) Drug/Non Drug [...] Problem Status W/U Status Risk Notes Problem 544851844 Colon cancer screening (Z12.11) Active confirmed Problem 123645020 History of adenomatous polyp of colon (Z86.010) Active confirmed Problem Diverticular disease of colon (787283885) Diverticulosis of large intestine without perforation or abscess without bleeding (K57.30) Active confirmed Problem Gastroesophageal reflux disease (086346825) GERD (gastroesophageal reflux disease) (K21.9) Active confirmed Problem 83382552 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) Active confirmed Problem Adenocarcinoma of cecum (386195317) 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 Vital Signs Blood pressure diastolic 77 mm Hg 09/05/2024 Height 5 ft 8 in in 09/05/2024 Blood pressure systolic 111 mm Hg 09/05/2024 Weight 149 lbs 09/05/2024 BMI 22.65 kg/m2 09/05/2024 Procedures Procedure Date Ordered Date Performed Result Body Sit e UPPER GI ENDOSCOPY 09/05/2024 N/A COLONOSCOPY 09/05/2024 N/A Encounters Encounter Location Date Provider Diagnosis [facility] [address] [place] [phone] 09/05/2024 Karsten Saunders Adenocarcinoma of ce cum C18.0 ; GERD (gastroesophageal reflux disease) K21.9 and Colon cancer screening Z12.11 [facility] [address] [place] [phone] 09/06/2024 Karsten Saunders Assessments Encounter Date Diagnosis [...] Provider Name:Karsten Saunders , 01/19/2025 09:00:00 AM, [address] [place] [address] , [place], [place], [id number], Insurance Providers Payer Name Payer Address Payer Phone Subscriber Number Group Number Insured Name Patient Relationship to Insured Coverage Start Date Coverage End Date [facility] [address] [place] [phone] [id number] PAULINE VILLALBA Self - patient is the insured Medical (General) History Medical History History ICD Code HTN Urinary incontinence GERD Denies [place],DM,CVA,Lung disease,renal dise ase IBS Aramis's with subsequent hypothyroidi sm Hyperlipidemia Right bundle branch block; r eports a negative Nuclear stress test in [address] Vogel Colonoscopies in 2012 and in 2018 at [facility] with removal of small tubular adenomas. The [...]
--- OUTSIDE RECORDS SUMMARY | 2024-11-03 13:46 | XMS_ITS | Patient Health Record ---
Author Organization [facility] Address [address] [place], [place] [id number] Care Team Providers Care Slot Supervisor Name Role Phone Yesika WING, [place] Primary Care Provider Charlee Jose Meng Unavailable [phone] Castillo Dailey Unavailable Unavailable Reason For Referral No Information Plan Of Treatment No Information Insurance Providers Payer Name Payer Address Payer Phone Subscriber Number Group Number Insured Name Patient Relationship to Insured Coverage Start Date Coverage End Date [facility] [address] [address] [place] [id number] Tatiana Rawls Self - patient is the insured
--- OUTSIDE RECORDS SUMMARY | 2024-11-03 13:46 | XMS_ITS | Clinical Summary ---
Author Organization [facility] Address [address] [place] [phone] Phone Care Team Providers Care Chemist Enzymes Name Role Phone Pcp, Unknown Primary Care [...] file Insurance [employer] NEGRO [id number] MEDICARE REPLACEMENT MEDICARE REPLACEMENT MEDICARE REPLACEMENT MEDICARE REPLACEMENT MEDICARE REPLACEMENT MEDICARE REPLACEMENT MEDICARE REPLACEMENT [employer] Care Teams Chemist Enzymes Relationship Specialty Start Date End Date Pcp, Unknown PCP - General 01/16/21 Additional Source Comments The information contained in this document represents components of the legal health record. It is not the complete legal health record.[facility]
--- NOTE | 2024-11-03 14:27 | MHC.PC.OV ---
Vital Signs 11/03/24 14:42 Height 5 ft 7 in Weight 151 lb 6 oz BMI 23.7 BP 136/70 Blood Pressure Location Lt brachial Position Sitting Respiration 14 Pulse 84 Pulse Source Pulse Oximeter Temp 98.0 F Temp Source Oral Pulse Oximetry (%) 100 Oxygen Delivery Method Room Air Intake Visit Reasons: (Per Dr) CPE with f/u labs & health maint Intake Note: patient is scheduled for cpe Cost Reduction Engineer Required: No Allergies Sulfa (Sulfonamide Antibiotics) Allergy (Severe, Verified 11/03/24 14:34) Rash amoxicillin (From Augmentin) Allergy (Intermediate, Verified 11/03/24 14:34) Nausea and Vomiting clavulanic acid (From Augmentin) Allergy (Intermediate, Verified 11/03/24 14:34) Nausea and Vomiting shellfish derived Allergy (Intermediate, Verified 11/03/24 14:34) Nausea and Vomiting turmeric Allergy (Intermediate, Verified 11/03/24 14:34) Vomiting narcotic pain medications Adverse Reaction (Intermediate, Uncoded 08/29/24 10:27) Nausea and Vomiting Medication List - Last Reconciled 11/03/24 by Sukhdev Layne MD amlodipine 5 mg PO DAILY 90 days aspirin (Adult Aspirin Regimen) 81 mg PO DAILY 90 days cholecalciferol (vitamin D3) 50 mcg PO QAM coenzyme Q10 (Ultra CoQ10) 75 mg PO QAM ezetimibe 10 mg PO DAILY hydrocortisone 2.5% 1 appl topical BID PRN 30 days ibuprofen 800 mg PO Q8H PRN 14 days levothyroxine 112 mcg PO DAILY 90 days lisinopril 30 mg PO DAILY 90 days omega 7-xwd-bqa-fish oil 1,200 (144-216) mg (Fish Oil) 1 cap PO DAILY omeprazole 20 mg PO BID@0630,1630 30 days rosuvastatin 40 mg PO BEDTIME 90 days varenicline tartrate PO PER PKG DIR Tobacco use date assessed: 11/03/24 Fall risk assessment: No Falls in past year Last assessed Fall Risk: 11/03/24 Dental Screening Dental Screen Date: 11/03/24 Did you have a dental visit in the last 12 months?: No Did you have a dental problem in the last 6 months where you did not have access to dental care?: No Was dental information given to patient?: Patient has dentist HPI (Per ) CPE with f/u labs & health maint HPI Details 79 y/o female presents today to f/u labs, chronic conditions. Labs drawn 11/01/24. Reviewed labs with pt. Hct 48.2%. Elevated liver enzymes - AST 58, ALT 64. Triglycerides 84. TC 143. LDL 58. HDL 69. Vitamin B12 low at 179 pg/mL. Had seen endocrinology 10/17/24 for hypothyroidism. Continues to f/u with them. [facility] Medical History Excessive daytime sleepiness Snoring Ocular migraine Obstructive sleep apnea Cervical dystonia Cervicalgia Gait instability Family history of gene mutation Colon cancer Family history of anesthesia complication COPD (chronic obstructive pulmonary disease) Cecal lesion RBBB (right bundle branch block) Bifascicular block Polycythemia CAD (coronary artery disease) GERD (gastroesophageal reflux disease) Sleep apnea Hypothyroidism Hyperlipidemia Hypertension Personal history of nicotine dependence Surgical History Hx of dilation and curettage H/O colonoscopy History of tonsillectomy History of lumpectomy of right breast History of tubal ligation History of cholecystectomy History of bladder surgery History of hysterectomy Family History Sister Cancer of kidney Psoriasis Arthritis Lupus Blood clot in vein Acute Crohn's disease Substance abuse Father Atherosclerosis Substance abuse Aortic aneurysm Mother Substance abuse Maternal Aunt Substance abuse Paternal Grandfather No problems noted. Social History Household Members: Significant Other Housing: House Are you a primary manager intensive care unit to a significant other at home: No Do you presently have visiting nurse or other home services: No Comment: counts correct Patient Tobacco Use Status: Current someday Tobacco user Tobacco use type: Cigarette Cigarette Packs Per Day: 1 Years Smoked: 61 e-Cigarette/Vaping Use: Never Used Second Hand Smoke Exposure: No service: No Current occupational status: retired Current occupational exposures/hazards: No Cognitive needs: No Hearing needs: No Vision needs: Yes (Patient wears reading glasses.) Questionnaire PHQ-9 Over the last 2 weeks, how often have you been bothered by any of the following problems? 1. Little interest or pleasure in doing things: not at all 2. Feeling down, depressed, or hopeless: not at all 3. Trouble falling or staying asleep, or sleeping too much: several days 4. Feeling tired or having little energy: not at all 5. Poor appetite or overeating: not at all 6. Feeling bad about yourself - or that you are a failure or have let yourself or your family down: not at all 7. Trouble concentrating on things, such as reading the newspaper or watching television: not at all 8. Moving or speaking so slowly that other people could have noticed. Or the opposite - being so fidgety or restless that you have been moving around a lot more than usual: not at all 9. Thoughts that you would be better off or of hurting yourself in some way: not at all Total score: 1 Depression Screening Interpretation: Negative Depression Screening Done: Yes 22425 - PHQ-9 Billing: Yes Source: Developed by Drs. Karsten Mccloud, Michell Napoles, Jose Guerin and colleagues, with an educational janneth from [employer]. Thrive Questionnaire Date Thrive assessed: 05/29/24 I am a: Patient What is your living situation today?: I have a steady place to live Within the past 12 months, did the food you bought not last and you didn't have the money to get more?: Never true Within the past 12 months, did you worry whether your food would run out before you got money to buy more?: Never true Do you have trouble paying for medicines?: No Do you have trouble getting transportation to medical appointments?: No Do you have trouble paying your heating and electricity bill?: No Do you have trouble taking care of your child, family member or friend?: No Do you have trouble with day-to-day activities such as bathing, preparing meals, shopping, managing finances, etc.?: No Are you currently unemployed and looking for a job?: No Are you interested in more education?: No Please select the resources that you would like help with: None Currently or been in a relationship where the following occur: No concerns reported THRIVE Score: 0 KEILA-7 AMB Questionnaire KEILA-7 Date KEILA - 7 assessed: 11/03/24 Feeling nervous, anxious, or on edge: 0 = Not at all Not being able to stop or control worryin = Not at all Worrying too much about different things: 0 = Not at all Trouble relaxin = Not at all Being so restless that it is hard to sit still: 0 = Not at all Becoming easily annoyed or irritable: 0 = Not at all Feeling afraid as if something awful might happen: 0 = Not at all Total KEILA-7 score (0-4 normal; 5-9 mild; 10-14 moderate; 15-21 severe): 0 Source: Developed by Drs. Karsten Mccloud, Michell Napoles, Jose Guerin and colleagues, with an educational janneth from [employer]. KEILA-7 Assessment Billing KEILA-7 Assessment Tool: KEILA-7 Assessment 86403 Review of Systems Const Denies chills, Denies fatigue, Denies fever(s), Denies headache(s) and Denies weakness ENT Denies dizziness and Denies headache(s) Card Denies dyspnea Resp Denies cough, Denies dyspnea, Denies wheezing and Denies other (shortness of breath) Musc Denies numbness and Denies tingling Neuro Denies dizziness, Denies headache(s), Denies numbness, Denies tingling and Denies weakness Psych Denies anxiety and Denies depression Endo Denies fatigue Aller/Immun Denies wheezing Physical exam (Primary Care) Vital Signs: Last Vital Signs Temp 98.0 F 11/03/24 14:42 Pulse 84 11/03/24 14:42 Resp 14 11/03/24 14:42 BP 136/70 11/03/24 14:42 Pulse Ox 100 11/03/24 14:42 Oxygen Delivery Method Room Air 11/03/24 14:42 BMI result Body Mass Index 23.7 Tobacco/Smoking Status: Tobacco use Status Tobacco use date assessed 11/03/24 11/03/24 14:47 Patient Tobacco Use Status Current someday Tobacco 11/03/24 14:28 Tobacco use type Cigarette 11/03/24 14:28 e-Cigarette/Vaping Use Never Used 11/03/24 14:28 PHQ-9: PHQ-9 Score PHQ-9: Total score 1 11/03/24 15:10 Depression Screening Interpretation: Negative Thrive Assessment: Date of Thrive Assessment Date Thrive assessed 05/29/24 11/03/24 14:28 Currently or been in a relationship where the following occur: No concerns reported Const General: well developed; No acute distress Nutritional Appearance: well nourished Orientation/consciousness: patient oriented x3 HENMT Head: Yes normocephalic and Yes atraumatic Eyes General: appearance normal, both eyes and all related structures Pupils: Equal, round and reactive pupils present EOM: EOMs intact bilaterally Resp Effort & Inspection: normal respiratory effort Neuro General: patient oriented x3 and gait normal Cranial nerves: Yes Equal, round and reactive pupils present Psych Affect: normal affect Coding Level of Care Code Est Pt Level 4 (96173) Diagnoses Primary hypertension I10 Hypertension type: primary hypertension 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 Hypothyroidism type: due to Aramis's thyroiditis CAD (coronary artery disease) I25.10 Hyperlipidemia, unspecified hyperlipidemia type E78.5 Hyperlipidemia type: unspecified Elevated liver enzymes R74.8 Low vitamin D level R79.89 Low vitamin B12 level R79.89 Breast cancer screening by mammogram Z12.31 Screening for colon cancer Z12.11 Screening for osteoporosis Z13.820 Additional Codes KEILA-7 Assessment Billing - KEILA-7 Assessment Tool: KEILA-7 Assessment 85510 ([id number]) PHQ-9 - 67976 - PHQ-9 Billing: Yes ([id number]) Assessment & Plan Assessment & Plan (1) Hypertension: Code(s): I10 - Essential (primary) hypertension Category: Medical Qualifiers: Hypertension type: primary hypertension Qualified Code(s): I10 - Essential (primary) hypertension Plan: Blood pressure is fairly well controlled. Goal is less than 130/80 Continue current medication regimen Watch salt/sodium (2) Hypothyroidism: Comment: (hashimotos) Code(s): E03.9 - Hypothyroidism, unspecified Category: Medical Qualifiers: Hypothyroidism type: due to Aramis's thyroiditis Qualified Code(s): E06.3 - Autoimmune thyroiditis Plan: Now followed by Dr. Dan She is repeating lab work Appreciate her input and patient will follow-up with her (3) CAD (coronary artery disease): Code(s): I25.10 - Atherosclerotic heart disease of [place] coronary artery without angina pectoris Category: Medical Plan: Stable Continue good blood pressure control and lipid control. Follow-up with Cardiology as recommended (4) Hyperlipidemia: Code(s): E78.5 - Hyperlipidemia, unspecified Category: Medical Qualifiers: Hyperlipidemia type: unspecified Qualified Code(s): E78.5 - Hyperlipidemia, unspecified Plan: Lipids are well controlled. LDL goal less than 70 Continue rosuvastatin Zetia and Co Q10 (5) Elevated liver enzymes: Code(s): R74.8 - Abnormal levels of other serum enzymes Category: Medical Plan: Liver enzymes increased significantly. Patient notes that she went to her sister's for a visit and they drink quite a bit of wine prior to her getting her labs drawn. Will recheck prior to next visit Encouraged moderation and good hydration. Will continue to monitor (6) Low vitamin D level: Code(s): R79.89 - Other specified abnormal findings of blood chemistry Category: Medical Plan: Taking vitamin-D and her vitamin-D level is within normal range now Continue current supplement (7) Low vitamin B12 level: Code(s): R79.89 - Other specified abnormal findings of blood chemistry Category: Medical Plan: B12 is low Will send B12 supplement (8) Breast cancer screening by mammogram: Code(s): Z12.31 - Encounter for screening mammogram for malignant neoplasm of breast Category: Medical (9) Screening for colon cancer: Code(s): Z12.11 - Encounter for screening for malignant neoplasm of colon Category: Medical (10) Screening for osteoporosis: Code(s): Z13.820 - Encounter for screening for osteoporosis Category: Medical Plan Patient is due for a mammogram Ordered Patient has history of osteoporosis and is due for next bone density test in March. Ordered bone density test History of colon resection (Dr. Michael) and has upcoming appointment with Dr. Saunders for colonoscopy. Follow-up with Dr. Saunders Orders: Orders MM tomosynthesis screening BI Today Z12.31 - Encounter for screening mammogram for malignant neoplasm of breast XR DEXA axial skeleton Today M81.0 - Age-related osteoporosis without current pathological fracture Medications: New calcium polycarbophil (FiberCon) 625 mg PO DAILY 30 tabs 2RF 30 days mecobalamin (vitamin B12) 500 mcg PO DAILY 90 tabs 3RF 90 days
[2024-11-03 14:42] VITALS: BP 136/70; PULSE 84; RESP 14; TEMP 36.7; O2SAT 100; BMI 23.7
== END 2024-11-03 16:30 | disposition home or self-care (01) ==
LOC: HO.HMCFM 13:45
PROVIDERS: PCP Family Medicine; Visit Provider Family Medicine
DX: I10 Essential (primary) hypertension (principal); E06.3 Autoimmune thyroiditis; I25.10 Atherosclerotic heart disease of native coronary artery without angina pectoris; E78.5 Hyperlipidemia, unspecified; R74.8 Abnormal levels of other serum enzymes; R79.89 Other specified abnormal findings of blood chemistry; Z12.31 Encounter for screening mammogram for malignant neoplasm of breast; Z12.11 Encounter for screening for malignant neoplasm of colon; Z13.820 Encounter for screening for osteoporosis

== ENCOUNTER → 2024-11-03 13:44 | Outpatient (BNVA) | payer MEDICARE, SELFPAY | PROVIDERS: PCP Family Medicine; Visit Provider Family Medicine | DX: I10 Essential (primary) hypertension (principal); E06.3 Autoimmune thyroiditis; I25.10 Atherosclerotic heart disease of native coronary artery without angina pectoris; E78.5 Hyperlipidemia, unspecified; R74.8 Abnormal levels of other serum enzymes; R79.89 Other specified abnormal findings of blood chemistry; Z79.899 Other long term (current) drug therapy; Z13.31 Encounter for screening for depression; Z13.39 Encounter for screening examination for other mental health and behavioral disorders | CPT/HCPCS: 96127; 99212 ==

== ENCOUNTER 2024-12-12 10:03 | Outpatient (REF) | payer MEDICARE, SELFPAY ==
--- OUTSIDE RECORDS SUMMARY | 2024-11-27 07:40 | XMS_ITS ---
Author Organization [facility] Address [address] [place] [address] Care Team Providers Care Portable Router Operator Name Role Phone Sukhdev Layne Primary Care Provider UnavailKarsten Ansari [phone] REASON FOR VISIT screening, adenocarcinoma of cecum, gerd Encounters Encounter Location Date Provider Diagnosis [facility] Outpatient [address] [place] [phone] 11/27/2024 Karsten Saunders Plan Of Treatment Next Appt Details Provider Name:Karsten Saunders , 01/19/2025 09:00:00 AM, [address] [place] [address], [phone], Progress Notes * PAULINE VILLALBA DDOB: [birth year] (79 yo F)Acc No.[id number]:11/27/2024 EGD and COL/MAC Patient: Lucho PAULINE HO Provider: Yohan Saunders MD :1945 A ge:79 Y S ex:Female Date:11/27/2024 Address:[address] [place], [place] [id number] Pcp:Sukhdev Layne Subjective: * Chief Complaints: * [...] 11/27/2024 Generated for Jose valentine/Leandro/Berryitting on: 0 12/12/2024 11:47 AM EDT
--- OUTSIDE RECORDS SUMMARY | 2024-12-12 11:47 | XMS_ITS | Patient Health Record ---
Author Organization [facility] Address [address] [place] [phone] Care Team Providers Care Vice President Of Talent Management Name Role Phone Sukhdev Layne Primary Care Provider Karsten Mena [phone] Allergies Allergen (clinical drug ingredient) Drug/Non Drug [...] Problem Status W/U Status Risk Notes Problem 878897220 Colon cancer screening (Z12.11) Active confirmed Problem 078495240 History of adenomatous polyp of colon (Z86.010) Active confirmed Problem Diverticular disease of colon (398701405) Diverticulosis of large intestine without perforation or abscess without bleeding (K57.30) Active confirmed Problem Gastroesophageal reflux disease (145108774) GERD (gastroesophageal reflux disease) (K21.9) Active confirmed Problem 53298255 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) Active confirmed Problem Adenocarcinoma of cecum (652893304) 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 Vital Signs Blood pressure diastolic 77 mm Hg 09/05/2024 Height 5 ft 8 in in 09/05/2024 Blood pressure systolic 111 mm Hg 09/05/2024 Weight 149 lbs 09/05/2024 BMI 22.65 kg/m2 09/05/2024 Procedures Procedure Date Ordered Date Performed Result Body Sit e UPPER GI ENDOSCOPY 09/05/2024 N/A COLONOSCOPY 09/05/2024 N/A Encounters Encounter Location Date Provider Diagnosis [facility] [address] [place] [phone] 09/05/2024 Karsten Saunders Adenocarcinoma of ce cum C18.0 ; GERD (gastroesophageal reflux disease) K21.9 and Colon cancer screening Z12.11 [facility] [address] [place] [phone] 09/06/2024 Karsten Saunders Assessments Encounter Date Diagnosis [...] Provider Name:Karsten Saunders , 01/19/2025 09:00:00 AM, [address] [place] [address] , [place], [place], [id number], Insurance Providers Payer Name Payer Address Payer Phone Subscriber Number Group Number Insured Name Patient Relationship to Insured Coverage Start Date Coverage End Date [facility] [address] [place] [phone] [id number] PAULINE VILLALBA Self - patient is the insured Medical (General) History Medical History History ICD Code HTN Urinary incontinence GERD Denies [place],DM,CVA,Lung disease,renal dise ase IBS Aramis's with subsequent hypothyroidi sm Hyperlipidemia Right bundle branch block; r eports a negative Nuclear stress test in [address] Vogel Colonoscopies in 2012 and in 2018 at [facility] with removal of small tubular adenomas. [...]
--- OUTSIDE RECORDS SUMMARY | 2024-12-12 11:47 | XMS_ITS | Clinical Summary ---
Author Organization [facility] Address [address] [place] [address] Care Team Providers Care Nurses Medical Assistants Phlebotomists Name Role Phone Jordan Brandon Primary Care Provider [phone] Allergies Active Allergy Reactions Criticality Noted Date [...] patient. Osteopenia 01/25/2015 Overview (12/23/2016): 01/2015. [facility] L/S Spine -0.5. Hip(Neck) -1.5. Hip(Total) [...] Problem Noted Date Diagnosed Date Resolved Date [id number] 07/21/2018 08/09/2018 Overview (07/21/2018): 07/2018. Dr. Kimball. [...] history exists Colonoscopy 01/24/2022 01/24/2019, 01/04, 12/27/2012 Alcohol/Substance Use Screening 04/05/2024 Depression Screening and Follow-Up 04/05/2024 Health Care Proxy Review 04/05/2024 Social Drivers of Health Annual Screening 04/05/2024 COVID-19 Vaccine ( season) 2024 08/08/2020 Influenza Vaccine (#1) 2024 Hepatitis C Screening Completed 01/24/2019 Mammogram Discontinued 12/10/2020, 09/03, 07/23/2016, Additional history exists Hepatitis B Vaccines Aged Out No long er eligible based on patient's age to complete this topic Procedures * Due to [place] [employer] law, this organization might not be sharing [...] Health Maintenance Results * Due to [place] [employer] law, this organization might not be sharing negative HIV tests. * HM Mammography, Bilateral (12/10/2020) Anatomical Region Laterality Modality Other 12/10/2020 us Unknown Provider MD HEALTH MAINTENANCE Final Res ult * Basic Metabolic Panel (07/22/2020 10:34 AM EDT) Glucose 92 65 - 99 mg/dL 07/22/2020 5:38 PM EDT [facility] Comment: Fasting reference interval BUN 14 7 - 25 mg/dL 07/22/2020 5:38 PM EDT [facility] Creatinine 0.78 0.60 - 0.93 mg/dL 07/22/2020 5:38 PM EDT [facility] Comment: For patients >49 years of age, the reference limit for Creatinine is approximately 13% higher for people identified as -[place]. eGFR Non- 75 > OR = 60 mL/min/1 .73m2 07/22/2020 5:38 PM EDT [facility] eGFR 87 > OR = 60 mL/min/1 .73m2 07/22/2020 5:38 PM EDT [facility] Bun/Creatinine Ratio NOT APPLICABLE (calc) 07/22/2020 5:38 PM EDT [facility] Sodium 141 135 - 146 mmol/L 07/22/2020 5:38 PM EDT [facility] Potassium 4.6 3.5 - 5.3 mmol/L 07/22/2020 5:38 PM EDT [facility] Chloride 103 98 - 110 mmol/L 07/22/2020 5:38 PM EDT [facility] Carbon Dioxide 29 20 - 32 mmol/L 07/22/2020 5:38 PM EDT [facility] Calcium 10.2 8.6 - 10.4 mg/dL 07/22/2020 5:38 PM EDT [facility] Blood Structure of peripheral vein / Unknown 07/22/2020 10:34 AM EDT 07/22/2020 4:17 PM EDT Narrative [facility] - 07/22/2020 6:46 PM EDT FASTING:YES us Lake Napoles MD LAB BLOOD ORDERABLES Fin al Result [facility] [address], [place] [address], [facility] [address] [place] [address] * Hepatitis C Antibody w/Reflex to PCR (01/24/2019 9:50 AM EDT) Hepatitis C Antibody NON-REACT MEI NON-REACT MEI 01/24/2019 8:44 PM EDT [facility] Signal To Cut-Off 0.02 <1.00 01/24/2019 8:44 PM EDT [facility] Comment: HCV antibody was non-reactive. There is no laboratory evidence of HCV infection. In most cases, no further action is required. However, if recent HCV exposure is suspected, a test for HCV RNA (test code 21823) is suggested. For additional information please refer to http://[employer]/faq/YPK98t2 (This link is being provided for informational/ educational purposes only.) Blood specimen (specimen) Structure of peripheral vein / Unknown 01/24/2019 9:50 AM EDT 01/24/2019 5:08 PM EDT Narrative [facility] - 01/24/2019 9:22 PM EDT FASTING:YES us Lake Napoles MD LAB BLOOD ORDERABLES Fin al Result [facility] [address], [place] [address], [place] [phone] [facility] [address] [place] [address] * COLONOSCOPY (01/24/2019) Narrative Procedure Note Arsen [...] Relevant to Health Maintenance Insurance ANISH WEAVER [id number] [facility] Advance Directives Documents on File Type Date Recorded Patient Machine Tool Builder Expl anation Health Care Proxy 08/01/2018 11:58 AM /12/2018 Care Teams Nurses Medical Assistants Phlebotomists Relationship Specialty Start Date End Date Jordan Brandon [address] [place] [address] [place] [address] PCP - General Internal Medicine 01/27/21
--- OUTSIDE RECORDS SUMMARY | 2024-12-12 11:48 | XMS_ITS | Patient Health Record ---
Author Organization [facility] Address [address] [place], [place] [id number] Care Team Providers Care Tobacco Stripper Hand Name Role Phone Yesika WING, Lake Primary Care Provider Charlee Jose Meng Unavailable [phone] Castillo Dailey Unavailable Unavailable Reason For Referral No Information Plan Of Treatment No Information Insurance Providers Payer Name Payer Address Payer Phone Subscriber Number Group Number Insured Name Patient Relationship to Insured Coverage Start Date Coverage End Date [facility] [address] [address] [place] [id number] Tatiana Rawls Self - patient is the insured
--- OUTSIDE RECORDS SUMMARY | 2024-12-12 11:48 | XMS_ITS | Clinical Summary ---
Author Organization [facility] Address [address] [place] [address] Phone Care Team Providers Care Criminal Intelligence Analyst Name Role Phone Pcp, Unknown Primary Care [...] file Insurance [employer] [place]O [id number] MEDICARE REPLACEMENT MEDICARE REPLACEMENT MEDICARE REPLACEMENT MEDICARE REPLACEMENT MEDICARE REPLACEMENT MEDICARE REPLACEMENT MEDICARE REPLACEMENT [employer] Care Teams Criminal Intelligence Analyst Relationship Specialty Start Date End Date Pcp, Unknown PCP - General 01/16/21 Additional Source Comments The information contained in this document represents components of the legal health record. It is not the complete legal health record.[facility]
[2024-12-12 12:06] LABS: Free T4 (Free Thyroxine) 1.05 ng/dL (0.71-1.85); Thyroid Stimulating Hormone 4.58 uIU/mL (0.32-4.0)
== END 2024-12-12 10:04 | disposition home or self-care (01) ==
LOC: HO.WFDLDS 10:03
PROVIDERS: Visit Provider Student in an Organized Health Care Education/Training Program
DX: E06.3 Autoimmune thyroiditis (principal)
CPT/HCPCS: 36415; 84439; 84443; 84480

== ENCOUNTER 2024-12-18 09:39 | Outpatient (AMB) | payer MEDICARE, SELFPAY ==
--- OUTSIDE RECORDS SUMMARY | 2024-11-27 07:40 | XMS_ITS ---
Author Organization [facility] Address [address] [place] [phone] Care Team Providers Care Hydrogen Power Plant Engineer Name Role Phone Sukhdev Lyane Primary Care Provider UnavailKarsten Ansari [phone] REASON FOR VISIT screening, adenocarcinoma of cecum, gerd Encounters Encounter Location Date Provider Diagnosis [facility] [place] [address] [place] [phone] 11/27/2024 Karsten Saunders Plan Of Treatment Next Appt Details Provider Name:Karsten Saunders , 01/19/2025 09:00:00 AM, [address] [place] [address], [phone], Progress Notes * PAULINE VILLALBA DDOB: [birth year] (79 yo F)Acc No.[id number]:11/27/2024 EGD and COL/MAC Patient: Lucho PAULINE HO Provider: Yohan Saunders MD :1945 A ge:79 Y S ex:Female Date:11/27/2024 Address:[address] [place], [place] [phone] Pcp:Sukhdev Layne Subjective: * Chief Complaints: * 1 . Screening, adenocarcinoma of cecum, gerd. * Medical History: Objective: * Vitals: Assessment: Plan: * Treatment: * * The named appointment provid er may or may not be the originator of this progress note, and it is not deemed complete until electronically signed by the appointment provider. Sign off status: Pending * Provider: Yohan Saunders MD Date: 0 11/27/2024 Generated for Jose valentine/Leandro/Berryitting on: 0 12/18/2024 11:45 AM EDT
[2024-12-18 09:48] VITALS: BP 150/70; PULSE 57; O2SAT 97; BMI 23.6
--- NOTE | 2024-12-18 09:48 | A.OFFVIS_ITS ---
Vital Signs 12/18/24 09:48 Height 5 ft 7 in Weight 150 lb 12.739 oz BMI 23.6 BP 150/70 H Blood Pressure Location Lt brachial Position Sitting Pulse 57 Pulse Source Pulse Oximeter Pulse Oximetry (%) 97 Oxygen Delivery Method Room Air Intake Visit Reasons: Hypothyroidism Intake Note: Patient present today for Hypothyroidism office visit. Floating Labor Gang Supervisor Required: No Accompanied by: Self / Same As Patient Allergies Sulfa (Sulfonamide Antibiotics) Allergy (Severe, Verified 12/18/24 09:52) Rash amoxicillin (From Augmentin) Allergy (Intermediate, Verified 12/18/24 09:52) Nausea and Vomiting clavulanic acid (From Augmentin) Allergy (Intermediate, Verified 12/18/24 09:52) Nausea and Vomiting shellfish derived Allergy (Intermediate, Verified 12/18/24 09:52) Nausea and Vomiting turmeric Allergy (Intermediate, Verified 12/18/24 09:52) Vomiting narcotic pain medications Adverse Reaction (Intermediate, Uncoded 12/18/24 09:52) Nausea and Vomiting Medication List - Last Reconciled 12/18/24 by Camila Dan MD amlodipine 5 mg PO DAILY 90 days aspirin (Adult Aspirin Regimen) 81 mg PO DAILY 90 days calcium polycarbophil (FiberCon) 625 mg PO DAILY 30 days cholecalciferol (vitamin D3) 50 mcg PO QAM coenzyme Q10 (Ultra CoQ10) 75 mg PO QAM ezetimibe 10 mg PO DAILY hydrocortisone 2.5% 1 appl topical BID PRN 30 days ibuprofen 800 mg PO Q8H PRN 14 days levothyroxine 112 mcg PO DAILY 90 days lisinopril 30 mg PO DAILY 90 days mecobalamin (vitamin B12) 1,000 mcg PO DAILY 90 days omega 9-tdd-lyj-fish oil 1,200 (144-216) mg (Fish Oil) 1 cap PO DAILY omeprazole 20 mg PO BID@0630,1630 30 days rosuvastatin 40 mg PO BEDTIME 90 days varenicline tartrate PO PER PKG DIR HPI Comments Details: 79-year-old female coming in today for follow up of hypothyroidism. HPI Referred by PCP because recently she has required a lot of adjustments on her levothyroxine. 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 Thinks she had some nodules biopsied. Ultrasound thyroid October 2024 does not show any discrete nodules. Shows heterogenous appearance of a gland as expected in Aramis's disease. Most recent set of labs 08/22/2024, TSH 0.06, low, free T4 is normal at 1.33, interestingly total T3 was on the lower side at 73. MRI brain showed normal pitutary 02/26. 08/29/2024: Dose of levothyroxine reduced from 125 mcg 6-1/2 pills a week to 112 mcg 6-1/2 also week. She takes half a pill on Tuesdays. takes it 3 to 4 am in the morning and then goes back to sleep. s/p right colectomy June 2023 Weight stable. reports some night sweats again. does go between loose stools. some incontinence recently. Patient currently denies hair loss (improved now), palpitation, anxiety, weight changes, mood changes, low energy, changes in appearance of eyes or vision changes, tremors, increased diaphoresis. ?some dry skin no headaches or visions chnages No change in ring size or shoe size no nipple discharge Patient denies any pain on swallowing or voice changes or difficulty breathing. reports intermittent difficult swallowing. Patient denies any history of childhood neck radiation. Denies having ever used lithium, amiodarone or biotin supplements. Patient denies any family history of thyroid disease. 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 Interval history August 2024 dose of levothyroxine reduced to 112 mcg 6-1/2 pills a week 10/17/2024: TSH 0.62, free T4-1 4, total T3 73 12/12/2024: TSH 4.58, free T4 1.05, total T3 75 Physical exam General: sitting comfortably in no acute distress Cardiac: normal heart sounds Pulm: normal breath sounds B/L, no added breath sounds Abd: not distended, Neuro: AAO x3, Speech: normal, no facial droop, moving all 4 extremities Laboratory Tests 12/23/23 03/08/24 05/31/24 14:38 11:28 10:13 TSH 0.08 L 0.15 L 0.05 L Free T4 1.59 1.28 1.52 Total T3 94 102 08/22/24 10:17 TSH 0.06 L Free T4 1.33 Total T3 73 L Laboratory Tests 10/17/24 13:47 TSH 0.62 Free T4 1.24 Total T3 73 L Laboratory Tests 12/12/24 10:06 TSH 4.58 H Free T4 1.05 Total T3 75 L MR BRAIN WITHOUT CONTRAST 02/17/24 CLINICAL INFORMATION: Unsteadiness on feet. COMPARISON: None available. TECHNIQUE: MRI of the brain was obtained using routine sequences without contrast. FINDINGS: No focal restricted diffusion is demonstrated to suggest acute or subacute cerebral ischemia. No evidence of acute or chronic hemorrhagic products on heme-sensitive imaging. Scattered periventricular and deep white matter T2 FLAIR hyperintensities consistent with mild underlying microangiopathy. Proportional prominence of the ventricles and sulcal spaces without evidence of obstructive hydrocephalus. No abnormal mass effect. No midline shift. Normal appearance of the pituitary gland. Normal positioning of the cerebellar tonsils. Normal arterial and venous vascular flow voids are present. Normal, homogeneous marrow signal. Mild mucosal thickening of the paranasal sinuses. No signal abnormalities within the mastoids. MR/MR head/brain wo con IMPRESSION: 1. No acute intracranial abnormalities. 2. Mild underlying microangiopathy and generalized cerebral volume loss. Electronically signed by: Jarod Vuong DO 03/15/2024 06:45 AM [facility] EXAMINATION: US THYROID 10/05/24 HISTORY: E03.9 - Hypothyroidism, unspecified TECHNIQUE: Real-time grayscale ultrasound imaging was performed and images were reviewed. COMPARISON: There are no prior studies available for comparison. FINDINGS: SIZE: The right thyroid lobe measures 4.0 x 1.7 x 1.3 cm. The left thyroid lobe measures 3.4 x 1.0 x 1.0 cm. The isthmus measures 6 mm. FLOW: Flow to the gland is normal. ECHOGENICITY: The echotexture of the gland is markedly heterogeneous. NODULES: No discrete nodules are identified. US/US thyroid IMPRESSION: Markedly heterogeneous thyroid echotexture. No discrete nodules are identified. PFSH Medical History Excessive daytime sleepiness Snoring Ocular migraine Obstructive sleep apnea Cervical dystonia Cervicalgia Gait instability Family history of gene mutation Colon cancer Family history of anesthesia complication COPD (chronic obstructive pulmonary disease) Cecal lesion RBBB (right bundle branch block) Bifascicular block Polycythemia CAD (coronary artery disease) GERD (gastroesophageal reflux disease) Sleep apnea Hypothyroidism Hyperlipidemia Hypertension Personal history of nicotine dependence Surgical History Hx of dilation and curettage H/O colonoscopy History of tonsillectomy History of lumpectomy of right breast History of tubal ligation History of cholecystectomy History of bladder surgery History of hysterectomy Family History Sister Cancer of kidney Psoriasis Arthritis Lupus Blood clot in vein Acute Crohn's disease Substance abuse Father Atherosclerosis Substance abuse Aortic aneurysm Mother Substance abuse Maternal Aunt Substance abuse Paternal Grandfather No problems noted. Social History Household Members: Significant Other Housing: House Are you a primary home care physical therapist to a significant other at home: No Do you presently have visiting nurse or other home services: No Comment: counts correct Patient Tobacco Use Status: Current someday Tobacco user Tobacco use type: Cigarette Cigarette Packs Per Day: 1 Years Smoked: 61 e-Cigarette/Vaping Use: Never Used Second Hand Smoke Exposure: No service: No Current occupational status: retired Current occupational exposures/hazards: No Cognitive needs: No Hearing needs: No Vision needs: Yes (Patient wears reading glasses.) Assessment & Plan Assessment & Plan (1) Hypothyroidism: Comment: (hashimotos) Code(s): E03.9 - Hypothyroidism, unspecified Category: Medical Qualifiers: 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 Most recent labs from August 2024 showed TSH was still low at TSH 0.06, low, free T4 is normal at 1.33, interestingly total T3 was on the lower side at 73. 08/29/2024: Dose of levothyroxine reduced from 125 mcg 6-1/2 pills a week to 112 mcg 6-1/2 also week. She takes half a pill on Tuesdays. 10/17/2024: TSH 0.62, free T4-1 4, total T3 73 12/12/2024: TSH 4.58, free T4 1.05, total T3 75 Total T3 can have a lot of variation depending on nutritional intake that day, that is why we do not use it to dose levothyroxine. However it is interesting to keep in mind the total T3 was on the lower side, making us think about possibly central hypothyroidism. She did have an MRI of her brain February 2024 which showed a normal pituitary. She does not have any other symptoms to suggest pituitary dysfunction at this time. Plus her TSH has gone up on most recent labs. At this point given her age I am okay with a TSH where it sat right now. We do expect some TSH elevations in patients greater than 70 years old. For now we will continue the same dose. She is doing well on it. 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
--- OUTSIDE RECORDS SUMMARY | 2024-12-18 11:45 | XMS_ITS | Clinical Summary ---
Author Organization [facility] Address [address] [place] [address] Phone Care Team Providers Care Director Of Diversity And Inclusion Name Role Phone Pcp, Unknown Primary Care [...] file Insurance [employer] JACK NEGRO [id number] MEDICARE REPLACEMENT MEDICARE REPLACEMENT MEDICARE REPLACEMENT MEDICARE REPLACEMENT MEDICARE REPLACEMENT MEDICARE REPLACEMENT MEDICARE REPLACEMENT [employer] Care Teams Director Of Diversity And Inclusion Relationship Specialty Start Date End Date Pcp, Unknown PCP - General 01/16/21 Additional Source Comments The information contained in this document represents components of the legal health record. It is not the complete legal health record.[facility]
--- OUTSIDE RECORDS SUMMARY | 2024-12-18 11:45 | XMS_ITS | Clinical Summary ---
Author Organization [facility] Address [address] [place] [address] Care Team Providers Care Button Maker Name Role Phone Jordan Brandon Primary Care Provider [phone] Allergies Active Allergy Reactions Criticality Noted Date [...] patient. Osteopenia 01/25/2015 Overview (12/23/2016): 01/2015. BD([facility]). L/S Spine -0.5. Hip(Neck) -1.5. [...] Problem Noted Date Diagnosed Date Resolved Date [id number] 07/21/2018 08/09/2018 Overview (07/21/2018): 07/2018. Dr. Kimball. [...] this topic Procedures * Due to [place] [employer] law, this organization might not be sharing [...] Health Maintenance Results * Due to [place] [employer] law, this organization might not be sharing negative HIV tests. * HM Mammography, Bilateral (12/10/2020) Anatomical Region Laterality Modality Other 12/10/2020 us Unknown Provider MD HEALTH MAINTENANCE Final Res ult * Basic Metabolic Panel (07/22/2020 10:34 AM EDT) Glucose 92 65 - 99 mg/dL 07/22/2020 5:38 PM EDT [facility] Comment: Fasting reference interval BUN 14 7 - 25 mg/dL 07/22/2020 5:38 PM EDT [facility] Creatinine 0.78 0.60 - 0.93 mg/dL 07/22/2020 5:38 PM EDT [facility] Comment: For patients >49 years of age, the reference limit for Creatinine is approximately 13% higher for people identified as -Macanese. eGFR Non- 75 > OR = 60 mL/min/1 .73m2 07/22/2020 5:38 PM EDT [facility] eGFR 87 > OR = 60 mL/min/1 .73m2 07/22/2020 5:38 PM EDT [facility] Bun/Creatinine Ratio NOT APPLICABLE (calc) 07/22/2020 5:38 PM EDT [facility] Sodium 141 135 - 146 mmol/L 07/22/2020 5:38 PM EDT [facility] Potassium 4.6 3.5 - 5.3 mmol/L 07/22/2020 5:38 PM EDT [facility] Chloride 103 98 - 110 mmol/L 07/22/2020 5:38 PM EDT [facility] Carbon Dioxide 29 20 - 32 mmol/L 07/22/2020 5:38 PM EDT [facility] Calcium 10.2 8.6 - 10.4 mg/dL 07/22/2020 5:38 PM EDT [facility] Blood Structure of peripheral vein / Unknown 07/22/2020 10:34 AM EDT 07/22/2020 4:17 PM EDT Narrative [facility] - 07/22/2020 6:46 PM EDT FASTING:YES us [place] Napoles MD LAB BLOOD ORDERABLES Fin al Result [facility] [address], [place] [address], [facility] [address] [place] [address] * Hepatitis C Antibody w/Reflex to PCR (01/24/2019 9:50 AM EDT) Hepatitis C Antibody NON-REACT MEI NON-REACT MEI 01/24/2019 8:44 PM EDT [facility] Signal To Cut-Off 0.02 <1.00 01/24/2019 8:44 PM EDT [facility] Comment: HCV antibody was non-reactive. There is no laboratory evidence of HCV infection. In most cases, no further action is required. However, if recent HCV exposure is suspected, a test for HCV RNA (test code 80921) is suggested. For additional information please refer to [email or web address] [email or web address]/[email or web address] (This link is being provided for informational/ educational purposes only.) Blood specimen (specimen) Structure of peripheral vein / Unknown 01/24/2019 9:50 AM EDT 01/24/2019 5:08 PM EDT Narrative [facility] - 01/24/2019 9:22 PM EDT FASTING:YES us [place] Nap[place] MD LAB BLOOD ORDERABLES Fin al Result [facility] [address] [facility] [address], [place] [address], [place] [phone] [facility] [address] [place] [address] * COLONOSCOPY (01/24/2019) Narrative Procedure Note Arsen [...] Relevant to Health Maintenance Insurance [employer] [id number] [facility] Advance Directives Documents on File Type Date Recorded Patient Controlled [employer] Expl anation Health Care Proxy 08/01/2018 11:58 AM /12/2018 Care Teams Button Maker Relationship Specialty Start Date End Date Jordan Brandon [address] [place] [address] [place] [address] PCP - General Internal Medicine 01/27/21
--- OUTSIDE RECORDS SUMMARY | 2024-12-18 11:45 | XMS_ITS | Patient Health Record ---
Author Organization [facility] Address [address] [place] [address] Care Team Providers Care Director Professional Services Name Role Phone Sukhdev Layne Primary Care Provider Karsten Mena [phone] Allergies Allergen (clinical drug ingredient) Drug/Non Drug [...] Problem Status W/U Status Risk Notes Problem 633722257 Colon cancer screening (Z12.11) Active confirmed Problem 028189779 History of adenomatous polyp of colon (Z86.010) Active confirmed Problem Diverticular disease of colon (093987622) Diverticulosis of large intestine without perforation or abscess without bleeding (K57.30) Active confirmed Problem Gastroesophageal reflux disease (862824794) GERD (gastroesophageal reflux disease) (K21.9) Active confirmed Problem 29430007 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) Active confirmed Problem Adenocarcinoma of cecum (712807275) 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 Vital Signs Blood pressure diastolic 77 mm Hg 09/05/2024 Height 5 ft 8 in in 09/05/2024 Blood pressure systolic 111 mm Hg 09/05/2024 Weight 149 lbs 09/05/2024 BMI 22.65 kg/m2 09/05/2024 Procedures Procedure Date Ordered Date Performed Result Body Sit e UPPER GI ENDOSCOPY 09/05/2024 N/A COLONOSCOPY 09/05/2024 N/A Encounters Encounter Location Date Provider Diagnosis [facility] [address] [place] [phone] 09/05/2024 Karsten Saunders Adenocarcinoma of ce cum C18.0 ; GERD (gastroesophageal reflux disease) K21.9 and Colon cancer screening Z12.11 [facility] [address] [place] [phone] 09/06/2024 Karsten Saunders Assessments Encounter Date Diagnosis [...] Provider Name:Karsten Saunders , 01/19/2025 09:00:00 AM, [address] [place] [address] , [place], [place], [id number], Insurance Providers Payer Name Payer Address Payer Phone Subscriber Number Group Number Insured Name Patient Relationship to Insured Coverage Start Date Coverage End Date [facility] [address] [place] [phone] [id number] PAULINE VILLALBA Self - patient is the insured Medical (General) History Medical History History ICD Code HTN Urinary incontinence GERD Denies [place],DM,CVA,Lung disease,renal dise ase IBS Aramis's with subsequent hypothyroidi sm Hyperlipidemia Right bundle branch block; r eports a negative Nuclear stress test in [address] Vogel Colonoscopies in 2012 and in 2018 at [facility] with removal of small tubular adenomas. [...]
--- OUTSIDE RECORDS SUMMARY | 2024-12-18 11:45 | XMS_ITS | Patient Health Record ---
Author Organization [facility] Address [address] [place], [place] [id number] Care Team Providers Care Spoke Maker Name Role Phone Yesika WING, [place] Primary Care Provider Charlee Jose Meng Unavailable [phone] Castillo Dailey Unavailable Unavailable Reason For Referral No Information Plan Of Treatment No Information Insurance Providers Payer Name Payer Address Payer Phone Subscriber Number Group Number Insured Name Patient Relationship to Insured Coverage Start Date Coverage End Date [employer] [facility] [employer] [facility] [address] [address] [place] [address] [id number] Tatiana Rawls Self - patient is the insured
== END 2024-12-18 10:00 | disposition home or self-care (01) ==
LOC: HO.ENCR 09:40
PROVIDERS: PCP Family Medicine; Visit Provider Student in an Organized Health Care Education/Training Program
DX: E06.3 Autoimmune thyroiditis (principal)
CPT/HCPCS: 99213

== ENCOUNTER → 2024-12-18 09:39 | Outpatient (BNVA) | payer MEDICARE, SELFPAY | PROVIDERS: PCP Family Medicine; Visit Provider Student in an Organized Health Care Education/Training Program | DX: E06.3 Autoimmune thyroiditis (principal) | CPT/HCPCS: 99212 ==

== ENCOUNTER 2025-01-19 07:45 | Day surgery (SDC) | payer MEDICARE, SELFPAY ==
--- OUTSIDE RECORDS SUMMARY | 2024-11-24 08:07 | XMS_ITS | Clinical Summary ---
Author Organization [facility] Address [address] [place] [address] Care Team Providers Care Garment Mender Name Role Phone Jordan Brandon Primary Care Provider [phone] Allergies Active Allergy Reactions Criticality Noted Date [...] averse patient. Osteopenia 01/25/2015 Overview (12/23/2016): 01/2015. BD([facility]). L/S Spine -0.5. Hip(Neck) -1.5. [...] Problem Noted Date Diagnosed Date Resolved Date Sbfpelf-ft-tid 07/21/2018 08/09/2018 Overview (07/21/2018): 07/2018. Dr. Kimball. [...] of Health Annual Screening 04/05/2024 Influenza Vaccine (#1) 2024 Hepatitis C Screening Completed 01/24/2019 Mammogram Discontinued 12/10/2020, 09/03, 07/23/2016, Additional history exists Hepatitis B Vaccines Aged Out No long er eligible based on patient's age to complete this topic Procedures * Due to [place] Q-Bot law, this organization might not be sharing [...] to Health Maintenance Results * Due to [place] Q-Bot law, this organization might not be sharing negative HIV tests. * HM Mammography, Bilateral (12/10/2020) Anatomical Region Laterality Modality Other 12/10/2020 us Unknown Provider MD HEALTH MAINTENANCE Final Res ult * Basic Metabolic Panel (07/22/2020 10:34 AM EDT) Glucose 92 65 - 99 mg/dL 07/22/2020 5:38 PM EDT [employer] Comment: Fasting reference interval BUN 14 7 - 25 mg/dL 07/22/2020 5:38 PM EDT [employer] Creatinine 0.78 0.60 - 0.93 mg/dL 07/22/2020 5:38 PM EDT [employer] Comment: For patients >49 years of age, the reference limit for Creatinine is approximately 13% higher for people identified as -Filipino. eGFR Non- 75 > OR = 60 mL/min/1 .73m2 07/22/2020 5:38 PM EDT [employer] [facility] eGFR 87 > OR = 60 mL/min/1 .73m2 07/22/2020 5:38 PM EDT [employer] [facility] Bun/Creatinine Ratio NOT APPLICABLE (calc) 07/22/2020 5:38 PM EDT [employer] [facility] Sodium 141 135 - 146 mmol/L 07/22/2020 5:38 PM EDT [employer] [facility] Potassium 4.6 3.5 - 5.3 mmol/L 07/22/2020 5:38 PM EDT [employer] [facility] Chloride 103 98 - 110 mmol/L 07/22/2020 5:38 PM EDT [employer] [facility] Carbon Dioxide 29 20 - 32 mmol/L 07/22/2020 5:38 PM EDT [employer] [facility] Calcium 10.2 8.6 - 10.4 mg/dL 07/22/2020 5:38 PM EDT [employer] [facility] Blood Structure of peripheral vein / Unknown 07/22/2020 10:34 AM EDT 07/22/2020 4:17 PM EDT Narrative [facility] - 07/22/2020 6:46 PM EDT FASTING:YES us Lake Napoles MD LAB BLOOD ORDERABLES Fin al Result [facility] [address], [place] [address], [employer] [facility] [address] [place] [address] * Hepatitis C Antibody w/Reflex to PCR (01/24/2019 9:50 AM EDT) Hepatitis C Antibody NON-REACT MEI NON-REACT MEI 01/24/2019 8:44 PM EDT [employer] [facility] Signal To Cut-Off 0.02 <1.00 01/24/2019 8:44 PM EDT [employer] [facility] Comment: HCV antibody was non-reactive. There is no laboratory evidence of HCV infection. In most cases, no further action is required. However, if recent HCV exposure is suspected, a test for HCV RNA (test code 78304) is suggested. For additional information please refer to http://[employer]SmartThings/faq/ZSG06c3 (This link is being provided for informational/ educational purposes only.) Blood specimen (specimen) Structure of peripheral vein / Unknown 01/24/2019 9:50 AM EDT 01/24/2019 5:08 PM EDT Narrative [facility] - 01/24/2019 9:22 PM EDT FASTING:YES us Lake Napoels MD LAB BLOOD ORDERABLES Fin al Result [facility] [address], [place] [address], [place] [phone] [facility] [address] [place] [address] * COLONOSCOPY (01/24/2019) Narrative Procedure Note Arsen [...] Relevant to Health Maintenance Insurance ANISH WEAVER [id number] [facility] Advance Directives Documents on File Type Date Recorded Patient Assembler Body Expl anation Health Care Proxy 08/01/2018 11:58 AM /12/2018 Care Teams Garment Mender Relationship Specialty Start Date End Date Jordan Brandon [address] [place] [address] [place] [address] PCP - General Internal Medicine 01/27/21
--- OUTSIDE RECORDS SUMMARY | 2024-11-24 08:07 | XMS_ITS | Patient Health Record ---
Author Organization [facility] Address [address] [place] [address] Care Team Providers Care Headstart Teacher Name Role Phone Sukhdev Layne Primary Care Provider Karsten Mena [phone] Allergies Allergen (clinical drug ingredient) Drug/Non Drug [...] Problem Status W/U Status Risk Notes Problem 893577163 Colon cancer screening (Z12.11) Active confirmed Problem 664072950 History of adenomatous polyp of colon (Z86.010) Active confirmed Problem Diverticular disease of colon (047596716) Diverticulosis of large intestine without perforation or abscess without bleeding (K57.30) Active confirmed Problem Gastroesophageal reflux disease (666686690) GERD (gastroesophageal reflux disease) (K21.9) Active confirmed Problem 33522896 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) Active confirmed Problem Adenocarcinoma of cecum (921135798) 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 Vital Signs Blood pressure diastolic 77 mm Hg 09/05/2024 Height 5 ft 8 in in 09/05/2024 Blood pressure systolic 111 mm Hg 09/05/2024 Weight 149 lbs 09/05/2024 BMI 22.65 kg/m2 09/05/2024 Procedures Procedure Date Ordered Date Performed Result Body Sit e UPPER GI ENDOSCOPY 09/05/2024 N/A COLONOSCOPY 09/05/2024 N/A Encounters Encounter Location Date Provider Diagnosis [facility] [address] [place] [phone] 09/05/2024 Karsten Saunders Adenocarcinoma of ce cum C18.0 ; GERD (gastroesophageal reflux disease) K21.9 and Colon cancer screening Z12.11 [facility] [address] [place] [phone] 09/06/2024 Karsten Saunders Assessments Encounter Date Diagnosis [...] Provider Name:Karsten Saunders , 01/19/2025 09:00:00 AM, [address] [place] [address] , [place], [place], [phone], Insurance Providers Payer Name Payer Address Payer Phone Subscriber Number Group Number Insured Name Patient Relationship to Insured Coverage Start Date Coverage End Date [facility] [address] [place] [phone] [id number] PAULINE VILLALBA Self - patient is the insured Medical (General) History Medical History History ICD Code HTN Urinary incontinence GERD Denies ND,DM,CVA,Lung disease,renal dise ase IBS Aramis's with subsequent hypothyroidi sm Hyperlipidemia Right bundle branch block; r eports a negative Nuclear stress test in [address] Vogel Colonoscopies in 2012 and in 2018 at [facility] with removal of small tubular adenomas. [...]
--- OUTSIDE RECORDS SUMMARY | 2024-11-24 08:08 | XMS_ITS | Patient Health Record ---
Author Organization [facility] Address [address] [place], [place] [phone] Care Team Providers Care Field Representative Name Role Phone Yesika WING, Lake Primary Care Provider Charlee Jose Meng Unavailable [phone] Castillo Dailey Unavailable Unavailable Reason For Referral No Information Plan Of Treatment No Information Insurance Providers Payer Name Payer Address Payer Phone Subscriber Number Group Number Insured Name Patient Relationship to Insured Coverage Start Date Coverage End Date [employer] [facility] [address] [address] [place] [id number] Tatiana Rawls Self - patient is the insured
--- OUTSIDE RECORDS SUMMARY | 2024-11-24 08:08 | XMS_ITS | Clinical Summary ---
Author Organization [facility] Address [address] [place] [address] Phone Care Team Providers Care Phone Representative Name Role Phone Pcp, Unknown Primary Care [...] file Insurance [employer] [place]ACK [place]GRO [id number] MEDICARE REPLACEMENT MEDICARE REPLACEMENT MEDICARE REPLACEMENT MEDICARE REPLACEMENT MEDICARE REPLACEMENT MEDICARE REPLACEMENT MEDICARE REPLACEMENT [employer] Care Teams Phone Representative Relationship Specialty Start Date End Date Pcp, Unknown PCP - General 01/16/21 Additional Source Comments The information contained in this document represents components of the legal health record. It is not the complete legal health record.[facility]
--- NOTE | 2025-01-17 09:22 | P.CONAN_ITS ---
Documented by User: Jenny Ordoñez NP 01/17/25 09:29 HPI - Anesthesia Eval Consult details Narrative: 79 yr old female for Upper Endoscopy and Colonoscopy RA COPD: still smoking AAA & carotid artery stenosis: follows with [facility], Dr. Lewis recommends annually surveillence for AAA, 3.2 cm; no further screening needed for carotids per 07/2024 note Atherosclerotic heart disease: follows with [facility] cards, last visit 06/2024, no further testing recommended at that time. [facility] Active Problems Active Problems: All Active Problems (Updated 11/03/24 @ 15:58 by Jay Bobby) Low vitamin B12 level (Acute) Low vitamin D level (Acute) H/O Aramis thyroiditis (Acute) Cervical spondylolysis (Acute) Smoker (Acute) Excessive daytime sleepiness (Acute) Snoring (Acute) Ocular migraine (Acute) Obstructive sleep apnea (Acute) Cervical dystonia (Acute) Cervicalgia (Acute) Gait instability (Acute) Abnormal brain MRI (Acute) Abnormal urine (Acute) Elevated liver enzymes (Acute) Unsteadiness (Acute) Thoracic disc herniation (Acute) CAD (coronary artery disease) (Acute) Pre-operative clearance (Acute) Compression fracture of T8 vertebra (Acute) Wound infection (Acute) Mid back pain on right side (Acute) Abdominal aortic aneurysm (Acute) Carotid bruit (Acute) Family history of gene mutation (Acute) Colon cancer (Acute) S/P right colectomy (Acute) Encounter for abdominal aortic aneurysm (AAA) screening (Acute) Varicose veins of right lower extremity with inflammation (Acute) Varicose veins of lower extremity (Acute) Cataract (Acute) Rib pain (Acute) Osteoporosis (Acute) Back pain (Acute) Hiccups (Acute) Screening for osteoporosis (Acute) Rash (Acute) Breast cancer screening by mammogram (Acute) Screening for colon cancer (Acute) Polycythemia (Acute) Adult general medical exam (Acute) Difficulty swallowing (Acute) Eczema (Acute) Costochondritis (Acute) Laboratory exam ordered as part of routine general medical examination (Acute) Bifascicular block (Acute) CAD (coronary artery disease) (Acute) Vulvovaginitis (Acute) Hypertension (Acute) Hypothyroidism (Acute) Hyperlipidemia (Acute) Personal history of nicotine dependence (Acute) Past Medical History Medical History AAA (abdominal aortic aneurysm) Excessive daytime sleepiness Snoring Ocular migraine Obstructive sleep apnea Cervical dystonia Cervicalgia Gait instability Family history of gene mutation Colon cancer Family history of anesthesia complication COPD (chronic obstructive pulmonary disease) Cecal lesion RBBB (right bundle branch block) Bifascicular block Polycythemia CAD (coronary artery disease) GERD (gastroesophageal reflux disease) Sleep apnea Hypothyroidism Hyperlipidemia Hypertension Personal history of nicotine dependence Family History Family History Sister Cancer of kidney Psoriasis Arthritis Lupus Blood clot in vein Acute Crohn's disease Substance abuse Father Atherosclerosis Substance abuse Aortic aneurysm Mother Substance abuse Maternal Aunt Substance abuse Paternal Grandfather No problems noted. Family history of problems with anesthesia: Yes (Sisters PONV) Surgical History Surgical History History of colon resection Hx of dilation and curettage H/O colonoscopy History of tonsillectomy History of lumpectomy of right breast History of tubal ligation History of cholecystectomy History of bladder surgery History of hysterectomy History of Problems with Anesthesia: No Social History Social History Household Members: Significant Other Housing: House Are you a primary director medicare sales to a significant other at home: No Do you presently have visiting nurse or other home services: No Comment: counts correct Patient Tobacco Use Status: Current everyday Tobacco user Tobacco use type: Cigarette Cigarette Packs Per Day: 1 Years Smoked: 61 e-Cigarette/Vaping Use: Never Used Second Hand Smoke Exposure: No Are you DNR?: No Advance Directives: No Advance Directives Information Provided: Yes service: No Current occupational status: retired Current occupational exposures/hazards: No Cognitive needs: No Hearing needs: No Vision needs: Yes (Patient wears reading glasses.) Meds Allergies Allergy/AdvReac Type Severity Reaction Status Date / Time Sulfa (Sulfonamide Allergy Severe Rash Verified 12/18/24 09:52 Antibiotics) amoxicillin (From Augmentin) Allergy Intermediate Nausea and Verified 12/18/24 09:52 Vomiting clavulanic acid (From Allergy Intermediate Nausea and Verified 12/18/24 09:52 Augmentin) Vomiting shellfish derived Allergy Intermediate Nausea and Verified 12/18/24 09:52 Vomiting turmeric Allergy Intermediate Vomiting Verified 12/18/24 09:52 narcotic pain medications AdvReac Intermediate Nausea and Uncoded 12/18/24 09:52 Vomiting Home Medications ?Medication ?Instructions ?Recorded ?Confirmed ?Last Taken ?Type cholecalciferol (vitamin D3) 50 50 mcg PO QAM 11/09/22 01/19/25 06/07/23 History mcg (2,000 unit) capsule coenzyme Q10 75 mg capsule (Ultra 75 mg PO QAM 3 01/19/25 06/07/23 History CoQ10) omega 1-cct-duj-fish oil 1,200 mg 1 cap PO DAILY 11/0901/19/25 06/03/23 History (144 mg-216 mg) capsule (Fish Oil) Exam Narrative Narrative: EKG 06/2024 NSR, rate 78 RBBB Bivasicular block Assessment and Plan Final Anesthetic Review Family History of Problems with Anesthesia: Yes (Sisters PONV) History of Problems with Anesthesia: No Documented by User: Santhosh Emery MD 01/19/25 09:41 [facility] Past Medical History Medical History AAA (abdominal aortic aneurysm) Excessive daytime sleepiness Snoring Ocular migraine Obstructive sleep apnea Cervical dystonia Cervicalgia Gait instability Family history of gene mutation Colon cancer Family history of anesthesia complication COPD (chronic obstructive pulmonary disease) Cecal lesion RBBB (right bundle branch block) Bifascicular block Polycythemia CAD (coronary artery disease) GERD (gastroesophageal reflux disease) Sleep apnea Hypothyroidism Hyperlipidemia Hypertension Personal history of nicotine dependence Functional capacity: independent ambulation Family History Family History Sister Cancer of kidney Psoriasis Arthritis Lupus Blood clot in vein Acute Crohn's disease Substance abuse Father Atherosclerosis Substance abuse Aortic aneurysm Mother Substance abuse Maternal Aunt Substance abuse Paternal Grandfather No problems noted. Surgical History Surgical History History of colon resection Hx of dilation and curettage H/O colonoscopy History of tonsillectomy History of lumpectomy of right breast History of tubal ligation History of cholecystectomy History of bladder surgery History of hysterectomy Social History Social History Household Members: Significant Other Housing: House Are you a primary director medicare sales to a significant other at home: No Do you presently have visiting nurse or other home services: No Comment: counts correct Patient Tobacco Use Status: Current everyday Tobacco user Tobacco use type: Cigarette Cigarette Packs Per Day: 1 Years Smoked: 61 e-Cigarette/Vaping Use: Never Used Second Hand Smoke Exposure: No Are you DNR?: No Advance Directives: No Advance Directives Information Provided: Yes service: No Current occupational status: retired Current occupational exposures/hazards: No Cognitive needs: No Hearing needs: No Vision needs: Yes (Patient wears reading glasses.) Meds Allergies Allergy/AdvReac Type Severity Reaction Status Date / Time Sulfa (Sulfonamide Allergy Severe Rash Verified 12/18/24 09:52 Antibiotics) amoxicillin (From Augmentin) Allergy Intermediate Nausea and Verified 12/18/24 09:52 Vomiting clavulanic acid (From Allergy Intermediate Nausea and Verified 12/18/24 09:52 Augmentin) Vomiting shellfish derived Allergy Intermediate Nausea and Verified 12/18/24 09:52 Vomiting turmeric Allergy Intermediate Vomiting Verified 12/18/24 09:52 narcotic pain medications AdvReac Intermediate Nausea and Uncoded 12/18/24 09:52 Vomiting Home Medications ?Medication ?Instructions ?Recorded ?Confirmed ?Last Taken ?Type cholecalciferol (vitamin D3) 50 50 mcg PO QAM 11/09/22 01/19/25 06/07/23 History mcg (2,000 unit) capsule coenzyme Q10 75 mg capsule (Ultra 75 mg PO QAM 3 01/19/25 06/07/23 History CoQ10) omega 7-sme-ttx-fish oil 1,200 mg 1 cap PO DAILY 11/0901/19/25 06/03/23 History (144 mg-216 mg) capsule (Fish Oil) Exam Exam Date and Time: 01/19/25 Airway Mallampati Class: II TM Dist: >3cm Neck ROM: Full Heart: normanormal Lungs: normal Assessment and Plan Assessment Anesthesia Assessment: Anesthesia Plan Discussed Final Anesthetic Review NPO: Yes ASA Class: II Final Preanesthetic Review: No Changes in Pt Med Stat, Meds/Allgs Chart Reviewed, Consent Obtained/Reviewed and Anes Risks/Benef Reviewed Patient Risk: Low Procedure Risk: Low Anesthetic Plan Anesthetic Plan: MAC: Disposition: Standard PACU
[2025-01-17 09:47] VITALS: BMI 23.6
[2025-01-19 07:50] VITALS: BMI 24.0
[2025-01-19 08:03] VITALS: BP 142/74; PULSE 92; RESP 16; TEMP 36.3; O2SAT 98
[2025-01-19] MEDS: Lactated Ringers 1,000 ML 100 ML IVCONT (08:33)
[2025-01-19 10:46] VITALS: BP 110/70; PULSE 80; RESP 16; TEMP 36.5; O2SAT 96
--- NOTE | 2025-01-19 10:52 | P.BOP_ITS ---
Brief Operative Note Date of Service: 01/19/25 Pre-op diagnosis: GERD, Screening Post-op diagnosis: other (Colon polyps, Hiatal hernia, Gastritis) Procedure: EGD with biopsies, Colonoscopy to the anastomosis and SI with hot snare polypectomies Surgeon: Karsten Saunders MD Anesthesia: MAC Was an Director Digital Communications used for this Procedure?: No Estimated blood loss (mL): 2.0 Pathology: other (A. Gastric antrum B. EG Junction at 38cm C. Polyp at 60cm D. Polyps distal to anastomosis E. Rectal polyp) Condition: stable Disposition: PACU
[2025-01-19 11:00] VITALS: BP 115/58; PULSE 80; RESP 16; O2SAT 96
[2025-01-19 11:12] VITALS: BP 127/60; PULSE 64; RESP 18; TEMP 36.5; O2SAT 99
--- NOTE | 2025-01-19 11:55 | OP_ITS ---
DATE OF SERVICE: 01/19/2025 SURGEON: Karsten Saunders MD INDICATIONS: The patient presents for evaluation of gastroesophageal reflux, personal history of colon cancer, and colorectal cancer screening. Full consent has been obtained from her for both procedures, including risks of bleeding and perforation. PREOPERATIVE DIAGNOSIS: POSTOPERATIVE DIAGNOSIS: PROCEDURE PERFORMED: Esophagogastroduodenoscopy with biopsies, and colonoscopy to the anastomosis and small bowel with hot snare polypectomies. ESTIMATED BLOOD LOSS: COMPLICATIONS: ANESTHESIA: Medication used, monitored anesthesia care. ASSISTANTS: SPECIMENS: PREOPERATIVE DIAGNOSES: Personal history of colon cancer, colorectal cancer screening, history of gastroesophageal reflux. POSTOPERATIVE DIAGNOSES: Personal history of colon cancer, colorectal cancer screening, history of gastroesophageal reflux, small hiatal hernia, gastritis, colon polyps, diverticulosis, internal hemorrhoids. DESCRIPTION OF PROCEDURE: The patient was placed in the left lateral decubitus position. The Olympus video gastroscope was passed in the posterior oropharynx and upper esophagus under direct vision. The scope was passed slowly to the distal esophagus. The gastroesophageal junction appeared at 38 cm. There was some slight irregularity consistent with chronic reflux and possibly small, less than 1 cm areas of Greene's mucosa. There was no esophagitis nor any lesions. The scope entered the stomach. There was a small hiatal hernia. The scope was advanced to the pylorus and the duodenum was cannulated to the descending portion. The duodenum including the bulb appeared normal without mass or ulceration. The scope was withdrawn back to the stomach. The gastric antrum and body had areas of erythema and edema, but no erosions or ulceration. There was good peristalsis. Biopsies were obtained from the antrum. The scope was retroflexed visualizing the proximal stomach carefully, which appeared normal, without any sign of mass or ulceration. The scope was straightened and withdrawn back to the esophagus. Biopsies were obtained at the EG junction at 38 cm. Proximal to this, the esophageal mucosa appeared normal. The scope was withdrawn from the patient. She was turned around for the colonoscopy. The digital rectal exam revealed no abnormalities. The Olympus video pediatric colonoscope was entered into the rectum and advanced easily to the anastomosis. The small bowel was cannulated and appeared normal. The scope was withdrawn back in the colon. The anastomosis was well visualized and appeared normal. The scope was then slowly withdrawn assessing all mucosal surfaces carefully. After a lot of irrigation and suctioning, the preparation throughout the colon became very good although there were still some small areas of stool covering the mucosa that could not be visualized completely. However, the great majority of the colon was visualized well. Just distal to the anastomosis were 3 polyps, all were approximately 10 mm in diameter and were all removed by hot snare polypectomy. These were recovered by suction. The polypectomy sites appeared clean, without any sign of residual polyp nor bleeding. At 60 cm was an approximately 10 mm polyp, which was removed by hot snare polypectomy and recovered by suction. The polypectomy site appeared clean, without any sign of residual polyp nor bleeding. There was a mild amount of sigmoid diverticulosis. In the rectum were several polyps between 6 and 8 mm in diameter, which were all removed by hot snare polypectomy. Some of these were seen best in the retroflexed position in the distal rectum. All the polypectomy sites appeared clean, without any sign of residual polyp nor bleeding. After suctioning all the liquid from the rectum, only 1 piece of tissue was obtained. The scope was withdrawn from the patient. She tolerated both procedures well and was returned to the recovery area in stable condition. IMPRESSION: 1. Colon polyps. 2. Diverticulosis. 3. Internal hemorrhoids. 4. Hiatal hernia, gastroesophageal reflux. 5. Gastritis. PLAN: The results of the pathology will be checked. She has been advised not to use any aspirin, NSAIDs, nor fish oil for 1 week. I would recommend a repeat colonoscopy theoretically in 2 years depending upon her clinical status given her age, the history of colon cancer last year and today's findings. She was advised to continue her daily omeprazole. She will see me otherwise on a p.r.n. basis. This has been discussed with her in detail. MD STEPHIE Oliva/LISANDRA / [id number] MTDD
== END 2025-01-19 11:25 | disposition home or self-care (01) ==
PROVIDERS: PCP Family Medicine; Visit Provider Internal Medicine
PROC: (CPT 45385; principal; 2025-01-19 09:00)
DX: Z12.11 Encounter for screening for malignant neoplasm of colon (principal); Z85.038 Personal history of other malignant neoplasm of large intestine; Z86.0101 Personal history of adenomatous and serrated colon polyps; Z83.719 Family history of colon polyps, unspecified; D12.4 Benign neoplasm of descending colon; K62.1 Rectal polyp; K57.30 Diverticulosis of large intestine without perforation or abscess without bleeding; K64.8 Other hemorrhoids; K21.9 Gastro-esophageal reflux disease without esophagitis; K29.70 Gastritis, unspecified, without bleeding; K44.9 Diaphragmatic hernia without obstruction or gangrene; G47.33 Obstructive sleep apnea (adult) (pediatric); I10 Essential (primary) hypertension; E78.5 Hyperlipidemia, unspecified; I45.10 Unspecified right bundle-branch block; E06.3 Autoimmune thyroiditis; R32 Unspecified urinary incontinence; Z79.82 Long term (current) use of aspirin; Z79.899 Other long term (current) drug therapy; Z88.1 Allergy status to other antibiotic agents; Z88.2 Allergy status to sulfonamides; Z90.49 Acquired absence of other specified parts of digestive tract; F17.210 Nicotine dependence, cigarettes, uncomplicated; Z98.890 Other specified postprocedural states; Z90.710 Acquired absence of both cervix and uterus
CPT/HCPCS: 45385; 43239; 88305; 88313; 88342; J2003; J2371; J2704; J3010

== ENCOUNTER 2025-03-20 10:52 | Outpatient (REF) | payer MEDICARE, SELFPAY ==
--- OUTSIDE RECORDS SUMMARY | 2024-11-27 06:40 | XMS_ITS ---
Author Organization [facility] Address [address] [place] [phone] Care Team Providers Care Log Raft Worker Name Role Phone Sukhdev Layne Primary Care Provider UnavailKarsten Ansari [phone] REASON FOR VISIT screening, adenocarcinoma of cecum, gerd Encounters Encounter Location Date Provider Diagnosis [facility] [place] [address] [place] [phone] 11/27/2024 Karsten Saunders Plan Of Treatment No Information Progress Notes * PAULINE VILLALBA DDOB: [birth year] (80 yo F)Acc No.[id number]:11/27/2024 EGD and COL/MAC Patient: Lucho HO PAULINE Severino Provider: Yohan Saunders MD :1945 A ge:79 Y S ex:Female Date:11/27/2024 Address:[address] [place], [place] [phone] Pcp:Sukhdev Layne Subjective: * Chief Complaints: * S creening, adenocarcinoma of cecum, gerd * The named appointment provid er may or may not be the originator of this progress note, and it is not deemed complete until electronically signed by the appointment provider. Sign off status: Pending * Provider: Yohan Saunders MD Date: 0 11/27/2024 Generated for Jose valentine/Rayg/eTransmitting on: 1 05/21/2024 02:06 PM EST
--- OUTSIDE RECORDS SUMMARY | 2025-01-19 04:00 | XMS_ITS ---
Author Organization [facility] Address [address] [place] [phone] Care Team Providers Care Director Of Trauma Name Role Phone Sukhdev Layne Primary Care Provider UnavailKarsten Ansari [phone] REASON FOR VISIT screening, adenocarcinoma of cecum, gerd Encounters Encounter Location Date Provider Diagnosis [facility] [address] [place] [phone] 01/19/2025 Karsten Saunders Plan Of Treatment No Information Progress Notes * PAULINE VILLALBA DDOB: [birth year] (80 yo F)Acc No.[id number]:01/19/2025 EGD and COL/MAC Patient: Lucho HO PAULINE Severino Provider: Yohan Saunders MD :1945 A ge:79 Y S ex:Female Date:01/19/2025 Address:[address] [place], [place] [phone] Pcp:Sukhdev Layne Subjective: * Chief Complaints: * S creening, adenocarcinoma of cecum, gerd Billing Information: * Procedure Codes: * The named appointment provid er may or may not be the originator of this progress note, and it is not deemed complete until electronically signed by the appointment provider. Sign off status: Pending * Provider: Yohan Saunders MD Date: Generated for Printi ng/Faabisaig/eTransmitting on: 05/21/2024 02:05 PM EST
--- NOTE | ~2025-03-20 | MM_ITS ---
EXAMINATION: DXA BONE DENSITY AXIAL HISTORY: M81.0 - Age-related osteoporosis without current pathological fracture TECHNIQUE: CIVICO Dual energy absorptiometry (DEXA) of the lumbar spine, total left hip, and femoral neck was performed. COMPARISON: Comparison is made with the prior examination dated 03/16/2023. FINDINGS: The bone mineral density of the lumbar spine is 1.097 g/cm2, corresponding to a T-score of -0.6, and a Z-score of 1.1. This is indicative of normal bone mineral density. This represents a BMD change of 3.4% compared to the prior exam. This is statistically significant. The bone mineral density of the left total hip is 0.639 g/cm2, corresponding to a T-score of -2.9, and a Z-score of -1.1. This is indicative of osteoporosis. This represents a BMD change of 14.5% compared to the prior exam. This is statistically significant. The bone mineral density of the left femoral neck is 0.681 g/cm2, corresponding to a T-score of -2.6, and a Z-score of -0.5. This is indicative of osteoporosis. This represents a BMD change of 22.3% compared to the prior exam. FRACTURE RISK: The FRAX index suggests a ten year probability of major osteoporotic fracture of 21.1%, and of hip fracture 10.8%. MM/XR DEXA axial skeleton IMPRESSION: Based on bone mineral density, and according to World Health Organization (WHO) criteria, the diagnosis is consistent with osteoporosis. Statistically, 68% of repeat scans fall within 1 SD (+/- 0.010 g/cm2 for AP spine L1-L4) and 1 SD (+/- 0.012 g/cm2 for femur total) FRAX is a trademark of the [employer]'s [employer] Metabolic Bone Disease, a World Health Organization (WHO) Collaborating Center. Electronically signed by: Karsten Arzola MD 03/20/2025 11:44 AM [facility] [place]
--- OUTSIDE RECORDS SUMMARY | 2025-03-20 14:06 | XMS_ITS | Clinical Summary ---
Author Organization [facility] Address [address] [place] [address] Care Team Providers Care Quality Nurse Name Role Phone Jordan Brandon Primary Care Provider [phone] Allergies Active Allergy Reactions Criticality Noted Date [...] patient. Osteopenia 01/25/2015 Overview (12/23/2016): 01/2015. BD([facility]). L/S Spine -0.5. Hip(Neck) -1.5. Hip(Total) [...] Problem Noted Date Diagnosed Date Resolved Date [id number] 07/21/2018 08/09/2018 Overview (07/21/2018): 07/2018. Dr. Kimball. [...] Screening 04/05/2024 Depression Screening and Follow-Up 04/05/2024 Fall Risk Screening 04/05/2024 Health Care Proxy Review 04/05/2024 Social Drivers of Health Annual Screening 04/05/2024 Influenza Vaccine (#1) 2024 COVID-19 Vaccine ( season) 2024 08/08/2020 Hepatitis C Screening Completed 01/24/2019 Mammogram Discontinued 12/10/2020, 09/03, 07/23/2016, Additional history exists Hepatitis B Vaccines Aged Out No long er eligible based on patient's age to complete this topic Procedures * Due to [place] [employer] law, this organization might not be sharing [...] to Health Maintenance Results * Due to [place] [employer] law, this organization might not be sharing negative HIV tests. * HM Mammography, Bilateral (12/10/2020) Anatomical Region Laterality Modality Other 12/10/2020 us Unknown Provider MD HEALTH MAINTENANCE Final Res ult * Basic Metabolic Panel (07/22/2020 10:34 AM EDT) Glucose 92 65 - 99 mg/dL 07/22/2020 5:38 PM EDT [facility] Comment: Fasting reference interval BUN 14 7 - 25 mg/dL 07/22/2020 5:38 PM EDT [facility] Creatinine 0.78 0.60 - 0.93 mg/dL 07/22/2020 5:38 PM EDT [facility] Comment: For patients >49 years of age, the reference limit for Creatinine is approximately 13% higher for people identified as -[place]. eGFR Non- 75 > OR = 60 mL/min/1 .73m2 07/22/2020 5:38 PM EDT [facility] eGFR 87 > OR = 60 mL/min/1 .73m2 07/22/2020 5:38 PM EDT [facility] Bun/Creatinine Ratio NOT APPLICABLE (calc) 07/22/2020 5:38 PM EDT [facility] Sodium 141 135 - 146 mmol/L 07/22/2020 5:38 PM EDT [facility] Potassium 4.6 3.5 - 5.3 mmol/L 07/22/2020 5:38 PM EDT [facility] Chloride 103 98 - 110 mmol/L 07/22/2020 5:38 PM EDT [facility] Carbon Dioxide 29 20 - 32 mmol/L 07/22/2020 5:38 PM EDT [facility] Calcium 10.2 8.6 - 10.4 mg/dL 07/22/2020 5:38 PM EDT [facility] Blood Structure of peripheral vein / Unknown 07/22/2020 10:34 AM EDT 07/22/2020 4:[address] [facility] - 07/22/2020 6:46 PM EDT FASTING:YES us [place] Napoles MD LAB BLOOD ORDERABLES Fin al Result [facility] [address], [place] [address], [facility] [address] [place] [address] * Hepatitis C Antibody w/Reflex to PCR (01/24/2019 9:50 AM EDT) Hepatitis C Antibody NON-REACT MEI NON-REACT MEI 01/24/2019 8:44 PM EDT [facility] Signal To Cut-Off 0.02 <1.00 01/24/2019 8:44 PM EDT [facility] Comment: HCV antibody was non-reactive. There is no laboratory evidence of HCV infection. In most cases, no further action is required. However, if recent HCV exposure is suspected, a test for HCV RNA (test code 51592) is suggested. For additional information please refer to http://[employer]/faq/CKI74q8 (This link is being provided for informational/ educational purposes only.) Blood specimen (specimen) Structure of peripheral vein / Unknown 01/24/2019 9:50 AM EDT 01/24/2019 5:08 PM EDT Narrative [facility] - 01/24/2019 9:22 PM EDT FASTING:YES us [place] Napoles MD LAB BLOOD ORDERABLES Fin al Result [facility] [address], [place] [address], [facility] [address] [place] [address] * COLONOSCOPY (01/24/2019) Narrative Procedure Note Arsen [...] Most Recently Relevant to Health [place] [id number] [facility] Advance Directives Documents on File Type Date Recorded Patient Mechanical Service Specialist Expl anation Health Care Proxy 08/01/2018 11:58 AM 07/05 Care Teams Quality Nurse Relationship Specialty Start Date End Date Jordan Brandon [address] [place] [address] [place] [address] PCP - General Internal Medicine 01/27/21
--- OUTSIDE RECORDS SUMMARY | 2025-03-20 14:06 | XMS_ITS | Patient Health Record ---
Author Organization [facility] Address [address] [place], [place] [id number] Care Team Providers Care Envelope Stamping Machine Operator Name Role Phone Yesika WING, Lake Primary Care Provider Charlee Jose Meng Unavailable [phone] Castillo Dailey Unavailable Unavailable Reason For Referral No Information Plan Of Treatment No Information Insurance Providers Payer Name Payer Address Payer Phone Subscriber Number Group Number Insured Name Patient Relationship to Insured Coverage Start Date Coverage End Date [facility] [address] [address] [place] [address] [id number] Tatiana Rawls Self - patient is the insured
--- OUTSIDE RECORDS SUMMARY | 2025-03-20 14:06 | XMS_ITS | Clinical Summary ---
Author Organization Located Within [facility] Address [address] [place] [phone] Phone Care Team Providers Care Residential Door Installer Name Role Phone Pcp, Unknown Primary Care [...] file Insurance [employer] JACK NEGRO [id number] MEDICARE REPLACEMENT MEDICARE REPLACEMENT MEDICARE REPLACEMENT MEDICARE REPLACEMENT MEDICARE REPLACEMENT MEDICARE REPLACEMENT MEDICARE REPLACEMENT [employer] Care Teams Residential Door Installer Relationship Specialty Start Date End Date Pcp, Unknown PCP - General 01/16/21 Additional Source Comments The information contained in this document represents components of the legal health record. It is not the complete legal health record.Located Within [facility]
== END 2025-03-20 10:53 | disposition home or self-care (01) ==
LOC: HO.MAMMO 10:52
PROVIDERS: PCP Family Medicine; Visit Provider Family Medicine
DX: Z12.31 Encounter for screening mammogram for malignant neoplasm of breast (principal); M81.0 Age-related osteoporosis without current pathological fracture
CPT/HCPCS: 77063; 77067; 77080

== ENCOUNTER → 2025-03-20 11:30 | Outpatient (BNV) | payer MEDICARE, SELFPAY | PROVIDERS: PCP Family Medicine; Visit Provider Radiology Diagnostic Radiology | DX: E28.39 Other primary ovarian failure (principal) | CPT/HCPCS: 77080 ==